=== PATIENT | female | born 1965 | race Caucasian/White ===

== ENCOUNTER 2020-11-05 12:18 | Emergency (ER) | payer BC, SELFPAY ==
[2020-11-05] VITALS (47 sets, daily range): BP systolic 85–124; BP diastolic 57–83; PULSE 60–81; RESP 9–30; TEMP 36.8; O2SAT 96–100
--- NOTE | ~2020-11-05 | XR_ITS ---
EXAMINATION: XR chest 1V portable 11/05/2020 13:33 INDICATION: Overdose. PROCEDURE: AP portable chest COMPARISON: No prior studies for comparison. FINDINGS: There is right basilar atelectasis. No focal pneumonia, edema, effusion or pneumothorax. Th e cardiomediastinal silhouette is within normal limits. There are no pleural effusions. There is no pneumothorax suspected. IMPRESSION: 1: Right basilar atelectasis. Reviewed, dictated and finalized at location A. SCHOOL VICE PRINCIPAL
--- NOTE | 2020-11-05 12:30 | PC.NURSE ---
patient is here after intentional overdose per her report and EMS report. will continue 1:1 monitoring with sitter at doorway. room has been made safe while patient being monitored due to overdose with ativan. patient on radiation monitor. has SL in right hand. sleepy but awakens easily to verbal stimuli. oriented x 4. aware of current treatment plan.
--- NOTE | 2020-11-05 12:43 | ECG_ITS ---
Measurements Intervals [place] Rate: 73 P: 70 FL: 150 QRS: 17 QRSD: 85 T: 71 QT: 379 QTc: 418 Interpretive Statements SINUS RHYTHM BASELINE ARTIFACT- V6 NORMAL ECG Electronically Signed On 11-05-2020 12:57:09 AVIATION MAINTENANCE TECHNICIAN by James Rich D.O.
[2020-11-05] MEDS: SODIUM CHLORIDE 0.9% IV 1,000 ML 999 ML IV CONT ×2 (12:50→13:45)
--- NOTE | 2020-11-05 12:52 | ED.OVERDOSE ---
HPI - Overdose General Chief Complaint: Overdose Stated Complaint: OD & SI Time Seen by Provider: 11/05/20 12:27 Source: patient Mode of arrival: EMS Limitations: no limitations History of Present Illness HPI Narrative: This patient is a 55 year old female with history of depression, fibromyalgia, and nonHodgkins' follicular lymphoma who presents for evaluation of depression and an overdose. She reports having a history of depression since her diagnosis of cancer 5 years ago. She states she has tried multiple antidepressants but will stop them because she does not think they are working. She reports suicidal ideations for a long time but she has never tried before today. Nursing reports patient admits to them taking multiple doses of ativan over an 8 hour period last night with the intention of not waking up . Nursing staff states patient made statements concerning to her PCP over the phone yesterday. They were unable to get in contact with patient today so they police were called to the house. She states she feels everything would be better if she were not alive. She reports she has felt isolated due to COVID. Her last chemo treatment was December 2019. She gets her care at [facility]. complaint: intentional overdose Related Data Allergies Allergy/AdvReac Type Severity Reaction Status Date / Time rituximab Allergy Intermediate ABDOMINAL Verified 11/05/20 12:58 PAIN Review of Systems Review of Systems: All systems reviewed & are unremarkable except as noted in HPI and below Constitutional: Constitutional: Denies chills and Denies fever(s) ENT: Denies nasal congestion Cardiovascular: Cardiovascular: Denies chest pain Respiratory: Respiratory: Denies cough and Denies dyspnea Gastrointestinal: Gastrointestinal: Denies abdominal pain, Denies nausea and Denies vomiting [facility] Past Medical History Medical History (Updated 11/07/20 @ 00:00 by Sara Wright) Depression Hyperlipemia Non-Hodgkin lymphoma Surgical History Surgical History (Updated 11/05/20 @ 12:59 by Shawna Ruiz MD) H/O: hysterectomy Social History Social History (Updated 11/05/20 @ 13:00 by Shawna Ruiz MD) Smoking status: Never smoker Alcohol intake: never Substance use type: marijuana Exam Const: General: no acute distress and alert Orientation/consciousness: patient oriented x3 HENMT: Head: normocephalic and atraumatic Face and sinus: face symmetric Mouth: Yes Normal oral and palatal mucosa present, Yes lip normal, Yes oropharynx normal and Yes moist mucous membranes Eyes: Pupils: Equal, round and reactive pupils present EOM: EOMs intact bilaterally Resp: Effort & Inspection: normal respiratory effort and no retractions Auscultation: clear to auscultation bilaterally Cardio: Rate: regular rate Rhythm: regular rhythm Heart sounds: no murmurs GI: GI Palp: Yes Soft to palpation, No Tenderness to palpation present (GI) and No Guarding due to palpation present (GI) Auscultation: normal bowel sounds Skin: General skin exam: normal color Rashes: no rashes Neuro: General: patient oriented x3, moves all extremities and CN's II-XI intact bilaterally Course Reevaluation(s) Reevaluation #1: BP 109/78 HR 67 Date: 11/05/20 Time: 14:40 Reevaluation #2: Patient has been stable. she has been ambulatory. She is medically cleared Date: 11/05/20 Time: 18:22 Reevaluation #3: Patient has been assessed by Crisis and she will be placed for inpatient psychiatric evaluation. Care to be turned over to DR. bran . Patient is awaiting covid Date: 11/05/20 Time: 21:09 Vital Signs Vital signs: Vital Signs Pulse Rate 81 11/05/20 12:26 Respiratory Rate 15 11/05/20 12:26 Temperature 98.3 F 11/05/20 12:28 Pulse Rate 83 11/06/20 00:39 Respiratory Rate 18 11/06/20 00:39 Blood Pressure 112/76 11/06/20 00:39 Pulse Oximetry 95 11/06/20 00:39 MDM - Overdose Lab Data At
--- NOTE | 2020-11-05 12:56 | PC.NURSE ---
patient here after taking 10 ativan 1mg tablets overnight. does verbalize she didn't want to wake up . in treatment for 5 years for non-hodgkin's lymphoma. family issues also. Dr. Ruiz in room now. sitter at bedside. precaustions in process. cafeteria supervisor aware. assessments documented. denies pain at this time. warm blankets given. on monitors now due to overdose. will contact Poison Control.
[2020-11-05 13:11] LABS: Basophils Percent Auto 0.5 % (0.2-1.2); Eosinophils Percent Auto 0.4 % (0-4.4); Hematocrit 37.2 % (37.0-47.0); Immature Granulocyte Absolute 0.01 K/mm3 (0.00-0.031); Immature Granulocyte Percent A 0.2 % (0-0.5); Lymphocytes Absolute Auto 1.02 K/mm3 (0.9-3.2); Lymphocytes Percent Auto 17.9 % (18.3-44.2); Mean Corpuscular HGB Conc 34.9 g/dl (32-36); Mean Corpuscular Hemoglobin 34.9 pg (26-34); Mean Platelet Volume 10.1 fl (7.4-10.4); Monocytes Absolute Auto 0.3 K/mm3 (0.1-0.6); Neutrophils Absolute Auto 4.3 K/mm3 (1.3-6.7); Platelet Count Result 203 k/mm3 (150-375); Red Blood Count 3.72 M/mm3 (4.2-5.4); Red Cell Distribution Width 11.9 % (11.5-14.5); White Blood Count 5.7 K/mm3 (4.5-10.0)
[2020-11-05 13:19] LABS: INR 0.9; Prothrombin Time 12.9 Seconds (11.1-14.7)
[2020-11-05 13:20] LABS: Partial Thromboplastin Time 24.3 SECONDS (22.3-36.8)
[2020-11-05 13:28] LABS: Alanine Aminotransferase 14 U/L (4-35); Albumin Level 4.1 g/dL (3.5-5.1); Alkaline Phosphatase 56 U/L (38-126); Anion Gap 6 mmol/L (8-16); Aspartate Amino Transferase 21 U/L (14-36); Bilirubin,Total 0.6 mg/dL (0.2-1.3); Blood Urea Nitrogen 20 mg/dL (7-17); Calcium 9.4 mg/dL (8.4-10.2); Carbon Dioxide 33 mmol/L (22-30); Chloride 98 mmol/L (98-107); Estimated CRCL calculation 59 ml/min; Estimated Glomerular Filt Rate > 60; Glucose 104 mg/dL (65-105); Potassium 4.4 mmol/L (3.4-5.0); Sodium 137 mmol/L (137-145)
--- NOTE | 2020-11-05 13:30 | PC.NURSE ---
continue 1:1 monitoring with sitter at doorway. room has been made safe while patient being monitored due to overdose with ativan. patient on cafeteria monitor. has SL in right hand. sleepy but awakens easily to verbal stimuli. oriented x 4. aware of current treatment plan.
--- NOTE | 2020-11-05 13:45 | PC.NURSE ---
patient's SL in right hand. advised to keep hand straight to help with IVF. IVF now on pump. sitter at doorway. patient on rn cardiac cath.
[2020-11-05 13:47] LABS: Lactic Acid Reflex 0.9 mmol/L (0.7-2.1)
--- NOTE | 2020-11-05 14:05 | PC.NURSE ---
patient's called ED. left message with unit secy that patient did contact him from this ED on her arrival to let him know she is here for treatment but that we did take her cell phone. wants to know why patient is here. patient does given this RN verbal consent to discuss her condition and care with her if he calls back.
[2020-11-05 14:09] LABS: Acetaminophen < 10 ug/mL (10-30); Ethanol < 10 mg/dL (<10); Salicylate < 1.0 mg/dL (2-20)
--- NOTE | 2020-11-05 14:30 | PC.NURSE ---
continue 1:1 monitoring with sitter at doorway. room has been made safe while patient being monitored due to overdose with ativan. 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 has SL in right hand. sleepy but awakens easily to verbal stimuli. oriented x 4. aware of current treatment plan.
--- NOTE | 2020-11-05 15:30 | PC.NURSE ---
continue 1:1 monitoring with sitter at doorway. room has been made safe while patient being monitored due to overdose with ativan. patient on cardiac rn. has SL in right hand. sleepy but awakens easily to verbal stimuli. oriented x 4. aware of current treatment plan.
--- NOTE | 2020-11-05 16:15 | PC.NURSE ---
per Dr. Ruiz, patient is medically cleared. ok to call Crisis. spoke with Anisa at [facility]. she will notify the mgmt consultant intake staff member to come see patient here in the ED.
[2020-11-05 16:16] LABS: Add Urine Microscopic? NO; Appearance Urine Clear (Clear); Bilirubin Urine Negative (Negative); Blood Urine Negative (Negative); Color Urine Yellow (Yellow); Glucose Urine UA Negative (Negative); Ketones Urine Negative (Negative); Leukocyte Esterase Ur Negative LEU/UL (Negative); Nitrate Urine Negative (Negative); Protein Urine Negative (Negative); Specific Grav Ur 1.018 (1.001-1.035); Urobilinogen Urine Negative mg/dL (<2.0)
[2020-11-05 16:27] LABS: Amphetamine Screen Urine Negative (Negative); Barbiturate Screen Urine Negative (Negative); Benzodiazepines Screen Urine Negative (Negative); Cannabinoid Screen Urine Positive (Negative); Cocaine Screen Urine Negative (Negative); Methadone Screen Urine Negative (Negative); Opiate Screen Urine Positive (Negative); Phencyclidine Screen Urine Negative (Negative)
--- NOTE | 2020-11-05 16:30 | PC.NURSE ---
continue 1:1 monitoring with sitter at doorway. room has been made safe while patient being monitored due to overdose with ativan. patient on wrong address clerk. has SL in right hand. sleepy but awakens easily to verbal stimuli. oriented x 4. aware of current treatment plan.
--- NOTE | 2020-11-05 17:30 | PC.NURSE ---
continue 1:1 monitoring with sitter at doorway. room has been made safe while patient being monitored due to overdose with ativan. patient on secured entrance monitor. has SL in right hand. sleepy but awakens easily to verbal stimuli. oriented x 4. aware of current treatment plan.
--- NOTE | 2020-11-05 18:00 | PC.NURSE ---
sleeps most of the time. sitter at doorway. awakens easily. waiting for crisis to come for evaluation. on line technician. orange juice given as requested. denies any other needs.
--- NOTE | 2020-11-05 18:27 | PC.NURSE ---
crisis in room now.
--- NOTE | 2020-11-05 18:30 | PC.NURSE ---
continue 1:1 monitoring with sitter at doorway. room has been made safe while patient being monitored due to overdose with ativan. patient on radiographer cardiac catheterization. has SL in right hand. sleepy but awakens easily to verbal stimuli. oriented x 4. aware of current treatment plan.
--- NOTE | 2020-11-05 18:50 | PC.NURSE ---
spoke with Cas at [facility]. no further treatment recommendations. call with any condition changes. they are signing off the case. case #[id number]. Covid swab done and pending.
--- NOTE | 2020-11-05 19:08 | PC.NURSE ---
spoke with patient's . helpful with some insight into patient's history and current condition. patient has had depression for many years. physician has been adjusting medications in an attempt in the past. states patient did have some success on lexapro. at some point was switched to Effexor but felt numb . then switched to Cymbalta which made her feel suicidal . patient has not been on any antidepressant since then. just left [place] Wednesday to go back to [place] for work. spoke with jian last night on video chat. advised her then to start back on Lexapro. saw her take the pill and advised her to reach out to her PCP.
--- NOTE | 2020-11-05 19:30 | PC.NURSE ---
continue 1:1 monitoring with sitter at doorway. room has been made safe while patient being monitored due to overdose with ativan. 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 has SL in right hand. sleepy but awakens easily to verbal stimuli. oriented x 4. aware of current treatment plan.
--- NOTE | 2020-11-05 19:58 | PC.NURSE ---
patient medically cleared by MD. monitors removed. patient ambulated to restroom. patient allowed to use cellphone now while monitored by [facility] to contact her .
--- NOTE | 2020-11-05 20:30 | PC.NURSE ---
continue 1:1 monitoring with sitter at doorway. room has been made safe while patient being monitored due to overdose with ativan. patient on color television console monitor. has SL in right hand. sleepy but awakens easily to verbal stimuli. oriented x 4. aware of current treatment plan.
--- NOTE | 2020-11-05 21:03 | PC.NURSE ---
SL discontinued. no longer needed. patient has been medically cleared. waiting for placement at inpatient psych facility. patient has been updated a few times. patient's has been updated by this RN and the patient. patient's cell phone back in her belongings bag. patient transferred to room 15 per protocol. sitter at bedside for 1:1 monitoring.
--- NOTE | 2020-11-05 22:23 | PC.NURSE ---
[facility] called and they do not have a room
[2020-11-06 00:39] VITALS: BP 112/76; PULSE 83; RESP 18; O2SAT 95
--- NOTE | 2020-11-06 02:13 | PC.NURSE ---
called [facility] to request transport. ETA [phone]
[2020-11-06 17:42] LABS: SARS-CoV-2 RNA PCR Negative
== END 2020-11-06 03:42 ==
PROVIDERS: Emergency Provider General Practice
DX: F32.9 Major depressive disorder, single episode, unspecified (principal); R45.851 Suicidal ideations; Z20.822 Contact with and (suspected) exposure to COVID-19; E78.5 Hyperlipidemia, unspecified; Z85.71 Personal history of Hodgkin lymphoma
CPT/HCPCS: 36415; 71045; 80053; 80307; 81003; 82948; 83605; 83735; 85025; 85610; 85730; 93005; 96360; 96361; 99285; C9803; J7030; U0003

== ENCOUNTER 2025-04-02 04:03 | Inpatient (IN) | payer MEDICARE, SELFPAY ==
[2025-04-02] VITALS (49 sets, daily range): BP systolic 81–199; BP diastolic 64–142; PULSE 83–140; RESP 14–34; TEMP 36.3–37.1; O2SAT 95–100; BMI 24.3
--- NOTE | ~2025-04-02 | XR_ITS ---
EXAMINATION: XR chest ET placement DATE: 04/02/2025 08:44 INDICATION: Assess endotracheal tube placement TECHNIQUE: frontal view of the chest was obtained. COMPARISON: Chest radiograph dated 04/02/2025 FINDINGS: Endotracheal tube tip is 3.4 cm above the ricky. Nasogastric tube extends below the left hemidiaphr agm with distal tip collimated off the study. Lungs are clear with no focal airspace opacities, pulmonary edema, pleural effusion or pneumothorax. The cardiomediastinal silhouette is normal. Bilateral breast implants. IMPRESSION: 1. Endotracheal tube tip 3.4 cm above the ricky. No acute cardiopulmonary disease. Reviewed, dictated and finalized at location B. IMPRESSION: 1. Endotracheal tube tip 3.4 cm above the ricky. No acute cardiopulmonary dise ase.
--- NOTE | ~2025-04-02 | US_ITS ---
US abdomen limited INDICATION: Elevated liver function test PROCEDURE: Realtime right upper abdominal ultrasound. COMPARISON: No prior studies for comparison. FINDINGS: The pancreas is normal without focal mass or pancreatic ductal dilation. Liver echotexture is normal without focal mass or intrahepatic biliary dilatation. There is normal directional flow i n the portal vein. Gallbladder is moderately distended. Common bile duct measures 3 mm. IMPRESSION: 1: Unremarkable limited abdominal ultrasound. Reviewed, dictated and finalized at location A.
--- NOTE | ~2025-04-02 | XR_ITS ---
EXAMINATION: XR chest 1V portable Exam Date/Time: 04/06/2025 17:27 CDT HISTORY: increased work of breathing Comparison: 04/06/2025. RESULT: Lines, tubes, and devices: Right IJ central line terminating at the cavoatrial junction. Interval ex tubation. Interval NG tube removal. Lungs and pleura: Clear. Cardiomediastinal silhouette: Stable. Other: No acute osseous or upper abdominal finding. IMPRESSION: No acute cardiopulmonary process. Reviewed, dictated and finalized at location K.
--- NOTE | ~2025-04-02 | CT_ITS ---
EXAMINATION: CTA neck DATE: 04/02/2025 09:05 INDICATION: Complaint of throat closing. Wheezing without stridor. TECHNIQUE: Computed tomographic angiography (CTA) of the neck was performed with 100 mL Omnipaque-350 intravenous contrast. Multiplanar reconstructions and maximum intensity projection 3D-reconstruction s were created by the technologist on a separate workstation. Automated exposure control and iterativ e reconstruction technique were employed. The dose-length product was 574.71 mGy-cm. COMPARISON: None. FINDINGS: Small amount of nonhemodynamically significant atherosclerotic plaque along the normal caliber aortic arch with no dissection. The great vessels arising from the arch are unremarkable. The bilateral ext racranial vertebral arteries are codominant with no hemodynamically significant stenosis. There is no evident atherosclerotic plaque with 0% stenosis of the right and left carotid bulbs relative to norm al distal artery lumen diameter (NASCET criteria). Endotracheal tube terminates in the thoracic trach ea at approximately level of the midpoint of the aortic arch. Nasogastric tube extends caudally along the esophagus and below the inferior margin of the [id number]-up-hypy. Visualized upper lungs are clear. There is some fluid/mucus layering posteriorly in the nasopharynx. Prevertebral/retropharyngeal soft tissues are unremarkable. Normal epiglottis. Heterogeneous appearance to the thyroid coarse calcifica tions within a couple left thyroid nodules the larger measuring 1.3 cm. Cervical soft tissues are oth erwise unremarkable with no evident abscess or pathologically enlarged lymphadenopathy. Orbits are no rmal. Mild mucosal thickening the ethmoid sinuses. Mastoid air cells and middle ear cavities are stacey r. Visualized portions of the cerebral arteries are unremarkable with no aneurysm, hematoma or shift stenosis or thrombosis. The bilateral A1 and P1 segments are patent. There are also patent bilateral posterior communicating arteries. IMPRESSION: 1. No evident atherosclerotic plaque with 0% stenosis of the right and left carotid bulbs relative to normal distal artery lumen diameter (NASCET criteria). 2. Multinodular goiter. Could consider thyroid ultrasound for risk stratification. Reviewed, dictated and finalized at location B. IMPRESSION: 1. No evident atherosclerotic plaque with 0% stenosis of the right and left car otid bulbs relative to normal distal artery lumen diameter (NASCET criteria). 2. Multinodular goiter. Could consider thyroid ultrasound for risk stratificati on.
--- NOTE | ~2025-04-02 | US_ITS ---
US thyroid INDICATION: Multinodular goiter TECHNIQUE: Real-time sonographic images of the thyroid gland were obtained. COMPARISON: No prior studies for comparison. FINDINGS: Study extremely limited due to patient condition and intubation. Thyroid gland is somewhat heterogeneous with multiple small subcentimeter masses. No dominant mass is identified which meets so nographic criteria for biopsy. Right thyroid lobe measures 4.1 x 2 x 1.9 cm. The left thyroid lobe m easures 5.3 x 1.8 x 2.2 cm. Normal vascular flow is present. IMPRESSION: 1. Limited study. Multinodular goiter. Recommend repeat thyroid ultrasound when the patient's condit ion permits. Reviewed, dictated and finalized at location A. IMPRESSION: 1. Limited study. Multinodular goiter. Recommend repeat thyroid ultrasound whe n the patient's condition permits.
--- NOTE | ~2025-04-02 | CT_ITS ---
Clinical Indication: Asthma exacerbation, transaminitis CT Scan of the Chest, Abdomen, and Pelvis with Contrast: Technique: Contiguous sections were acquired throughout the chest, abdomen, and pelvis after intraven ous administration of 100 cc of Omnipaque 350. Dose reduction technique was used on this scan by kathy herndon automated exposure control and iterative reconstruction technique. The dose-length product (DL P) was 1014.89 mGy-cm. Findings: There is no evidence of any significant mediastinal, hilar or axillary lymphadenopathy. The mediastin al soft tissues appear normal. No pulmonary embolus. No aortic aneurysm or dissection. There is no evidence of pleural or pericardial effusion. The lungs are clear. No pulmonary nodules or infiltrates are noted. The liver, spleen, pancreas, gallbladder, adrenals and kidneys are within normal limits. No evidence of aortic aneurysm. No lymphadenopathy. No bowel obstruction or bowel wall thickening. There is no evidence to suggest acute appendicitis. Urinary bladder is unremarkable. No pelvic mass seen. No ascites. Impression: No significant abnormalities seen. Reviewed, dictated and finalized at [facility]. Impression: No significant abnormalities seen.
--- NOTE | ~2025-04-02 | XR_ITS ---
EXAMINATION: XR chest 1V portable DATE: 04/07/2025 05:34 INDICATION: Asthma exacerbation TECHNIQUE: frontal view of the chest was obtained. COMPARISON: Chest radiograph dated 04/06/2025 FINDINGS: Right internal jugular central venous catheter with distal tip at the superior cavoatrial junction. N o focal airspace opacities, pulmonary edema, pleural effusion or pneumothorax. The cardiomediastinal silhouette is normal. Visualized bones and soft tissues are unremarkable. IMPRESSION: 1. No acute cardiopulmonary disease. Reviewed, dictated and finalized at location A.
--- NOTE | ~2025-04-02 | XR_ITS ---
Portable chest x-ray Comparison: 04/02/2025 Clinical History: Asthma Findings: Endotracheal tube, NG tube, and right IJ line are in place. Lungs are clear, without focal consolidation or pleural effusion. Cardiomediastinal silhouette is stable. Bones and soft tissues a re unremarkable. Impression: Clear lungs. Support tubes, as above. Reviewed, dictated and finalized at location . Impression: Clear lungs. Support tubes, as above.
--- NOTE | ~2025-04-02 | XR_ITS ---
Portable chest x-ray Comparison: 04/04/2025 Clinical History: Asthma exacerbation Findings: Endotracheal tube, NG tube, and right IJ line are in place. Lungs remain clear. Cardiomed iastinal silhouette is stable. Bones and soft tissues are unremarkable. Impression: Stable support tubes. Clear lungs. Reviewed, dictated and finalized at location . Impression: Stable support tubes. Clear lungs.
--- NOTE | ~2025-04-02 | XR_ITS ---
Portable chest x-ray Comparison: 11/05/2020 Clinical History: Shortness of breath Findings: Lungs are clear, without focal consolidation or pleural effusion. Cardiomediastinal silho uette is stable. Bones and soft tissues are unremarkable. Impression: Normal chest. Reviewed, dictated and finalized at location . Impression: Normal chest.
--- NOTE | ~2025-04-02 | XR_ITS ---
Portable chest x-ray Comparison: 04/03/2025 Clinical History: Asthma exacerbation Findings: Endotracheal tube, NG tube, and right IJ line are in place. Lungs remain clear. Cardiomed iastinal silhouette is stable. Bones and soft tissues are unremarkable. Impression: Stable support tubes. Clear lungs. Reviewed, dictated and finalized at location . Impression: Stable support tubes. Clear lungs.
--- NOTE | ~2025-04-02 | XR_ITS ---
XR chest port-a-cath/central 04/02/2025 12:44 Indication: Central line placement Procedure: AP portable chest Comparison: Comparison to multiple prior studies sequentially, with oldest reviewed study dated 03/2021. Findings: Endotracheal tube tip approximately 4.7 cm above the ricky. Heart size normal. Right IJ ce ntral line tip in the SVC. NG tube in the stomach. No pneumothorax. No focal airspace consolidation. Impression: 1: No acute cardiopulmonary disease. Reviewed, dictated and finalized at location A. Impression: 1: No acute cardiopulmonary disease.
--- NOTE | ~2025-04-02 | XR_ITS ---
Portable chest x-ray Comparison: 04/05/2025 Clinical History: Asthma exacerbation Findings: Endotracheal tube, NG tube, and right IJ line are unchanged. Lungs remain clear. Cardiome diastinal silhouette is stable. Bones and soft tissues are unremarkable. Impression: Stable support tubes. Clear lungs. Reviewed, dictated and finalized at location . Impression: Stable support tubes. Clear lungs.
--- NOTE | 2025-04-02 04:04 | PC.NURSE ---
Patient at edge of bed, and patient states I am peeing and patient urinated on stretcher and saturated her clothes. Patient was changed out of her clothes and linens changed.
--- NOTE | 2025-04-02 04:11 | ECG_ITS ---
Test Date: 2025-04-02 04:31:38 Measurements Intervals [place] Rate: 115 P: 78 VA: 175 QRS: -37 QRSD: 93 T: 86 QT: 304 QTc: 422 Interpretive Statements SINUS TACHYCARDIA LEFT AXIS DEVIATION POSSIBLE RIGHT ATRIAL ENLARGEMENT LEFT ATRIAL ENLARGEMENT CANNOT R/O SEPTAL INFARCT, AGE INDETERMINATE BASELINE ARTIFACT- I, II, III, , AVR, AVL, AVF, V1-V6 ABNORMAL ECG No previous ECG available for comparison Electronically Signed On 04-02-2025 06:14:48 CDT by James Rich D.O.
[2025-04-02] MEDS: LORazepam INJ (*CRX) 2 MG/ML VIAL 1 MG IV PUSH (04:15)
--- NOTE | 2025-04-02 04:21 | PC.NURSE ---
Patients duo katarina finished that EMS put patient on, patient placed on 15L via NRB for RA sat of 85%. ERP notified. Respiratory arrives to placed patient on bipap.
[2025-04-02 04:22] LABS: Base Excess ABG 1.9 mEq/l (+/-2.0); Fractional Inspired Oxygen 100 %; PO2 ABG 53.2 mmHg (80.0-100.0); PO2 FiO2 Ratio Arterial Blood 0.53 %
[2025-04-02 04:27] LABS: Basophils Percent Auto 0.1 % (0.2-1.2); Hematocrit 43.7 % (37.0-47.0); Hemoglobin 14.9 g/dL (12.0-15.0); Immature Granulocyte Absolute 0.09 K/mm3 (0.00-0.031); Immature Granulocyte Percent A 0.4 % (0-0.5); Lymphocytes Absolute Auto 4.37 K/mm3 (0.9-3.2); Lymphocytes Percent Auto 18.3 % (18.3-44.2); Mean Corpuscular HGB Conc 34.1 g/dl (32-36); Mean Corpuscular Hemoglobin 34.3 pg (26-34); Mean Corpuscular Volume 100.7 fl (80-100); Mean Platelet Volume 10.4 fl (7.4-10.4); Monocytes Absolute Auto 1.6 K/mm3 (0.1-0.6); Monocytes Percent Auto 6.7 % (2.6-8.5); Neutrophils Absolute Auto 17.8 K/mm3 (1.3-6.7); Neutrophils Percent Auto 74.5 % (45.5-73.1); Platelet Count Result 287 k/mm3 (150-375); Red Blood Count 4.34 M/mm3 (4.2-5.4); Red Cell Distribution Width 13.5 % (11.5-14.5); White Blood Count 23.9 K/mm3 (4.5-10.0)
--- NOTE | 2025-04-02 04:31 | PC.NURSE ---
Respiratory in room placing patient on bipap.
--- OUTSIDE RECORDS SUMMARY | 2025-04-02 04:31 | XMS_ITS | Clinical Summary ---
Author Organization [facility] Address [address] [place] [address] Care Team Providers Care Sizing Sprayer Name Role Phone Unavailable Primary Care Provider Unavailabl e Allergies No known active allergies Medications HYDROcodone-irma taminophen (NORCO) 5-325 mg tablet take 1 to 2 tablets by mouth every 6 hours if needed for pain 03/27/2021 Active Active Problems Problem Noted Date Diagnosed Date Fibromyalgia 08/03/2020 Overview (06/02/2021): Last Assessment & Plan: Poor response to Effexor, patient has been working to discontinue medications Will start duloxetine today Patient had discussed duloxetine with Rheumatology and is interested in trying for management chronic pain and depression Follicular non-Hodgkin's lymphoma 08/22/2015 Overview (06/02/2021): Last Assessment & Plan: Outpatient follow-up with Oncology. She states she has a CT scheduled for August 22. Social History Tobacco Use Types Packs/Day Years Used Date Smoking Tobacco: Never Assessed Comments Unknown Sex and Gender Information Value Date Recorded Sex Assigned at Not on file Legal Sex Female 1:25 AM PST Gender Identity Not on file Sexual Orientation Not on file Last Filed Vital Signs Vital Sign Reading Time Taken Comments Blood Pressure 114/68 06/02/2021 1:02 PM PDT Pulse 74 06/02/2021 1:02 PM PDT Temperature - - Respiratory Rate - - Oxygen Saturation - - Inhaled Oxygen Concentration - - Weight - - Height - - Body Mass Index - - Plan of Treatment Health Maintenance Due Date Last Done Comments Dental Oral Exam 06/17/2022 12/17/2021, 12/2020, 01/15/2020, Additional history exists Dental Prophylaxis 06/17/2022 12/17/2021, 0 06/02/2021, 07/11/2019, Additional history exists Dental X-Ray: Bitewings 06/17/2022 12/17/2021 Dental X-Ray: Full Mouth 06/15/2023 06/14/2020, 06/2019 Dental X-Ray: Panoramic 06/15/2023 06/14/2020, 01/06 Meningococcal B Vaccine Aged Out No l onger eligible based on patient's age to complete this topic Procedures Procedure Name Priority Date/Time Associated Diagnosis Comments PROPHYLAXIS - ADULT Routine 12/17/2021 1 :15 PM PST PERIODIC ORAL EVALUATION - ESTABLISHED PATIENT Routine 12/17/2021 1:00 PM PST PANORAMIC RADIOGRAPHIC IMAGE Routine 01/06/2019 12:00 AM PST INTRAORAL - COMPREHENSIVE SERIES OF RADIOGRAPHIC IMAGES Routine 01/06/2019 12:00 AM PST from Last 3 Months or Most Recently Relevant to Health Maintenance Insurance [employer] PPO [employer] P[employer]
--- OUTSIDE RECORDS SUMMARY | 2025-04-02 04:31 | XMS_ITS ---
Author Organization [facility] Address [address] [place] [address] Care Team Providers Care Can Repairer Name Role Phone Zakia Busch MD Unavailable [phone] Thomas Morrow MD Primary Care Provider [phone] Active Problems Problem Noted Date Diagnosed Date Lumbar radiculopathy 02/12/2025 Neck pain 12/08/2024 Low back pain, non-specific 12/08/2024 Cervical radiculopathy 12/08/2024 Assessment & Plan (01/30/2025 2:33 PM CDT): Will continue to follow with pain management and neurosurgery. Will await appointments in a few weeks for additional treatment. Thyroid nodule 11/09/2024 Assessment & Plan (11/09/2024 10:51 AM STAFF READINESS OFFICER): Due for FNA later this week and will follow response. NO new dysphagia. Reivweed TFTs. YVONNE (generalized anxiety disorder) 11/09/2024 Assessment & Plan (02/21/2025 9:36 AM CDT): See above Assessment & Plan (11/09/2024 10:52 AM STAFF READINESS OFFICER): INtroduced regiemen of busprione to wellbutrin and reivewed impact of this on depression and decreased anxiety impact. Left sided numbness 11/02/2024 Assessment & Plan (11/02/2024 10:07 PM STAFF READINESS OFFICER): Review of CT imaging and x-ray imaging available online, findings suggestive of nerve root impingement as possible cause of current presentation Supportive management Outpatient pain management referral versus orthopedic surgery spine referral TIA (transient ischemic attack) 11/02/2024 Assessment & Plan (11/09/2024 10:50 AM STAFF READINESS OFFICER): COntinues on regiemn. WIll folwo response. Reivwed hostpial course and imaing studies. Assessment & Plan (11/02/2024 10:07 PM STAFF READINESS OFFICER): CT head negative Telemetry Neurologic checks PTOT evaluate Swallow study evaluation --- during initial evaluation, patient witnessed drinking water without difficulty, pending official documentation Aspirin MR imaging per Neurology Sciatica of left side 11/02/2024 Assessment & Plan (11/02/2024 10:09 PM STAFF READINESS OFFICER): As referred by patient, present for many months to years Imaging study online shows possible nerve root impingement L3-L4 Supportive care PTOT evaluate Outpatient pain management versus orthopedic surgery spine referral Hospital discharge follow-up 10/24/2024 Assessment & Plan (10/24/2024 9:56 AM STAFF READINESS OFFICER): IMary NP have personally reviewed pertinent inpatient and/or ED records, including discharge medications and [employer] if applicable. This patient's discharge medication list has been reviewed and reconciled with her outpatient medication list and has also been reviewed with patient and/or caregiver. I have noted any changes. Abnormal imaging of thyroid 10/24/2024 Assessment & Plan (11/02/2024 10:11 PM STAFF READINESS OFFICER): As referred by patient during evaluation Patient is requesting further evaluation and possible intervention. At present time, patient has indicated that she is actively taking steroid treatments in addition to coordination with IVIG treatment is provided by oncologist at [facility]. As referred by patient, she has experienced episodes of swelling while receiving current management. No swelling of tongue or neck identified, patient is not identified with any difficulty breathing or swallowing ---patient had self-directed swallowing water while performing examination which she tolerated Patient is instructed she would need possible biopsy unfortunately would require coordination of this management with Interventional Radiology with both her oncologist and upcoming gallery assistant for procedure --- patient is instructed to follow-up with the specialist and coordinate this testing at tertiary facility Assessment & Plan (10/24/2024 9:57 AM STAFF READINESS OFFICER): TSH and thyroid ultrasound ordered. Will plan accordingly once results are received. Acute cough 10/22/2024 Combined variable immunodeficiency 10/17/2024 Assessment & Plan (10/17/2024 12:30 PM STAFF READINESS OFFICER): Continue management with oncology, will establish Allergy/immunology in the next few weeks. Chronic cough 10/17/2024 Assessment & Plan (10/17/2024 12:32 PM STAFF READINESS OFFICER): Afebrile in office today. No acute distress, speaking in full and complete sentences. Denies any changes to appetite. Reviewed inhaler use, Symbicort as maintenance therapy and albuterol p.r.n.. COVID, influenza and RSV testing negative in office today. [facility]. Will avoid additional ABX for now as patient recently completed course of amoxicillin for possible strep throat. Recommend follow-up with pulmonology as well. Reviewed signs and symptoms warranting immediate emergency evaluation. Dysphagia 09/07/2024 Assessment & Plan (10/30/2024 11:22 AM STAFF READINESS OFFICER): Take Pantoprazole 40 mg (Protonix), 30-60 minutes prior to any other medication, food or fluids other than water Continue Pepcid Start Medrol dose pack with a meal Laryngopharyngeal reflux (LPR) 09/07/2024 Assessment & Plan (01/01/2025 2:44 PM STAFF READINESS OFFICER): Take Pantoprazole 40 mg (Protonix), Omeprazole (Prilosec) 40 mg 30-60 minutes prior to any other medication, food or fluids other than water Increase Pepcid 40 to every day at bedtime Finish Augmentin twice daily with a meal Continue physical therapy Room temperature fluids Need for immunization against influenza 08/23/20 Assessment & Plan (08/23/2024 11:23 AM CDT): Flu vaccine given in office. Mixed hyperlipidemia 08/23/2024 Assessment & Plan (08/23/2024 11:24 AM CDT): POCT with elevated LDL discussed diet changes and need for lowering due to microvascular ischemic disease noted on MRI. Will continue to monitor LDL every 6 months. Chronic cerebral ischemia 08/23/2024 Assessment & Plan (08/23/2024 11:57 AM CDT): Will continue to monitor and discuss Statin initiation if chloesterol is still elevated. Discussed importance of blood pressure control. Non-seasonal allergic rhinitis 08/07/2024 Assessment & Plan (08/07/2024 9:58 AM CDT): Take Pantoprazole 40 mg (Protonix) 30-60 minutes prior to any other medication, food or fluids other than water Nasal saline spray (Simply saline, Little Remedies, [place], Frederic) 2 second sprays or 2 squeezes into each nostril while looking down over the sink, do not need to sniff in. Followed by Flonase 2 sprays into each nostril while looking down over the sink, do not sniff in or blow nose after use for at least 30 minutes daily Switch to Cetirizine 10 mg from Claritin Blood allergy testing Follow up in 2 months, consider adding Pepcid 40 mg back to medications as she reported not taking it currently Family history of colon cancer 07/17/2024 Encounter for screening colonoscopy 07/17/2024 Facet arthropathy, lumbosacral 07/13/2024 Assessment & Plan (07/13/2024 3:37 PM CDT): X-ray result reviewed with patient. Declined pain management and PT referral due to no benefit in the past. Encouraged to get adjunct trainer if patient thinks it will help with muscle building. Lipid screening 07/13/2024 Assessment & Plan (07/13/2024 3:37 PM CDT): Lipid panel in office ordered. Stable will recheck and monitor. Gastroesophageal reflux disease without esophagi tis 07/13/2024 Assessment & Plan (07/13/2024 3:38 PM CDT): Experiencing bloating will add Famotidine and GasX to regimen and continue Pantoprazole. Attention deficit hyperactiv ity disorder (ADHD), combined type 07/13/2024 Assessment & Plan (02/21/2025 9:36 AM CDT): Stable and well controlled. Will continue on Adderall. Will continue to monitor. Assessment & Plan (08/23/2024 11:01 AM CDT): Well controlled on current dose and will continue on Adderall. Assessment & Plan (07/13/2024 3:38 PM CDT): Adderall reordered will follow in 1 month to check response. Colon cancer screening 07/13/2024 Assessment & Plan (07/13/2024 3:38 PM CDT): GI referral placed for C-scope Chronic post-traumatic headache, not intractable 07/13/2024 Assessment & Plan (01/30/2025 2:33 PM CDT): Still having headaches and increasing in intensity. MRI was negative for concerning findings. With other spinal issues may be related to compression. Will consider abortive and preventative if no treatment by neurosurgery or pain. Assessment & Plan (07/13/2024 3:39 PM CDT): MRI with and without contrast of brain ordered if not approved or MRI shows abnormality will refer to Neuro for further evaluation. BMI 27.0-27.9,adult 07/13/2024 Assessment & Plan (02/21/2025 9:36 AM CDT): Weight appropriate for patient. Assessment & Plan (01/30/2025 2:14 PM CDT): Weight appropriate for patient. Assessment & Plan (08/23/2024 11:01 AM CDT): Continue heart healthy diet and lifestyle. Advised 150 min/week of aerobic exercise. Assessment & Plan (07/13/2024 3:40 PM CDT): Encouraged heart healthy lifestyle and diet. Advised 150 min/week of aerobic exercise. Chronic bronchitis, unspecified chronic bronchit is type 03/13/2024 Assessment & Plan (02/21/2025 9:36 AM CDT): Stable and controlled. No recent flare ups. Having some increased sputum production and SOB. Will increase Symbicort back to 160 instead of 80 like she was given at pharmacy. Will continue to monitor. Moderate persistent asthma without complication 08/23/2023 Assessment & Plan (02/21/2025 9:36 AM CDT): Having increased use of Symbicort due to getting a lower dose from the pharmacy at last refill. Will resent in Symbicort with correct dosage. Will continue with Albuterol inhaler PRN. Will continue to monitor. Orders: budesonide-formoteroL (SYMBICORT) 160-4.5 mcg/actuation inhaler; Inhale 2 puffs 2 (two) times a day Rinse mouth with water after use. Do not swallow. Assessment & Plan (10/24/2024 9:57 AM STAFF READINESS OFFICER): Improved. Continue with inhaler. Red flags reviewed. Assessment & Plan (10/17/2024 12:29 PM STAFF READINESS OFFICER): Reviewed maintenance versus rescue inhaler. Instructed to continue symbicort 2 puffs bid and use albuterol as needed. Continue Singulair as well as cetirizine. Assessment & Plan (11/04/2023 10:27 AM STAFF READINESS OFFICER): Chemo-associated Pred course x 3 days Zpak sent Start probiotic Montelukast start as well Labs as ordered PFT ordered as well ([facility]) Assessment & Plan (08/23/2023 2:01 PM CDT): Suspect this may be contributing to the ongoing cough. Using prn inhaler once daily, sees relief. Will trial daily inhaler, Advair. Education provided. CXR to rule out infectious process but low suspicion as not much relief or improvement with the Doxycycline. Acute appendicitis, unspecified acute appendicit is type 06/07/2023 Perimenopause 05/31/2023 Assessment & Plan (08/23/2023 1:58 PM CDT): Not seeing much improvement on the Estradiol. Will get updated labs. Assessment & Plan (05/31/2023 12:37 PM CDT): Patient reports she continues to have hot flashes; emotional changes in weight gain History of total hysterectomy Will start hormone replacement therapy, since patient is post hysterectomy, does not need progesterone Start estradiol 1 mg daily Neural foraminal stenosis of lumbar spine 2022 Assessment & Plan (08/23/2023 2:07 PM CDT): Patient previously was on Morphine, discussed that I cannot manage usp medications. Discussed pain management and she is agreeable. Referral placed. Assessment & Plan (05/31/2023 12:38 PM CDT): Uses ice and Advil for symptom relief; no relief with topical therapies Continue with conservative therapies, work on weight loss possible relief Assessment & Plan (02/02/2023 3:56 PM CDT): Continues to have low back pain; limited in activities; cannot ride bike No relief with PT or child care sitter Good relief with TENS encourage use of TENS; would like to wait on spinal surgery referral Encourage regular activity; continue with home exercises to relieve pain Hypogammaglobulinemia 09/17/2022 CVID (common variable immunodeficiency) 09/17/20 Assessment & Plan (11/09/2024 10:49 AM STAFF READINESS OFFICER): COntinue f/u. Rivwed labowkr with recent hospitalizations. Immunocompromised, acquired 07/16/2022 Hypertension, essential 05/11/2022 Assessment & Plan (05/31/2023 12:38 PM CDT): Blood pressure at target today; patient reports not taking any medications No chest pain or pressure Continue to monitor Assessment & Plan (02/02/2023 4:07 PM CDT): Stable, well controlled, bp at target Continue Propranolol 20 mg daily Assessment & Plan (07/21/2022 5:00 PM CDT): Blood pressure mildly elevated today; patient reports she is taking diuretic [id number] Patient checks at home, generally running normal levels at home Will continue to monitor, if persistently high especially high at home, would recommend starting antihypertensives Assessment & Plan (05/11/2022 4:55 PM CDT): Patient reports elevated blood pressures at home; today blood pressure was high normal Patient currently on bupropion 200 mg daily, which may cause elevated blood pressures Given patient also has elevated anxiety levels Will start propanolol 20 mg b.i.d. Drug-induced polyneuropathy 03/02/2022 Assessment & Plan (03/02/2022 4:02 PM CDT): Stable, improving; patient has been off chemotherapy since December 2021 Reports some numbness and tingling in bilateral feet, worsened left hand, also present in right hand; bilateral hand pain most consistent with carpal tunnel syndrome At this time patient would like to defer further testing; will continue to monitor symptoms improved, then will hold off nerve conduction studies Encouraged patient to use wrist braces as much as possible for relief Adjustment insomnia 11/13/2020 Assessment & Plan (11/13/2020 11:34 AM STAFF READINESS OFFICER): Poorly controlled, patient has been using benzodiazepines as a sleep aid, in the past straight Patient has racing thoughts at night, and has been away from with depression Will restart Lexapro evaluate response to therapy, as well as encouraged patient to work on sleep hygiene in order to help develop good sleep routines Vaginal atrophy 08/13/2020 Overview (08/13/2020): Secondary to menopause Assessment & Plan (08/13/2020 2:21 PM CDT): Patient reports pain with intercourse even with use of [id number] lubricants Patient has trial of vaginal estrogens, discussed with patient use of sacral estrogens to the symptoms of vaginal atrophy Will reassess at next appointment Chronic night sweats 08/13/2020 Overview (08/13/2020): Unclear if related to follicular lymphoma verses postmenopausal vasomotor syndrome Assessment & Plan (08/23/2023 1:59 PM CDT): Not seeing much improvement on the Estradiol. Will get updated labs. Possibly Wellbutrin contributing. Assessment & Plan (09/11/2020 9:31 AM STAFF READINESS OFFICER): Of Cymbalta started Assessment & Plan (08/13/2020 2:23 PM CDT): Patient reports nightly soaking night sweats, and sweating even during daytime naps No symptoms of hot flashes during the day Patient reports previous response with Effexor Will transition patient from Lexapro to Effexor in order to have improved control of vasomotor syndrome while while also managing symptoms of depression Patient given plan to taper Lexapro and start Effexor after cessation of Lexapro Will re-evaluate at next appointment in 4 weeks Cyclical vomiting 08/03/2020 Overview (08/13/2020): 2/2 marijuana use Assessment & Plan (08/13/2020 2:18 PM CDT): Reports improvement of abdominal pain, nausea vomiting since discontinuing marijuana Encouraged patient to continue hold marijuana and patient has been hearing doses of Reglan and ondansetron and Protonix Will continue to monitor for improvement and encourage cessation of marijuana use to reduce risk of recurrence cyclical vomiting Assessment & Plan (08/03/2020 3:13 AM CDT): Vomiting initially attributed to cyclic vomiting syndrome as patient uses marijuana daily. She last used 7 days ago. Currently vomiting has improved. Patient is also had some temps of 99 and chills since yesterday. Will screen for COVID -19 given her symptoms. Patient denies any shortness of breath or chest pain or URI symptoms. COVID -19 precautions. Currently vomiting has improved and she is tolerating clear liquids. Advance as tolerated. Fibromyalgia 08/03/2020 Assessment & Plan (02/21/2025 9:36 AM CDT): Having pain still. Advised to increase Wellbutrin to BID until gone then will send in 300 mg XL. Will continue to monitor. Assessment & Plan (11/09/2024 10:50 AM STAFF READINESS OFFICER): Reviweed aerobic exercise. Healthy food choices and target exercise. Assessment & Plan (07/21/2022 5:02 PM CDT): Stable, generally well controlled, patient has unclear triggers, [place] has occasional episodes of body aches and pains Few missed days of work Patient tries to eat 6 7000 steps per day, riding bike once per week Will continue monitor, work on patient to control fibromyalgia pain in order to allow patient to start working full-time Assessment & Plan (09/11/2020 9:29 AM STAFF READINESS OFFICER): Poor response to Effexor, patient has been working to discontinue medications Will start duloxetine today Patient had discussed duloxetine with Rheumatology and is interested in trying for management chronic pain and depression Assessment & Plan (08/13/2020 2:19 PM CDT): He not well controlled, worsening, patient reports pain in bilateral upper and lower extremities. Patient reports pain has worsened since discontinuation of marijuana Discussed with patient possible causes of fibromyalgia and will may worsen Patient would like to transition back to Effexor given it provided relief of her vasomotor symptoms previously Will monitor transition to Effexor and may consider addition of amitriptyline a TCA if needed Assessment & Plan (08/03/2020 3:01 AM CDT): Continue SSRI Hypokalemia 08/03/2020 Assessment & Plan (10/24/2024 9:58 AM STAFF READINESS OFFICER): Resolved. Will continue to monitor. Marijuana abuse 08/03/2020 Dyspepsia 07/13/2020 Assessment & Plan (08/03/2020 3:01 AM CDT): Continue PPI Assessment & Plan (07/16/2020 12:18 PM CDT): Will start pantoprazole today, continue with regelan for nausea and dicycolmine for abdominal pain and cramping Assessment & Plan (07/14/2020 11:36 AM CDT): Patient reports some acid reflux symptoms starting two days prior to admission, exacerbated by vomiting. - Ordered GI cocktail. - Started PPI. - Symptoms better today - Consider consult for EGD, given recurrent upper abdominal pain symptoms w/ associated acid reflux, and history of black stool prior to presentation. Depression with anxiety 07/12/2020 Assessment & Plan (02/21/2025 9:36 AM CDT): Stable will continue on Wellbutrin. Will continue to monitor. Assessment & Plan (05/31/2023 12:38 PM CDT): Generally well controlled, no current symptoms; continue bupropion 200 mg daily Assessment & Plan (07/21/2022 5:01 PM CDT): Stable, well controlled; patient reports no significant anxiety or depression Continue Wellbutrin 200 mg daily Assessment & Plan (05/11/2022 4:55 PM CDT): Stable, well controlled; continue bupropion 200 mg daily Assessment & Plan (03/02/2022 4:05 PM CDT): Stable, well controlled; continue bupropion 200 mg b.i.d. Assessment & Plan (11/13/2020 11:31 AM STAFF READINESS OFFICER): Not well controlled a, patient had overdose of Ativan, unclear if suicide attempt verses medication abuse Patient reports down in isolated as her is currently living in [place] while she is here and does have not have many friends are ability to go out Will restart Lexapro, as patient and reported she had improvement on that medication, and will continue to follow with treatment therapy Encouraged patient to travel to visit Assessment & Plan (09/11/2020 9:30 AM STAFF READINESS OFFICER): Stable, no severe symptoms Patient seems to be in generally good spirits as her abdominal pain is improved, however she still has stress related to diagnosis of start duloxetine today as patient did not tolerate Effexor Assessment & Plan (08/13/2020 2:19 PM CDT): Improving, well controlled patient reports mood is good with mild anxiety Assessment & Plan (07/16/2020 12:18 PM CDT): Not well controlled; mostly related to abdominal pain and recurrent bouts of acute pancreatitis -will taper ativan -increase lexapro to 20 mg daily Assessment & Plan (07/13/2020 3:09 PM CDT): Chronic, stable. - Continue home Lexapro. - Continue home ativan, dose reduced to 0.5 mg BID PRN. Elevated troponin 07/12/2020 Assessment & Plan (07/15/2020 9:03 AM CDT): High sensitivity troponin trending 164 > 142 > 60, no priors available for comparison. She presents with symptoms typical of her chronic pancreatitis, which could also represent atypical angina (though this seems less likely given her preserved exertional tolerance). EKG showing dynamic 1 mm STd V3-6 with new P- wave inversion, consistent with wandering atrial pacemaker. - Started aspirin 81 mg daily and atorvastatin 40 mg daily, pending further cardiac workup. - Ordered TTE to assess for myocardial injury - mild MR, no other abnormalities - Stress echo today Chronic pancreatitis 06/11/2020 Assessment & Plan (02/21/2025 9:36 AM CDT): Stable, well controlled; patient reports good response to Creon, but notes with the loose stools with greasy meals Assessment & Plan (03/02/2022 4:04 PM CDT): Stable, well controlled; patient reports good response to Creon, but notes with the loose stools with greasy meals Has constipation when uses Creon Patient using Creon p.r.n. for meals heavy in grease or oils Encouraged use of MiraLax p.r.n. for constipation Assessment & Plan (08/03/2020 3:01 AM CDT): With chronic abdominal pain. Continue Reglan and Bentyl that patient states her GI doctor started her on. Assessment & Plan (07/16/2020 12:19 PM CDT): Patient reports feeling better since discharge, continues to have abdominal pain, tolerating PO intake. Using dicyclomine for pain. -has FUP with GI today -may benefit from pancreolipase in future Assessment & Plan (07/13/2020 3:11 PM CDT): Patient presents with symptoms typical of an acute flare of her chronic pancreatitis. Lipase 116, consistent with chronic pancreatitis. Her abdominal exam is benign and reassuring. RUQ US (07/11) re-assurring against gallbladder pathology. MRCP (06/30/20) showed diffuse atrophy of the pancreatic head and body without pancreatic duct dilatation or focal mass. Patient was seen by GI (06/24/20), at which time she had normal fat soluble vitamin levels, triglyceride of 157, and low IgG4. At this time, the etiology of her chronic pancreatitis remains unclear. - Advance diet as tolerated. - Continue hydration with LR at 75 mL/hr. - Continue MSIR 15 mg Q4 PRN first line. - Continue dilaudid 0.2 mg Q3 PRN second line. - Tigan PRN for nausea (given slightly prolonged QTc 492) Follicular lymphoma, Gr 1-2 08/22/2015 Cancer Staging:Clinical: Unsigned Assessment & Plan (11/09/2024 10:49 AM STAFF READINESS OFFICER): Continue f/u with Dr. Busch. No fever/chills/nightseats. WIll continue to follow. Assessment & Plan (08/23/2023 2:00 PM CDT): In remission x 2 years. Assessment & Plan (07/21/2022 5:02 PM CDT): Stable, well controlled; appears to be in remission Will send for Evusheld to prevent recurrent COVID-19 infections Assessment & Plan (03/02/2022 4:03 PM CDT): Stable, in remission; most recently completed chemotherapy in December 2021 Likely need referral to Hematology-Oncology for further surveillance Assessment & Plan (08/03/2020 3:00 AM CDT): Outpatient follow-up with Oncology. She states she has a CT scheduled for August 22. Assessment & Plan (07/12/2020 6:49 PM CDT): History of follicular lymphoma s/p rituximab (2015) with recurrence in 2018, treated with CHOP (last dose in 11/2019). She has active disease though without an immediate indication for treatment, currently managed by Dr. Busch with Oncology (last seen 06/13/2020). - Per Dr. Busch's last note, this is unlikely to be causing abdominal pain. - Will need outpatient follow up. Current Treatment and Therapy Plans No current plan information found. Other Current Plans Immune Globulin (GAMMAGARD S-D) 5%* Plan Start Date:01/24/2025 Plan Provider:Zakia Busch MD Linked Problems Hypogammaglobulinemia Treatment Medications No medications scheduled. Past Treatment and Therapy Plans Specialty Infusion Treatment Plan Name Start Date Discontinue Date Treatment Medications Discontinue Reason Plan Provider Evusheld 300 mg/300 mg Standard Dose 07/27/2022 09/17/2022 No medications scheduled. Therapy Complete Clark Casillas MD Lifetime Dose Tracking * Chemical Lifetime Dose Automatic Entry Manual Entr y Fluoro Time 3.547 minutes 3.547 minutes 0 minutes Air kerma at the reference point (Ka,r) 18.02 mGy 1 8.02 mGy 0 mGy DLP 11,614.7 mGycm 11,614.7 mGycm 0 mGycm Resolved Problems Problem Noted Date Diagnosed Date Resolved Date Diffuse large B-cell lymphom a, unspecified body region 03/13/2024 04/22/2024 Uncomplicated opioid dependence ([facility]) 08/03/2020 03/02/2022 Assessment & Plan (08/03/2020 3:00 AM CDT): Patient was started on morphine when she was in [place] for her lymphoma. She states prior to moving here her palliative care and oncology doctors were going to wean her off her morphine and Ativan however she moved to [place]. Patient receptive to meeting with warm handoff. Discussed starting patient on Suboxone and patient is agreeable. Benzodiazepine dependence ([facility]) 08/03/2020 03/02/2022 Assessment & Plan (11/13/2020 11:32 AM STAFF READINESS OFFICER): History of dependence on benzodiazepines and recent abuse given overdose and hospitalization Will discontinue all benzodiazepine treatment Assessment & Plan (08/03/2020 3:00 AM CDT): Patient has been taking her Ativan 1 mg twice a day which we will decrease to 0.5 mg twice a day to eventually wean patient completely off the medication. She states she has been taking Ativan daily for the last year. Black stool 07/12/2020 07/16/2020 Assessment & Plan (07/14/2020 11:36 AM CDT): Patient reports one, black, liquid stool occurring the day prior to admission. She denies any melena prior to this or any bowel movement subsequently. She denies any hematemesis Hemoglobin was 15 on presentation and she is hemodynamically stable, all suggesting against a GI bleed. - Discussed with GI over the phone, who recommend FOBT if re-occurs. - Patient with 1x BM, soft and brown, non-bloody, not black - Hgb trending 15 > 13.4 > 12.5 > 12.5. - CTM Acute cystitis 07/12/2020 07/16/2020 Assessment & Plan (07/14/2020 11:35 AM CDT): UA w/ 2+ LE. Culture pending. - Continue ceftriaxone 1,000 mg daily. - Urine cx with clinically insignificant growth Opioid withdrawal ([facility]) 03/02/2022 Assessment & Plan (09/11/2020 9:31 AM STAFF READINESS OFFICER): Improved, patient reports decreased abdominal pain or other symptoms associated with, opioid use, benzodiazepine use, and heavy marijuana use Patient continues to remain off those substances Assessment & Plan (08/13/2020 2:20 PM CDT): Stable, well controlled, patient has not used morphine in several days and is now using only morphine only as needed, and eats with medication order is symptoms of nausea
--- OUTSIDE RECORDS SUMMARY | 2025-04-02 04:31 | XMS_ITS | Encounter Summary ---
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 Name Role Phone Unavailable Primary Care Provider Unavailabl e Prior Encounters Date Type Department Care Team Description 12/17/2021 1:15 PM PST Office Visit [facility] on [address] [phone] Demi Colmenares [facility] 12/17/2021 Travel 12/17/2021 1:00 PM PST Office Visit [facility] on [address] [phone] Prince Granda DDS 09/03/2021 Travel 09/03/2021 9:00 AM PDT Office Visit [facility] [address] [address] Prince Granda DDS 06/02/2021 Travel 06/02/2021 12:00 PM PDT Office Visit [facility] [address] [address] Grant Zavaleta DMD 11/20/2019 Converted CPS Chart Documents [facility] [address] [phone] <No scans attached> 11/20/2019 Converted 13x Documents [facility] [address] [phone] <No scans attached> Last Filed Vital Signs Vital Sign Reading Time Taken Comments Blood Pressure 114/68 06/02/2021 1:02 PM PDT Pulse 74 06/02/2021 1:02 PM PDT Temperature - - Respiratory Rate - - Oxygen Saturation - - Inhaled Oxygen Concentration - - Weight - - Height - - Body Mass Index - - Plan of Treatment Not on file Procedures Procedure Name Priority Date/Time Associated Diagnosis Comments TOPICAL APPLICATION OF FLUORIDE VARNISH Routine 12/17/2021 1:15 PM PST PROPHYLAXIS - ADULT Routine 12/17/2021 1 :15 PM PST INTRAORAL PHOTO Routine 12/17/2021 1:00 PM PST INTRAORAL PHOTO Routine 12/17/2021 1:00 PM PST INTRAORAL PHOTO Routine 12/17/2021 1:00 PM PST INTRAORAL PHOTO Routine 12/17/2021 1:00 PM PST BITEWINGS - FOUR RADIOGRAPHIC IMAGES Routine 12/17/2021 1:00 PM PST ADDITIONAL X-RAY Routine 12/17/2021 1:00 PM PST ADDITIONAL X-RAY Routine 12/17/2021 1:00 PM PST ADDITIONAL X-RAY Routine 12/17/2021 1:00 PM PST ADDITIONAL X-RAY Routine 12/17/2021 1:00 PM PST ADDITIONAL X-RAY Routine 12/17/2021 1:00 PM PST PERIODIC ORAL EVALUATION - ESTABLISHED PATIENT Routine 12/17/2021 1:00 PM PST SINGLE X-RAY Routine 12/17/2021 1:00 PM PST OFFICE VISIT FOR OBSERVATION (DURING REGULARLY SCHEDULED HOURS) - NO OTHER SERVICES PERFORMED Routine 09/03/2021 9:00 AM PDT NC X-RAY Routine 06/02/2021 12:00 PM PDT 2 SEAT ONLAY Routine 06/02/2021 12:00 PM PDT 2 MOL CEREC ONLAY 3 SURF Routine 2 021 12:00 PM PDT PROPHYLAXIS - ADULT Routine 06/02/2021 1 2:00 PM PDT INTRAORAL PHOTO Routine 06/02/2021 12:00 PM PDT INTRAORAL PHOTO Routine 06/02/2021 12:00 PM PDT INTRAORAL PHOTO Routine 06/02/2021 12:00 PM PDT INTRAORAL PHOTO Routine 06/02/2021 12:00 PM PDT BITEWINGS - FOUR RADIOGRAPHIC IMAGES Routine 06/02/2021 12:00 PM PDT ADDITIONAL X-RAY Routine 06/02/2021 12:0 0 PM PDT ADDITIONAL X-RAY Routine 06/02/2021 12:0 0 PM PDT ADDITIONAL X-RAY Routine 06/02/2021 12:0 0 PM PDT ADDITIONAL X-RAY Routine 06/02/2021 12:0 0 PM PDT ADDITIONAL X-RAY Routine 06/02/2021 12:0 0 PM PDT SINGLE X-RAY Routine 06/02/2021 12:00 PM PDT PERIODIC ORAL EVALUATION - ESTABLISHED PATIENT Routine 06/02/2021 12:00 PM PDT PERIODIC ORAL EVALUATION - ESTABLISHED PATIENT Routine 01/15/2020 12:00 AM PDT BITEWINGS - FOUR RADIOGRAPHIC IMAGES Routine 01/15/2020 12:00 AM PDT ADDITIONAL X-RAY Routine 01/15/2020 12:0 0 AM PDT ADDITIONAL X-RAY Routine 01/15/2020 12:0 0 AM PDT ADDITIONAL X-RAY Routine 01/15/2020 12:0 0 AM PDT ADDITIONAL X-RAY Routine 01/15/2020 12:0 0 AM PDT ADDITIONAL X-RAY Routine 01/15/2020 12:0 0 AM PDT SINGLE X-RAY Routine 01/15/2020 12:00 AM PDT PLAN VISIT FEE Routine 07/11/2019 12:00 AM PDT PERIODIC ORAL EVALUATION - ESTABLISHED PATIENT Routine 07/11/2019 12:00 AM PDT ORAL HYGIENE INSTRUCTIONS Routine 2018 12:00 AM PDT PROPHYLAXIS - ADULT Routine 07/11/2019 1 2:00 AM PDT 1 LIMITED ORAL EVALUATION - PROBLEM FOCUSED Routine 03/21/2019 12:00 AM PDT 30 CROWN - FULL CAST HIGH SIMON METAL Routine 01/06/2019 12:00 AM PST 31 O AMALGAM 1 SURFACE Routine 9 12:00 AM PST 13 O AMALGAM 1 SURFACE Routine 9 12:00 AM PST 2 O AMALGAM 1 SURFACE Routine 01/06/2019 12:00 AM PST 15 ENDODONTIC THERAPY, MOLAR TOOTH (EXCLUDING FINAL RELIGION) Routine 01/06/2019 12:00 AM PST 14 ENDODONTIC THERAPY, MOLAR TOOTH (EXCLUDING FINAL RELIGION) Routine 01/06/2019 12:00 AM PST 3 ENDODONTIC THERAPY, MOLAR TOOTH (EXCLUDING FINAL RELIGION) Routine 01/06/2019 12:00 AM PST 19 CROWN PFM POST Routine 01/06/2019 12: 00 AM PST 18 CROWN PFM POST Routine 01/06/2019 12: 00 AM PST 15 CROWN PFM POST Routine 01/06/2019 12: 00 AM PST 14 CROWN PFM POST Routine 01/06/2019 12: 00 AM PST 3 CROWN PFM POST Routine 01/06/2019 12:0 0 AM PST COMPREHENSIVE ORAL EVALUATION - NEW OR ESTABLISHED PATIENT Routine 01/06/2019 12:00 AM PST ORAL HYGIENE INSTRUCTIONS Routine 2018 12:00 AM PST PROPHYLAXIS - ADULT Routine 01/06/2019 1 2:00 AM PST PANORAMIC RADIOGRAPHIC IMAGE Routine 01/06/2019 12:00 AM PST INTRAORAL - COMPREHENSIVE SERIES OF RADIOGRAPHIC IMAGES Routine 01/06/2019 12:00 AM PST OFFICE VISIT FOR OBSERVATION (DURING REGULARLY SCHEDULED HOURS) - NO OTHER SERVICES PERFORMED Routine 01/06/2019 12:00 AM PST INTRAORAL PHOTO Routine 01/06/2019 12:00 AM PST INTRAORAL PHOTO Routine 01/06/2019 12:00 AM PST INTRAORAL PHOTO Routine 01/06/2019 12:00 AM PST INTRAORAL PHOTO Routine 01/06/2019 12:00 AM PST 1 LO COMPOSITE FILLING Routine 9 12:00 AM PST 20 O COMPOSITE FILLING Routine 9 12:00 AM PST 16 O COMPOSITE FILLING Routine 9 12:00 AM PST 2 O COMPOSITE FILLING Routine 01/06/2019 12:00 AM PST 1 LO COMPOSITE FILLING Routine 9 12:00 AM PST Visit Diagnoses Not on file Insurance [employer] [facility]
--- OUTSIDE RECORDS SUMMARY | 2025-04-02 04:31 | XMS_ITS | Clinical Summary ---
Author Organization [facility] Address [address] [place] [address] Care Team Providers Care Outreach Coordinator Name Role Phone Zakia Busch MD Unavailable [phone] Thomas Morrow MD Primary Care Provider [phone] Allergies Active Allergy Reactions Criticality Noted Date Comments Rituximab Other (See comments),Stomach upset High Reaction: GI UPSET Induced asthma Medications loratadine (CLARITIN) 10 mg tablet Take 1 tablet (10 mg total) by mouth daily 90 tablet 3 06/14/20 24 Active fluticasone propionate (FLONASE) 50 mcg/actuation nasal sprayIndication s:Non-seasonal allergic rhinitis, unspecified trigger Administer 2 sprays into each nostril daily 1 each 08/07/20 24 Active prochlorperazin e (COMPAZINE) 5 mg tabletIndicatio ns:Nausea and Vomiting Take 1 tablet (5 mg total) by mouth every 6 (six) hours as needed for nausea or vomiting 30 tablet 10/22/20 24 Active tiZANidine (ZANAFLEX) 4 mg tablet Take 1 tablet (4 mg total) by mouth every 8 (eight) hours as needed for muscle spasms 30 tablet 11/06/19 25 Active busPIRone (BUSPAR) 5 mg tabletIndicatio ns:Generalized Anxiety Disorder Take 1 tablet (5 mg total) by mouth 3 (three) times a day 90 tablet 11 11/08/19 25 026 Active famotidine (PEPCID) 40 mg tabletIndicatio ns:Laryngophary ngeal reflux (LPR) Take 1 tablet (40 mg total) by mouth nightly 90 tablet 3 01/02/20 25 026 Active aspirin 81 mg enteric coated tablet Take 1 tablet (81 mg total) by mouth daily 01/13/[address] (PROTONIX) 40 mg EC tablet Take 1 tablet (40 mg total) by mouth 2 (two) times a day for 10 days, THEN 1 tablet (40 mg total) daily. 60 tablet 3 02/13/20 25 Active buPROPion SR (WELLBUTRIN SR) 200 mg 12 hr tabletIndicatio ns:Anxiety and depression TAKE 1 TABLET BY MOUTH EVERY DAY 90 tablet 1 02/16/20 25 Active budesonide-form oteroL (SYMBICORT) 160-4.5 mcg/actuation inhalerIndicati ons:Maintenance Therapy for Asthma Inhale 2 puffs 2 (two) times a day Rinse mouth with water after use. Do not swallow. 10.2 g 3 02/22/20 25 026 Active dextroamphetami ne-amphetamine (ADDERALL) 10 mg tablet Take 2 tablets each morning a 1 tab each afternoon for ADD. 90 tablet 03/13/20 25 Active acetaminophen (TYLENOL) 500 mg tablet Take 1 tablet (500 mg total) by mouth every 6 (six) hours as needed for pain Take 1-2 tablets a day as needed for pain. Do NOT exceed 6 tablets a day. 90 tablet 3 03/06/20 25 Active benzonatate (TESSALON) 100 mg capsuleIndicati ons:Cough Take 1 capsule (100 mg total) by mouth 3 (three) times a day as needed for cough 42 capsule 03/20/20 25 Active ipratropium-alb uteroL (DUO-NEB) 0.5-2.5 mg/3 mL nebulizer solution Take 3 mL by nebulization every 6 (six) hours 180 mL 03/31/20 25 Active predniSONE (DELTASONE) 20 mg tablet Take 4 tablets (80 mg) by mouth daily 4 PO x QD x 3 days, Then 3 PO q 3 D, then 2 PO QD x 3 D, Then 1 PO QD x 3 D then 1/2 PO QD x 3 D then stop. 33 tablet 03/31/20 25 Active albuterol HFA (PROVENTIL HFA,VENTOLIN HFA,PROAIR HFA) 90 mcg/actuation inhaler Inhale 2 puffs every 4 (four) hours as needed for wheezing 18 g 03/31/20 25 026 Active albuterol 2.5 mg /3 mL (0.083 %) nebulizer solution Take 3 mL (2.5 mg total) by nebulization every 6 (six) hours as needed for wheezing 120 mL 3 09/21/20 23 025 Discontinu ed(Other) albuterol HFA (PROVENTIL HFA,VENTOLIN HFA,PROAIR HFA) 90 mcg/actuation inhaler Inhale 2 puffs every 6 (six) hours as needed for wheezing or shortness of breath 1 each 11 09/04/20 24 025 Discontinu ed(Other) acetaminophen (TYLENOL) 500 mg tablet Take 1 tablet (500 mg total) by mouth every 6 (six) hours as needed for pain Take 1-2 tablets a day as needed for pain. Do NOT exceed 6 tablets a day. 90 tablet 02/10/20 25 025 Discontinu ed(Reorder ) dextroamphetami ne-amphetamine (ADDERALL) 10 mg tablet Take 2 tablets each morning a 1 tab each afternoon for ADD. 90 tablet 02/13/20 25 025 Discontinu ed(Reorder ) methylPREDNISol one (MEDROL DOSEPACK) 4 mg Dosepack Take as directed on package. To be used after IVIG infusion 1 packet 2 03/07/20 25 025 Active Problems Problem Noted Date Diagnosed Date Lumbar radiculopathy 02/12/2025 Neck pain 12/08/2024 Low back pain, non-specific 12/08/2024 Cervical radiculopathy 12/08/2024 Assessment & Plan (01/30/2025 2:33 PM CDT): Will continue to follow with pain management and neurosurgery. Will await appointments in a few weeks for additional treatment. Thyroid nodule 11/09/2024 Assessment & Plan (11/09/2024 10:51 AM CORE DRILLER HELPER): Due for FNA later this week and will follow response. NO new dysphagia. Reivweed TFTs. YVONNE (generalized anxiety disorder) 11/09/2024 Assessment & Plan (02/21/2025 9:36 AM CDT): See above Assessment & Plan (11/09/2024 10:52 AM CORE DRILLER HELPER): INtroduced regiemen of busprione to wellbutrin and reivewed impact of this on depression and decreased anxiety impact. Left sided numbness 11/02/2024 Assessment & Plan (11/02/2024 10:07 PM CORE DRILLER HELPER): Review of CT imaging and x-ray imaging available online, findings suggestive of nerve root impingement as possible cause of current presentation Supportive management Outpatient pain management referral versus orthopedic surgery spine referral TIA (transient ischemic attack) 11/02/2024 Assessment & Plan (11/09/2024 10:50 AM CORE DRILLER HELPER): COntinues on regiemn. WIll folwo response. Reivwed hostpial course and imaing studies. Assessment & Plan (11/02/2024 10:07 PM CORE DRILLER HELPER): CT head negative Telemetry Neurologic checks PTOT evaluate Swallow study evaluation --- during initial evaluation, patient witnessed drinking water without difficulty, pending official documentation Aspirin MR imaging per Neurology Sciatica of left side 11/02/2024 Assessment & Plan (11/02/2024 10:09 PM CORE DRILLER HELPER): As referred by patient, present for many months to years Imaging study online shows possible nerve root impingement L3-L4 Supportive care PTOT evaluate Outpatient pain management versus orthopedic surgery spine referral Hospital discharge follow-up 10/24/2024 Assessment & Plan (10/24/2024 9:56 AM CORE DRILLER HELPER): Mary Walker NP have personally reviewed pertinent inpatient and/or ED records, including discharge medications and Clindesk if applicable. This patient's discharge medication list has been reviewed and reconciled with her outpatient medication list and has also been reviewed with patient and/or caregiver. I have noted any changes. Abnormal imaging of thyroid 10/24/2024 Assessment & Plan (11/02/2024 10:11 PM CORE DRILLER HELPER): As referred by patient during evaluation Patient is requesting further evaluation and possible intervention. At present time, patient has indicated that she is actively taking steroid treatments in addition to coordination with IVIG treatment is provided by oncologist at [facility]. As referred by patient, she has experienced [...] Radiology with both her oncologist and upcoming certified flex endoscope reprocessor for procedure --- patient is instructed to follow-up with the specialist and coordinate this testing at tertiary facility Assessment & Plan (10/24/2024 9:57 AM CORE DRILLER HELPER): TSH and thyroid ultrasound ordered. Will plan accordingly once results are received. Acute cough 10/22/2024 Combined variable immunodeficiency 10/17/2024 Assessment & Plan (10/17/2024 12:30 PM CORE DRILLER HELPER): Continue management with oncology, will establish Allergy/immunology in the next few weeks. Chronic cough 10/17/2024 Assessment & Plan (10/17/2024 12:32 PM CORE DRILLER HELPER): Afebrile in office today. No acute distress, speaking in full and complete sentences. Denies any changes to appetite. Reviewed inhaler use, Symbicort as maintenance therapy and albuterol p.r.n.. COVID, influenza and RSV testing negative in office today. Patient will go to [facility] for chest x-ray today. Will avoid additional ABX for now as patient recently completed course of amoxicillin for possible strep throat. Recommend follow-up with pulmonology as well. Reviewed signs and symptoms warranting immediate emergency evaluation. Dysphagia 09/07/2024 Assessment & Plan (10/30/2024 11:22 AM CORE DRILLER HELPER): Take Pantoprazole 40 mg (Protonix), 30-60 minutes prior to any other medication, food or fluids other than water Continue Pepcid Start Medrol dose pack with a meal Laryngopharyngeal reflux (LPR) 09/07/2024 Assessment & Plan (01/01/2025 2:44 PM CORE DRILLER HELPER): Take Pantoprazole 40 mg (Protonix), Omeprazole (Prilosec) [...] Nasal saline spray (Simply saline, [employer] Remedies, [place], [place]) 2 second sprays or 2 squeezes into [...] benefit in the past. Encouraged to get personal counselor if patient thinks it will help with [...] swallow. Assessment & Plan (10/24/2024 9:57 AM CORE DRILLER HELPER): Improved. Continue with inhaler. Red flags reviewed. Assessment & Plan (10/17/2024 12:29 PM CORE DRILLER HELPER): Reviewed maintenance versus rescue inhaler. Instructed to continue symbicort 2 puffs bid and use albuterol as needed. Continue Singulair as well as cetirizine. 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 Discussed pain management and she is agreeable. Referral placed. Assessment & Plan (05/31/2023 12:38 PM CDT): Uses ice and Advil for symptom relief; no relief with topical therapies Continue with conservative therapies, work on weight loss possible relief Assessment & Plan (02/02/2023 3:56 PM CDT): Continues to have low back pain; limited in activities; cannot ride bike No relief with PT or furnace caretaker Good relief with TENS encourage use of TENS; would like to wait on spinal surgery referral Encourage regular activity; continue with home exercises to relieve pain Hypogammaglobulinemia 09/17/2022 CVID (common variable immunodeficiency) 09/17/20 Assessment & Plan (11/09/2024 10:49 AM CORE DRILLER HELPER): COntinue f/u. Rivwed labowkr with recent hospitalizations. [...] today; patient reports she is taking diuretic [id number] Patient checks at home, generally running normal [...] 11/13/2020 Assessment & Plan (11/13/2020 11:34 AM CORE DRILLER HELPER): Poorly controlled, patient has been using benzodiazepines [...] pain with intercourse even with use of [id number] lubricants Patient has trial of vaginal estrogens, [...] contributing. Assessment & Plan (09/11/2020 9:31 AM CORE DRILLER HELPER): Of Cymbalta started Assessment & Plan (08/13/2020 [...] 4 weeks Cyclical vomiting 08/03/2020 Overview (08/13/2020): 2/ marijuana use Assessment & Plan (08/13/2020 2:18 [...] monitor. Assessment & Plan (11/09/2024 10:50 AM CORE DRILLER HELPER): Reviweed aerobic exercise. Healthy food choices and [...] full-time Assessment & Plan (09/11/2020 9:29 AM CORE DRILLER HELPER): Poor response to Effexor, patient has been [...] 08/03/2020 Assessment & Plan (10/24/2024 9:58 AM CORE DRILLER HELPER): Resolved. Will continue to monitor. Marijuana abuse [...] b.i.d. Assessment & Plan (11/13/2020 11:31 AM CORE DRILLER HELPER): Not well controlled a, patient had overdose of Ativan, unclear if suicide attempt verses medication abuse Patient reports down in isolated as her is currently living in [place] while she is here and does have not have many friends are ability to go out Will restart Lexapro, as patient and reported she had improvement on that medication, and will continue to follow with treatment therapy Encouraged patient to travel to visit Assessment & Plan (09/11/2020 9:30 AM CORE DRILLER HELPER): Stable, no severe symptoms Patient seems to [...] Unsigned Assessment & Plan (11/09/2024 10:49 AM CORE DRILLER HELPER): Continue f/u with Dr. Busch. No fever/chills/nightseats. [...] pain. - Will need outpatient follow up. Resolved Problems Problem Noted Date Diagnosed Date Resolved Date Diffuse large B-cell lymphom a, unspecified body region 03/13/2024 04/22/2024 Uncomplicated opioid dependence (CMS/HCC) 08/03/2020 03/02/2022 Assessment & Plan (08/03/2020 3:00 AM CDT): Patient was started on morphine when she was in [place] for her lymphoma. She states prior to moving here her palliative care and oncology doctors were going to wean her off her morphine and Ativan however she moved to [place]. Patient receptive to meeting with warm handoff. Discussed starting patient on Suboxone and patient is agreeable. Benzodiazepine dependence ([facility]) 08/03/2020 03/02/2022 Assessment & Plan (11/13/2020 11:32 AM CORE DRILLER HELPER): History of dependence on benzodiazepines and recent [...] cx with clinically insignificant growth Opioid withdrawal ([facility]) 03/02/2022 Assessment & Plan (09/11/2020 9:31 AM CORE DRILLER HELPER): Improved, patient reports decreased abdominal pain or other symptoms associated with, opioid use, benzodiazepine use, and heavy marijuana use Patient continues to remain off those substances Assessment & Plan (08/13/2020 2:20 PM CDT): Stable, well controlled, patient has not used morphine in several days and is now using only morphine only as needed, and eats with medication order is symptoms of nausea Encounters Date Type Department Care Team Description 03/31/2025 4:42 PM CDT - 03/31/2025 9:14 PM CDT Emergency [facility] Emergency Department [address] [place] [address] Bertha Voss MD Mild asthma with exacerbation, unspecified whether persistent (Primary Dx); Hypokalemia Discharge Disposition: Discharge to home or self care 03/31/2025 3:45 PM CDT Office Visit [facility] [address] [place] [address] Norma Irizarry NP Acute respiratory distress (Primary Dx) 03/28/2025 9:37 AM CDT - 03/28/2025 11:59 PM CDT Hospital Encounter [facility] at the [facility] [address] [place] [address] Advanced Medicine [address] [place] [address] Rafael Guo MD Cervical radiculopathy Discharge Disposition: Discharge to home or self care 03/23/2025 Telephone [facility] at the [facility] [address] [place] [address] Advanced Medicine [address] [place] [address] Rafael Guo MD PMC Preprocedure 03/16/2025 9:28 AM CDT - 03/16/2025 11:59 PM CDT Hospital Encounter [facility] at the [facility] [address] [place] [address] Advanced Medicine [address] [place] [address] Rafael Guo MD Cervical radiculopathy (Primary Dx) Discharge Disposition: Discharge to home or self care 03/16/2025 Telephone [facility] Radiology [address] [place] [address] Karime Singh, BRONSON 03/16/2025 Telephone [facility] Neuro Interventional Radiology [address] [place] [address] Reta Osman, BRONSON 03/16/2025 Orders Only [facility] Oncology [address] [facility] Floor 6 [place] [address] Zakia Busch MD Hypogammaglobulinemia (Primary Dx); Follicular lymphoma of intrapelvic lymph nodes, unspecified follicular lymphoma type (HCC) 03/14/2025 Telephone [facility] Radiology [address] [place] [address] Karime Singh RN 03/12/2025 Telephone [facility] [address] [phone] Thomas Morrow MD Medical Question/Miscellaneous 03/12/2025 Orders Only [facility] [address] [phone] Thomas Morrow MD 03/12/2025 Telephone [facility] [address] [phone] Thomas Morrow MD Medical Question/Miscellaneous 03/12/2025 Telephone [facility] Radiology [address] [place] [address] Karime Singh RN 03/06/2025 Telephone [facility] Cardiology [address] [address] Gage Navarro MD Cardiac Clearance 03/06/2025 Telephone [facility] Radiology 1 [place] [address] Karime Singh RN 03/06/2025 Telephone Radiology 1 [place] [address] Leigh Mott PA 03/01/2025 Telephone [facility] Radiology 1 [place] [address] Karime Singh, RN 03/01/2025 Telephone [facility] Radiology 1 [place] [address] Karime Singh, RN 02/28/2025 7:30 AM CDT Infusion [facility] - Infusion [address] [facility] Floor 6 [place] [address] Hypogammaglobulinemia (Primary Dx) 02/28/2025 Telephone [facility] Social Work 1 [place] [address] Parker Pena MSW 02/26/2025 11:15 AM CDT Lab [facility] 1 [facility] 1st [place] [address] Closed fracture of sacrum, unspecified portion of sacrum, initial encounter (HCC); Sacral insufficiency fracture, sequela; History of fragility fracture 02/26/2025 10:00 AM CDT Office Visit [facility] Radiology, Interventional Radiology [address] [facility] [address] [place] [id number] Leigh Mott PA Sacral insufficiency fracture, sequela (Primary Dx); Closed fracture of sacrum, unspecified portion of sacrum, initial encounter (HCC); History of fragility fracture; Follicular lymphoma of intrapelvic lymph nodes, unspecified follicular lymphoma type (HCC) 02/23/2025 12:16 PM CDT - 02/23/2025 11:59 PM CDT Hospital Encounter [facility] [address] [place] [address] Closed fracture of sacrum, unspecified portion of sacrum, initial encounter (HCC) Discharge Disposition: Discharge to home or self care 02/23/2025 12:16 PM CDT - 02/23/2025 11:59 PM CDT Hospital Encounter [facility] [address] [place] [address] Age-related osteoporosis without current pathological fracture Discharge Disposition: Discharge to home or self care 02/21/2025 9:00 AM CDT Office Visit [facility] [address] [phone] Riri Guzman NP Skin lesion of back (Primary Dx); Moderate persistent asthma with acute exacerbation; Fibromyalgia; Depression with anxiety; Attention deficit hyperactivity disorder (ADHD), combined type; Chronic bronchitis, unspecified chronic bronchitis type (HCC); Drug-induced chronic pancreatitis (HCC); YVONNE (generalized anxiety disorder); BMI 26.0-26.9,adult 02/12/2025 9:32 AM CDT - 02/12/2025 11:59 PM CDT Hospital Encounter [facility] at the [address] [place] [address] Rafael Guo MD Lumbar radiculopathy Discharge Disposition: Discharge to home or self care 02/12/2025 8:00 AM CDT Office Visit [facility] [address], [address] [place] [address] Trae Keating MD Age-related osteoporosis without current pathological fracture (Primary Dx) 02/12/2025 Telephone [facility] Radiology, Interventional Radiology [address] [facility] [address] [place] [phone] Mitzi Matute RN Appointment 02/12/2025 Orders Only [facility] Radiology 1 [place] [address] Karime Singh, RN Closed fracture of sacrum, unspecified portion of sacrum, initial encounter (HCC) (Primary Dx) 02/12/2025 Orders Only [facility] at the [address] [place] [address] Rafael Guo MD Closed fracture of sacrum, unspecified portion of sacrum, initial encounter (HCC) (Primary Dx) 02/09/2025 9:47 AM CDT - 02/09/2025 11:59 PM CDT Hospital Encounter [facility] [address] [facility] [address] [place] [address] Rafael Guo MD Lumbar radiculopathy (Primary Dx); Closed fracture of sacrum with routine healing, unspecified portion of sacrum, subsequent encounter Discharge Disposition: Discharge to home or self care 01/30/2025 2:00 PM CDT Office Visit [facility] [address] [phone] Riri Guzman NP Acute non-recurrent maxillary sinusitis (Primary Dx); Cervical radiculopathy; Chronic post-traumatic headache, not intractable; BMI 27.0-27.9,adult 01/30/2025 Telephone [facility] [address] [phone] Riri Guzman NP 01/30/2025 Telephone [facility] at the [facility] [address] [place] [address] Advanced [facility] [address] [place] [address] Rafael Guo MD spk w/nurse 01/30/2025 Nurse Triage [facility] [address] [phone] Thomas Morrow MD 01/26/2025 Telephone [facility] Oncology [address] [facility] Floor 6 [place] [address] Marcy Goff RN 01/24/2025 7:30 AM CDT Infusion [facility] - Infusion [address] [facility] Floor 5 [place] [address] Hypogammaglobulinemia (Primary Dx) 01/22/2025 6:49 PM CDT - 01/22/2025 11:59 PM CDT Hospital Encounter [facility] [address] [place] [address] Sacral insufficiency fracture, sequela Discharge Disposition: Discharge to home or self care 01/22/2025 Telephone [facility] Allergy and Immunology [address] [facility] [address] [place] [address] Brittany Malin MD 01/15/2025 Orders Only [facility] Oncology [address] [place] [address] Suzy Joaquin RN Hypogammaglobulinemia (Primary Dx) 01/12/2025 10:15 AM CDT Office Visit [facility] Cardiology [address] [facility] [address] [address] Gage Navarro MD PFO (patent foramen ovale) (Primary Dx); Dyslipidemia; Fibromyalgia 01/11/2025 Orders Only [facility] at the [facility] [address] [place] [address] [facility] [address] [place] [address] Rafael Guo MD Sacral insufficiency fracture, sequela (Primary Dx) 01/10/2025 Orders Only [facility] [address] [phone] Thomas Morrow MD 01/07/2025 11:23 AM CDT - 01/07/2025 11:59 PM CDT Hospital Encounter [facility] MRI [address] [place] [address] Lumbar radiculopathy Discharge Disposition: Discharge to home or self care 01/03/2025 10:15 AM CORE DRILLER HELPER Office Visit [facility] Oncology [address] [place] [address] 6 [place] [address] Zakia Busch MD Follicular lymphoma of intrapelvic lymph nodes, unspecified follicular lymphoma type (HCC) (Primary Dx); CVID (common variable immunodeficiency) (HCC) 01/03/2025 9:45 AM CORE DRILLER HELPER Lab [facility] - Lab Collection [facility] [address] [place] [address] Follicular lymphoma of intrapelvic lymph nodes, unspecified follicular lymphoma type (HCC); CVID (common variable immunodeficiency) (HCC); Diffuse large B-cell lymphoma, unspecified body region (HCC) 01/03/2025 9:15 AM CORE DRILLER HELPER Lab [facility] Oncology Lab [address] [place] [address] 6 [place] [address] Diffuse large B-cell lymphoma, unspecified body region (HCC) (Primary Dx); Follicular lymphoma of intrapelvic lymph nodes, unspecified follicular lymphoma type (HCC); CVID (common variable immunodeficiency) (HCC) 01/02/2025 Telephone [facility] Oncology [facility] 6 [place] [address] Linette Santizo RMA 01/01/2025 2:30 PM CORE DRILLER HELPER Office Visit [facility] - [address] [place] [address] Norma Vickers, Laryngopharyngeal reflux (LPR) (Primary Dx) from Last 3 Months Immunizations Immunization Administration Dates Next Due Influenza, Quadrivalent, Spl it, Preservative Free, Intramuscular 07/03/2020 Influenza, Trivalent, IM (MDV) 08/23/2024(Deferr ed: Patient Refused) Influenza, Trivalent, Preser vative Free, Intramuscular 08/23/2024 Influenza, Unspecified 07/13/2024(Deferr ed: Patient Refused),11/03/2023(Deferred: Patient Refused),08/01/2023(Deferred: Patient Refused),07/02/2023(Deferred: Patient Refused),07/02/2023(Deferred: Patient Refused),07/02/2023(Deferred: Patient Refused),01/29/2023(Deferred: Patient Refused),11/01/2022(Deferred: Patient Refused),11/01/2022(Deferred: Patient Refused),08/01/2022(Deferred: Patient Refused),07/13/2022(Deferred: Patient Refused),07/19/2021,06/24/2020, 020,11/01/2018 Moderna SARS-CoV-2 Monovalen t Vaccination (12+ YRS) 02/24/2021 Pneumococcal Conjugate Pcv20 05/31/2023 ZOSTER Recombinant 10/31/2020,09/16/2020 Surgical History Surgery Date Site/Laterality Comments SECTION Two midline laparotomy C-sections HYSTERECTOMY US GUIDED BIOPSY LYMPH NODE SUPERFICIAL LEFT 04/18/2021 N/A COSMETIC SURGERY 2000 HERNIA REPAIR 2004 ABDOMINAL SURGERY 2005 BREAST SURGERY 2007 APPENDECTOMY ESOPHAGOGASTRODUODENOSCOPY COLONOSCOPY 11/01/2017 - 10/31/2018 patient verbalized 5-6 years ago EPIDURAL BLOCK INJECTION 1992, 95 Medical History Medical History Date Comments Chronic pancreatitis (HCC) Anxiety and depression Follicular lymphoma (HCC) 2015 Asthma 2015 started after ch emotherapy Cyclical vomiting 2019 Migraine Benzodiazepine dependence (HCC) 08/03/2020 GERD (gastroesophageal reflux disease) 2000 Arthritis 2017 Osteoporosis 2016 Neuromuscular disorder (HCC) 2019 HTN (hypertension) Opioid abuse (HCC) Marijuana abuse HLD (hyperlipidemia) Adenomatous colon polyp Chronic bronchitis (HCC) 1998 Anemia 1990 Thyroid disease 2024 Peripheral neuropathy 2016 Lumbosacral disc disease 2015 Fibromyalgia, primary 2016 Low back pain 2000 Substance abuse (HCC) Joint pain 2019 Neck pain 2000 Family History Medical History Relation Name Comments Alcohol abuse Brother 1 Otis Alcohol abuse Brother 2 Otis Liver disease Cousin Beatrice Allergy (severe) Father Otis Hearing loss Father Otis Heart attack Father Otis Hypertension Father Otis Heart attack Maternal Grandfather Heart failure Maternal Grandfather Colon cancer Maternal Grandmother Sapna Kidney disease Maternal Grandmother Sapna Memory loss Mother Christianne Breast cancer Mother's Sister Degenerative Disk Disease Other Pancreatitis Neg Hx Relation Name Status Comments Brother 1 Otis Brother 2 Otis Alive Cousin Beatrice Father Otis Alive Maternal Grandfather (Age 90) Maternal Grandmother Sapna Mother Christianne Mother's Sister Other Social History Tobacco Use Types Packs/Day Years Used Date Smoking Tobacco: Former Cigarettes 0.1 10 0 01/23/1999 - 01/23/2009 Passive Smoke Exposure: Past Smokeless Tobacco: Never Tobacco Cessation:Counseling Given: Not Answered Comments:social only Alcohol Use Standard Drinks/Week Comments Not Currently 0 (1 standard drink = 0.6 oz pur e alcohol) [facility] Utilities Answer Date Recorded In the past 12 months has e [employer], gas, oil, or water [email or web address] threatened to shut off services in your home? No 11/08/2024 Humiliation, Afraid, Rape, and Kick questionnair e Answer Date Recorded Within the last year, have y ou been afraid of your partner or ex-partner? No 11/08/2024 Within the last year, have y ou been humiliated or emotionally abused in other ways by your partner or ex-partner? No Within the last year, have y ou been kicked, hit, slapped, or otherwise physically hurt by your partner or ex-partner? No 11/08/2024 Within the last year, have y ou been raped or forced to have any kind of sexual activity by your partner or ex-partner? No 11/08/2024 Social Connection and Isolat ion Panel [NHANES] Answer Date Recorded In a typical week, how many times do you talk on the phone with family, friends, or neighbors? More than three times a week 11/08/2024 How often do you get togethe r with friends or relatives? More than three times a week 11/08/2024 How often do you attend chur or spiritism services? More than 4 times per year 11/08/2024 Do you belong to any clubs o r organizations such as shinto groups, unions, fraternal or athletic groups, or school groups? No 11/08/2024 How often do you attend meet ings of the clubs or organizations you belong to? Never 11/08/2024 Are you , , di vorced, , never , or living with a partner? 11/08/2024 AUDIT-C Answer Date Recorded Q1: How often do you have a drink containing alc ohol? Monthly or less 03/28/2025 Q2: How many drinks containi ng alcohol do you have on a typical day when you are drinking? 3 or 4 03/28/2025 Q3: How often do you have si x or more drinks on one occasion? Never 03/28/2025 Overall Financial Resource Strain (CARDIA) Answe r Date Recorded How hard is it for you to pa y for the very basics like food, housing, medical care, and heating? Not hard at all 11/08/2024 PHQ-2 Answer Date Recorded PHQ-2 Total Score (If total score is 3 or more points, staff should administer the PHQ-9) 0 02/21/2025 [facility] - Occupational Stress Questionnaire Answer Date Recorded Do you feel stress - tense, restless, nervous, or anxious, or unable to sleep at night because your mind is troubled all the time - these days? To some extent 11/08/2024 Exercise Vital Sign Answer Date Recorde d On average, how many days pe r week do you engage in moderate to strenuous exercise (like a brisk walk)? 7 days 11/08/2024 On average, how many minutes do you engage in exercise at this level? 30 min 11/08/2024 Hunger Vital Sign Answer Date Recorded Within the past 12 months, y ou worried that your food would run out before you got the money to buy more. Never true 12/08/19 25 Within the past 12 months, t he food you bought just didn't last and you didn't have money to get more. Never true 12/08/2024 PRAPARE - Transportation Answer Date Re corded In the past 12 months, has l ack of transportation kept you from medical appointments or from getting medications? No 06/2025 In the past 12 months, has l ack of transportation kept you from meetings, work, or from getting things needed for daily living? No 11/08/2024 Housing Stability Vital Sign Answer Tyler e Recorded In the last 12 months, was t here a time when you were not able to pay the mortgage or rent on time? No 06/09/2023 In the last 12 months, how many places have you lived? 1 06/09/2023 In the last 12 months, was t here a time when you did not have a steady place to sleep or slept in a jail (including now)? No 06/09/2023 PHQ-9 Answer Date Recorded PHQ-9 Total Score 0 08/23/2024 Housing Stability Vital Sign Answer Tyler e Recorded In the last 12 months, was t here a time when you were not able to pay the mortgage or rent on time? No 11/08/2024 In the past 12 months, how m any times have you moved where you were living? 0 11/08/2024 At any time in the past 12 m [facility], were you homeless or living in a jail (including now)? No 11/08/2024 Personal Safety Answer Date Recorded Have you ever been in or are you currently in a harmful physical or emotional relationship or is someone making you feel afraid or unsafe? 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 Gender Identity Female 07/18/2020 6:40 AM CDT Sexual Orientation Straight 07/18/2020 6: 40 AM CDT Obstetrics History Para Term AB IAB SAB Ectopic Multiple Livin g Live Births 2 2 Date Outcome GA Total Labor Labor/2nd/3rd Weight Sex Type Anes PTL Ev A1 A5 Name Clin Para Para Last Filed Vital Signs Vital Sign Reading Time Taken Comments Blood Pressure 126/97 03/31/2025 9:00 PM CDT Pulse 98 03/31/2025 9:00 PM CDT Temperature 36.7 C (98 F) 03/31/2025 6:01 PM CDT Respiratory Rate 23 03/31/2025 9:00 PM CDT Oxygen Saturation 99% 03/31/2025 9:00 PM CDT Inhaled Oxygen Concentration - - Weight 72.6 kg (160 lb) 03/31/2025 6:03 PM CDT Height 167.6 cm (5' 6) 03/31/2025 6:03 PM CDT Body Mass Index 25.82 03/31/2025 6:03 PM CDT Plan of Treatment Health Maintenance Due Date Last Done Comments Hepatitis B Screening 1984 Regular Well Visit/Exam 18-64 1984 Covid-19 Vaccine (2 - Modern a risk series) 03/24/2021 02/24/2021 Breast Cancer Screening-Mammogram 12/18/2025 025, 12/30/2023 Depression Screening 02/21/2026 02/21/2025, 01/30/2025, 10/24/2024, Additional history exists Colon Cancer Screening-DNA Stool 09/06/2027 09/06/20 24, 06/11/2023 Hepatitis C Screening Completed 08/20/2020, 020 Zoster Vaccine Completed 10/31/2020, 09/16/2020 Pneumococcal vaccine <65 Completed 05/31/2023 Influenza Vaccine Completed 08/23/2024, , 07/03/2020, Additional history exists Colon Cancer Screening-CT Colonography Discontinued 09/06/2024 Colon Cancer Screening-Colonoscopy Discontinued 09/06/2024 Colon Cancer Screening-FIT Discontinued 09/06/2024, Colon Cancer Screening-Sigmoidoscopy Discontinued 09/06/2024 DTaP/Tdap/Td Vaccine Discontinued Goals Goal Patient Goal Type Associated Problems Recent Progress Patient-Stated? Author CCM Chronic Pain Care Plan Chronic Care Management No change(03/28 10:00 AM CDT) No Antionette Melvin, RN Note: Problem: Chronic Pain Goals: 1. Minimize further functional decline 2. Maximize quality of life 3. Control pain Strategies: - Activity/exercise program recommendation - Conservative stepwise pain medicine strategy with multi-disciplinary approach - Recommend healthy lifestyle strategies and compensatory methods as needed Medical Devices Implanted Type Area Junior Copywriter Device Identifier Shelf Expiration Date Model / Serial / Lot Breast Implant Bilateral: Breast Procedures Procedure Name Priority Date/Time Associated Diagnosis Comments [facility] ILL/INJURED PATIENT INIT 30-74 MIN Routine 03/31/2025 8:45 PM CDT URINALYSIS AND REFLEX TO MICROSCOPIC AND CULTURE STAT 03/31/2025 8:18 PM CDT INFLUENZA A/B, RSV, AND COVID-19 PCR STAT 03/31/2025 5:57 PM CDT EGFR STAT 03/31/2025 5:14 PM CDT DIFFERENTIAL AUTO STAT 03/31/2025 5:1 4 PM CDT BLOOD GAS, VENOUS STAT 03/31/2025 5:1 4 PM CDT D-DIMER, QUANTITATIVE STAT 03/31/2025 5:14 PM CDT PRO B-TYPE NATRIURETIC PEPTIDE STAT 03/31/2025 5:14 PM CDT TROPONIN T HIGH-SENSITIVITY SERIES (BASELINE, 2HR, 4HR, 6HR) STAT 03/31/2025 5:14 PM CDT CBC WITH AUTO DIFFERENTIAL STAT 03/31/2025 5:14 PM CDT COMPREHENSIVE METABOLIC PANEL STAT 03/31/2025 5:14 PM CDT XR CHEST 1 VIEW ED 03/31/2025 5:06 PM CDT PAIN MGMT IMAGING CERVICAL/THORACIC EPIDURAL STEROID INJ Schedule Routine, Read Routine (OP Routine) 03/28/2025 10:21 AM CDT Cervical radiculopathy EGFR Routine 02/26/2025 11:12 AM CDT Closed fracture of sacrum, unspecified portion of sacrum, initial encounter (HCC) Sacral insufficiency fracture, sequela History of fragility fracture DIFFERENTIAL AUTO Routine 02/26/2025 11:12 AM CDT Closed fracture of sacrum, unspecified portion of sacrum, initial encounter (HCC) Sacral insufficiency fracture, sequela History of fragility fracture CBC WITH AUTO DIFFERENTIAL Routine 02/26/2025 11:12 AM CDT Closed fracture of sacrum, unspecified portion of sacrum, initial encounter (HCC) Sacral insufficiency fracture, sequela History of fragility fracture COMPREHENSIVE METABOLIC PANEL Routine 02/26/2025 11:12 AM CDT Closed fracture of sacrum, unspecified portion of sacrum, initial encounter (HCC) Sacral insufficiency fracture, sequela History of fragility fracture CT PELVIS WO CONTRAST Schedule Routine, Read Routine (OP Routine) 02/23/2025 1:07 PM CDT Closed fracture of sacrum, unspecified portion of sacrum, initial encounter (HCC) DEXA AXIAL SKELETON BONE DENSITY 1 OR MORE SITES Schedule Routine, Read Routine (OP Routine) 02/23/2025 12:41 PM CDT Age-related osteoporosis without current pathological fracture PAIN MGMT IMAGING LUMBAR/CAUDAL EPIDURAL STEROID INJ Schedule Routine, Read Routine (OP Routine) 02/12/2025 10:17 AM CDT Lumbar radiculopathy MRI SACRUM COCCYX WO CONTRAST Schedule Routine, Read Routine (OP Routine) 01/22/2025 7:51 PM CDT Sacral insufficiency fracture, sequela MRI LUMBAR SPINE WO CONTRAST Schedule YAZAN, Read Routine (Patient lives out of area) 01/07/2025 12:05 PM CDT Lumbar radiculopathy EGFR Routine 01/03/2025 9:45 AM CORE DRILLER HELPER Follicular lymphoma of intrapelvic lymph nodes, unspecified follicular lymphoma type (HCC) CVID (common variable immunodeficiency) (HCC) DIFFERENTIAL AUTO Routine 01/03/2025 9:4 5 AM CORE DRILLER HELPER Follicular lymphoma of intrapelvic lymph nodes, unspecified follicular lymphoma type (HCC) CVID (common variable immunodeficiency) (HCC) IGM Routine 01/03/2025 9:45 AM CORE DRILLER HELPER Diffuse large B-cell lymphoma, unspecified body region (HCC) IGA Routine 01/03/2025 9:45 AM CORE DRILLER HELPER Diffuse large B-cell lymphoma, unspecified body region (HCC) PHOSPHORUS Routine 01/03/2025 9:45 AM CORE DRILLER HELPER Diffuse large B-cell lymphoma, unspecified body region (HCC) MAGNESIUM Routine 01/03/2025 9:45 AM CORE DRILLER HELPER Diffuse large B-cell lymphoma, unspecified body region (HCC) BILIRUBIN, DIRECT Routine 01/03/2025 9:4 5 AM CORE DRILLER HELPER Diffuse large B-cell lymphoma, unspecified body region (HCC) URIC ACID Routine 01/03/2025 9:45 AM CORE DRILLER HELPER Diffuse large B-cell lymphoma, unspecified body region (HCC) CBC WITH AUTO DIFFERENTIAL Routine 01/03/2025 9:45 AM CORE DRILLER HELPER Follicular lymphoma of intrapelvic lymph nodes, unspecified follicular lymphoma type (HCC) CVID (common variable immunodeficiency) (HCC) COMPREHENSIVE METABOLIC PANEL Routine 01/03/2025 9:45 AM CORE DRILLER HELPER Follicular lymphoma of intrapelvic lymph nodes, unspecified follicular lymphoma type (HCC) CVID (common variable immunodeficiency) (HCC) LACTATE DEHYDROGENASE Routine 01/03/2025 9:45 AM CORE DRILLER HELPER Follicular lymphoma of intrapelvic lymph nodes, unspecified follicular lymphoma type (HCC) CVID (common variable immunodeficiency) (HCC) IGG Routine 01/03/2025 9:45 AM CORE DRILLER HELPER Follicular lymphoma of intrapelvic lymph nodes, unspecified follicular lymphoma type (HCC) CVID (common variable immunodeficiency) (HCC) SCREENING MAMMOGRAM BILATERAL W RAMON W IMPLANTS Schedule Routine, Read Routine (OP Routine) 12/18/2024 7:38 AM CORE DRILLER HELPER Screening mammogram, encounter for COLONOSCOPY 09/06/2024 7:11 AM CORE DRILLER HELPER HEPATITIS PANEL, ACUTE Routine 08/20/2020 11:07 AM CDT Polyarthralgia from Last 3 Months or Most Recently Relevant to Health Maintenance Results * [facility] ILL/INJURED PATIENT INIT 30-74 MIN (03/31/2025 8:45 PM CDT) Narrative Bertha Voss MD - 03/31/2025 8:45 PM CDT Bertha Voss MD 03/31/2025 8:53 PM Critical Care Performed by: Bertha Voss MD Authorized by: Bertha Voss MD Critical care provider statement: As reflected in the history, physical exam, orders, notes, and/or MDM, I was personally present while the patient was critically ill and provided critical care services for 45 minutes, excluding time involved in separately billable procedures. Critical care was necessary to treat or prevent imminent or life-threatening deterioration of the following condition(s): severe respiratory condition Critical care was time spent by me providing the following: continuous telemetry, continuous pulse oximetry, resuscitation with fluids and serial bedside patient exams supplemental oxygen and frequent bronchodilator treatments I provided emergent necessary critical care medicine services to this patient. I ordered and reviewed test results and/or imaging studies. I spent time discussing the management of this critically ill patient with consultants and the medical staff. I spent time discussing the management and therapeutic options for this critically ill patient with the patient themselves or with the appropriate designated surrogate decision-maker. I spent time documenting in the medical record. Bertha Voss MD IN CLINIC/BEDSIDE O RDERABLES Final Result * (ABNORMAL) Urinalysis reflex to microscopic and culture Urine (03/31/2025 8:18 PM CDT) Color, ur Straw Yellow Clarity, ur Clear Clear [facility] ([place]) Specific gravity, ur 1.006 1.003 - 1.030 [facility] ([place]) pH, urine 5.0 [facility] ([place]) Comment: Interpretive Data U rine pH is affected by diet, medications, systemic acid-base disturbances, and renal tubular function. pH may affect urinary stone formation. For example, urine pH below 6.0 may help reduce the tendency for calcium phosphate stones and pH greater than 6.0 may reduce the tendency for uric acid stone formation. Source: [facility] [place] [employer] Current Interpretive Data was last revised on 2017 Protein, ur ql Negative Negative [facility] ([place]) Glucose, ur ql Trace(A) Negative [facility] ([place]) Ketones, ur 1+(A) Negative [facility] ([place]) Bilirubin, ur Negative Negative [facility] ([place]) Blood, ur Negative Negative [facility] ([place]) Urobilinogen, ur <2.0 <2.0 mg/dL [facility] ([place]) Nitrite, ur Negative Negative [facility] ([place]) Leukocyte esterase, ur Negative Negative [facility] ([place]) UA reflex comment Reflex conditions for microscopic UA and culture not met. [facility] ([place]) Urine 03/31/2025 8:18 PM CDT 03/31/2025 8:22 PM CDT Bertha Voss MD LAB MICROBIOLOGY - GENERAL ORDERABLES Final Result TANIYA RODRIGUEZ ([place]) 1 [facility] Department [place] [address] * Influenza A/B, RSV, and COVID-19 PCR Nasopharyngeal (03/31/2025 5:57 PM CDT) COVID-19 RNA Negative Negative Influenza A RNA Negative Negative [facility] ([place]) Influenza B RNA Negative Negative [facility] ([place]) RSV RNA Negative Negative [facility] ([place]) Comment: Interpretive data: Testing performed by [facility]. This test is performed using the [employer] Xpert Xpress CoV-2/Flu/RSV plus assay. This is a multiplex, real- time reverse transcriptase PCR assay intended for the qualitative detection of nucleic acid from SARS-CoV-2, influenza A, influenza B, and respiratory syncytial virus. This assay has been cleared by the [place] Food and Drug administration. The performance characteristics have been verified by the [facility]. Results must be considered in the clinical context, and a negative result does not rule out infection. Interpretive Data last revised 2023 Nasopharyngeal 03/31/2025 5: 57 PM CDT 03/31/2025 6:00 PM CDT Narrative [facility] ([place]) - 03/31/2025 6:40 PM CDT Is the Patient experiencing symptoms consistent with COVID?->Yes Bertha Voss MD LAB MICROBIOLOGY - GENERAL ORDERABLES Final Result T[facility]YA [facility] ([place]) 1 [facility] Department [place] [address] * Troponin T high-sensitivity series (baseline, 2hr, 4hr, 6hr) (03/31/2025 5:14 PM CDT) Trop T hs 9 <=14 ng/L Comment: Interpretive Data For further hscTnT resources including the diagnostic algorithm and an aid in interpretation, copy and paste this link: [email or web address].testcatalog.org/show/[email or web address] Current Interpretive Data last revised 2020. Blood 03/31/2025 5:14 PM CDT 03/31/2025 5:16 PM CDT Bertha Voss MD LAB BLOOD ORDERABLE S Final Result TANIYA RODRIGUEZ ([place]) 1 [facility] [place] [address] * eGFR (03/31/2025 5:14 PM CDT) eGFR 79 >=60 mL/min/1. 73 m2 Comment: Interpretive Data Reference Interval Normal >/= 90 mL/min/1.73m2 Mildly decreased* 60 - 89 mL/min/1.73m2 Mildly to moderately decreased 45 - 59 mL/min/1.73m2 Moderately to severely decreased 30 - 44 mL/min/1.73m2 Severely decreased 15 - 29 mL/min/1.73m2 Kidney Failure < 15 mL/min/1.73m2 *Relative to young adult level Estimated glomerular filtration rate is determined by the 2020 CKD-EPI equation recommended by the National Kidney Foundation (A Unifying Approach to GFR Estimation: Recommendations of the NKF-ASK Task Force on Reassessing the Inclusion of Race in Diagnosing Kidney Disease, JASN 2020). The CKD-EPI equation should not be used for patients with unstable renal function and has not been validated in children and those over 70. Current interpretive data was last reviewed 2021. Blood 03/31/2025 5:14 PM CDT 03/31/2025 5:16 PM CDT us Bertha Voss MD LAB BLOOD ORDERABLE S Final Result TANIYA RODRIGUEZ ([place]) 1 [facility] Department [place] [address] * (ABNORMAL) Differential, auto (03/31/2025 5:14 PM CDT) Neutrophil abs 7.89(H) 1.50 - 6.50 K/cumm Imm gran abs 0.04 0.00 - 0.10 K/cumm [facility] ([place]) Lymphocyte abs 2.92 0.80 - 3.30 K/cumm [facility] ([place]) Monocyte abs 0.63 0.20 - 0.80 K/cumm [facility] ([place]) Eosinophil abs 0.40 0.00 - 0.50 K/cumm [facility] ([place]) Basophil abs 0.04 0.00 - 0.10 K/cumm [facility] ([place]) Neutrophil pct 66.2 % [facility] ([place]) Comment: Interpretive Data Percent cell count reference ranges are not reported, since discordance with absolute values may lead to misinterpretation of CBC data. Current Interpretive Data was last revised on 2018. Imm gran pct 0.3 % [facility] ([place]) Comment: Interpretive Data Percent cell count reference ranges are not reported, since discordance with absolute values may lead to misinterpretation of CBC data. Current Interpretive Data was last revised on 2018. Lymphocyte pct 24.5 % [facility] ([place]) Comment: Interpretive Data Percent cell count reference ranges are not reported, since discordance with absolute values may lead to misinterpretation of CBC data. Current Interpretive Data was last revised on 2018. Monocyte pct 5.3 % [facility] ([place]) Comment: Interpretive Data Percent cell count reference ranges are not reported, since discordance with absolute values may lead to misinterpretation of CBC data. Current Interpretive Data was last revised on 2018. Eosinophil pct 3.4 % [facility] ([place]) Comment: Interpretive Data Percent cell count reference ranges are not reported, since discordance with absolute values may lead to misinterpretation of CBC data. Current Interpretive Data was last revised on 2018. Basophil pct 0.3 % [facility] ([place]) Comment: Interpretive Data Percent cell count reference ranges are not reported, since discordance with absolute values may lead to misinterpretation of CBC data. Current Interpretive Data was last revised on 2018. Blood 03/31/2025 5:14 PM CDT 03/31/2025 5:16 PM CDT us Bertha Voss MD LAB BLOOD ORDERABLE S Final Result TANIYA [facility] ([place]) 1 [facility] Department [place] [address] * Pro B-type natriuretic peptide (03/31/2025 5:14 PM CDT) NT-proBNP 101 <=300 pg/mL Comment: Interpretive Comments: A. Dyspnea in Acute Care Setting All Ages: < 300 pg/ml, acute heart failure unlikely. < 50 yrs: 300 - 450 pg/ml, further investigation warranted. > 450 pg/ml, acute heart failure likely. 50 - 74 yrs: 300 - 900 pg/ml, further investigation warranted. > 900 pg/ml, acute heart failure likely . > or = 75 yrs: 450 - 1800 pg/ml, further investigation warranted. > 1800 pg/ml, acute heart failure likely. B. Non-acute Setting < 75 yrs < 125 pg/ml, rules out heart failure. > or = 125 pg/ml, further investigation warranted. > or = 75 yrs < 450 pg/ml, rules out heart failure. > or = 450 pg/ml, further investigation warranted. - Knowledge of each individual patient's NT-proBNP range may be more useful than using similar cut-points for every patient. Please note that marked elevations in NT-proBNP levels may be observed in state other than Left Ventricular Congestive Failure, including: acute coronary syndromes, right heart strain/failure (including pulmonary embolism and cor pulmonale), critical illness, renal failure, as well as advanced age. - References: 1. Soy SANDRA et.al. Eur Heart J. 2006:27:330-337. 2. Adrianne RW, Warren AM. J. AM Leonides Cardiol: Cardiovasc Imag. 2009;2: 216- 225. Interpretive Data Last Revised Date: 2018. Blood 03/31/2025 5:14 PM CDT 03/31/2025 5:16 PM CDT us Bertha Voss MD LAB BLOOD ORDERABLE S Final Result [facility] ([place]) 1 [facility] Department [place] [address] * (ABNORMAL) CBC with auto differential (03/31/2025 5:14 PM CDT) WBC 11.92(H) 3.80 - 9.90 K/cumm Hgb 13.9 11.9 - 15.5 g/dL [facility] (JAME) Hct 39.2 35.6 - 45.5 % [facility] (JAME) Plt 234 150 - 400 K/cumm [facility] (JAME) MPV 10.2 9.1 - 12.3 fL [facility] (JAME) RBC 3.96 3.90 - 5.20 M/cumm [facility] (JAME) MCV 99.0(H) 81.3 - 96.4 fL [facility] (JAME) MCH 35.1(H) 27.1 - 33.3 pg [facility] (JAME) MCHC 35.5 32.3 - 35.7 g/dL [facility] (JAME) RDW CV 12.9 11.1 - 14.9 % [facility] (JAME) RDW SD 46.9 35.7 - 48.1 fL [facility] (JAME) NRBC abs 0.00 0.00 - 0.01 K/cumm [facility] ([facility] Blood 03/31/2025 5:14 PM CDT 03/31/2025 5:16 PM CDT us Bertha Voss MD LAB BLOOD ORDERABLE S Final Result [facility] ([facility]AME[facility] 1 [facility] Department [place] [address] * D-dimer, quantitative (03/31/2025 5:14 PM CDT) D-Dimer 285 <=499 ng/mL FEU [facility] (JAME) Comment: Interpretive data FDA approved the D-dimer, in conjunction with a low or moderate pretest probability score, to exclude venous thromboembolic events (VTE) (PE and DVT) in outpatients when the D-dimer result is < 500 ng/ml FEU. Evidence supports using an age-adjusted D-dimer cut-off for outpatients older than 50 (age x 10) to improve specificity without sacrificing sensitivity. Example: age 68, VTE cut-off 680 ng/ml FEU. References; Schouten HT et al. Brit Med J. 2013;346:f2492. Oralia et al. Annals Int Med. 2015;163:701-11. Current interpretive data was last revised on 2019. Blood 03/31/2025 5:14 PM CDT 03/31/2025 5:16 PM CDT Betrha Voss MD LAB BLOOD ORDERABLE S Final Result Performing Organization Address City/[facility] Co de Phone Number TANI[facility] RODRIGUEZ (JAME) 1 [facility] [employer] [place] [address] * (ABNORMAL) Blood gas, venous (03/31/2025 5:14 PM CDT) pH, Venous 7.37 7.32 - 7.43 PCO2, Venous 51(H) 40 - 50 mmHg [facility] (JAME) PO2, Venous 38 mmHg [facility] (LEBEAU) Comment: Interpretive Data No reference range established. Current interpretive data was last revised 2018. HCO3 Venous, Calculated 29 20 - 30 mmol/L [facility] (JAME) BE, venous 3 mmol/L [facility] (JAME) Comment: Interpretive Data No Reference Range Established Current Interpretive Data was last revised on 2018. Blood 03/31/2025 5:14 PM CDT 03/31/2025 5:16 PM CDT Bertha Voss MD LAB BLOOD ORDERABLE S Final Result Performing Organization Address City/[facility]/ZIP Co de Phone Number [facility] (JAME) 1 [facility] [place] [place] [address] * (ABNORMAL) Comprehensive metabolic panel (03/31/2025 5:14 PM CDT) Sodium 139 135 - 145 mmol/L Potassium, pl 2.9(C) 3.3 - 4.9 mmol/L [facility] (JAME) Comment:Critical Result call ed by [email or web address] at 2025-03-31 17:49:43. Result Read Back by Bridgette Tang [employer] Chloride 96(L) 97 - 110 mmol/L [facility] (JAME) CO2 26 22 - 32 mmol/L [facility] ([facility]AME) Anion gap 17(H) 2 - 15 mmol/L [facility] ([place]AME) BUN 12 6 - 25 mg/dL [facility] ([place]AME) Creatinine 0.85 0.60 - 1.10 mg/dL [facility] (JAME) Glucose 98 70 - 199 mg/dL [facility] (JAME) Comment: Interpretive Data Fasting glucose >/= 126 mg/dl is diagnostic for diabetes. Fasting is defined as no caloric intake for at least 8 hours. Fasting glucose between 100 mg/dl to 125 mg/dl is diagnostic of prediabetes. In a patient with classic symptoms of hyperglycemia or hyperglycemic crisis, a random glucose >/= 200 mg/dl is diagnostic for diabetes. In the absence of unequivocal hyperglycemia, results should be confirmed by repeat testing. The classification and Diagnosis of Diabetes Diabetes Care 2021; 46: S19-S40. Current interpretive data was last revised 2022. Calcium 9.9 8.5 - 10.3 mg/dL [facility] (JAME) Bilirubin, total 0.7 0.1 - 1.2 mg/dL [facility] (JAME) Protein, pl 7.3 6.5 - 8.5 g/dL [facility] (JAME) Albumin 4.7 3.5 - 5.0 g/dL [facility] ([facility]AME) Alk phos 68 40 - 130 Units/L [facility] (JAME) ALT 30 7 - 45 Units/L [facility] ([facility]AME) AST 35 10 - 45 Units/L [facility] (JAME) Comment:Slightly Hemolyzed S pecimen Blood 03/31/2025 5:14 PM CDT 03/31/2025 5:16 PM CDT us Bertha Voss MD LAB BLOOD ORDERABLE S Final Result [facility] (JAME) 1 [facility] Department [place] [address] * XR Chest 1 Vw Portable (if patient condition/safety warrant portable) (03/31/2025 5:06 PM CDT) Anatomical Region Laterality Modality Body, Chest N/A Computed Radiogr aphy 03/31/2025 5:09 PM CDT Narrative 03/31/2025 5:10 PM CDT EXAM DESCRIPTION: XR CHEST 1 VIEW REASON FOR STUDY: Shortness of breath Patient to ED via EMS from [facility] care [facility] with Complaints of SOB starting this morning, chronic pain in middle back (steroid epidural on Wednesday), perfuse sweating. Ex-Smoker Asthma GERD Hypertension TECHNIQUE: Single frontal radiographic view(s) of the chest. COMPARISON: 11/02/2024 FINDINGS: The heart, mediastinum, and pulmonary vasculature are grossly unremarkable. There is no definite evidence of a pneumothorax. There is no definite evidence of a focal consolidation or pleural effusion. The osseous structures are acutely grossly stable. IMPRESSION: No acute cardiopulmonary abnormality. THIS IS AN ELECTRONICALLY VERIFIED FINAL REPORT 03/31/2025 5:10 PM - Electronically signed by Mendel Cortes D.O. PS: PS Report ID: [id number] Reading Location: [place] [address] Procedure Note Mendel Cortes, DO - 03/31/2025 EXAM DESCRIPTION: XR CHEST 1 VIEW REASON FOR STUDY: Shortness of breath Patient to ED via EMS from [facility] care [facility] with Complaintsof SOB starting this morning, chronic pain in middle back (steroid epiduralon Wednesday), perfuse sweating. Ex-Smoker Asthma GERD Hypertension TECHNIQUE: Single frontal radiographic view(s) of the chest. COMPARISON: 11/02/2024 FINDINGS: The heart, mediastinum, and pulmonary vasculature are grosslyunremarkable. There is no definite evidence of a pneumothorax. There is no definite evidence of a focal consolidation or pleural effusion. The osseous structures are acutely grossly stable. IMPRESSION: No acute cardiopulmonary abnormality. THIS IS AN ELECTRONICALLY VERIFIED FINAL REPORT 03/31/2025 5:10 PM - Electronically signed by Mendel Cortes D.O. PS: ELIZABETH Report ID: [id number] Reading Location: [place] [address] Bertha Voss MD IMG XR PROCEDURES F inal Result * Imaging Cervical/Thoracic Epidural Steroid INJ ([id number]) (03/28/2025 10:21 AM CDT) Narrative [facility] - 03/28/2025 10:22 AM CDT The images from this study are not interpreted by Radiology. Please refer to the physician's procedure / OR operative note. us Rafael Gallego MD IMG PAIN MGMT PROCEDU RES Final Result [facility] * eGFR (02/26/2025 11:12 AM CDT) eGFR 62 >=60 mL/min/1. 73 m2 Comment: Interpretive Data Reference Interval Normal >/= 90 mL/min/1.73m2 Mildly decreased* 60 - 89 mL/min/1.73m2 Mildly to moderately decreased 45 - 59 mL/min/1.73m2 Moderately to severely decreased 30 - 44 mL/min/1.73m2 Severely decreased 15 - 29 mL/min/1.73m2 Kidney Failure < 15 mL/min/1.73m2 *Relative to young adult level Estimated glomerular filtration rate is determined by the 2020 CKD-EPI equation recommended by the National Kidney Foundation (A Unifying Approach to GFR Estimation: Recommendations of the NKF-ASK Task Force on Reassessing the Inclusion of Race in Diagnosing Kidney Disease, JASN 202). The CKD-EPI equation should not be used for patients with unstable renal function and has not been validated in children and those over 70. Current interpretive data was last reviewed 2021. Blood 02/26/2025 11:1 2 AM CDT 02/26/2025 11:43 AM CDT us Leigh FISH LAB BLOOD ORDERABLES Final Result [facility] One [facility] Department [place] [address] * (ABNORMAL) Differential, auto (02/26/2025 11:12 AM CDT) Neutrophil abs 6.69(H) 1.50 - 6.50 K/cumm Imm gran abs 0.03 0.00 - 0.10 K/cumm [facility] Lymphocyte abs 2.88 0.80 - 3.30 K/cumm [facility] Monocyte abs 0.63 0.20 - 0.80 K/cumm [facility] Eosinophil abs 0.40 0.00 - 0.50 K/cumm [facility] Basophil abs 0.02 0.00 - 0.10 K/cumm [facility] Neutrophil pct 62.8 % [facility] Comment: Interpretive Data Percent cell count reference ranges are not reported, since discordance with absolute values may lead to misinterpretation of CBC data. Current Interpretive Data was last revised on 2018. Imm gran pct 0.3 % [facility] Comment: Interpretive Data Percent cell count reference ranges are not reported, since discordance with absolute values may lead to misinterpretation of CBC data. Current Interpretive Data was last revised on 2018. Lymphocyte pct 27.0 % [facility] Comment: Interpretive Data Percent cell count reference ranges are not reported, since discordance with absolute values may lead to misinterpretation of CBC data. Current Interpretive Data was last revised on 2018. Monocyte pct 5.9 % [facility] Comment: Interpretive Data Percent cell count reference ranges are not reported, since discordance with absolute values may lead to misinterpretation of CBC data. Current Interpretive Data was last revised on 2018. Eosinophil pct 3.8 % [facility] Comment: Interpretive Data Percent cell count reference ranges are not reported, since discordance with absolute values may lead to misinterpretation of CBC data. Current Interpretive Data was last revised on 2018. Basophil pct 0.2 % [facility] Comment: Interpretive Data Percent cell count reference ranges are not reported, since discordance with absolute values may lead to misinterpretation of CBC data. Current Interpretive Data was last revised on 2018. Blood 02/26/2025 11:1 2 AM CDT 02/26/2025 11:35 AM CDT Leigh FISH LAB BLOOD ORDERABLES Final Result Performing Organization Address City/[facility] Co de Phone Number [facility] [place] [address] * (ABNORMAL) CBC with auto differential (02/26/2025 11:12 AM CDT) WBC 10.65(H) 3.80 - 9.90 K/cumm Hgb 15.3 11.9 - 15.5 g/dL [facility] Hct 43.3 35.6 - 45.5 % [facility] Plt 249 150 - 400 K/cumm [facility] MPV 9.8 9.1 - 12.3 fL [facility] RBC 4.52 3.90 - 5.20 M/cumm [facility] MCV 95.8 81.3 - 96.4 fL [facility] MCH 33.8(H) 27.1 - 33.3 pg [facility] MCHC 35.3 32.3 - 35.7 g/dL [facility] RDW CV 12.5 11.1 - 14.9 % [facility] RDW SD 44.0 35.7 - 48.1 fL [facility] NRBC abs 0.00 0.00 - 0.01 K/cumm [facility] Blood 02/26/2025 11:1 2 AM CDT 02/26/2025 11:35 AM CDT Leigh FISH LAB BLOOD ORDERABLES Final Result Performing Organization Address City/[facility]/ZIP Co de Phone Number [facility] Department [place] [address] * Comprehensive metabolic panel (02/26/2025 11:12 AM CDT) Sodium 141 135 - 145 mmol/L Potassium, pl 4.8 3.3 - 4.9 mmol/L [facility] Chloride 102 97 - 110 mmol/L [facility] CO2 30 22 - 32 mmol/L [facility] Anion gap 9 2 - 15 mmol/L [facility] BUN 11 6 - 25 mg/dL [facility] Creatinine 1.05 0.60 - 1.10 mg/dL [facility] Glucose 105 70 - 199 mg/dL [facility] Comment: Interpretive Data Fasting glucose >/= 126 mg/dl is diagnostic for diabetes. Fasting is defined as no caloric intake for at least 8 hours. Fasting glucose between 100 mg/dl to 125 mg/dl is diagnostic of prediabetes. In a patient with classic symptoms of hyperglycemia or hyperglycemic crisis, a random glucose >/= 200 mg/dl is diagnostic for diabetes. In the absence of unequivocal hyperglycemia, results should be confirmed by repeat testing. The classification and Diagnosis of Diabetes Diabetes Care 202; 46: S19-S40. Current interpretive data was last revised 2022. Calcium 10.0 8.5 - 10.3 mg/dL [facility] Bilirubin, total 0.5 0.1 - 1.2 mg/dL [facility] Protein, pl 7.4 6.5 - 8.5 g/dL [facility] Albumin 4.9 3.5 - 5.0 g/dL [facility] Alk phos 65 40 - 130 Units/L [facility] ALT 25 7 - 45 Units/L [facility] AST 30 10 - 45 Units/L [facility] Blood 02/26/2025 11:1 2 AM CDT 02/26/2025 11:35 AM CDT us Leigh FISH LAB BLOOD ORDERABLES Final Result [facility] Department [place] [address] * CT Pelvis WO Contrast (02/23/2025 1:07 PM CDT) Anatomical Region Laterality Modality Body N/A Computed Tomogra phy 02/23/2025 3:20 PM CDT Impressions 02/23/2025 3:59 PM CDT Healing, nondisplaced bilateral sacral ala insufficiency fractures. Dictated by: Jroge Escalante M.D. The radiology attending physician has personally reviewed this study, and had reviewed and/or edited this written report and agrees with it. Electronically signed by: Jan Ochoa M.D. Narrative 02/23/2025 3:59 PM CDT EXAMINATION: CT PELVIS WO CONTRAST HISTORY: History of lower back pain and recently noted bilateral sacral fractures TECHNIQUE: Transaxial computed tomographic images of the pelvis were obtained without intravenous contrast according to the standard protocol. COMPARISON: Pelvic MRI 01/22/2025, lumbar MRI 01/07/2025, CT 10/21/2024 FINDINGS: Endosteal calluses in the bilateral sacral ala are consistent with healing, nondisplaced bilateral sacral insufficiency fractures. No acute fracture or dislocation. 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 Mild lower lumbar facet osteoarthritis from L4 to S1. 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 Limited views of the pelvic viscera demonstrate postsurgical changes of appendectomy and diverticulosis without diverticulitis. No acute findings in the lower abdomen and pelvis. Procedure Note Jan Ochoa MD - 02/23/2025 EXAMINATION: CT PELVIS WO CONTRAST HISTORY: History of lower back pain and recently noted bilateral sacral fractures TECHNIQUE: Transaxial computed tomographic images of the pelvis were obtained without intravenous contrast according to the standard protocol. COMPARISON: Pelvic MRI 01/22/2025, lumbar MRI 01/07/2025, CT 10/21/2024 FINDINGS: Endosteal calluses in the bilateral sacral ala are consistent with healing, nondisplaced bilateral sacral insufficiency fractures. No acute fracture or dislocation. 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 Mild lower lumbar facet osteoarthritis from L4 to S1. 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 Limited views of the pelvic viscera demonstrate postsurgical changes of appendectomy and diverticulosis without diverticulitis. No acute findings in the lower abdomen and pelvis. IMPRESSION: Healing, nondisplaced bilateral sacral ala insufficiency fractures. Dictated by: Jorge Escalante M.D. The radiology attending physician has personally reviewed this study, and had reviewed and/or edited this written report and agrees with it. Electronically signed by: Jan Ochoa M.D. Rafael Gallego MD IMG CT PROCEDURES Fin al Result * DEXA Axial Skeleton Bone Density Multi Site (02/23/2025 12:41 PM CDT) Anatomical Region Laterality Modality Body N/A Digital Radiogra phy 02/23/2025 1:08 PM CDT Impressions 02/23/2025 2:52 PM CDT 1. The bone mineral density of the lumbar spine is normal. 2. The bone mineral density of the left femoral neck is mildly decreased. 3. The bone mineral density of the left total hip is normal. 4. Overall, the above findings are diagnostic of low bone mass (osteopenia) by WHO criteria. 5. Based on the FRAX fracture risk model, the 10-year probability for major osteoporotic fracture is 7.0% and that for hip fracture is 0.5%. This 10-year fracture risk estimate was calculated using the risk factors noted in the history above, along with the femoral neck bone density. FRAX is intended to help guide treatment decisions in men over age 50 and postmenopausal women with low bone mass (osteopenia). The National Osteoporosis Foundation (NOF) recommends that FDA-approved medical therapies be considered in postmenopausal women and men age 50 years and older with osteoporosis and those with low bone mass whose 10-year fracture probability by FRAX is >= 20% for major osteoporotic fracture or >= 3% for hip fracture. However, all treatment decisions require clinical judgment and consideration of individual patient factors, including patient preferences, comorbidities, previous drug use, risk factors not captured in the FRAX model (e.g., frailty, falls, vitamin D deficiency, increased bone turnover, interval significant decline in bone density) and possible under- or overestimation of fracture risk by FRAX. General comments regarding interpretation of bone density measurements: A) In children, premenopausal woman and males under age 50 not at increased risk for fractures only Z-scores, not T-scores are used to indicate risk. A Z-score above -2.0 is defined as within the expected range for age and Z-score at or less than -2.0 is below the expected range for age. A Z-score below the expected range for age in a patient with recent fractures and/or chronic corticosteroid treatment is consistent with a diagnosis of osteoporosis. B) In post menopausal women and males over 50, comparison of the measured bone mineral density with the average value in young normal subjects (the T-score) has been found to be useful in assessing fracture risk. Fracture risk approximately doubles for each 1.0 standard deviation (SD) in individual's hip or spine bone mineral density is below the average value of young normal subjects. The World Health Organization (WHO) has defined T-scores of -1.0 to -2.5 as diagnostic of low bone mass (OSTEOPENIA), and T-scores of -2.5 or lower to be diagnostic of OSTEOPOROSIS, based on the site of lowest bone density. Note that there will be a change in reporting format and reference databases as patients move from the younger population (group A) to the older population (group B) The National Osteoporosis Foundation (www.nof.org) recommends adequate intake of calcium and vitamin D and regular weight-bearing exercise in all patients. They recommend pharmacologic treatment in postmenopausal women and men age 50 and older presenting with any of the followin) Osteoporosis, after appropriate evaluation to exclude secondary causes. 2) A hip or vertebral (clinical or radiographic) fracture, regardless of the bone density. 3) Low bone mass (Osteopenia) and one or more of: other prior fractures, secondary causes associated with high risk of fracture (such as glucocorticoid use or total immobilization), or computed high risk of fracture (10-yr probability of hip fracture >= 3% or a 10-yr probability of any major osteoporosis-related fracture >= 20% based on the [place].-adapted WHO algorithm), available at http://www.shef.ac.uk/FRAX). Dictated by: Cori Kim M.D. The radiology attending physician has personally reviewed this study, and had reviewed and/or edited this written report and agrees with it. Electronically signed by: Douglas Serrano MD, Ph.D Narrative 02/23/2025 2:52 PM CDT BONE DENSITOMETRY OF THE SPINE AND HIP DATE OF STUDY: 02/23/2025 HISTORY: 59-year-old postmenopausal woman with subjective height loss and non-Hodgkin lymphoma. Currently, she is not taking any antiresorptive medications. Evaluate bone mineral density. Additional risk factors for fracture: increased risk of secondary osteoporosis. FINDINGS (SPINE): The bone mineral density of L1-L4 was assessed by dual-energy x-ray absorptiometry. The average bone mineral density within this region is 0.941 gm/sq-cm. This is 0.4 standard deviations above the mean of the average bone mineral density for age- and gender-matched subjects (the Z-score). It is 1.0 standard deviations below the mean peak bone mineral density in young adults (the T-score). FINDINGS (FEMORAL NECK): The bone mineral density of the left femoral neck was assessed by dual-energy x-ray absorptiometry. The average bone mineral density within the femoral neck region is 0.719 gm/sq-cm. This is 0.1 standard deviations above the mean of the average bone mineral density for age- and gender-matched subjects (the Z-score). It is 1.2 standard deviations below the mean peak bone mineral density in young adults (the T-score). FINDINGS (TOTAL HIP): The bone mineral density of the left hip was assessed by dual-energy x-ray absorptiometry. The average bone mineral density within the total hip region is 0.900 gm/sq-cm. This is 0.5 standard deviations above the mean of the average bone mineral density for age- and gender-matched subjects (the Z-score). It is 0.3 standard deviations below the mean peak bone mineral density in young adults (the T-score). SUMMARY OF CURRENT RESULTS: Region BMD T-score Z-score AP Spine (L1-L4) 0.941 -1.0 0.4 Femoral Neck (Left) 0.719 -1.2 0.1 Total Hip (Left) 0.900 -0.3 0.5 Procedure Note Douglas Park MD PhD - 02/23/2025 BONE DENSITOMETRY OF THE SPINE AND HIP DATE OF STUDY: 02/23/2025 HISTORY: 59-year-old postmenopausal woman with subjective height loss and non-Hodgkin lymphoma. Currently, she is not taking any antiresorptive medications. Evaluate bone mineral density. Additional risk factors for fracture: increased risk of secondary osteoporosis. FINDINGS (SPINE): The bone mineral density of L1-L4 was assessed by dual-energy x-ray absorptiometry. The average bone mineral density within this region is 0.941 gm/sq-cm. This is 0.4 standard deviations above the mean of the average bone mineral density for age- and gender-matched subjects (the Z-score). It is 1.0 standard deviations below the mean peak bone mineral density in young adults (the T-score). FINDINGS (FEMORAL NECK): The bone mineral density of the left femoral neck was assessed by dual-energy x-ray absorptiometry. The average bone mineral density within the femoral neck region is 0.719 gm/sq-cm. This is 0.1 standard deviations above the mean of the average bone mineral density for age- and gender-matched subjects (the Z-score). It is 1.2 standard deviations below the mean peak bone mineral density in young adults (the T-score). FINDINGS (TOTAL HIP): The bone mineral density of the left hip was assessed by dual-energy x-ray absorptiometry. The average bone mineral density within the total hip region is 0.900 gm/sq-cm. This is 0.5 standard deviations above the mean of the average bone mineral density for age- and gender-matched subjects (the Z-score). It is 0.3 standard deviations below the mean peak bone mineral density in young adults (the T-score). SUMMARY OF CURRENT RESULTS: Region BMD T-score Z-score AP Spine (L1-L4) 0.941 -1.0 0.4 Femoral Neck (Left) 0.719 -1.2 0.1 Total Hip (Left) 0.900 -0.3 0.5 IMPRESSION: 1. The bone mineral density of the lumbar spine is normal. 2. The bone mineral density of the left femoral neck is mildly decreased. 3. The bone mineral density of the left total hip is normal. 4. Overall, the above findings are diagnostic of low bone mass (osteopenia) by WHO criteria. 5. Based on the FRAX fracture risk model, the 10-year probability for major osteoporotic fracture is 7.0% and that for hip fracture is 0.5%. This 10-year fracture risk estimate was calculated using the risk factors noted in the history above, along with the femoral neck bone density. FRAX is intended to help guide treatment decisions in men over age 50 and postmenopausal women with low bone mass (osteopenia). The National Osteoporosis Foundation (NOF) recommends that FDA-approved medical therapies be considered in postmenopausal women and men age 50 years and older with osteoporosis and those with low bone mass whose 10-year fracture probability by FRAX is >= 20% for major osteoporotic fracture or >= 3% for hip fracture. However, all treatment decisions require clinical judgment and consideration of individual patient factors, including patient preferences, comorbidities, previous drug use, risk factors not captured in the FRAX model (e.g., frailty, falls, vitamin D deficiency, increased bone turnover, interval significant decline in bone density) and possible under- or overestimation of fracture risk by FRAX. General comments regarding interpretation of bone density measurements: A) In children, premenopausal woman and males under age 50 not at increased risk for fractures only Z-scores, not T-scores are used to indicate risk. A Z-score above -2.0 is defined as within the expected range for age and Z-score at or less than -2.0 is below the expected range for age. A Z-score below the expected range for age in a patient with recent fractures and/or chronic corticosteroid treatment is consistent with a diagnosis of osteoporosis. B) In post menopausal women and males over 50, comparison of the measured bone mineral density with the average value in young normal subjects (the T-score) has been found to be useful in assessing fracture risk. Fracture risk approximately doubles for each 1.0 standard deviation (SD) in individual's hip or spine bone mineral density is below the average value of young normal subjects. The World Health Organization (WHO) has defined T-scores of -1.0 to -2.5 as diagnostic of low bone mass (OSTEOPENIA), and T-scores of -2.5 or lower to be diagnostic of OSTEOPOROSIS, based on the site of lowest bone density. Note that there will be a change in reporting format and reference databases as patients move from the younger population (group A) to the older population (group B) The National Osteoporosis Foundation (www.nof.org) recommends adequate intake of calcium and vitamin D and regular weight-bearing exercise in all patients. They recommend pharmacologic treatment in postmenopausal women and men age 50 and older presenting with any of the followin) Osteoporosis, after appropriate evaluation to exclude secondary causes. 2) A hip or vertebral (clinical or radiographic) fracture, regardless of the bone density. 3) Low bone mass (Osteopenia) and one or more of: other prior fractures, secondary causes associated with high risk of fracture (such as glucocorticoid use or total immobilization), or computed high risk of fracture (10-yr probability of hip fracture >= 3% or a 10-yr probability of any major osteoporosis-related fracture >= 20% based on the [place].-adapted WHO algorithm), available at http://www.shef.ac.uk/FRAX). Dictated by: Cori Shadmani, M.D. The radiology attending physician has personally reviewed this study, and had reviewed and/or edited this written report and agrees with it. Electronically signed by: Douglas Serrano MD, Ph.D Trae Keating MD IMG DXA PROCEDURES Final Result * Imaging Lumbar/Caudal Epidural Steroid INJ ([id number]) (02/12/2025 10:17 AM CDT) Narrative [facility] - 02/12/2025 10:17 AM CDT The images from this study are not interpreted by Radiology. Please refer to the physician's procedure / OR operative note. Rafael Gallego MD IMG PAIN MGMT PROCEDU RES Final Result [facility] * MRI Sacrum Coccyx WO Contrast (01/22/2025 7:51 PM CDT) Anatomical Region Laterality Modality Pelvis N/A Magnetic Resonan ce 01/23/2025 6:50 AM CDT Impressions 01/23/2025 6:50 AM CDT 1. Minimally displaced fracture of the left sacral ala (likely subacute) that involves the left sacroiliac joint and left S1 sacral foramen. 2. Minimally displaced right sacral ala fracture (likely chronic). 3. Partial-thickness tears of the bilateral gluteus minimus tendons, superimposed on mild tendinopathy. 4. Mild to moderate bilateral anteroinferior sacroiliac osteoarthritis. Electronically signed by: Jaziel Canales MD Narrative 01/23/2025 6:50 AM CDT EXAMINATION: MRI SACRUM COCCYX WO CONTRAST HISTORY: Sacral fracture FINDINGS: Multiplanar multisequence MR examination of the pelvis, sacrum, and coccyx was obtained without intravenous contrast material. Comparison is made to examination dated 10/21/2024. There is an oblique, minimally displaced fracture involving the left sacral ala that extends into the superior portion of the left sacroiliac joint, as well as the left S1 sacral foramen. Associated marrow edema. The left S1 sacral foramen is patent, and the exiting nerve root demonstrates a normal appearance. There is a minimally displaced peripheral right sacral ala fracture that does not extend into the right sacroiliac joint. Minimal associated marrow edema. Moderate bilateral sacroiliac osteoarthritis, most prominent anteroinferiorly. The sacral central canal is patent. The sacral foramina are patent. The exiting nerve roots are normal. The piriformis muscles are normal and symmetric. Sciatic nerves are normal. No pelvic diastasis. No additional sites of fracture of side of the pelvis. No suspicious marrow replacing lesion. Mild left hip osteoarthritis. Small left hip joint effusion. Minimal right hip osteoarthritis. Mild degenerative changes of the symphysis pubis. At least mild lumbar dextrocurvature. Moderate degenerative disc disease at L3-L4. There is mild fatty infiltration of the bilateral gluteus medius minimus muscles. Gluteal musculature is otherwise normal. There are partial-thickness tears of the bilateral gluteus minimus tendons, superimposed on mild tendinopathy. The gluteus medius tendons are normal bilaterally. Mild bilateral greater trochanteric bursitis, left greater than right. The hamstring origins are intact, and there is mild bilateral proximal hamstring tendinopathy, left greater than right. The rectus femoris origins are normal. The iliopsoas tendons are normal. No bursitis. The adductor musculature is normal. Pelvic soft tissues are unremarkable. Procedure Note Jaziel Canales MD - 01/23/2025 EXAMINATION: MRI SACRUM COCCYX WO CONTRAST HISTORY: Sacral fracture FINDINGS: Multiplanar multisequence MR examination of the pelvis, sacrum, and coccyx was obtained without intravenous contrast material. Comparison is made to examination dated 10/21/2024. There is an oblique, minimally displaced fracture involving the left sacral ala that extends into the superior portion of the left sacroiliac joint, as well as the left S1 sacral foramen. Associated marrow edema. The left S1 sacral foramen is patent, and the exiting nerve root demonstrates a normal appearance. There is a minimally displaced peripheral right sacral ala fracture that does not extend into the right sacroiliac joint. Minimal associated marrow edema. Moderate bilateral sacroiliac osteoarthritis, most prominent anteroinferiorly. The sacral central canal is patent. The sacral foramina are patent. The exiting nerve roots are normal. The piriformis muscles are normal and symmetric. Sciatic nerves are normal. No pelvic diastasis. No additional sites of fracture of side of the pelvis. No suspicious marrow replacing lesion. Mild left hip osteoarthritis. Small left hip joint effusion. Minimal right hip osteoarthritis. Mild degenerative changes of the symphysis pubis. At least mild lumbar dextrocurvature. Moderate degenerative disc disease at L3-L4. There is mild fatty infiltration of the bilateral gluteus medius minimus muscles. Gluteal musculature is otherwise normal. There are partial-thickness tears of the bilateral gluteus minimus tendons, superimposed on mild tendinopathy. The gluteus medius tendons are normal bilaterally. Mild bilateral greater trochanteric bursitis, left greater than right. The hamstring origins are intact, and there is mild bilateral proximal hamstring tendinopathy, left greater than right. The rectus femoris origins are normal. The iliopsoas tendons are normal. No bursitis. The adductor musculature is normal. Pelvic soft tissues are unremarkable. IMPRESSION: 1. Minimally displaced fracture of the left sacral ala (likely subacute) that involves the left sacroiliac joint and left S1 sacral foramen. 2. Minimally displaced right sacral ala fracture (likely chronic). 3. Partial-thickness tears of the bilateral gluteus minimus tendons, superimposed on mild tendinopathy. 4. Mild to moderate bilateral anteroinferior sacroiliac osteoarthritis. Electronically signed by: Jaziel Canales MD Rafael Gallego MD IMG MRI PROCEDURES Fi nal Result * MRI Lumbar Spine WO Contrast (01/07/2025 12:05 PM CDT) Anatomical Region Laterality Modality Spine N/A Magnetic Resonan ce 01/07/2025 12:1 0 PM CDT Addenda Addendum by Piyush Duvall DO on 01/22/2025 5:50 AM CDT ADDENDUM: This addendum report supersedes the original report dated 01/07/2025. Images and report of a lumbar spine MRI from an outside institution dated 08/12/2022 are now made available. The inferior endplate of L3 Schmorl's node with edema is new when compared to the previous lumbar spine MRI dated 08/12/2022. Otherwise the lumbar degenerative changes are similar to slightly worsened in the interval. The partially imaged bilateral sacral STIR hyperintense signal is new in the interval. END OF ADDENDUM REPORT THIS IS AN ELECTRONICALLY VERIFIED FINAL REPORT 01/22/2025 5:50 AM Addendum Electronically signed by Piyush Duvall D.O. AP T: Report ID: [id number] Reading Location: [id number] [facility] 01/07/2025 12:18 PM CDT EXAM DESCRIPTION: MRI LUMBAR SPINE WO CONTRAST REASON FOR STUDY: Low back pain, symptoms persist with > 6 wks treatment Pt states herniated/bulging disc L4-5. Chronic back pain 10yrs, worsening in the last year and traveling down left leg. No surgery/injury TECHNIQUE: Sagittal and Axial imaging includes T1, T2, STIR sequences. COMPARISON: Lumbar spine CT dated 03/09/2024. CT abdomen and pelvis dated 10/21/2024. FINDINGS: SEGMENTATION: 5 lkf-ktu-sovmray lumbar type vertebral bodies. ALIGNMENT: Mild retrolisthesis of L2 on L3 through L4 on L5. VERTEBRAE: Inferior endplate of L3 focal T1 hypointense, stir hyperintense signal would be compatible with a Schmorl's node with edema or other degenerative change. There is no acute compression fracture in the lumbar spine. Multilevel endplate degenerative changes and marginal spur formation ranging up to moderate to severe. The L4-L5 facet joint STIR hyperintense signal can be seen with synovitis in the proper clinical scenario. Rounded T1 and T2 hyperintense foci including in the L1 and L2 vertebral bodies in keeping with intraosseous hemangiomas. DISC HEIGHT: Diffuse intervertebral disc height loss ranging up to moderate to severe. HARDWARE: None in the spine. CORD/CAUDA: Conus medullaris terminates at L1-L2. LOWER THORACIC: Incompletely imaged. Degenerative changes without high-grade spinal canal stenosis. INDIVIDUAL DISC LEVELS: L1-L2: Disc bulge eccentric to the right. Thickened ligamentum flavum and facet arthropathy. Trace facet joint effusion. Flattening of the right ventral thecal sac. No significant neural foraminal narrowing. L2-L3: Disc bulge with marginal spur formation. Superimposed small central disc protrusion with annular fissure. Thickened ligamentum flavum and facet arthropathy. Trace facet joint effusion. Mild spinal canal stenosis. Lateral recess effacement on both sides. Mild proximal neural foraminal narrowing. L3-L4: Disc bulge with marginal spur formation eccentric to the left neural foramen. Thickened ligamentum flavum and facet arthropathy. Flattening of the ventral thecal sac. Ggcp-zgaesrd-dyop-right lateral recess effacement. Moderate left and bxhx-gd-hgqsloto inferior right neural foraminal narrowing. Disc/marginal spur and facet arthropathy contacting the exiting L3 nerve roots, bnro-langbik-npfp-right. L4-L5: Disc bulge with marginal spur formation. Superimposed central/right subarticular disc protrusion with annular fissure. Thickened ligamentum flavum and facet arthropathy. Flattening of the ventral thecal sac. Right lateral recess effacement. Moderate to severe right and no significant left neural foraminal narrowing. Disc/marginal spur and facet arthropathy contacting the exiting right L4 nerve root L5-S1: Disc bulge with thickened ligamentum flavum and facet arthropathy. No significant spinal canal stenosis. Mild bilateral neural foraminal narrowing. SACRUM: Partially imaged sacral ala STIR hyperintense signal on both sides. IMPRESSION: 1. Lumbar disc degeneration ranging up to moderate to severe with thickened ligamentum flavum and facet arthropathy as described. The spinal canal stenosis is most noticeable at L2-L3. 2. Varying degrees of bilateral neural foraminal stenosis ranging up to moderate to severe on the left at L3-L4 and on the right at L4-L5. 3. Partially imaged bilateral sacral ala STIR hyperintense signal is suspicious for fractures with edema. Please correlate with point tenderness. This is a new finding for the patient then dedicated sacral MRI could be obtained. THIS IS AN ELECTRONICALLY VERIFIED FINAL REPORT 01/07/2025 12:18 PM - Electronically signed by Piyush BERNABE T: Report ID: [id number] Reading Location: [id number] Procedure Note Piyush Duvall, DO - 01/07/2025 EXAM DESCRIPTION: MRI LUMBAR SPINE WO CONTRAST REASON FOR STUDY: Low back pain, symptoms persist with > 6 wks treatment Pt states herniated/bulging disc L4-5. Chronic back pain 10yrs, worseningin the last year and traveling down left leg. No surgery/injury TECHNIQUE: Sagittal and Axial imaging includes T1, T2, STIR sequences. COMPARISON: Lumbar spine CT dated 03/09/2024. CT abdomen and pelvisdated 10/21/2024. FINDINGS: SEGMENTATION: 5 nbh-pwb-scnautc lumbar type vertebral bodies. ALIGNMENT: Mild retrolisthesis of L2 on L3 through L4 on L5. VERTEBRAE: Inferior endplate of L3 focal T1 hypointense, stirhyperintense signal would be compatible with a Schmorl's node with edema or other degenerative change. There is no acute compression fracture in the lumbar spine. Multilevel endplate degenerative changes and marginal spurformation ranging up to moderate to severe. The L4-L5 facet joint STIR hyperintense signal can be seen with synovitis in the proper clinical scenario.Rounded T1 and T2 hyperintense foci including in the L1 and L2 vertebral bodies in keeping with intraosseous hemangiomas. DISC HEIGHT: Diffuse intervertebral disc height loss ranging up tomoderate to severe. HARDWARE: None in the spine. CORD/CAUDA: Conus medullaris terminates at L1-L2. LOWER THORACIC: Incompletely imaged. Degenerative changes without high-grade spinal canal stenosis. INDIVIDUAL DISC LEVELS: L1-L2: Disc bulge eccentric to the right. Thickened ligamentum flavum and facet arthropathy. Trace facet joint effusion. Flattening of the right ventral thecal sac. No significant neural foraminal narrowing. L2-L3: Disc bulge with marginal spur formation. Superimposed smallcentral disc protrusion with annular fissure. Thickened ligamentum flavum andfacet arthropathy. Trace facet joint effusion. Mild spinal canal stenosis. Lateral recess effacement on both sides. Mild proximal neural foraminal narrowing. L3-L4: Disc bulge with marginal spur formation eccentric to the leftneural foramen. Thickened ligamentum flavum and facet arthropathy. Flatteningof the ventral thecal sac. Ovmx-qsrgwim-prrk-right lateral recesseffacement. Moderate left and kshr-ca-ummsuoei inferior right neural foraminalnarrowing. Disc/marginal spur and facet arthropathy contacting the exiting L3 nerve roots, feau-hxnexat-bfpr-right. L4-L5: Disc bulge with marginal spur formation. Superimposedcentral/right subarticular disc protrusion with annular fissure. Thickened ligamentum flavum and facet arthropathy. Flattening of the ventral thecal sac.Right lateral recess effacement. Moderate to severe right and no significantleft neural foraminal narrowing. Disc/marginal spur and facet arthropathy contacting the exiting right L4 nerve root L5-S1: Disc bulge with thickened ligamentum flavum and facet arthropathy.No significant spinal canal stenosis. Mild bilateral neural foraminalnarrowing. SACRUM: Partially imaged sacral ala STIR hyperintense signal on bothsides. IMPRESSION: 1. Lumbar disc degeneration ranging up to moderate to severe withthickened ligamentum flavum and facet arthropathy as described. The spinal canal stenosis is most noticeable at L2-L3. 2. Varying degrees of bilateral neural foraminal stenosis ranging up to moderate to severe on the left at L3-L4 and on the right at L4-L5. 3. Partially imaged bilateral sacral ala STIR hyperintense signal is suspicious for fractures with edema. Please correlate with pointtenderness. This is a new finding for the patient then dedicated sacral MRI could be obtained. THIS IS AN ELECTRONICALLY VERIFIED FINAL REPORT 01/07/2025 12:18 PM - Electronically signed by Piyush BERNABE T: Report ID: [id number] Reading Location: [place] [id number] Rafael Gallego MD IMG MRI PROCEDURES Ed ited Result - Final * eGFR (01/03/2025 9:45 AM CORE DRILLER HELPER) eGFR 69 >=60 mL/min/1. 73 m2 Comment: Interpretive Data Reference Interval Normal >/= 90 mL/min/1.73m2 Mildly decreased* 60 - 89 mL/min/1.73m2 Mildly to moderately decreased 45 - 59 mL/min/1.73m2 Moderately to severely decreased 30 - 44 mL/min/1.73m2 Severely decreased 15 - 29 mL/min/1.73m2 Kidney Failure < 15 mL/min/1.73m2 *Relative to young adult level Estimated glomerular filtration rate is determined by the 2020 CKD-EPI equation recommended by the National Kidney Foundation (A Unifying Approach to GFR Estimation: Recommendations of the NKF-ASK Task Force on Reassessing the Inclusion of Race in Diagnosing Kidney Disease, JASN 2020). The CKD-EPI equation should not be used for patients with unstable renal function and has not been validated in children and those over 70. Current interpretive data was last reviewed 2021. Blood 01/03/2025 9:45 AM CORE DRILLER HELPER 01/03/2025 9:57 AM CORE DRILLER HELPER us Zakia Busch MD LAB BLOOD ORDERABLES Final Result [facility] Department [place] [address] * Differential, auto (01/03/2025 9:45 AM CORE DRILLER HELPER) Neutrophil abs 2.9 1.5 - 6.5 K/cumm Comment:Testing performed by : [facility], [address] [place] [phone] Lymphocyte abs 2.9 0.8 - 3.3 K/cumm CERNER BJ Comment:Testing performed by : [facility], [address] [place] [phone] Monocyte abs 0.4 0.2 - 0.8 K/cumm CERNER BJ Comment:Testing performed by : [facility], [address] [place] [phone] Eosinophil abs 0.2 0.0 - 0.5 K/cumm CERNER BJ Comment:Testing performed by : [facility], [address] [place] [phone] Basophil abs 0.0 0.0 - 0.1 K/cumm CERNER BJ Comment:Testing performed by : [facility], [address] [place] [phone] Neutrophil pct 45.2 % CERNER BJ Comment: Interpretive Data Percent cell count reference ranges are not reported, since discordance with absolute values may lead to misinterpretation of CBC data. Current Interpretive Data was last revised on 2018. Testing performed by: [facility], [address] [place] [phone] Lymphocyte pct 44.8 % CERNER BJ Comment: Interpretive Data Percent cell count reference ranges are not reported, since discordance with absolute values may lead to misinterpretation of CBC data. Current Interpretive Data was last revised on 2018. Testing performed by: [facility], [address] [place] [phone] Monocyte pct 5.9 % TANIYA TIRADO Comment: Interpretive Data Percent cell count reference ranges are not reported, since discordance with absolute values may lead to misinterpretation of CBC data. Current Interpretive Data was last revised on 2018. Testing performed by: [facility], [address] [place] [phone] Eosinophil pct 3.4 % TANIYA TIRADO Comment: Interpretive Data Percent cell count reference ranges are not reported, since discordance with absolute values may lead to misinterpretation of CBC data. Current Interpretive Data was last revised on 2018. Testing performed by: [facility], [address] [place] [phone] Basophil pct 0.7 % TANIYA TIRADO Comment: Interpretive Data Percent cell count reference ranges are not reported, since discordance with absolute values may lead to misinterpretation of CBC data. Current Interpretive Data was last revised on 2018. Testing performed by: [facility], [address] [place] [phone] Blood 01/03/2025 9:45 AM CORE DRILLER HELPER 01/03/2025 9:57 AM CORE DRILLER HELPER us Zakia Busch MD LAB BLOOD ORDERABLES Final Result [facility] Department [place] [address] * (ABNORMAL) CBC with auto differential (01/03/2025 9:45 AM CORE DRILLER HELPER) WBC 6.4 3.8 - 9.9 K/cumm Comment:Testing performed by : [facility], [address] [place] [phone] Hgb 15.1 11.9 - 15.5 g/dL CERNER BJ Comment:Testing performed by : [facility], [address] [place], [place] [phone] Hct 44.2 35.6 - 45.5 % CERNER BJ Comment:Testing performed by : [facility], [address] [place], [place] [phone] Plt 231 150 - 400 K/cumm CERNER BJ Comment:Testing performed by : [facility], [address] [place], [place] [phone] MPV 8.2 6.8 - 10.4 fL CERNER BJ Comment:Testing performed by : [facility], [address] [place], [place] [phone] RBC 4.42 3.90 - 5.20 M/cumm CERNER BJ Comment:Testing performed by : [facility], [address] [place], [place] [phone] MCV 99.9(H) 81.3 - 96.4 fL CERNER BJ Comment:Testing performed by : [facility], [address] [place], [place] [phone] MCH 34.2(H) 27.1 - 33.3 pg CERNER BJ Comment:Testing performed by : [facility], [address] [place], [place] [phone] MCHC 34.3 32.3 - 35.7 g/dL CERNER BJ Comment:Testing performed by : [facility], [address] [place], [place] [phone] RDW CV 12.7 11.1 - 14.9 % CERNER BJ Comment:Testing performed by : [facility], [address] [place], [place] [phone] NRBC abs 0.00 0.00 - 0.01 K/cumm CERNER BJ Comment:Testing performed by : [facility], [address] [place], [place] [phone] Blood 01/03/2025 9:45 AM CORE DRILLER HELPER 01/03/2025 9:57 AM CORE DRILLER HELPER Zakia Busch MD LAB BLOOD ORDERABLES Final Result Performing Organization Address City/[facility]/[place] [address] * Uric acid (01/03/2025 9:45 AM CORE DRILLER HELPER) Uric acid 5.1 2.5 - 7.0 mg/dL Blood 01/03/2025 9:45 AM CORE DRILLER HELPER 01/03/2025 9:57 AM CORE DRILLER HELPER Zakia Busch MD LAB BLOOD ORDERABLES Final Result Performing Organization Address [facility] [place] [address] * Phosphorus (01/03/2025 9:45 AM CORE DRILLER HELPER) Phosphorus, pl 2.5 2.3 - 4.5 mg/dL Blood 01/03/2025 9:45 AM CORE DRILLER HELPER 01/03/2025 9:57 AM CORE DRILLER HELPER Zakia Busch MD LAB BLOOD ORDERABLES Final Result Performing Organization Address [facility] Co de Phone Number [facility] [place] [address] * Magnesium (01/03/2025 9:45 AM CORE DRILLER HELPER) Magnesium 2.4 1.4 - 2.5 mg/dL Blood 01/03/2025 9:45 AM CORE DRILLER HELPER 01/03/2025 9:57 AM CORE DRILLER HELPER Zakia Busch MD LAB BLOOD ORDERABLES Final Result Performing Organization Address City/[facility]/ZIP Co de Phone Number [facility] Department [place] [address] * Lactate dehydrogenase (LD) (01/03/2025 9:45 AM CORE DRILLER HELPER) Pathologist [facility] Lactate dehydrogenase (LDH) 219 100 - 250 Units/L Blood 01/03/2025 9:45 AM CORE DRILLER HELPER 01/03/2025 9:57 AM CORE DRILLER HELPER Zakia Busch MD LAB BLOOD ORDERABLES Final Result Performing Organization Address [facility] de Phone Number [facility] [place] [address] * (ABNORMAL) IgA (01/03/2025 9:45 AM CORE DRILLER HELPER) Pathologist [facility] Immunoglobulin A <50(L) 70 - 400 mg/dL Blood 01/03/2025 9:45 AM CORE DRILLER HELPER 01/03/2025 10:13 AM CORE DRILLER HELPER Zakia Busch MD LAB BLOOD ORDERABLES Final Result Performing Organization Address [facility] de Phone Number [facility] [place] [address] * IgM (01/03/2025 9:45 AM CORE DRILLER HELPER) [facility] Immunoglobulin M 44 40 - 230 mg/dL Blood 01/03/2025 9:45 AM CORE DRILLER HELPER 01/03/2025 10:13 AM CORE DRILLER HELPER Zakia Busch MD LAB BLOOD ORDERABLES Final Result Performing Organization Address [facility] de Phone Number [facility] [place] [address] * (ABNORMAL) IgG (01/03/2025 9:45 AM CORE DRILLER HELPER) Pathologist [facility] Immunoglobulin G 690(L) 700 - 1,600 mg/dL Blood 01/03/2025 9:45 AM CORE DRILLER HELPER 01/03/2025 10:13 AM CORE DRILLER HELPER Zakia Busch MD LAB BLOOD ORDERABLES Final Result [facility] Department [place] [address] * Bilirubin, direct (01/03/2025 9:45 AM CORE DRILLER HELPER) Pathologist [facility] Bilirubin, direct 0.2 0.1 - 0.3 mg/dL Blood 01/03/2025 9:45 AM CORE DRILLER HELPER 01/03/2025 9:57 AM CORE DRILLER HELPER Zakia Busch MD LAB BLOOD ORDERABLES Final Result Performing Organization Address [facility] Co de Phone Number [facility] [place] [address] * (ABNORMAL) Comprehensive metabolic panel (01/03/2025 9:45 AM CORE DRILLER HELPER) [facility] Sodium 142 135 - 145 mmol/L Potassium, pl 3.7 3.3 - 4.9 mmol/L [facility] Chloride 102 97 - 110 mmol/L [facility] CO2 33(H) 22 - 32 mmol/L [facility] Anion gap 7 2 - 15 mmol/L [facility] BUN 12 6 - 25 mg/dL [facility] Creatinine 0.96 0.60 - 1.10 mg/dL [facility] Glucose 95 70 - 199 mg/dL [facility] Comment: Interpretive Data Fasting glucose >/= 126 mg/dl is diagnostic for diabetes. Fasting is defined as no caloric intake for at least 8 hours. Fasting glucose between 100 mg/dl to 125 mg/dl is diagnostic of prediabetes. In a patient with classic symptoms of hyperglycemia or hyperglycemic crisis, a random glucose >/= 200 mg/dl is diagnostic for diabetes. In the absence of unequivocal hyperglycemia, results should be confirmed by repeat testing. The classification and Diagnosis of Diabetes Diabetes Care 202; 46: S19-S40. Current interpretive data was last revised 2022. Calcium 10.2 8.5 - 10.3 mg/dL [facility] Bilirubin, total 0.6 0.1 - 1.2 mg/dL [facility] Protein, pl 7.6 6.5 - 8.5 g/dL [facility] Albumin 5.0 3.5 - 5.0 g/dL [facility] Alk phos 87 40 - 130 Units/L [facility] ALT 23 7 - 45 Units/L [facility] AST 26 10 - 45 Units/L [facility] Blood 01/03/2025 9:45 AM CORE DRILLER HELPER 01/03/2025 9:57 AM CORE DRILLER HELPER us Zakia Busch MD LAB BLOOD ORDERABLES Final Result [facility] Department [place] [address] * Screening Mammogram Bilateral W [place] W Implants (12/18/2024 7:38 AM CORE DRILLER HELPER) Anatomical Region Laterality Modality Breast Bilateral Mammography Narrative 12/18/2024 4:30 PM CORE DRILLER HELPER Mammogram Technique: Bilateral Digital Breast Tomosynthesis, Bilateral C-view 2D Screening mammogram. Views obtained: bilateral craniocaudal; bilateral craniocaudal implant displaced; bilateral mediolateral oblique; and bilateral mediolateral oblique implant displaced. Computer Aided Detection was performed. Mammogram Findings: The present examination has been compared to prior imaging studies performed at [facility] on 12/30/2023, [facility] [place] [facility] and 03/11/2021. There are scattered areas of fibroglandular density. There are bilateral sub-glandular saline implants. There is no suspicious abnormality in either breast. Impression: There is no mammographic evidence of malignancy. Annual screening mammography is recommended. OVERALL FINAL ASSESSMENT: BI-RADS CATEGORY 1: Negative. Procedure Note Yanira Calvillo MD - 12/18/2024 Mammogram Technique: Bilateral Digital Breast Tomosynthesis, Bilateral C-view 2D Screening mammogram. Views obtained: bilateral craniocaudal; bilateralcraniocaudal implant displaced; bilateral mediolateral oblique; and bilateral mediolateral oblique implant displaced. Computer Aided Detection was performed. Mammogram Findings: The present examination has been compared to prior imaging studies performed at [facility] on 12/30/2023, and [facility] [place] [facility] and[facility]11/2021. There are scattered areas of fibroglandular density. There are bilateral sub-glandular saline implants. There is no suspicious abnormality in either breast. Impression: There is no mammographic evidence of malignancy. Annual screening mammography is recommended. OVERALL FINAL ASSESSMENT: BI-RADS CATEGORY 1: Negative. us Self Screening Mammogram IMG MAMMO PROCEDURES Fi nal Result * Colonoscopy (09/06/2024 7:11 AM CORE DRILLER HELPER) Anatomical Region Laterality Modality Other Narrative Procedure Note Jose Chávez, DO - 09/06/2024 7:11 AM CST [facility] Patient Name: Maggie Correa Procedure Date: 09/06/2024 7:11 AM Date of : 1965 Admit Type: Outpatient Age: 59 Gender: Female Attending MD: Jose Chávez D.O. Room: [facility] ENDOSCOPY ROOM 3 Note Status: Finalized Patient Profile: Refer to note in patient chart for documentation of history and physical. Procedure: Colonoscopy Indications: High risk colon cancer surveillance: Personalhistory of colonic polyps, Last colonoscopy: 2018 Referring MD: Thomas Morrow M.D. Providers: Jose Chávez D.O. Impression: - The entire examined colon is normal. Biopsied. - The examined portion of the ileum was normal. - Internal hemorrhoids. Recommendation: - Repeat colonoscopy in 5 years for surveillance. - Return to primary care physician PRN. Medicines: Monitored Anesthesia Care Complications: No immediate complications. Estimated Blood Loss: Estimated blood loss was minimal. Procedure: Pre-Anesthesia Assessment: - As per anesthesia. The benefits, risks and alternatives of theprocedure and sedation were discussed and informed consentwas obtained. All questions were answered. Please referto the signed informed consent document in the medical record. The bowel preparation used was Miralax via split dose instruction. The bowel preparation usedwas bisacodyl tablets via split dose instruction. The scope was passed under direct vision. The Pediatric Colonoscope PCF-H190L [id number] was introducedthrough the anus and advanced to the 5 cm into the ileum.The terminal ileum, ileocecal valve, appendicealorifice, and rectum were photographed. The colonoscopy was performed without difficulty. The patient tolerated the procedure well. The quality of the bowel preparation was good. Findings: The perianal and digital rectal examinations were normal. The colon (entire examined portion) appeared normal. This wasbiopsied with a cold forceps for histology. The terminal ileum appeared normal. No additional abnormalities were found on retroflexion. Internal hemorrhoids were found. Electronically signed by Jose Chávez M.D. Jose Chávez D.O. 09/06/2024 8:02:01 AM Number of Addenda: 0 Note Initiated On: 09/06/2024 7:11 AM Procedure Code(s): --- Professional --- 28263, Colonoscopy, flexible; with biopsy, single or multiple --- Technical --- 64622, Colonoscopy, flexible; with biopsy, single or multiple Diagnosis Code(s): --- Professional --- Z86.010, Personal history of colonic polyps K64.8, Other hemorrhoids --- Technical --- Z86.010, Personal history of colonic polyps K64.8, Other hemorrhoids CPT copyright 2020 [employer]. All rights reserved. The codes documented in this report are preliminary and upon decorator lighting fixtures reviewmay be revised to meet current compliance requirements. Recognized by the [employer] for promoting quality in endoscopy us Jose Chávez DO ENDOSCOPY PROCEDURES Final Res ult * Hepatitis panel, acute (08/20/2020 11:07 AM CDT) Hep A IgM Nonreactive Nonreactive [facility] Comment: Interpretive Data: If Hep A IgM Ab is reported as Equivocal, a new sample should be drawn in two weeks for testing. Current interpretive data was last revised on 20. Hep B core IgM Nonreactive Nonreactive [facility] Comment: Interpretive Data If HepB Core IgM Ab is reported as Equivocal, a new sample should be drawn in two weeks for testing. Current interpretive data was last revised on 20. Hep C Ab Nonreactive Nonreactive [facility] Comment:Antibodies to HCV no t detected. Does NOT exclude the possibility of recent exposure to HCV. HepBsAg Nonreactive Nonreactive [facility] Blood specimen (specimen) 08/20/2020 11:07 AM CDT 08/20/2020 11:46 AM CDT Sulma Mitchell MD LAB MICROBIOLOGY - GENERAL ORDER SHIRLENE Edited Result - Final [facility] Department [place] [address] from Last 3 Months or Most Recently Relevant to Health Maintenance Insurance [employer] MEDICARE [facility] MEDICARE [facility] Address: [address] [address] [place] [address] [employer] [facility] [employer] [facility] Advance Directives For more information, please contact: [phone] * Full Code (Latest Code Status on File) Date Activated Date Inactivated Comments 11/23/2024 7:23 AM 11/23/2024 12:53 PM * Full Code Date Activated Date Inactivated Comments 11/23/2024 7:23 AM 11/23/2024 7:23 AM * Full Code Date Activated Date Inactivated Comments 10/22/2024 6:52 AM 10/22/2024 3:16 PM * Full Code Date Activated Date Inactivated Comments 09/06/2024 7:05 AM 09/06/2024 12:36 PM * Full Code Date Activated Date Inactivated Comments 09/06/2024 7:05 AM 09/06/2024 7:05 AM Care Teams Outreach Coordinator Relationship Specialty Start Date End Date Thomas Morrow MD [address] [place] [address] PCP - General Family Medicine 03/06/24 Zakia Busch MD [address] [place] [address] Medical Oncologist/Neuro Intensivist Physician Medical Oncology 07/02/20
--- OUTSIDE RECORDS SUMMARY | 2025-04-02 04:31 | XMS_ITS | Referral Summary ---
Author Organization [facility] Address 1 [place] [address] Care Team Providers Care Spice Fumigator Name Role Phone Zakia Busch MD Unavailable [phone] Thomas Morrow MD Primary Care Provider [phone] Encounters Date Type Department Care Team Description 03/31/2025 4:42 PM CDT - 03/31/2025 9:14 PM CDT Emergency [facility] Emergency Department 1 [place] [address] Bertha Voss MD Mild asthma with exacerbation, unspecified whether persistent (Primary Dx); Hypokalemia Discharge Disposition: Discharge to home or self care 03/31/2025 3:45 PM CDT Office Visit [facility] [place] [address] [place] [address] Norma Irizarry NP Acute respiratory distress (Primary Dx) 03/28/2025 9:37 AM CDT - 03/28/2025 11:59 PM CDT Hospital Encounter [facility] [address] [place] [address] Advanced Medicine [address] [place] [address] Rafael Guo MD Cervical radiculopathy Discharge Disposition: Discharge to home or self care 03/23/2025 Telephone [facility] [address] [facility] Advanced Medicine [address] [place] [address] Guo MD [facility] Preprocedure 03/16/2025 Telephone [facility] Radiology 1 [place] [address] Karime Singh, BRONSON 03/16/2025 Telephone [facility] Neuro Interventional Radiology 1 [place] [address] Reta Osman, BRONSON 03/16/2025 Orders Only [facility] Oncology [address] [facility] Floor 6 [place] [phone] Zakia Busch MD Hypogammaglobulinemia (Primary Dx); Follicular lymphoma of intrapelvic lymph nodes, unspecified follicular lymphoma type (HCC) 03/16/2025 9:28 AM CDT - 03/16/2025 11:59 PM CDT Hospital Encounter [facility] [address] [facility] Advanced Medicine [address] [place] [address] Rafael Guo MD Cervical radiculopathy (Primary Dx) Discharge Disposition: Discharge to home or self care 03/14/2025 Telephone [facility] Radiology 1 [place] [address] Karime Singh, BRONSON 03/12/2025 Telephone [facility] [address] [phone] Thomas Morrow MD Medical Question/Miscellaneous 03/12/2025 Orders Only [facility] [address] [phone] Thomas Morrow MD 03/12/2025 Telephone [facility] [address] [phone] Thomas Morrow MD Medical Question/Miscellaneous 03/12/2025 Telephone [facility] Radiology 1 [place] [address] Karime Singh, RN 03/06/2025 Telephone [facility] Cardiology [address] [facility] [address] [address] Gage Navarro MD Cardiac Clearance 03/06/2025 Telephone [facility] Radiology [address] [place] [address] Karime Singh, RN 03/06/2025 Telephone Radiology [address] [place] [address] Leigh Mott PA 03/01/2025 Telephone [facility] Radiology [address] [place] [address] Karime Singh, RN 03/01/2025 Telephone [facility] Radiology [address] [place] [address] Karime Singh, RN 02/28/2025 Telephone [facility] Social Work [address] [place] [phone] Parker Pena MSW 02/28/2025 7:30 AM CDT Infusion [facility] - Infusion [address] [facility] Floor 6 [place] [address] Hypogammaglobulinemia (Primary Dx) 02/26/2025 11:15 AM CDT Lab [facility] 1 [facility] 1st [place] [address] Closed fracture of sacrum, unspecified portion of sacrum, initial encounter (HCC); Sacral insufficiency fracture, sequela; History of fragility fracture 02/26/2025 10:00 AM CDT Office Visit [facility] Radiology, Interventional Radiology [address] [facility] [address] [place] [address] Leigh Mott PA Sacral insufficiency fracture, sequela (Primary Dx); Closed fracture of sacrum, unspecified portion of sacrum, initial encounter (HCC); History of fragility fracture; Follicular lymphoma of intrapelvic lymph nodes, unspecified follicular lymphoma type (HCC) 02/23/2025 12:16 PM CDT - 02/23/2025 11:59 PM CDT Hospital Encounter [facility]) [address] [place] [address] Closed fracture of sacrum, unspecified portion of sacrum, initial encounter (HCC) Discharge Disposition: Discharge to home or self care 02/23/2025 12:16 PM CDT - 02/23/2025 11:59 PM CDT Hospital Encounter [facility]) [address] [place] [address] Age-related osteoporosis without current pathological fracture Discharge Disposition: Discharge to home or self care 02/21/2025 9:00 AM CDT Office Visit [facility] [address] [place] [address] Riri Guzman NP Skin lesion of back (Primary Dx); Moderate persistent asthma with acute exacerbation; Fibromyalgia; Depression with anxiety; Attention deficit hyperactivity disorder (ADHD), combined type; Chronic bronchitis, unspecified chronic bronchitis type (HCC); Drug-induced chronic pancreatitis (HCC); YVONNE (generalized anxiety disorder); BMI 26.0-26.9,adult 02/12/2025 Telephone [facility] Radiology, Interventional Radiology [address] [facility] [address] [place] [phone] Mitzi Matute, RN Appointment 02/12/2025 Orders Only [facility] Radiology 1 [place] [address] Karime Singh, BRONSON Closed fracture of sacrum, unspecified portion of sacrum, initial encounter (HCC) (Primary Dx) 02/12/2025 Orders Only [facility] [place] [place] [facility] Advanced Medicine [address] [place] [address] Rafael Guo MD Closed fracture of sacrum, unspecified portion of sacrum, initial encounter (HCC) (Primary Dx) 02/12/2025 9:32 AM CDT - 02/12/2025 11:59 PM CDT Hospital Encounter [facility] [address] [facility] Advanced Medicine [address] [place] [address] Rafael Guo MD Lumbar radiculopathy Discharge Disposition: Discharge to home or self care 02/12/2025 8:00 AM CDT Office Visit [facility] [address], [address] [place] [address] Trae Keating MD Age-related osteoporosis without current pathological fracture (Primary Dx) 02/09/2025 9:47 AM CDT - 02/09/2025 11:59 PM CDT Hospital Encounter [facility] [address] [facility] Advanced Medicine [address] [place] [address] Rafael Guo MD Lumbar radiculopathy (Primary Dx); Closed fracture of sacrum with routine healing, unspecified portion of sacrum, subsequent encounter Discharge Disposition: Discharge to home or self care 01/30/2025 Telephone [facility] [address] [phone] Riri Guzman NP 01/30/2025 Telephone [facility] [place] Advanced Medicine [address] [place] [address] Rafael Guo MD spk w/nurse 01/30/2025 2:00 PM CDT Office Visit [facility] [address] [phone] Riri Guzman NP Acute non-recurrent maxillary sinusitis (Primary Dx); Cervical radiculopathy; Chronic post-traumatic headache, not intractable; BMI 27.0-27.9,adult 01/30/2025 Nurse Triage [facility] [address] [phone] Thomas Morrow MD 01/26/2025 Telephone [facility] Oncology [facility] Floor 6 [place] [address] Marcy Goff RN 01/24/2025 7:30 AM CDT Infusion [facility] - Infusion [address] [facility] Floor 5 [place] [address] Hypogammaglobulinemia (Primary Dx) 01/22/2025 Telephone [facility] Allergy and Immunology [address] [facility] [address] [place] [address] Brittany Malin MD 01/22/2025 6:49 PM CDT - 01/22/2025 11:59 PM CDT Hospital Encounter [facility] [address] [place] [address] Sacral insufficiency fracture, sequela Discharge Disposition: Discharge to home or self care 01/15/2025 Orders Only [facility] Oncology [address] [facility] Floor 6 [place] [address] Suzy Joaquin RN Hypogammaglobulinemia (Primary Dx) 01/12/2025 10:15 AM CDT Office Visit [facility] Cardiology [address] [facility] [address] [address] Gage Navarro MD PFO (patent foramen ovale) (Primary Dx); Dyslipidemia; Fibromyalgia 01/11/2025 Orders Only [facility] [address] [facility] [address] [place] [address] Rafael Guo MD Sacral insufficiency fracture, sequela (Primary Dx) 01/10/2025 Orders Only [facility] [address] [phone] Thomas Morrow MD 01/07/2025 11:23 AM CDT - 01/07/2025 11:59 PM CDT Hospital Encounter [facility] MRI [address] [place] [address] Lumbar radiculopathy Discharge Disposition: Discharge to home or self care 01/03/2025 9:45 AM DIRECTOR TECHNICAL Lab [facility] - Lab Collection [address] [place] [address] Floor 6 [place] [address] Follicular lymphoma of intrapelvic lymph nodes, unspecified follicular lymphoma type (HCC); CVID (common variable immunodeficiency) (HCC); Diffuse large B-cell lymphoma, unspecified body region (HCC) 01/03/2025 10:15 AM DIRECTOR TECHNICAL Office Visit [facility] Oncology [address] [place] [phone] Zakia Busch MD Follicular lymphoma of intrapelvic lymph nodes, unspecified follicular lymphoma type (HCC) (Primary Dx); CVID (common variable immunodeficiency) (HCC) 01/03/2025 9:15 AM DIRECTOR TECHNICAL Lab [facility] Oncology Lab [address] [place] [phone] Diffuse large B-cell lymphoma, unspecified body region (HCC) (Primary Dx); Follicular lymphoma of intrapelvic lymph nodes, unspecified follicular lymphoma type (HCC); CVID (common variable immunodeficiency) (HCC) 01/02/2025 Telephone [facility] Oncology [address] [place] [phone] Linette Santizo RMA 01/01/2025 2:30 PM DIRECTOR TECHNICAL Office Visit [facility] [address] [phone] Norma Vickers DO Laryngopharyngeal reflux (LPR) (Primary Dx) from Last 3 Months Allergies Active Allergy Reactions Criticality Noted Date Comments Rituximab Other (See comments),Stomach upset High Reaction: GI UPSET Induced asthma Medications loratadine (CLARITIN) 10 mg tablet Take 1 tablet (10 mg total) by mouth daily 90 tablet 3 06/14/20 24 Active fluticasone propionate (FLONASE) 50 mcg/actuation nasal sprayIndication s:Non-seasonal allergic rhinitis, unspecified trigger Administer 2 sprays into each nostril daily 1 each 11 08/07/20 24 Active prochlorperazin e (COMPAZINE) 5 [...] wheezing or shortness of breath 1 each 09/04/20 24 025 Discontinu ed(Other) acetaminophen (TYLENOL) [...] 11/09/2024 Assessment & Plan (11/09/2024 10:51 AM DIRECTOR TECHNICAL): Due for FNA later this week and will follow response. NO new dysphagia. Reivweed TFTs. YVONNE (generalized anxiety disorder) 11/09/2024 Assessment & Plan (02/21/2025 9:36 AM CDT): See above Assessment & Plan (11/09/2024 10:52 AM DIRECTOR TECHNICAL): INtroduced regiemen of busprione to wellbutrin and reivewed impact of this on depression and decreased anxiety impact. Left sided numbness 11/02/2024 Assessment & Plan (11/02/2024 10:07 PM DIRECTOR TECHNICAL): Review of CT imaging and x-ray imaging available online, findings suggestive of nerve root impingement as possible cause of current presentation Supportive management Outpatient pain management referral versus orthopedic surgery spine referral TIA (transient ischemic attack) 11/02/2024 Assessment & Plan (11/09/2024 10:50 AM DIRECTOR TECHNICAL): COntinues on regiemn. WIll folwo response. Reivwed hostpial course and imaing studies. Assessment & Plan (11/02/2024 10:07 PM DIRECTOR TECHNICAL): CT head negative Telemetry Neurologic checks PTOT evaluate Swallow study evaluation --- during initial evaluation, patient witnessed drinking water without difficulty, pending official documentation Aspirin MR imaging per Neurology Sciatica of left side 11/02/2024 Assessment & Plan (11/02/2024 10:09 PM DIRECTOR TECHNICAL): As referred by patient, present for many months to years Imaging study online shows possible nerve root impingement L3-L4 Supportive care PTOT evaluate Outpatient pain management versus orthopedic surgery spine referral Hospital discharge follow-up 10/24/2024 Assessment & Plan (10/24/2024 9:56 AM DIRECTOR TECHNICAL): Mary Walker NP have personally reviewed pertinent inpatient and/or ED records, including discharge medications and Clindesk if applicable. This patient's discharge medication list has been reviewed and reconciled with her outpatient medication list and has also been reviewed with patient and/or caregiver. I have noted any changes. Abnormal imaging of thyroid 10/24/2024 Assessment & Plan (11/02/2024 10:11 PM DIRECTOR TECHNICAL): As referred by patient during evaluation Patient is requesting further evaluation and possible intervention. At present time, patient has indicated that she is actively taking steroid treatments in addition to coordination with IVIG treatment is provided by oncologist at [facility]. As referred by patient, she has [...] Radiology with both her oncologist and upcoming revenue inspector for procedure --- patient is instructed to follow-up with the specialist and coordinate this testing at tertiary facility Assessment & Plan (10/24/2024 9:57 AM DIRECTOR TECHNICAL): TSH and thyroid ultrasound ordered. Will plan accordingly once results are received. Acute cough 10/22/2024 Combined variable immunodeficiency 10/17/2024 Assessment & Plan (10/17/2024 12:30 PM DIRECTOR TECHNICAL): Continue management with oncology, will establish Allergy/immunology in the next few weeks. Chronic cough 10/17/2024 Assessment & Plan (10/17/2024 12:32 PM DIRECTOR TECHNICAL): Afebrile in office today. No acute distress, speaking in full and complete sentences. Denies any changes to appetite. Reviewed inhaler use, Symbicort as maintenance therapy and albuterol p.r.n.. COVID, influenza and RSV testing negative in office today. Patient will go to [facility] for chest x-ray today. Will avoid additional ABX for now as patient recently completed course of amoxicillin for possible strep throat. Recommend follow-up with pulmonology as well. Reviewed signs and symptoms warranting immediate emergency evaluation. Dysphagia 09/07/2024 Assessment & Plan (10/30/2024 11:22 AM DIRECTOR TECHNICAL): Take Pantoprazole 40 mg (Protonix), 30-60 minutes prior to any other medication, food or fluids other than water Continue Pepcid Start Medrol dose pack with a meal Laryngopharyngeal reflux (LPR) 09/07/2024 Assessment & Plan (01/01/2025 2:44 PM DIRECTOR TECHNICAL): Take Pantoprazole 40 mg (Protonix), Omeprazole (Prilosec) [...] Nasal saline spray (Simply saline, [employer] Remedies, [place], [place]) 2 second sprays or 2 squeezes into [...] in the past. Encouraged to get personal computer network analyst if patient thinks it will help with [...] swallow. Assessment & Plan (10/24/2024 9:57 AM DIRECTOR TECHNICAL): Improved. Continue with inhaler. Red flags reviewed. Assessment & Plan (10/17/2024 12:29 PM DIRECTOR TECHNICAL): Reviewed maintenance versus rescue inhaler. Instructed to continue symbicort 2 puffs bid and use albuterol as needed. Continue Singulair as well as cetirizine. Assessment & Plan (11/04/2023 10:27 AM DIRECTOR TECHNICAL): Chemo-associated Pred course x 3 days Zpak [...] on Morphine, discussed that I cannot manage ad terminal makeup operator medications. Discussed pain management and she is agreeable. Referral placed. Assessment & Plan (05/31/2023 12:38 PM CDT): Uses ice and Advil for symptom relief; no relief with topical therapies Continue with conservative therapies, work on weight loss possible relief Assessment & Plan (02/02/2023 3:56 PM CDT): Continues to have low back pain; limited in activities; cannot ride bike No relief with PT or childcare aide Good relief with TENS encourage use of TENS; would like to wait on spinal surgery referral Encourage regular activity; continue with home exercises to relieve pain Hypogammaglobulinemia 09/17/2022 CVID (common variable immunodeficiency) 09/17/20 Assessment & Plan (11/09/2024 10:49 AM DIRECTOR TECHNICAL): COntinue f/u. Rivwed labowkr with recent hospitalizations. [...] today; patient reports she is taking diuretic [id number] Patient checks at home, generally running normal [...] 11/13/2020 Assessment & Plan (11/13/2020 11:34 AM DIRECTOR TECHNICAL): Poorly controlled, patient has been using benzodiazepines [...] pain with intercourse even with use of [id number] lubricants Patient has trial of vaginal estrogens, [...] contributing. Assessment & Plan (09/11/2020 9:31 AM DIRECTOR TECHNICAL): Of Cymbalta started Assessment & Plan (08/13/2020 [...] monitor. Assessment & Plan (11/09/2024 10:50 AM DIRECTOR TECHNICAL): Reviweed aerobic exercise. Healthy food choices and [...] full-time Assessment & Plan (09/11/2020 9:29 AM DIRECTOR TECHNICAL): Poor response to Effexor, patient has been [...] 08/03/2020 Assessment & Plan (10/24/2024 9:58 AM DIRECTOR TECHNICAL): Resolved. Will continue to monitor. Marijuana abuse [...] b.i.d. Assessment & Plan (11/13/2020 11:31 AM DIRECTOR TECHNICAL): Not well controlled a, patient had overdose of Ativan, unclear if suicide attempt verses medication abuse Patient reports down in isolated as her is currently living in [place] while she is here and does have not have many friends are ability to go out Will restart Lexapro, as patient and reported she had improvement on that medication, and will continue to follow with treatment therapy Encouraged patient to travel to visit Assessment & Plan (09/11/2020 9:30 AM DIRECTOR TECHNICAL): Stable, no severe symptoms Patient seems to [...] With chronic abdominal pain. Continue Reglan and Landryyl that patient states her GI doctor started [...] Unsigned Assessment & Plan (11/09/2024 10:49 AM DIRECTOR TECHNICAL): Continue f/u with Dr. Busch. No fever/chills/nightseats. [...] body region 03/13/2024 04/22/2024 Uncomplicated opioid dependence ([facility]/HCC) 08/03/2020 03/02/2022 Assessment & Plan (08/03/2020 3:00 AM CDT): Patient was started on morphine when she was in [place] for her lymphoma. She states prior to moving here her palliative care and oncology doctors were going to wean her off her morphine and Ativan however she moved to [place]. Patient receptive to meeting with warm handoff. Discussed starting patient on Suboxone and patient is agreeable. Benzodiazepine dependence ([facility]/HCC) 08/03/2020 03/02/2022 Assessment & Plan (11/13/2020 11:32 AM DIRECTOR TECHNICAL): History of dependence on benzodiazepines and recent [...] cx with clinically insignificant growth Opioid withdrawal ([facility]) 03/02/2022 Assessment & Plan (09/11/2020 9:31 AM DIRECTOR TECHNICAL): Improved, patient reports decreased abdominal pain or other symptoms associated with, opioid use, benzodiazepine use, and heavy marijuana use Patient continues to remain off those substances Assessment & Plan (08/13/2020 2:20 PM CDT): Stable, well controlled, patient has not used morphine in several days and is now using only morphine only as needed, and eats with medication order is symptoms of nausea Immunizations Immunization Administration Dates Next Due Influenza, [...] Pneumococcal Conjugate Pcv20 05/31/2023 ZOSTER Recombinant 10/31/2020,09/16/2020 Social History Tobacco Use Types Packs/Day Years Used Date Smoking Tobacco: Former Cigarettes 0.1 10 0 01/23/1999 - 01/23/2009 Passive Smoke Exposure: Past Smokeless Tobacco: Never Tobacco Cessation:Counseling Given: Not Answered Comments:social only Alcohol Use Standard Drinks/Week Comments Not Currently 0 (1 standard drink = 0.6 oz pur e alcohol) [facility] Utilities Answer Date Recorded In the past 12 months has th e electric, gas, oil, or water company threatened to shut off services in your [...] How often do you attend chur or religion services? More than 4 times per year 11/08/2024 Do you belong to any clubs o r organizations such as scientologist groups, unions, fraternal or athletic groups, or [...] staff should administer the PHQ-9) 0 02/21/2025 [facility]ational Stress Questionnaire Answer Date Recorded [...] place to sleep or slept in a correction (including now)? No 06/09/2023 PHQ-9 Answer Date [...] any time in the past 12 m [facility], were you homeless or living in a correction (including now)? No 11/08/2024 Personal Safety Answer Date Recorded Have you ever been in or are you currently in a harmful physical or emotional relationship or is someone making you feel afraid or unsafe? Denies 03/31/2025 Comments No Sex and Gender Information Value Date Recorded Sex Assigned at Not on file Legal Sex Female 11:09 AM DIRECTOR TECHNICAL Gender Identity Female 07/18/2020 6:40 AM CDT Sexual Orientation Straight 07/18/2020 6: 40 AM CDT Last Filed Vital Signs Vital Sign Reading [...] 03/31/2025 6:03 PM CDT Plan of Treatment Not on file Goals Goal Patient Goal Type Associated Problems [...] as needed Medical Devices Implanted Type Area Gimp Buttonhole Machine Operator Device Identifier Shelf Expiration Date Model / Serial / Lot Breast Implant Bilateral: Breast Procedures Procedure Name Priority Date/Time Associated Diagnosis Comments TX CRITICAL CARE ILL/INJURED PATIENT INIT 30-74 MIN [...] Lumbar radiculopathy EGFR Routine 01/03/2025 9:45 AM DIRECTOR TECHNICAL Follicular lymphoma of intrapelvic lymph nodes, unspecified follicular lymphoma type (HCC) CVID (common variable immunodeficiency) (HCC) DIFFERENTIAL AUTO Routine 01/03/2025 9:4 5 AM DIRECTOR TECHNICAL Follicular lymphoma of intrapelvic lymph nodes, unspecified follicular lymphoma type (HCC) CVID (common variable immunodeficiency) (HCC) IGM Routine 01/03/2025 9:45 AM DIRECTOR TECHNICAL Diffuse large B-cell lymphoma, unspecified body region (HCC) IGA Routine 01/03/2025 9:45 AM DIRECTOR TECHNICAL Diffuse large B-cell lymphoma, unspecified body region (HCC) PHOSPHORUS Routine 01/03/2025 9:45 AM DIRECTOR TECHNICAL Diffuse large B-cell lymphoma, unspecified body region (HCC) MAGNESIUM Routine 01/03/2025 9:45 AM DIRECTOR TECHNICAL Diffuse large B-cell lymphoma, unspecified body region (HCC) BILIRUBIN, DIRECT Routine 01/03/2025 9:4 5 AM DIRECTOR TECHNICAL Diffuse large B-cell lymphoma, unspecified body region (HCC) URIC ACID Routine 01/03/2025 9:45 AM DIRECTOR TECHNICAL Diffuse large B-cell lymphoma, unspecified body region (HCC) CBC WITH AUTO DIFFERENTIAL Routine 01/03/2025 9:45 AM DIRECTOR TECHNICAL Follicular lymphoma of intrapelvic lymph nodes, unspecified follicular lymphoma type (HCC) CVID (common variable immunodeficiency) (HCC) COMPREHENSIVE METABOLIC PANEL Routine 01/03/2025 9:45 AM DIRECTOR TECHNICAL Follicular lymphoma of intrapelvic lymph nodes, unspecified follicular lymphoma type (HCC) CVID (common variable immunodeficiency) (HCC) LACTATE DEHYDROGENASE Routine 01/03/2025 9:45 AM DIRECTOR TECHNICAL Follicular lymphoma of intrapelvic lymph nodes, unspecified follicular lymphoma type (HCC) CVID (common variable immunodeficiency) (HCC) IGG Routine 01/03/2025 9:45 AM DIRECTOR TECHNICAL Follicular lymphoma of intrapelvic lymph nodes, unspecified follicular lymphoma type (HCC) CVID (common variable immunodeficiency) (HCC) SCREENING MAMMOGRAM BILATERAL W RAMON W IMPLANTS Schedule Routine, Read Routine (OP Routine) 12/18/2024 7:38 AM DIRECTOR TECHNICAL Screening mammogram, encounter for COLONOSCOPY 09/06/2024 7:11 AM DIRECTOR TECHNICAL HEPATITIS PANEL, ACUTE Routine 08/20/2020 11:07 AM CDT Polyarthralgia from Last 3 Months or Most Recently Relevant to Health Maintenance Results * TX CRITICAL CARE ILL/INJURED PATIENT INIT 30-74 MIN [...] spent time documenting in the medical record. us Bertha Voss MD IN CLINIC/BEDSIDE O RDERABLES Final Result * (ABNORMAL) Urinalysis reflex to microscopic and culture Urine (03/31/2025 8:18 PM CDT) Color, ur Straw Yellow Clarity, ur Clear Clear TANIYA DYSON (JAME) Specific gravity, ur 1.006 1.003 - 1.030 [facility] (JAME) pH, urine 5.0 TANIYA RODRIGUEZ (JAME) Comment: Interpretive Data U rine pH is affected by diet, medications, systemic acid-base disturbances, and renal tubular function. pH may affect urinary stone formation. For example, urine pH below 6.0 may help reduce the tendency for calcium phosphate stones and pH greater than 6.0 may reduce the tendency for uric acid stone formation. Source: [facility] Current Interpretive Data was last revised on [...] 8:18 PM CDT 03/31/2025 8:22 PM CDT us Bertha Voss MD LAB MICROBIOLOGY - GENERAL ORDERABLES Final Result [facility] ([place]) 1 [facility] Department [place] [address] * Influenza A/B, RSV, and COVID-19 PCR Nasopharyngeal (03/31/2025 5:57 PM CDT) COVID-19 RNA Negative Negative Influenza A RNA Negative Negative [facility] (JAME) Influenza B RNA Negative Negative [facility] ([place]) RSV RNA Negative Negative [facility] (JAME) Comment: Interpretive data: Testing performed by [facility]. This test is performed using the [employer] Xpert Xpress CoV-2/Flu/RSV plus assay. This is a multiplex, real- time reverse transcriptase PCR assay intended for the qualitative detection of nucleic acid from SARS-CoV-2, influenza A, influenza B, and respiratory syncytial virus. This assay has been cleared by the [place] Food and Drug administration. The performance characteristics have been verified by the [facility]. Results must be considered in the clinical context, and a negative result does not rule out infection. Interpretive Data last revised 2023 Nasopharyngeal 03/31/2025 5: 57 PM CDT 03/31/2025 6:00 PM CDT Narrative TANIYA MICHAEL ([place]) - 03/31/2025 6:40 PM CDT Is the Patient experiencing symptoms consistent with COVID?->Yes Bertha Voss MD LAB MICROBIOLOGY - GENERAL ORDERABLES Final Result Performing Organization Address [facility] de Phone Number TANIYA RODRIGUEZ ([place]) [address] [place] [phone] * Troponin T high-sensitivity series (baseline, 2hr, 4hr, 6hr) (03/31/2025 5:14 PM CDT) [facility] Trop T hs 9 <=14 ng/L Comment: Interpretive Data For further hscTnT resources including the diagnostic algorithm and an aid in interpretation, copy and paste this link: https://nrl.testcatalog.org/show/hsTrop Current Interpretive Data last revised 2020. Blood 03/31/2025 5:14 PM CDT 03/31/2025 5:16 PM CDT Bertha Voss MD LAB BLOOD ORDERABLE S Final Result Performing Organization Address [facility] Co de Phone Number TANIYA RODRIGUEZ ([place]) 1 [facility] [place] [address] * eGFR (03/31/2025 5:14 PM CDT) [facility] eGFR 79 >=60 mL/min/1. 73 m2 Comment: [...] LAB BLOOD ORDERABLE S Final Result TANIYA [facility] ([place]) 1 [facility] Department [place] [address] * (ABNORMAL) Differential, auto (03/31/2025 5:14 PM CDT) Neutrophil abs 7.89(H) 1.50 - 6.50 K/cumm Imm gran abs 0.04 0.00 - 0.10 K/cumm [facility] ([place]) Lymphocyte abs 2.92 0.80 - 3.30 K/cumm [facility] ([place]) Monocyte abs 0.63 0.20 - 0.80 K/cumm [...] Lymphocyte pct 24.5 % [facility] (JAME) Comment: Interpretive [...] revised on 2018. Basophil pct 0.3 % [facility] ([place]) Comment: Interpretive Data Percent cell count reference ranges are not reported, since discordance with absolute values may lead to misinterpretation of CBC data. Current Interpretive Data was last revised on 2018. Blood 03/31/2025 5:14 PM CDT 03/31/2025 5:16 PM CDT us Bertha Voss MD LAB BLOOD ORDERABLE S Final Result AYANDEYVI RODRIGUEZ ([place]) 1 [facility] Department [place] [address] * Pro B-type natriuretic peptide (03/31/2025 5:14 [...] well as advanced age. - References: 1. Syo SANDRA et.al. Eur Heart J. 2006:27:330-337. 2. Adrianne DEVI, Warren GALDAMEZ. J. AM Leonides Cardiol: Cardiovasc Imag. 2009;2: 216- 225. Interpretive Data Last Revised Date: 2018. Blood 03/31/2025 5:14 PM CDT 03/31/2025 5:16 PM CDT us Bertha Voss MD LAB BLOOD ORDERABLE S Final Result [facility] ([place]) 1 [facility] Department [place] [address] * (ABNORMAL) CBC with auto differential (03/31/2025 [...] (JAME) MCH 35.1(H) 27.1 - 33.3 pg TANIYA RODRIGUEZ (JMAE) MCHC 35.5 32.3 - 35.7 g/dL TANIYA RODRIGUEZ ([place]) RDW CV 12.9 11.1 - 14.9 % TANIYA RODRIGUEZ ([place]) RDW SD 46.9 35.7 - 48.1 fL TANIYA RODRIGUEZ ([place]) NRBC abs 0.00 0.00 - 0.01 K/cumm TANIYA RODRIGUEZ (JAME) Blood 03/31/2025 5:14 PM CDT 03/31/2025 5:16 PM CDT Bertha Voss MD LAB BLOOD ORDERABLE S Final Result Performing Organization Address City/[facility] Co de Phone Number TANIYA RODRIGUEZ ([place]AME) 1 [facility] Department [place] [address] * D-dimer, quantitative (03/31/2025 5:14 PM CDT) D-Dimer 285 <=499 ng/mL FEU TANIYA RODRIGUEZ ([place]AME) Comment: Interpretive data FDA approved the [...] S Final Result TANIYA RODRIGUEZ ([place]) 1 [facility] Department [place] [address] * (ABNORMAL) Blood gas, venous (03/31/2025 5:14 PM CDT) pH, Venous 7.37 7.32 - 7.43 PCO2, Venous 51(H) 40 - 50 mmHg [facility] ([place]AME) PO2, Venous 38 mmHg [facility] (JAME) Comment: Interpretive Data No reference range established. Current interpretive data was last revised 2018. HCO3 Venous, Calculated 29 20 - 30 mmol/L [facility] ([place]) BE, venous 3 mmol/L [facility] ([place]AME) Comment: Interpretive Data No Reference Range Established Current Interpretive Data was last revised on 2018. Blood 03/31/2025 5:14 PM CDT 03/31/2025 5:16 PM CDT Bertha Voss MD LAB BLOOD ORDERABLE S Final Result Performing Organization Address [facility] de Phone Number TANIYA RODRIGUEZ ([place]) 1 [facility] Department [place] [address] * (ABNORMAL) Comprehensive metabolic panel (03/31/2025 5:14 PM CDT) Pathologist [facility] Sodium 139 135 - 145 mmol/L Potassium, pl 2.9(C) 3.3 - 4.9 mmol/L [facility] (JAME) Comment:Critical Result call ed by [email or web address] at 2025-03-31 17:49:43. Result Read Back by Bridgette Tang SAL[employer] TEAM RECRUITER Chloride 96(L) 97 - 110 mmol/L CERNER [...] LAB BLOOD ORDERABLE S Final Result TANIYA [facility] ([place]) 1 [facility] Department [place] [address] * XR Chest 1 Vw Portable (if patient condition/safety warrant portable) (03/31/2025 5:06 PM CDT) Anatomical Region Laterality Modality Body, Chest N/A Computed Radiogr aphy 03/31/2025 5:09 PM CDT Narrative 03/31/2025 5:10 PM CDT EXAM DESCRIPTION: XR CHEST 1 VIEW REASON FOR STUDY: Shortness of breath Patient to ED via EMS from [facility] with Complaints of SOB starting this morning, [...] Mendel Cortes D.O. PS: PS Report ID: [id number] Reading Location: [id number] Procedure Note Mendel Cortes, DO - 03/31/2025 EXAM DESCRIPTION: XR CHEST 1 VIEW REASON FOR STUDY: Shortness of breath Patient to ED via EMS from [facility] with Complaintsof SOB starting this morning, chronic [...] Mendel Cortes D.O. PS: PS Report ID: [id number] Reading Location: [id number] us Bertha Voss MD IMG XR PROCEDURES F inal Result * Imaging Cervical/Thoracic Epidural Steroid INJ ([id number]) (03/28/2025 10:21 AM CDT) Narrative [facility] - 03/28/2025 10:22 AM CDT The images from this study are not interpreted by Radiology. Please refer to the physician's procedure / OR operative note. us Rafael Gallego MD IMG PAIN MGMT PROCEDU RES Final Result Performing Organization Address City/[facility]/ZIP Co de Phone Number [email or web address] * eGFR (02/26/2025 11:12 AM CDT) [...] Leigh FISH LAB BLOOD ORDERABLES Final Result TANIYA TIRADO [facility] [place] [address] * (ABNORMAL) Differential, auto (02/26/2025 11:12 AM CDT) Neutrophil abs 6.69(H) 1.50 - 6.50 K/cumm Imm gran abs 0.03 0.00 - 0.10 K/cumm [facility] Lymphocyte abs 2.88 0.80 - 3.30 K/cumm [facility] Monocyte abs 0.63 0.20 - 0.80 K/cumm [facility] Eosinophil abs 0.40 0.00 - 0.50 K/cumm [facility] Basophil abs 0.02 0.00 - 0.10 K/cumm [facility] Neutrophil pct 62.8 % [facility] Comment: Interpretive Data Percent cell count reference ranges are not reported, since discordance with absolute values may lead to misinterpretation of CBC data. Current Interpretive Data was last revised on 2018. Imm gran pct 0.3 % [facility] Comment: Interpretive Data Percent cell count reference ranges are not reported, since discordance with absolute values may lead to misinterpretation of CBC data. Current Interpretive Data was last revised on 2018. Lymphocyte pct 27.0 % [facility] Comment: Interpretive Data Percent cell count reference ranges are not reported, since discordance with absolute values may lead to misinterpretation of CBC data. Current Interpretive Data was last revised on 2018. Monocyte pct 5.9 % [facility] Comment: Interpretive Data Percent cell count reference ranges are not reported, since discordance with absolute values may lead to misinterpretation of CBC data. Current Interpretive Data was last revised on 2018. Eosinophil pct 3.8 % [facility] Comment: Interpretive Data Percent cell count reference ranges are not reported, since discordance with absolute values may lead to misinterpretation of CBC data. Current Interpretive Data was last revised on 2018. Basophil pct 0.2 % [facility] Comment: Interpretive Data Percent cell count reference ranges are not reported, since discordance with absolute values may lead to misinterpretation of CBC data. Current Interpretive Data was last revised on 2018. Blood 02/26/2025 11:1 2 AM CDT 02/26/2025 11:35 AM CDT us Leigh FISH LAB BLOOD ORDERABLES Final Result [facility] Department [place] [address] * (ABNORMAL) CBC with auto differential (02/26/2025 11:12 AM CDT) [facility] WBC 10.65(H) 3.80 - 9.90 K/cumm Hgb 15.3 11.9 - 15.5 g/dL [facility] Hct 43.3 35.6 - 45.5 % [facility] Plt 249 150 - 400 K/cumm [facility] MPV 9.8 9.1 - 12.3 fL [facility] RBC 4.52 3.90 - 5.20 M/cumm [facility] MCV 95.8 81.3 - 96.4 fL [facility] MCH 33.8(H) 27.1 - 33.3 pg [facility] MCHC 35.3 32.3 - 35.7 g/dL [facility] RDW CV 12.5 11.1 - 14.9 % [facility] RDW SD 44.0 35.7 - 48.1 fL [facility] NRBC abs 0.00 0.00 - 0.01 K/cumm [facility] Blood 02/26/2025 11:1 2 AM CDT 02/26/2025 11:35 AM CDT us Leigh FISH LAB BLOOD ORDERABLES Final Result [facility] [place] [address] * Comprehensive metabolic panel (02/26/2025 11:12 AM CDT) [facility] Sodium 141 135 - 145 mmol/L Potassium, pl 4.8 3.3 - 4.9 mmol/L [facility] Chloride 102 97 - 110 mmol/L [facility] CO2 30 22 - 32 mmol/L [facility] Anion gap 9 2 - 15 mmol/L [facility] BUN 11 6 - 25 mg/dL [facility] Creatinine 1.05 0.60 - 1.10 mg/dL [facility] Glucose 105 70 - 199 mg/dL [facility] Comment: Interpretive Data Fasting glucose >/= 126 [...] 2022. Calcium 10.0 8.5 - 10.3 mg/dL [facility] Bilirubin, total 0.5 0.1 - 1.2 mg/dL [facility] Protein, pl 7.4 6.5 - 8.5 g/dL [facility] Albumin 4.9 3.5 - 5.0 g/dL [facility] Alk phos 65 40 - 130 Units/L [facility] ALT 25 7 - 45 Units/L [facility] AST 30 10 - 45 Units/L [facility] Blood 02/26/2025 11:1 2 AM CDT 02/26/2025 11:35 AM CDT Leigh FISH LAB BLOOD ORDERABLES Final Result [facility] [place] [address] * CT Pelvis WO Contrast (02/23/2025 1:07 [...] it. Electronically signed by: Jan Ochoa M.D. us Rafael Gallego MD IMG CT PROCEDURES Fin [...] Douglas Serrano MD, Ph.D Trae Keating MD [facility] DXA PROCEDURES Final Result * Imaging Lumbar/Caudal Epidural Steroid INJ ([id number]) (02/12/2025 10:17 AM CDT) Narrative [facility] - 02/12/2025 10:17 AM CDT The images [...] bilateral anteroinferior sacroiliac osteoarthritis. Electronically signed by: MD Gerard Giraldo 01/23/2025 6:50 AM CDT EXAMINATION: MRI SACRUM [...] 5:50 AM Addendum Electronically signed by Piyush BERNABE T: Report ID: [id number] Reading Location: [id number] Narrative 01/07/2025 12:18 PM CDT EXAM DESCRIPTION: MRI [...] and pelvis dated 10/21/2024. FINDINGS: SEGMENTATION: 5 zos-mnl-oyaxehr lumbar type vertebral bodies. ALIGNMENT: Mild retrolisthesis [...] arthropathy. Flattening of the ventral thecal sac. Zzkk-hqjqxbv-cnre-right lateral recess effacement. Moderate left and lkyz-sv-iiekqmbf inferior right neural foraminal narrowing. Disc/marginal spur and facet arthropathy contacting the exiting L3 nerve roots, iigo-lykhrum-czgq-right. L4-L5: Disc bulge with marginal spur formation. [...] signed by Piyush BERNABE T: Report ID: [id number] Reading Location: [place] [id number] Procedure Note Piyush Duvall, DO - 01/07/2025 [...] abdomen and pelvisdated 10/21/2024. FINDINGS: SEGMENTATION: 5 fjz-owo-ommlyhy lumbar type vertebral bodies. ALIGNMENT: Mild retrolisthesis [...] facet arthropathy. Flatteningof the ventral thecal sac. Jvnb-hmhmhbv-mshk-right lateral recesseffacement. Moderate left and udrg-zq-tmjxwjbw inferior right neural foraminalnarrowing. Disc/marginal spur and facet arthropathy contacting the exiting L3 nerve roots, bvzh-spnxcoy-exqv-right. L4-L5: Disc bulge with marginal spur formation. [...] signed by Piyush BERNABE T: Report ID: [id number] Reading Location: [place] [address] us Rafael Gallego MD IMG MRI PROCEDURES Ed ited Result - Final * eGFR (01/03/2025 9:45 AM DIRECTOR TECHNICAL) eGFR 69 >=60 mL/min/1. 73 m2 Comment: [...] last reviewed 2021. Blood 01/03/2025 9:45 AM DIRECTOR TECHNICAL 01/03/2025 9:57 AM DIRECTOR TECHNICAL us Zakia uBsch MD LAB BLOOD ORDERABLES Final Result TANIYA [facility] Department [place] [address] * Differential, auto (01/03/2025 9:45 AM DIRECTOR TECHNICAL) Neutrophil abs 2.9 1.5 - 6.5 K/cumm Comment:Testing performed by : [facility], [address] [place] [phone] Lymphocyte abs 2.9 0.8 - 3.3 K/cumm [facility] Comment:Testing performed by : [facility], [address] [place] [phone] Monocyte abs 0.4 0.2 - 0.8 K/cumm [facility] Comment:Testing performed by : [facility], [address] [place] [phone] Eosinophil abs 0.2 0.0 - 0.5 K/cumm [facility] Comment:Testing performed by : [facility], [address] [place] [phone] Basophil abs 0.0 0.0 - 0.1 K/cumm [facility] Comment:Testing performed by : [facility], [address] [place] [phone] Neutrophil pct 45.2 % [facility] Comment: Interpretive Data Percent cell count reference ranges are not reported, since discordance with absolute values may lead to misinterpretation of CBC data. Current Interpretive Data was last revised on 2018. Testing performed by: [facility], [address] [place] [phone] Lymphocyte pct 44.8 % [facility] Comment: Interpretive Data Percent cell count reference ranges are not reported, since discordance with absolute values may lead to misinterpretation of CBC data. Current Interpretive Data was last revised on 2018. Testing performed by: [facility], [address] [place] [phone] Monocyte pct 5.9 % [facility] Comment: Interpretive Data Percent cell count reference ranges are not reported, since discordance with absolute values may lead to misinterpretation of CBC data. Current Interpretive Data was last revised on 2018. Testing performed by: [facility], [address] [place] [phone] Eosinophil pct 3.4 % TANIYA TIRADO Comment: Interpretive Data Percent cell count reference ranges are not reported, since discordance with absolute values may lead to misinterpretation of CBC data. Current Interpretive Data was last revised on 2018. Testing performed by: [facility], [address] [place] [phone] Basophil pct 0.7 % TANIYA TIRADO Comment: Interpretive Data Percent cell count reference ranges are not reported, since discordance with absolute values may lead to misinterpretation of CBC data. Current Interpretive Data was last revised on 2018. Testing performed by: [facility], [address] [place] [phone] Blood 01/03/2025 9:45 AM DIRECTOR TECHNICAL 01/03/2025 9:57 AM DIRECTOR TECHNICAL Zakia Busch MD LAB BLOOD ORDERABLES Final Result TANIYA [facility] [place] [address] * (ABNORMAL) CBC with auto differential (01/03/2025 9:45 AM DIRECTOR TECHNICAL) WBC 6.4 3.8 - 9.9 K/cumm Comment:Testing performed by : [facility], [address] [place] [address] Hgb 15.1 11.9 - 15.5 g/dL TANIYA TIRADO Comment:Testing performed by : [facility], [address] [place] [address] Hct 44.2 35.6 - 45.5 % TANIYA TIRADO Comment:Testing performed by : [facility], [address] [place] [address] Plt 231 150 - 400 K/cumm TANIYA TIRADO Comment:Testing performed by : [facility], [address] [place] [address] MPV 8.2 6.8 - 10.4 fL TANIYA TIRADO Comment:Testing performed by : [facility], [address] [place], [place] [phone] RBC 4.42 3.90 - 5.20 M/cumm TANIYA TIRADO Comment:Testing performed by : [facility], [address] [place], [place] [phone] MCV 99.9(H) 81.3 - 96.4 fL TANIYA TIRADO Comment:Testing performed by : [facility], [address] [place], [place] [phone] MCH 34.2(H) 27.1 - 33.3 pg TANIYA TIRADO Comment:Testing performed by : [facility], [address] [place], [place] [phone] MCHC 34.3 32.3 - 35.7 g/dL TANIYA TIRADO Comment:Testing performed by : [facility], [address] [place], [place] [phone] RDW CV 12.7 11.1 - 14.9 % TANIYA [facility] Comment:Testing performed by : [facility], [address] [place], [place] [phone] NRBC abs 0.00 0.00 - 0.01 K/cumm TANIYA [facility] Comment:Testing performed by : [facility], [address] [place], [place] [phone] Blood 01/03/2025 9:45 AM DIRECTOR TECHNICAL 01/03/2025 9:57 AM DIRECTOR TECHNICAL us Zakia Busch MD LAB BLOOD ORDERABLES Final Result [facility] [place] [address] * Uric acid (01/03/2025 9:45 AM DIRECTOR TECHNICAL) Uric acid 5.1 2.5 - 7.0 mg/dL Blood 01/03/2025 9:45 AM DIRECTOR TECHNICAL 01/03/2025 9:57 AM DIRECTOR TECHNICAL Zakia Bsuch MD LAB BLOOD ORDERABLES Final Result Performing Organization Address City/[facility] [place] [address] * Phosphorus (01/03/2025 9:45 AM DIRECTOR TECHNICAL) Phosphorus, pl 2.5 2.3 - 4.5 mg/dL Blood 01/03/2025 9:45 AM DIRECTOR TECHNICAL 01/03/2025 9:57 AM DIRECTOR TECHNICAL Zakia Busch MD LAB BLOOD ORDERABLES Final Result Performing Organization Address [facility] [place] [address] * Magnesium (01/03/2025 9:45 AM DIRECTOR TECHNICAL) Magnesium 2.4 1.4 - 2.5 mg/dL Blood 01/03/2025 9:45 AM DIRECTOR TECHNICAL 01/03/2025 9:57 AM DIRECTOR TECHNICAL Zakia Busch MD LAB BLOOD ORDERABLES Final Result Performing Organization Address [facility] Co de Phone Number [facility] [place] [address] * Lactate dehydrogenase (LD) (01/03/2025 9:45 AM DIRECTOR TECHNICAL) Lactate dehydrogenase (LDH) 219 100 - 250 Units/L Blood 01/03/2025 9:45 AM DIRECTOR TECHNICAL 01/03/2025 9:57 AM DIRECTOR TECHNICAL Zakia Busch MD LAB BLOOD ORDERABLES Final Result Performing Organization Address City/[facility] Co de Phone Number [facility] [place] [address] * (ABNORMAL) IgA (01/03/2025 9:45 AM DIRECTOR TECHNICAL) Immunoglobulin A <50(L) 70 - 400 mg/dL Blood 01/03/2025 9:45 AM DIRECTOR TECHNICAL 01/03/2025 10:13 AM DIRECTOR TECHNICAL Zakia Busch MD LAB BLOOD ORDERABLES Final Result Performing Organization Address [facility] de Phone Number [facility] [place] [address] * IgM (01/03/2025 9:45 AM DIRECTOR TECHNICAL) Pathologist [facility] Immunoglobulin M 44 40 - 230 mg/dL Blood 01/03/2025 9:45 AM DIRECTOR TECHNICAL 01/03/2025 10:13 AM DIRECTOR TECHNICAL Zakia Busch MD LAB BLOOD ORDERABLES Final Result Performing Organization Address [facility] de Phone Number [facility] [place] [address] * (ABNORMAL) IgG (01/03/2025 9:45 AM DIRECTOR TECHNICAL) Pathologist [facility] Immunoglobulin G 690(L) 700 - 1,600 mg/dL Blood 01/03/2025 9:45 AM DIRECTOR TECHNICAL 01/03/2025 10:13 AM DIRECTOR TECHNICAL Zakia Busch MD LAB BLOOD ORDERABLES Final Result Performing Organization Address [facility] de Phone Number [facility] [place] [address] * Bilirubin, direct (01/03/2025 9:45 AM DIRECTOR TECHNICAL) Pathologist [facility] Bilirubin, direct 0.2 0.1 - 0.3 mg/dL Blood 01/03/2025 9:45 AM DIRECTOR TECHNICAL 01/03/2025 9:57 AM DIRECTOR TECHNICAL us Zakia Busch MD LAB BLOOD ORDERABLES Final Result [facility] [place] [address] * (ABNORMAL) Comprehensive metabolic panel (01/03/2025 9:45 AM DIRECTOR TECHNICAL) Sodium 142 135 - 145 mmol/L Potassium, pl 3.7 3.3 - 4.9 mmol/L [facility] Chloride 102 97 - 110 mmol/L [facility] CO2 33(H) 22 - 32 mmol/L [facility] Anion gap 7 2 - 15 mmol/L [facility] BUN 12 6 - 25 mg/dL [facility] Creatinine 0.96 0.60 - 1.10 mg/dL [facility] Glucose 95 70 - 199 mg/dL [facility] Comment: Interpretive Data Fasting glucose >/= 126 [...] 2022. Calcium 10.2 8.5 - 10.3 mg/dL [facility] Bilirubin, total 0.6 0.1 - 1.2 mg/dL [facility] Protein, pl 7.6 6.5 - 8.5 g/dL [facility] Albumin 5.0 3.5 - 5.0 g/dL [facility] Alk phos 87 40 - 130 Units/L [facility] ALT 23 7 - 45 Units/L [facility] AST 26 10 - 45 Units/L [facility] Blood 01/03/2025 9:45 AM DIRECTOR TECHNICAL 01/03/2025 9:57 AM DIRECTOR TECHNICAL us Zakia Busch MD LAB BLOOD ORDERABLES Final Result [facility] Department [place] [address] * Screening Mammogram Bilateral W Ramon W Implants (12/18/2024 7:38 AM DIRECTOR TECHNICAL) Anatomical Region Laterality Modality Breast Bilateral Mammography Narrative 12/18/2024 4:30 PM DIRECTOR TECHNICAL Mammogram Technique: Bilateral Digital Breast Tomosynthesis, Bilateral C-view 2D Screening mammogram. Views obtained: bilateral craniocaudal; bilateral craniocaudal implant displaced; bilateral mediolateral oblique; and bilateral mediolateral oblique implant displaced. Computer Aided Detection was performed. Mammogram Findings: The present examination has been compared to prior imaging studies performed at [facility] on 12/30/2023, and at [facility] on 09/30/2016 and 03/11/2021. There are [...] compared to prior imaging studies performed at [facility] on 12/30/2023, and at [facility] on 09/30/2016 and03/11/2021. There are scattered areas of fibroglandular density. There are bilateral sub-glandular saline implants. There is no suspicious abnormality in either breast. Impression: There is no mammographic evidence of malignancy. Annual screening mammography is recommended. OVERALL FINAL ASSESSMENT: BI-RADS CATEGORY 1: Negative. us Self Screening Mammogram IMG MAMMO PROCEDURES Fi nal Result * Colonoscopy (09/06/2024 7:11 AM DIRECTOR TECHNICAL) Anatomical Region Laterality Modality Other Narrative Procedure Note Jose Chávez DO - 09/06/2024 7:11 AM CST [facility] Patient Name: Maggie Correa Procedure Date: 09/06/2024 7:11 AM Date of : 1965 Admit Type: Outpatient Age: 59 Gender: Female Attending MD: Jose Chávez D.O. Room: [facility] ENDOSCOPY ROOM 3 Note Status: Finalized Patient [...] under direct vision. The Pediatric Colonoscope [id number]-H190L [id number] was introducedthrough the anus and advanced to [...] 7:11 AM Procedure Code(s): --- Professional --- 99859, Colonoscopy, flexible; with biopsy, single or multiple --- Technical --- 09290, Colonoscopy, flexible; with biopsy, single or multiple Diagnosis Code(s): --- Professional --- Z86.010, Personal history of colonic polyps K64.8, Other hemorrhoids --- Technical --- Z86.010, Personal history of colonic polyps K64.8, Other hemorrhoids CPT copyright 2020 [employer]. All rights reserved. The codes documented in this report are preliminary and upon client services coordinator reviewmay be revised to meet current compliance requirements. Recognized by the [employer] for promoting quality in endoscopy Jose Chávez DO ENDOSCOPY PROCEDURES Final Res ult * Hepatitis panel, acute (08/20/2020 11:07 AM CDT) Hep A IgM Nonreactive Nonreactive [facility] Comment: Interpretive Data: If Hep A IgM Ab is reported as Equivocal, a new sample should be drawn in two weeks for testing. Current interpretive data was last revised on 20. Hep B core IgM Nonreactive Nonreactive [facility] Comment: Interpretive Data If HepB Core IgM Ab is reported as Equivocal, a new sample should be drawn in two weeks for testing. Current interpretive data was last revised on 20. Hep C Ab Nonreactive Nonreactive [facility] Comment:Antibodies to HCV no t detected. Does NOT exclude the possibility of recent exposure to HCV. HepBsAg Nonreactive Nonreactive [facility] Blood specimen (specimen) 08/20/2020 11:07 AM CDT 08/20/2020 11:46 AM CDT Sulma Mitchell MD LAB MICROBIOLOGY - GENERAL ORDER SHIRLENE Edited Result - Final [facility] [place] [address] from Last 3 Months or Most Recently Relevant to Health Maintenance Insurance [employer] MEDICARE GOLD MEDICARE RESEARCH AETNA MEDICARE GOLD AETNA MEDICARE GOLD Advance Directives For more information, please contact: [phone] * Full Code (Latest Code Status on [...] 7:05 AM 09/06/2024 7:05 AM Care Teams Spice Fumigator Relationship Specialty Start Date End Date Thomas Morrow MD [address] [place] [address] PCP - General Family Medicine 03/06/24 Zakia Busch MD [address] [place] [address] Medical Oncologist/Kraft Digester Operator Medical Oncology 07/02/20
--- OUTSIDE RECORDS SUMMARY | 2025-04-02 04:32 | XMS_ITS | Encounter Summary ---
Author Organization [facility] Healthcare Address [address] [place] [address] Care Team Providers Care Technology Teacher Name Role Phone Zakia Busch MD Unavailable Clark Casillas MD Primary Care Provider [phone] Jenny Olvera MD Unavailable [phone] Estrellita Stroud NP Primary Care Provider [phone] Estrellita Stroud NP Primary Care Provider [phone] Thomas Morrow MD Primary Care Provider [phone] Serena Toledo MA Unavailable [phone] Melinda Balnkenship RN Unavailable [phone] Encounter Details Date Type Department Care Team (Late st Contact Info) Description 04/16/2021 Telephone [facility] Radiology [address] [place] [address] Juanita Mckeon, RT Social History Tobacco Use Types Packs/Day Years Used Date Smoking Tobacco: Former Cigarettes 0.1 10 0 01/23/1999 - 01/23/2009 Smokeless Tobacco: Never Comments:social only Alcohol Use Standard Drinks/Week Comments Not Currently 0 (1 standard drink = 0.6 oz pur e alcohol) PHQ-2 Answer Date Recorded PHQ-2 Total Score (If total score is 3 or more points, staff should administer the PHQ-9) 3 11/11/2020 Comments No Sex and Gender Information Value Date Recorded Sex Assigned at Not on file Legal Sex Female 11: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 Gender Identity Female 07/18/2020 6:40 AM CDT Sexual Orientation Straight 07/18/2020 6: 40 AM CDT documented as of this encounter Plan of Treatment Not on file documented as of this encounter Visit Diagnoses Not on filedocumented in this encounter Additional Health Concerns Infection Onset Date Last Indicated Resolved Time COVID: Suspected 10/17/2024 10/17/2024 10/17/2024 11:42 AM METAL ENGINEERING PROCESS WORKER COVID: Suspected 10/19/2024 10/19/2024 10/19/2024 11: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 COVID: Suspected 10/22/2024 10/22/2024 10/22/2024 6:53 AM METAL ENGINEERING PROCESS WORKER COVID: Suspected 12/22/2024 12/22/2024 12/22/2024 4:22 PM METAL ENGINEERING PROCESS WORKER COVID: Suspected 03/31/2025 03/31/2025 03/31/2025 6:42 PM CDT documented as of this encounter Care Teams Technology Teacher Relationship Specialty Start Date End Date Clark Casillas MD [address] [place] [address] PCP - General 07/12/20 08/22/23 Estrellita Stroud NP [address] [facility] [address] [address] PCP - General Nurse Practitioner 08/23/23 11/23/23 Estrellita Stroud NP [address] [facility] [address] [place] [address] PCP - General Family Medicine 11/24/23 03/05/24 Thomas Morrow MD [address] [place] [address] PCP - General Family Medicine 03/06/24 Zakia Busch MD [address] [place] [address] Medical Oncologist/Bill Board Poster Medical Oncology 07/02/20 Jenny Olvera MD [address] [place] [address] Referring Physician Gastroenterology 07/25/20 04/30/22 Serena Toledo MA [address] [place] [address] [address] [place] [address] ACO Care Silver Buffer 10/20/24 10/20/24 Melinda Blankenship RN [address] [place] [address] [address] [place] [address] Sealer Aircraft 11/07/24 12/05/24 documented as of this encounter
--- OUTSIDE RECORDS SUMMARY | 2025-04-02 04:32 | XMS_ITS ---
Author Name Interface, A0[place] [address] Organization [facility] [place] [address] Care Team Providers Care Head Start Coordinator Name Role Phone Ceasar Eduardo Unavailable Unavailable Allergies and Adverse Reactions Medication/Group Name Reaction Severity Date No known allergies Plan Date Type Value 04/06/2017 APPOINTMENT TREATMENT 4HRS 04/05/2017 APPOINTMENT Chemo C4D1 Ritux imab(375)D1 (Maintenance) Q56D 03/18/2017 APPOINTMENT FOLLOW UP 01/05/2017 APPOINTMENT Chemo C3D1 Ritux imab(375)D1 (Maintenance) Q56D 01/05/2017 APPOINTMENT TREATMENT 4HRS 12/17/2016 APPOINTMENT FOLLOW UP 12/17/2016 LABORDER PET/CT scan, sku ll base/mid thigh 12/17/2016 LABORDER CBC With Diff an d Plt 12/17/2016 LABORDER CMP Reason for Visit TREATMENT 4HRS Encounters Date Name 12/17/2016 Follicular lymphoma Medications Date Name Route Dose Frequency Instructions Start Date End Date Status 04/05 Aceta orally 2.0 tablet once 04/05 on hold 04/05 Rituximab IV intravenously 700.0 mg once Mix in NS to a final concentration of 1-4 mg/ml. First infusion: administer IVPB at an initial rate of 50 mg/hr. If no infusion related events occur, increase infusion rate in 50 mg/hr increments every 30 minutes to a maximum of 400 mg/hr. Subsequent infusions: administer IVPB at an initial rate of 100 mg/hr. Increase by 100 mg/hr at 30 minute intervals to a maximum of 400 mg/hr. If patient tolerates Cycle 1 and meets criteria, rituximab may given as a rapid infusion over 90 minutes per protocol. 04/05 on hold 04/05 dexamethasone sodium phosphate intravenously 20.0 mg once 04/05 on hold 04/05 diphenhydramine hydrochloride 0.5 MG/ML Injectable Solution intravenously 50.0 mg once 04/05 on hold 01/06 methylprednisol one 4 MG Oral Tablet [Medrol] orally 1.0 package Per package directions 2016 active 01/06 diphenhydramine hydrochloride 25 MG Oral Capsule [Benadryl] orally 1.0 capsule 2 times per day 2016 active 12/17 dexamethasone 4 MG Oral Tablet orally 1.0 tablet every 12 hours 2016 active 10/06 Aceta orally 2.0 tablet once 10/06 on hold 09/17 dexamethasone 4 MG Oral Tablet orally 1.0 tablet every 12 hours 2015 active 07/10 dexamethasone 4 MG Oral Tablet orally 1.0 tablet every 12 hours 2015 active Problems Diagnosis Status Date of Diagnosi s Follicular lymphoma Active Vital Signs Date Type Value 12/17/2016 Body Temperature 97.80 12/17/2016 Heart Beat 73.00 12/17/2016 Intravascular Systolic 122 12/17/2016 Intravascular Diastolic 84 12/17/2016 Respiratory Rate 18.00 12/17/2016 Pain Scale 4.00 12/17/2016 Weight 172.20 12/17/2016 Height 66.00 12/17/2016 BSA 1.88 12/17/2016 BMI 27.79 01/05/2017 Body Temperature 99.10 01/05/2017 Respiratory Rate 18.00 01/05/2017 Heart Beat 69.00 01/05/2017 Intravascular Systolic 151 01/05/2017 Intravascular Diastolic 89 Notes Section * Nurse Note for: 05-APR-17 [facility] Nurse Note Print Location: Unknown Date/Time Printed: 04/02/2025 02:32 AM ([facility]) Patient: KRISTY IQBAL Sex: Female : 1965 Date of Service: 04/05/2017 Allergies : No Known Allergies Patient Assessment : Medication Administration : ADDISON- Rituxan Maintenance Immunotherapy Rituximab IV, 700 mg intravenously Piggyback once, Instructions: Mix in NS to a final concentrationof 1-4 mg/ml. First infusion: administer IVPB at an initial rate of 50 mg/hr. If no infusion related events occur, increase infusion rate in 50 mg/hr increments every 30 minutes to a maximum of 400 mg/hr. Subsequent infusions: administer IVPB at an initial rate of 100 mg/hr. Increase by 100 mg/hr at 30 minute intervals to a maximum of 400 mg/hr. If patient tolerates Cycle 1 and meets criteria, rituximab may given as a rapid infusion over 90 minutes per protocol., Allow Substitution HELD (Reason: Not given - other reason) Entered By: Viviane Berumen RN ADDISON- Rituxan Maintenance Premedications Dexamethasone IV, 20 mg intravenously Piggyback once, Admin over: 20 minutes to 20 minutes, Allow Substitution HELD (Reason: Not given - other reason) Entered By: Viviane PERRYI- Rituxan Maintenance Premedications Acetaminophen Oral, 325 mg tablet, 2 tablet orally once, Allow Substitution HELD (Reason: Not given - other reason) Entered By: Viviane Berumen RN ADDISON- Rituxan Maintenance Premedications Diphenhydramine IV, 50 mg intravenously once, Allow Substitution HELD (Reason: Not given - other reason) Entered By: Viviane Berumen RN * Nurse Note for: 05-JAN-17 [facility] Nurse Note Print Location: Unknown Date/Time Printed: 04/02/2025 02:32 AM ([facility]) Patient: KRISTY IQBAL Sex: Female : 1965 Date of Service: 01/05/2017 Allergies : No Known Allergies Vital Signs : Time: 08:35 AM. Temperature: 99.1 F (37.28 C). Pulse: 69 (/min) . Respirations: 18 (/min) . Blood pressure: 151/89 (mm Hg). Entered by Viviane Berumen RN 01/05/2017 09:11 AM Patient Assessment : IV Access/Lab Draw : IV Access-Peripheral - New Start, Needle Type-Butterfly, Needle Size-24 Gauge, Needle Length-3/4 inch, Access Site-Left Arm, Site Assess List-Blood Return,No Redness,No Swelling,No Tenderness,No Bruising, Site Care Checklist-Aseptic Technique, Lab Drawn-No, Entered By Viviane Berumen RN on 09:11 AM IV De-Access : IV Access Method-Peripheral - New Start, IV Access Type-Butterfly, Line Flushed- 10ml NS, Catheter-Dc'd, Site Care-Site Dressing Applied,IV Infusion Completed,Blood Return Noted During Administration,Therapy Completed Without Adverse Event, Site Assess-Line Intact,No Redness,No Swelling,No Tenderness,No Bruising, Entered By Viviane Berumen RN on 09:11 AM Medication Administration : Incident to: Ceasar Eduardo MD TOI- Ritubeau Maintenance Immunotherapy Rituximab IV, 700 mg intravenously Piggyback once, Instructions: Mix in NS to a final concentrationof 1-4 mg/ml. First infusion: administer IVPB at an initial rate of 50 mg/hr. If no infusion related events occur, increase infusion rate in 50 mg/hr increments every 30 minutes to a maximum of 400 mg/hr. Subsequent infusions: administer IVPB at an initial rate of 100 mg/hr. Increase by 100 mg/hr at 30 minute intervals to a maximum of 400 mg/hr. If patient tolerates Cycle 1 and meets criteria, rituximab may given as a rapid infusion over 90 minutes per protocol., Allow Substitution GIVEN: 700 mg Pharmacy plan: Dispense/Waste: 700/0 mg Pharmacy dispense: NDC: [id number] Dispense/Waste: 200/0 mg Pharmacy dispense: NDC: [id number] Dispense/Waste: 500/0 mg Given Dose/Discard: 700/0 mg Start Time: 09:16 AM, Entered By: Viviane Berumen RN, Stop Time: 12:00 PM, Entered By: Viviane Berumen RN Admix Fluid: 0.9 % sodium chloride, Admix Fluid Volume: 500mL Incident to: Ceasar Eduardo MD TOI- Rituxageoffrey Maintenance Premedications Acetaminophen Oral, 325 mg tablet, 2 tablet orally once, Allow Substitution GIVEN: 325 mg 2 tablet Pharmacy plan: Dose Form Description: 325 mg tablet Dispense/Waste: 2/0 tablet Given Dose/Discard: 2/0 tablet Time: 08:54 AM, Entered By: Viviane Berumen RN Incident to: Ceasar Eduardo MD TOI- Ritubeau Maintenance Premedications Dexamethasone IV, 20 mg intravenously Piggyback once, Admin over: 20 minutes to 20 minutes, Allow Substitution GIVEN: 20 mg Pharmacy plan: Dispense/Waste: 20/0 mg Pharmacy dispense: NDC: [id number] Dispense/Waste: 20/0 mg Given Dose/Discard: 20/0 mg Start Time: 08:54 AM, Entered By: Viviane Berumen RN, Stop Time: 09:16 AM, Entered By: Viviane Berumen RN Admix Fluid: 0.9 % sodium chloride, Admix Fluid Volume: 50mL Diphenhydramine IV, 50 mg intravenously once, Allow Substitution GIVEN: 50 mg Pharmacy plan: Dispense/Waste: 50/0 mg Pharmacy dispense: [facility]: [id number] Dispense/Waste: 50/0 mg Given Dose/Discard: 50/0 mg Start Time: 08:54 AM, Entered By: Viviane Berumen RN, Stop Time: 09:16 AM, Entered By: Viviane Berumen RN Admix Fluid: 0.9 % sodium chloride, Admix Fluid Volume: 50mL Free Text Note : @0916---Rituxan started @80ml/hr. @0945---BP(149/95), P(67). No signs/symptoms of adverse reactions. Rituxan increased to 120ml/hr.@1000---BP(139/93), P(67). No signs/symptoms of adverse reactions. Rituxan increased to 160ml/hr.@1020---BP(155/97), P(63). No signs/symptoms of adverse reactions. Rituxan increased to 200ml/hr.@1040---BP(148/97), P(71). No signs/symptoms of adverse reactions. Rituxanincreased to 240ml/hr.@1120---BP(140/89), P(73). No signs/symptoms of adverse reactions. Rituxan increased to 280ml/hr.@1140---BP(154/94), P(84). No signs/symptoms of adverse reactions. Rituxan increased to 320ml/hr.@1200---BP(138/92), P(78). No signs/symptoms of adverse reactions. Rituxan completed. Entered By Viviane Berumen RN on 02:27 PM
--- OUTSIDE RECORDS SUMMARY | 2025-04-02 04:32 | XMS_ITS | Encounter Summary ---
Author Organization [facility] Address [address] [place] [address] Phone Care Team Providers Care Auto Motor Mechanic Name Role Phone Miscellaneous, Not In File Primary Care Provider Unavailable No, Physician Primary Care Provider [phone] Zakia Busch MD Unavailable [phone] Clark Casillas MD Primary Care Provider [phone] Jenny Olvera MD Unavailable [phone] Estrellita Stroud NP Primary Care Provider Estrellita Stroud CLINICAL DERMATOLOGIST Primary Care Provider [phone] Thomas Morrow MD Primary Care Provider [phone] Serena Toledo MA Unavailable [phone] Melinda Sinclair RN Unavailable [phone] Encounter Details Date Type Department Care Team (Latest Contact Info) Description 02/16/2020 Orders Only [facility] Scanning, Provider Social History Tobacco Use Types Packs/Day Years Used Date Smoking Tobacco: Never Assessed Comments Unknown Sex and Gender Information Value Date Recorded Sex Assigned at Not on file Legal Sex Female 11:09 AM 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 Gender Identity Female 07/18/2020 6:40 AM CDT Sexual Orientation Straight 07/18/2020 6: 40 AM CDT documented as of this encounter Plan of Treatment Not on file documented as of this encounter Procedures Procedure Name Priority Date/Time Associated Diagnosis Comments SCAN - LABS 02/16/2020 CARDIOLOGY DOCUMENT SCAN 02/16/2020 documented in this encounter Results * SCAN - LABS (02/16/2020) us Provider Scanning Final Result * SCAN - CARDIOLOGY (02/16/2020) Anatomical Region Laterality Modality Other us Provider Scanning CV CARDIAC SERVICES PROCEDURES Final Result documented in this encounter Visit Diagnoses Not on filedocumented in this encounter Additional Health Concerns Infection Onset Date Last Indicated Resolved Time COVID: Suspected 08/03/2020 08/03/2020 08/03/2020 8:52 PM CDT Respiratory Infection (DB), contact + droplet Comment:Automatically added due to negative COVID-19 result. 08/03/2020 08/03/2020 08/17/2020 3:0 6 AM CDT COVID: Suspected 10/17/2024 10/17/2024 10/17/2024 11:42 AM 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 COVID: Suspected 10/19/2024 10/19/2024 10/19/2024 11:09 AM 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 COVID: Suspected 10/22/2024 10/22/2024 10/22/2024 6:53 AM 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 COVID: Suspected 12/22/2024 12/22/2024 12/22/2024 4:22 PM 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 COVID: Suspected 03/31/2025 03/31/2025 03/31/2025 6:42 PM CDT documented as of this encounter Care Teams Auto Motor Mechanic Relationship Specialty Start Date End Date Miscellaneous, Not In File PCP - General 03/06/17 05/29/20 No, Physician PCP - General 05/30/20 07/11/20 Clark Casillas MD [address] [place] [address] PCP - General 07/12/20 08/22/23 Estrellita Stroud NP [address] [facility] [address] [address] PCP - General Nurse Practitioner 08/23/23 11/23/23 Estrellita Stroud, MATEUSZ [address] [facility] [address] [place] [address] PCP - General Family Medicine 11/24/23 03/05/24 Thomas Morrow MD [address] [place] [address] PCP - General Family Medicine 03/06/24 Zakia Busch MD [address] [place] [address] Medical Oncologist/Follow Up Manager Medical Oncology 07/02/20 Jenny Olvera MD [address] [place] [address] Referring Physician Gastroenterology 07/25/20 04/30/22 Serena Toledo MA [address] [place] [address] [address] [place] [address] ACO Care Analytical Lead 10/20/24 10/20/24 Melinda Blankenship, BRONSON [address] [facility] [address] [place] [address] Professor Of Chemical Engineering 11/07/24 12/05/24 documented as of this encounter
--- OUTSIDE RECORDS SUMMARY | 2025-04-02 04:32 | XMS_ITS | Encounter Summary ---
Author Organization [facility] Healthcare Address [address] [place] [address] Care Team Providers Care Strategy Associate Name Role Phone Zakia Busch MD Unavailable [phone] Thomas Morrow MD Primary Care Provider [phone] Reason for Visit * Reason Onset Date Comments Medical Question/Miscellaneous 03/12/2025 Encounter Details Date Type Department Care Team (Late st Contact Info) Description 03/12/2025 Telephone Family Physicians [facility] [address] [place] [address] Thomas Morrow MD [address] [place] [address] Medical Question/Miscellaneous Social History Tobacco Use Types Packs/Day Years Used Date Smoking Tobacco: Former Cigarettes 0.1 10 0 01/23/1999 - 01/23/2009 Passive Smoke Exposure: Past Smokeless Tobacco: Never Comments:social only Alcohol Use Standard Drinks/Week Comments Not Currently 0 (1 standard drink = 0.6 oz pur e alcohol) [facility] Utilities Answer Date Recorded In the past 12 months has e electric, gas, oil, or water company [...] week 11/08/2024 How often do you attend [facility] or baptism services? More than 4 times per year 11/08/2024 Do you belong to any clubs o r organizations such as jew groups, unions, fraternal or athletic groups, or school groups? No 11/08/2024 How often do you attend meet ings of the clubs or organizations you belong to? Never 11/08/2024 Are you , , di vorced, , never , or living with a partner? 11/08/2024 AUDIT-C Answer Date Recorded Q1: How often do you have a drink containing alc ohol? Monthly or less 02/09/2025 Q2: How many drinks containi ng alcohol do you have on a typical day when you are drinking? 3 or 4 02/09/2025 Q3: How often do you have si x or more drinks on one occasion? Never 02/09/2025 Overall Financial Resource Strain (CARDIA) Answe r Date Recorded How hard is it for you to pa y for the very basics like food, housing, medical care, and heating? Not hard at all 11/08/2024 PHQ-2 Answer Date Recorded PHQ-2 Total Score (If total score is 3 or more points, staff should administer the PHQ-9) 0 02/21/2025 [facility] - Occupational Stress [...] place to sleep or slept in a mcc (including now)? No 06/09/2023 PHQ-9 Answer Date [...] any time in the past 12 m [facility], were you homeless or living in a mcc (including now)? No 11/08/2024 Personal Safety Answer Date Recorded Have you ever been in or are you currently in a harmful physical or emotional relationship or is someone making you feel afraid or unsafe? 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 * Telephone Encounter - Alka Mcgregor - 03/12/2025 11:[address] Morrow, Please see note below... ok to hold aspirin? How many days prior? Ok to write letter? * Telephone Encounter - Amy Pacheco - 03/12/2025 10:58 AM CDT Medical Question/Miscellaneous Caller???s Concern: Tu with [facility] Dr Delon Car is calling to ask for a medication hold letter from Dr Morrow approving to hold patients Asperin 81 mg 5 days prior to her procedure scheduledfor 03/21/25. Please fax the medication hold letter to [phone]. Does message need to be routed? Yes-Action Needed documented in this encounter Plan of Treatment Not on file documented as of this encounter Goals Goal Patient Goal Type Associated Problems [...] lifestyle strategies and compensatory methods as needed documented as of this encounter Visit Diagnoses Not on filedocumented in this encounter Additional Health Concerns Infection Onset Date Last Indicated Resolved Time COVID: Suspected 03/31/2025 03/31/2025 03/31/2025 6:42 PM CDT documented as of this encounter Care Teams Strategy Associate Relationship Specialty Start Date End Date Thomas Morrow MD [address] [place] [address] PCP - General Family Medicine 03/06/24 Zakia Busch MD [address] [place] [address] Medical Oncologist/Spool Cleaner Medical Oncology 07/02/20 documented as of this encounter
--- OUTSIDE RECORDS SUMMARY | 2025-04-02 04:32 | XMS_ITS | Encounter Summary ---
Author Organization [facility] Healthcare Address [address] [place] [address] Care Team Providers Care Wood Molder Name Role Phone Unavailable Primary Care Provider Unavailabl e Reason for Visit * Diagnostic Imaging (Routine) - Closed Specialty Diagnoses / Procedures Referred By Maverick samuels Referred To Contact Procedures Breast Imaging Screening Outside Reference Transcribed Order, Provider Referral ID Status Reason Start Date Expiration Date Visits Re quested Visits Authorized [id number] Closed 01/14/2024 02/12/2025 1 1 Encounter Details Date Type Department Care Team (Late st Contact Info) Description 09/30/2016 Hospital Encounter [facility] [address] [place] [address] Social History Tobacco Use Types Packs/Day Years Used Date Smoking Tobacco: Former Cigarettes 0.1 10 0 01/23/1999 - 01/23/2009 Passive Smoke Exposure: Past Smokeless Tobacco: Never Comments:social only Alcohol Use Standard Drinks/Week Comments Not Currently 0 (1 standard drink = 0.6 oz pur e alcohol) [facility] Utilities Answer Date Recorded In the [...] How often do you attend chur or baptism services? More than 4 times per year 11/08/2024 Do you belong to any clubs o r organizations such as anabaptist groups, unions, fraternal or athletic groups, or [...] staff should administer the PHQ-9) 0 02/21/2025 [facility] - Occupational [...] place to sleep or slept in a chcf (including now)? No 06/09/2023 PHQ-9 Answer Date [...] any time in the past 12 m [facility], were you homeless or living in a chcf (including now)? No 11/08/2024 Personal Safety Answer Date Recorded Have you ever been in or are you currently in a harmful physical or emotional relationship or is someone making you feel afraid or unsafe? Denies 03/31/2025 Comments No Sex and Gender Information Value Date Recorded Sex Assigned at Not on file Legal Sex Female 11:09 AM GM MOBILE Gender Identity Female 07/18/2020 6:40 AM CDT Sexual Orientation Straight 07/18/2020 6: 40 AM CDT documented as of this encounter Functional Status * Audit-C Score Answer Date of Assessment Author 2 03/28/2025 10:01 AM CDT Riri Montgomery RN * Question Answer Date of Assessment Author Q1: How often do you have a drink containing alcohol? Monthly or less 03/28/2025 10:01 AM ROGERT Riri Montgomery, [place] Q2: How many drinks containing alcohol do you have on a typical day when you are drinking? 3 or 4 03/28/2025 10:01 AM CDT Riri Montgomery RN Q3: How often do you have six or more drinks on one occasion? Never 03/28/2025 10:01 AM ROGERT Riri Montgomery RN documented as of this encounter Plan of Treatment Not on file documented as of this encounter Goals Goal Patient Goal Type Associated Problems Recent Progress Patient-Stated? Author CCM Chronic Pain Care Plan Chronic Care Management No change(03/28 10:00 AM CDT) No Antionette Melvin RN Note: Problem: Chronic Pain Goals: 1. Minimize further functional decline 2. Maximize quality of life 3. Control pain Strategies: - Activity/exercise program recommendation - Conservative stepwise pain medicine strategy with multi-disciplinary approach - Recommend healthy lifestyle strategies and compensatory methods as needed documented as of this encounter Procedures Procedure Name Priority Date/Time Associated Diagnosis Comments BREAST IMAGING MG SCREENING OUTSIDE REFERENCE Routine 09/30/2016 12:00 AM GM MOBILE documented in this encounter Results * Breast Imaging Screening Outside Reference (09/30/2016 12:00 AM GM MOBILE) Impressions [facility] - 01/14/2024 10:57 AM CDT These images are for Reference purposes only and have not been reviewed by [facility] Radiology. There will be no report generated by a [facility] Radiologist. Narrative [facility] - 01/14/2024 10:57 AM CDT EXAMINATION: Images For Reference Purposes Only us Provider Transcribed Order IMG MAMMO PROCEDURES Final Result [facility] documented in this encounter Visit Diagnoses Not on filedocumented in this encounter Additional Health Concerns Infection Onset Date Last Indicated Resolved Time COVID: Suspected 08/03/2020 08/03/2020 08/03/2020 8:52 PM CDT Respiratory Infection (DB), contact + droplet Comment:Automatically added due to negative COVID-19 result. 08/03/2020 08/03/2020 08/17/2020 3:0 6 AM CDT COVID: Suspected 10/17/2024 10/17/2024 10/17/2024 11:42 AM GM MOBILE COVID: Suspected 10/19/2024 10/19/2024 10/19/2024 11:09 AM GM MOBILE COVID: Suspected 10/22/2024 10/22/2024 10/22/2024 6:53 AM GM MOBILE COVID: Suspected 12/22/2024 12/22/2024 12/22/2024 4:22 PM GM MOBILE COVID: Suspected 03/31/2025 03/31/2025 03/31/2025 6:42 PM CDT documented as of this encounter
--- OUTSIDE RECORDS SUMMARY | 2025-04-02 04:32 | XMS_ITS | Encounter Summary ---
Author Organization [facility] Healthcare Address [address] [place] [address] Care Team Providers Care Machinist Automotive Name Role Phone No, Physician Primary Care Provider [phone] Zakia Busch MD Unavailable [phone] Clark Casillas MD Primary Care Provider [phone] Jenny Olvera MD Unavailable [phone] Estrellita Stroud NP Primary Care Provider [phone] Estrellita Stroud NP Primary Care Provider [phone] Thomas Morrow MD Primary Care Provider [phone] Serena Toledo MA Unavailable [phone] Melinda Blankenship RN Unavailable Encounter Details Date Type Department Care Team (Late st Contact Info) Description 06/18/2020 Telephone [facility] [address] [place] [address] [address], [place] Social History Tobacco Use Types Packs/Day Years Used Date Smoking Tobacco: Former Comments Unknown Sex and Gender Information Value Date Recorded Sex Assigned at Not on file Legal Sex Female 11:09 AM PROCESS EQUIPMENT OPERATOR Gender Identity Female 07/18/2020 6:40 AM CDT [...] COVID: Suspected 10/17/2024 10/17/2024 10/17/2024 11:42 AM PROCESS EQUIPMENT OPERATOR COVID: Suspected 10/19/2024 10/19/2024 10/19/2024 11:09 AM PROCESS EQUIPMENT OPERATOR COVID: Suspected 10/22/2024 10/22/2024 10/22/2024 6:53 AM PROCESS EQUIPMENT OPERATOR COVID: Suspected 12/22/2024 12/22/2024 12/22/2024 4:22 PM PROCESS EQUIPMENT OPERATOR COVID: Suspected 03/31/2025 03/31/2025 03/31/2025 6:42 PM CDT documented as of this encounter Care Teams Machinist Automotive Relationship Specialty Start Date End Date No, Physician PCP - General 05/30/20 07/11/20 Clark Casillas MD [address] [place] [address] PCP - General 07/12/20 08/22/23 Estrellita Stroud NP [address] [facility] [address] [address] PCP - General Nurse Practitioner 08/23/23 11/23/23 Estrellita Stroud NP [address] [facility] [address] [place] [address] PCP - General Family Medicine 11/24/23 03/05/24 [place] [address] [address] PCP - General Family Medicine 03/06/24 Zakia Busch MD [address] [place] [address] Medical Oncologist/Sr Community Manager Medical Oncology 07/02/20 Jenny Olvera MD [address] [place] [address] Referring Physician Gastroenterology 07/25/20 04/30/22 Serena Toledo MA [address] [place] [address] [address] [place] [address] ACO Care Capsule Filling Machine Operator 10/20/24 10/20/24 Melinda Blankenship RN [address] [place] [address] [address] [place] [address] Furniture Detailer 11/07/24 12/05/24 documented as of this encounter
--- OUTSIDE RECORDS SUMMARY | 2025-04-02 04:32 | XMS_ITS | Encounter Summary ---
Author Organization [facility] Healthcare Address [address] [place] [address] Care Team Providers Care Escapement Matcher Name Role Phone Zakia Busch MD Unavailable [phone] Thomas Morrow MD Primary Care Provider [phone] Serena Toledo MA Unavailable [phone] Melinda Blankenship RN Unavailable [phone] Reason for Visit * Auth/Cert (Routine) Specialty Diagnoses / Procedures Referred By Maverick t Referred To Contact Diagnoses Dysphagia, unspecified type Gastroesophageal reflux disease, unspecified whether esophagitis present Dysphagia, unspecified type [R13.10] Gastroesophageal reflux disease, unspecified whether esophagitis present [K21.9] Procedures MT ESOPHAGOGASTRODUODENOSCOPY TRANSORAL DIAGNOSTIC ESOPHAGOGASTRODUODENOSCOPY Referral ID Status Reason Start Date Expiration Date Visits Re quested Visits Authorized [id number] 1 1 Encounter Details Date Type Department Care Team (Late st Contact Info) Description 10/16/2024 Hospital Encounter [facility] [address] [place] [address] Jose Chávez, DO [address] [place] [address] [facility] [place] [address] Social History Tobacco Use Types Packs/Day Years Used Date Smoking Tobacco: Former Cigarettes 0.1 10 0 01/23/1999 - 01/23/2009 Passive Smoke Exposure: Past Smokeless Tobacco: Never Comments:social only Alcohol Use Standard Drinks/Week Comments Not Currently 0 (1 standard drink = 0.6 oz pur e alcohol) [facility] Utilities Answer Date Recorded In the past [...] How often do you attend chur or episcopal services? More than 4 times per year 11/08/2024 Do you belong to any clubs o r organizations such as adventist groups, unions, fraternal or athletic groups, or [...] staff should administer the PHQ-9) 0 02/21/2025 [facility] - Occupational Stress Questionnaire Answer [...] place to sleep or slept in a fdc (including now)? No 06/09/2023 PHQ-9 Answer Date Recorded PHQ-9 Total Score 0 08/23/2024 Housing Stability Vital Sign Answer Tyelr e Recorded In the last 12 months, was t here a time when you were not able to pay the mortgage or rent on time? No 11/08/2024 In the past 12 months, how m any times have you moved where you were living? 0 11/08/2024 At any time in the past 12 m [facility], were you homeless or living in a fdc (including now)? No 11/08/2024 Personal Safety Answer Date Recorded Have you ever been in or are you currently in a harmful physical or emotional relationship or is someone making you feel afraid or unsafe? Denies 03/31/2025 Comments No Sex and Gender Information Value Date Recorded Sex Assigned at Not on file Legal Sex Female 11:09 AM NETWORK OPERATIONS SPECIALIST Gender Identity Female 07/18/2020 6:40 AM CDT Sexual Orientation Straight 07/18/2020 6: 40 AM CDT documented as of this encounter Functional Status * Audit-C Score Answer Date of Assessment Author 2 03/28/2025 10:01 AM Riri Salinas RN * Question Answer Date of Assessment Author Q1: How often do you have a drink containing alcohol? Monthly or less 03/28/2025 10:01 AM Riri Salinas RN Q2: How many drinks containing alcohol do you have on a typical day when you are drinking? 3 or 4 03/28/2025 10:01 AM Riri Salinas RN Q3: How often do you have six or more drinks on one occasion? Never 03/28/2025 10:01 AM Riri Salinas RN documented as of this encounter Plan [...] Diagnoses Not on filedocumented in this encounter Admitting Diagnoses Diagnosis Dysphagia Gastroesophageal reflux disease Esophageal reflux documented in this encounter Additional Health Concerns Infection Onset Date Last Indicated Resolved Time COVID: Suspected 10/17/2024 10/17/2024 10/17/2024 11:42 AM NETWORK OPERATIONS SPECIALIST COVID: Suspected 10/19/2024 10/19/2024 10/19/2024 11:09 AM NETWORK OPERATIONS SPECIALIST COVID: Suspected 10/22/2024 10/22/2024 10/22/2024 6:53 AM NETWORK OPERATIONS SPECIALIST COVID: Suspected 12/22/2024 12/22/2024 12/22/2024 4:22 PM NETWORK OPERATIONS SPECIALIST COVID: Suspected 03/31/2025 03/31/2025 03/31/2025 6:42 PM CDT documented as of this encounter Care Teams Escapement Matcher Relationship Specialty Start Date End Date Thomas Morrow MD [address] [place] [address] PCP - General Family Medicine 03/06/24 Zakia Bsuch MD [address] [place] [address] Medical Oncologist/Vegetable Sorter Medical Oncology 07/02/20 Serena Toledo MA [address] [place] [address] [address] [place] [address] ACO Care Flower Picker 10/20/24 10/20/24 Melinda Blankenship RN [address] [place] [address] [address] [place] [address] Top Icer 11/07/24 12/05/24 documented as of this encounter
--- OUTSIDE RECORDS SUMMARY | 2025-04-02 04:32 | XMS_ITS ---
Author Name Interface, [id number] [address] Organization [facility] [place] [address] Care Team Providers Care Portfolio Consultant Name Role Phone Basim Nesbitt Unavailable Unavailable Allergies and Adverse Reactions Medication/Group Name Reaction Severity Date No known allergies Plan Date Type Value 04/06/2017 APPOINTMENT TREATMENT 4HRS 04/05/2017 APPOINTMENT Chemo C4D1 Ritux imab(375)D1 (Maintenance) Q56D 03/18/2017 APPOINTMENT FOLLOW UP 01/05/2017 APPOINTMENT Chemo C3D1 Ritux imab(375)D1 (Maintenance) Q56D 01/05/2017 APPOINTMENT TREATMENT 4HRS 12/17/2016 APPOINTMENT FOLLOW UP 10/09/2016 APPOINTMENT FOLLOW UP 10/06/2016 APPOINTMENT Chemo C2D1 Ritux imab(375)D1 (Maintenance) Q56D 10/06/2016 APPOINTMENT TREATMENT 4HRS 09/17/2016 APPOINTMENT Dexamethasone Or al 09/17/2016 APPOINTMENT EXTENDED FOLLOW UP 07/14/2016 APPOINTMENT Chemo 07/14/2016 APPOINTMENT TREATMENT 4HRS 07/10/2016 APPOINTMENT Letter for danisha nt 07/10/2016 APPOINTMENT Dexamethasone Or al 07/10/2016 APPOINTMENT FOLLOW UP 07/10/2016 LABORDER CBC With Diff an d Plt 07/10/2016 LABORDER LDH 07/10/2016 LABORDER CMP 09/17/2016 LABORDER CMP 09/17/2016 LABORDER CBC With Diff an d Plt 09/17/2016 LABORDER Vitamin B12 12/17/2016 LABORDER PET/CT scan, sku ll base/mid thigh 12/17/2016 LABORDER CBC With Diff an d Plt 12/17/2016 LABORDER CMP Reason for Visit TREATMENT 4HRS Encounters Date Name 07/10/2016 Follicular lymphoma Diagnostic Results Date Type Test Units Lower Limit Upper Limit Result Flag Comments Status Ordered By Specimen Source Lab Address 09/15 Gluco se mg/dL 65.0 99.0 80 FINAL [facility], [address] [place] [id number] [phone] Bharti Nicholson MD 09/15 BUN mg/dL 6.0 24.0 19 FINAL [facility], [address] [place] [id number] 8 Bharti Nicholson MD 09/15 Creat inine mg/dL 0.57 1.0 0.88 FINAL [facility], [address] [place] [phone] 8 Bharti Nicholson MD 09/15 GFR non-A frica n Ameri can, estim ated mL/min /1.73 77 FINAL [facility], [address] [place] [id number] 8 Bharti Nicholson MD 09/15 GFR Afric an Ameri can, estim ated mL/min /1.73 89 FINAL [facility], [address] [place] [id number] Bharti Nicholson MD 09/15 BUN/C reati nine ratio 9.0 23.0 22 FINAL [facility], [address] [place] [id number] 8 Bharti Nicholson MD 09/15 Sodiu m mmol/L 136.0 144.0 140 FINAL [facility], [address] [place] [id number] 8 Bharti Nicholson MD 09/15 Potas sium mmol/L 3.5 5.2 4.2 FINAL [facility], [address] [place] [id number] 8 Bharti Nicholson MD 09/15 Chlor stephanie mmol/L 97.0 106.0 104 FINAL [facility], [address] [place] [id number] 8 Bharti Nicholson MD 09/15 CO2 mmol/L 18.0 29.0 23 FINAL [facility], [address] [place] [id number] 8 Bharti Nicholson MD 09/15 Calci um mg/dL 8.7 10.2 9.8 FINAL [facility], [address] [facility] [id number] Bharti Nicholson MD 09/15 Total prote in g/dL 6.0 8.5 6.4 FINAL [facility], [address] [facility] [id number] Bharti Nicholson MD 09/15 Album in g/dL 3.5 5.5 4.4 FINAL [facility], [address] [facility] [id number] 8 Bharti Nicholson MD 09/15 Globu last g/dL 1.5 4.5 2.0 FINAL [facility], [address] [facility] [id number] Bharti Nicholson MD 09/15 A/G ratio 1.1 2.5 2.2 FINAL [facility], [address] [facility] [id number] 8 Bharti Nicholson MD 09/15 Bilir ubin, total mg/dL 0.0 1.2 0.4 FINAL [facility], [address] [place] [id number] 8 Bharti Nicholson MD 09/15 Alkal ine phosp hatas e IU/L 39.0 117.0 49 FINAL [facility], [address] Ijmy [address] [place] [id number] 8 Bharti Nicholson MD 09/15 AST/S GOT, IU/L IU/L 0.0 40.0 19 FINAL [facility], [address] [facility] [id number] Bharti Nicholson MD 09/15 ALT/S GPT, IU/L IU/L 0.0 32.0 18 FINAL Basim Delicia [facility] [place], [address] [facility] [id number] Bharti Nicholson MD 09/15 WBC x10E3/ uL 3.4 10.8 3.0 Low FINAL Basim Delicia [facility] [place], [address] [facility] [id number] Bharti Nicholson MD 09/15 RBC x10E6/ uL 3.77 5.28 3.57 Low FINAL Basim Delicia [facility] [place], [address] [facility] [id number] Bharti Nicholson MD 09/15 HGB g/dL 11.1 15.9 12.4 FINAL Basim Delicia [facility] [place], [address] [facility] [id number] Bharti Nicholson MD 09/15 HCT % 34.0 46.6 36.0 FINAL Basim Delicia [facility] [place], [address] [facility] [id number] Bharti Nicholson MD 09/15 MCV fL 79.0 97.0 101 High FINAL Basim Delicia [facility] [place], [address] [facility] [id number] Bharti Nicholson MD 09/15 MCH pg 26.6 33.0 34.7 High FINAL Basim Delicia [facility] [place], [address] [place] [id number] 8 Bharti Nicholson MD 09/15 MCHC g/dL 31.5 35.7 34.4 FINAL Basim Delicia [facility] [place], [address] [facility] [id number] Bharti Nicholson MD 09/15 RDW % 12.3 15.4 13.2 FINAL Basim Delicia [facility] [place], [address] [facility] [id number] Bharti Nicholson MD 09/15 PLT x10E3/ uL 150.0 379.0 221 FINAL Basim Delicia [facility] [place], [address] [address] [place] [id number] 8 Bharti Nicholson MD 09/15 Bentley % % 59 FINAL Basim Delicia [facility] [place], [address] [address] [place] [id number] 8 Bharti Nicholson MD 09/15 LY % % 23 FINAL Basim Delicia [facility] [place], [address] [address] [place] [id number] 8 Bharti Nicholson MD 09/15 MO % % 9 FINAL Basim Delicia [facility] [place], [address] [address] [place] [id number] 8 Bharti Nicholson MD 09/15 EO % % 9 FINAL Basim Delicia [facility] [place], [address] [address] [place] [id number] 8 Bharti Nicholson MD 09/15 BA % % 0 FINAL Basim Delicia [facility] [place], [address] [address] [place] [id number] 8 Bharti Nicholson MD 09/15 Immat ure Cells N FINAL Basim Delicia [facility] [place], [address] [address] [place] [id number] 8 Bharti Nicholson MD 09/15 Bentley # (ANC) x10E3/ uL 1.4 7.0 1.8 FINAL Basim Delicia [facility] [place], [address] [address] [place] [id number] 8 Bharti Nicholson MD 09/15 LY # x10E3/ uL 0.7 3.1 0.7 FINAL Basim Delicia [facility] [place], [address] [address] [place] [id number] 8 Bharti Nicholson MD 09/15 MO # x10E3/ uL 0.1 0.9 0.3 FINAL Basim Delicia [facility] [place], [address] [address] [place] [id number] Bharti Nicholson MD 09/15 EO # x10E3/ uL 0.0 0.4 0.3 FINAL [facility], [address] [place] [id number] 8 Bharti Nicholson MD 09/15 BA # x10E3/ uL 0.0 0.2 0.0 FINAL [facility], [address] [place] [id number] 8 Bharti Nicholson MD 09/15 IG % N FINAL [facility]im [facility], [address] [place] [id number] 8 Bharti Nicholson MD 09/15 IG # N FINAL [facility], [address] [place] [id number] 8 Bharti Nicholson MD 09/15 NRBC % N FINAL [facility], [address] [place] [id number] 8 Bharti Nicholson MD 09/15 CBC Comme nts Note: Manual different ial was performed . FINAL [facility], [address] [place] [id number] 8 Bharti Nicholson MD 12/08 Vitam in B12 pg/mL 211.0 946.0 431 FINAL [facility], [address] [place] [id number] 8 Bharti Nicholson MD 12/08 WBC x10E3/ uL 3.4 10.8 5.5 FINAL [facility], [address] [place] [id number] 8 Bharti Nicholson MD 12/08 RBC x10E6/ uL 3.77 5.28 4.05 FINAL [facility], [address] [place] [id number] 8 Bharti Nicholson MD 12/08 HGB g/dL 11.1 15.9 13.6 FINAL Ceasarlily Eduardo [facility], [address] [address] [place] [id number] Bharti Nicholson MD 12/08 HCT % 34.0 46.6 41.1 FINAL [facility], [address] [place] [id number] 8 Bharti Nicholson MD 12/08 MCV fL 79.0 97.0 102 High FINAL [facility], [address] [facility] [id number] Bharti Nicholson MD 12/08 MCH pg 26.6 33.0 33.6 High FINAL [facility], [address] [address] [place] [id number] 8 Bharti Nicholson MD 12/08 MCHC g/dL 31.5 35.7 33.1 FINAL [facility], [address] [address] [facility] [id number] 8 Bharti Nicholson MD 12/08 RDW % 12.3 15.4 13.7 FINAL [facility], [address] [address] [place] [id number] 8 Bharti Nicholson MD 12/08 PLT x10E3/ uL 150.0 379.0 266 FINAL [facility], [address] [place] [id number] 8 Bharti Nicholson MD 12/08 Bentley % % 73 FINAL [facility], [address] [address] [place] [id number] 8 Bharti Nicholson MD 12/08 LY % % 17 FINAL [facility], [address] [address] [place] [id number] 8 Bharti Nicholson MD 12/08 MO % % 4 FINAL [facility], [address] [address] [place] [id number] 8 Bharti Nicholson MD 12/08 EO % % 5 FINAL [facility], [address] [address] [place] [address] [facility] [id number] 8 Bharti Nicholson MD 12/08 BA % % 1 FINAL [facility], [address] [address] [place] [id number] 8 Bharti Nicholson MD 12/08 Immat ure Cells N FINAL [facility], [address] [address] [place] [id number] 8 Bharti Nicholson MD 12/08 Bentley # (ANC) x10E3/ uL 1.4 7.0 4.0 FINAL [facility], [address] [address] [place] [id number] 8 Bharti Nicholson MD 12/08 LY # x10E3/ uL 0.7 3.1 0.9 FINAL [facility], [address] [address] [place] [id number] 8 Bharti Nicholson MD 12/08 MO # x10E3/ uL 0.1 0.9 0.2 FINAL [facility], [address] [address] [place] [id number] 8 Bharti Nicholson MD 12/08 EO # x10E3/ uL 0.0 0.4 0.3 FINAL [facility], [address] [address] [place] [id number] 8 Bharti Nicholson MD 12/08 BA # x10E3/ uL 0.0 0.2 0.0 FINAL [facility], [address] [address] [place] [id number] 8 Bharti Nicholson MD 12/08 IG % % 0 FINAL [facility], [address] [address] [place] [id number] 8 Bharti Nicholson MD 12/08 IG # x10E3/ uL 0.0 0.1 0.0 FINAL [facility], [address] [address] [place] [id number] 8 Bharti Nicholson MD 12/08 NRBC % N FINAL [facility], [address] [address] [place] [id number] 8 Bharti Nicholson MD 12/08 CBC Comme nts N FINAL [facility], [address] [facility] [id number] 8 Bharti Nicholson MD 12/08 Gluco se mg/dL 65.0 99.0 84 FINAL [facility], [address] [facility] [id number] 8 Bharti Nicholson MD 12/08 BUN mg/dL 6.0 24.0 8 FINAL [facility], [address] [facility] [id number] Bharti Nicholson MD 12/08 Creat inine mg/dL 0.57 1.0 0.75 FINAL [facility], [address] [facility] [id number] 8 Bharti Nicholson MD 12/08 GFR non-A frica n Ameri can, estim ated mL/min /1.73 93 FINAL [facility], [address] [facility] [id number] 8 hBarti Nicholson MD 12/08 GFR Afric an Ameri can, estim ated mL/min /1.73 107 FINAL [facility], [address] [facility] [id number] 8 Bharti Nicholson MD 12/08 BUN/C reati nine ratio 9.0 23.0 11 FINAL [facility], [address] [facility] [id number] 8 Bharti Nicholson MD 12/08 Sodiu m mmol/L 134.0 144.0 142 FINAL [facility], [address] [facility] [id number] 8 Bharti Nicholson MD 12/08 Potas sium mmol/L 3.5 5.2 4.2 FINAL [facility], [address] [facility] [id number] 8 Bharti Nicholson MD 12/08 Chlor stephanie mmol/L 96.0 106.0 98 FINAL [facility], [address] [facility] [id number] 8 Bharti Nicholson MD 12/08 CO2 mmol/L 18.0 29.0 27 FINAL [facility], [address] [facility] [id number] 8 Bharti Nicholson MD 12/08 Calci um mg/dL 8.7 10.2 9.5 FINAL [facility], [address] [facility] [id number] 8 Bharti Nicholson MD 12/08 Total prote in g/dL 6.0 8.5 6.9 FINAL [facility], [address] [facility] [id number] 8 Bharti Nicholson MD 12/08 Album in g/dL 3.5 5.5 4.5 FINAL [facility], [address] [facility] [id number] 8 Bharti Nicholson MD 12/08 Globu last g/dL 1.5 4.5 2.4 FINAL [facility], [address] [facility] [id number] 8 Bharti Nicholson MD 12/08 A/G ratio 1.1 2.5 1.9 [facility], [address] [facility] [id number] 8 Bharti Nicholson MD 12/08 Bilir ubin, total mg/dL 0.0 1.2 0.3 FINAL [facility], [address] [facility] [id number] 8 Bharti Nicholson MD 12/08 Alkal ine phosp hatas e IU/L 39.0 117.0 59 FINAL [facility], [address] [facility] [id number] Bharti Nicholson MD 12/08 AST/S GOT, IU/L IU/L 0.0 40.0 19 FINAL [facility], [address] [facility] [id number] 8 Bharti Nicholson MD 12/08 ALT/S GPT, IU/L IU/L 0.0 32.0 17 FINAL Ceasar Eduardo [facility], [address] [facility] [id number] 8 Bharti Nicholson MD Medications Date Name Route Dose Frequency Instructions [...] lymphoma Active Vital Signs Date Type Value 07/10/2016 Body Temperature 99.10 07/10/2016 Heart Beat 76.00 07/10/2016 Respiratory Rate 18.00 07/10/2016 BSA 1.88 07/10/2016 Intravascular Systolic 116 07/10/2016 Intravascular Diastolic 73 07/10/2016 Height 66.00 07/10/2016 Weight 173.00 07/10/2016 Pain Scale 10.00 07/10/2016 BMI 27.92 07/14/2016 Intravascular Systolic 135 07/14/2016 Intravascular Diastolic 77 07/14/2016 Body Temperature 98.00 07/14/2016 Respiratory Rate 18.00 07/14/2016 Heart Beat 85.00 09/17/2016 BMI 27.60 09/17/2016 Height 66.00 09/17/2016 Weight 171.00 09/17/2016 Pain Scale 0.00 09/17/2016 BSA 1.87 09/17/2016 Respiratory Rate 18.00 09/17/2016 Heart Beat 76.00 09/17/2016 Body Temperature 99.00 09/17/2016 Intravascular Systolic 116 09/17/2016 Intravascular Diastolic 72 10/06/2016 Intravascular Systolic 131 10/06/2016 Intravascular Diastolic 70 10/06/2016 Respiratory Rate 18.00 10/06/2016 Body Temperature 98.40 10/06/2016 Heart Beat 67.00 12/17/2016 Body Temperature 97.80 12/17/2016 Heart Beat [...] * Nurse Note for: 05-APR-17 [facility] [place] Nurse Note Print Location: Unknown Date/Time Printed: 04/02/2025 02:31 AM ([facility]) Patient: KRISTY IQBAL Sex: Female : 1965 [...] Viviane Berumen RN ADDISON- Rituxan Maintenance Premedications Acetaminophen Oral, 325 mg tablet, 2 tablet orally once, Allow Substitution HELD (Reason: Not given - other reason) Entered By: Viviane Berumen RN ADDISON- Rituxan Maintenance Premedications Diphenhydramine IV, 50 mg intravenously once, Allow Substitution HELD (Reason: Not given - other reason) Entered By: Viviane Berumen RN * Nurse Note for: 05-JAN-17 [facility] and [place] Nurse Note Print Location: Unknown Date/Time Printed: 04/02/2025 02:31 AM ([facility]) Patient: KRISTY IQBAL Sex: Female : 1965 [...] : Incident to: Ceasar Eduardo MD TOI- Rituxageoffrey Maintenance Immunotherapy Rituximab IV, 700 mg intravenously [...] Pharmacy plan: Dispense/Waste: 700/0 mg Pharmacy dispense: ND: [id number] Dispense/Waste: 200/0 mg Pharmacy dispense: NDC: [id number] Dispense/Waste: 500/0 mg Given Dose/Discard: 700/0 mg [...] RN Incident to: Ceasar Eduardo MD TOI- Rituxageoffrey Maintenance Premedications Dexamethasone IV, 20 mg intravenously Piggyback once, Admin over: 20 minutes to 20 minutes, Allow Substitution GIVEN: 20 mg Pharmacy plan: Dispense/Waste: 20/0 mg Pharmacy dispense: [facility]: [id number] Dispense/Waste: 20/0 mg Given Dose/Discard: 20/0 mg Start Time: 08:54 AM, Entered By: Viviane Berumen RN, Stop Time: 09:16 AM, Entered By: Viviane Berumen RN Admix Fluid: 0.9 % sodium chloride, Admix Fluid Volume: 50mL Diphenhydramine IV, 50 mg intravenously once, Allow Substitution GIVEN: 50 mg Pharmacy plan: Dispense/Waste: 50/0 mg Pharmacy dispense: [facility]: [id number] Dispense/Waste: 50/0 mg Given Dose/Discard: 50/0 mg [...] By Viviane Berumen RN on 02:27 PM * Nurse Note for: 06-OCT-16 [facility] [place] Nurse Note Print Location: Unknown Date/Time Printed: 04/02/2025 02:31 AM ([facility]) Patient: KRISTY IQBAL Sex: Female : 1965 Date of Service: 10/06/2016 Allergies : No Known Allergies Vital Signs : Time: 09:09 AM. Temperature: 98.4 F (36.89 C). Pulse: 67 (/min) . Respirations: 18 (/min) . Blood pressure: 131/70 (mm Hg). Entered by Viviane Berumen RN 10/06/2016 10:21 AM Patient Assessment : IV Access/Lab Draw : IV Access-Peripheral - New Start, Needle Type-Butterfly, Needle Size-24 Gauge, Needle Length-3/4 inch, Access Site-Left Arm, Site Assess List-Blood Return,No Redness,No Swelling,No Tenderness,No Bruising, Site Care Checklist-Aseptic Technique, Lab Drawn-No, Entered By Viviane Berumen RN on 10:21 AM IV De-Access : IV Access Method-Peripheral - New Start, IV Access Type-Butterfly, Line Flushed- 10ml NS,500u Heparin, Catheter-Left In, Site Care-Site Dressing Applied,Cap Changed,IV Infusion Completed,Blood Return Noted During Administration, Site Assess-Line Intact,No Redness,No Swelling,No Tenderness,No Bruising, Entered By Viviane Berumen RN on 10:21 AM Medication Administration : Incident to: Ceasar Eduardo MD ADDISON- Rituxan Maintenance Immunotherapy Rituximab IV, 700 [...] Pharmacy plan: Dispense/Waste: 700/0 mg Pharmacy dispense: [facility]: [id number] Dispense/Waste: 200/0 mg Pharmacy dispense: [facility]: [id number] Dispense/Waste: 500/0 mg Given Dose/Discard: 700/0 mg Start Time: 09:42 AM, Entered By: Viviane Berumen RN, Stop Time: 12:49 PM, Entered By: Viviane Berumen RN Admix Fluid: 0.9 % sodium chloride, Admix Fluid Volume: 500mL Incident to: Ceasar Eduardo MD ADDISON- Rituxan Maintenance Premedications Acetaminophen Oral, 325 mg tablet, 2 tablet orally once, Allow Substitution HELD (Reason: Not given - other reason - patient took hydrocodone) Entered By: Viviane Berumen RN Incident to: Ceasar Eduardo MD TOI- Rituxan Maintenance Premedications Diphenhydramine IV, 50 mg intravenously once, Allow Substitution GIVEN: 50 mg Pharmacy plan: Dispense/Waste: 50/0 mg Pharmacy dispense: [facility]: [id number] Dispense/Waste: 50/0 mg Given Dose/Discard: 50/0 mg Start Time: 09:20 AM, Entered By: Viviane Berumen RN, Stop Time: 09:42 AM, Entered By: Viviane Berumen RN Admix Fluid: 0.9 % sodium chloride, Admix Fluid Volume: 50mL Dexamethasone IV, 20 mg intravenously Piggyback once, Admin over: 20 minutes to 20 minutes, Allow Substitution GIVEN: 20 mg Pharmacy plan: Dispense/Waste: 20/0 mg Pharmacy dispense: [facility]: [id number] Dispense/Waste: 20/0 mg Given Dose/Discard: 20/0 mg Start Time: 09:20 AM, Entered By: Viviane Berumen RN, Stop Time: 09:42 AM, Entered By: Viviane Berumen RN Admix Fluid: 0.9 % sodium chloride, Admix Fluid Volume: 50mL Free Text Note : @0942---Rituxan started @80ml/hr. @1015---BP(132/80), P(78). No signs/symptoms of adverse reactions. Rituxan increased to 120ml/hr.@1045---BP(117/74), P(75). No signs/symptoms of adverse reactions. Rituxan increased to 160ml/hr.@1100---BP(130/85), P(56). No signs/symptoms of adverse reactions. Rituxan increased to 200ml/hr.@1130---BP(134/86), P(54). No signs/symptoms of adverse reactions. Rituxanincreased to 240ml/hr.@1200---BP(133/85), P(58). No signs/symptoms of adverse reactions. Rituxan increased to 280ml/hr.@1230---BP(127/82), P(87). No signs/symptoms of adverse reactions. Rituxan increased to 320ml/hr.@1249---BP(136/81), P(55). No signs/symptoms of adverse reactions. Rituxan completed. Entered By Viviane Berumen RN on 03:30 PM * Nurse Note for: 14-JUL-16 [facility] [place] Nurse Note Print Location: Unknown Date/Time Printed: 04/02/2025 02:31 AM ([facility]) Patient: KRISTY IQBAL Sex: Female : 1965 Date of Service: 07/14/2016 Allergies : No Known Allergies Vital Signs : Time: 08:56 AM. Temperature: 98 F (36.67 C). Pulse: 85 (/min) . Respirations: 18 (/min) . Blood pressure: 135/77 (mm Hg). Entered by Viviane Berumen RN 07/14/2016 10:48 AM Serial Vital Signs : Vitals Time: 01:00 PM, B/P: 123/72 (mm Hg), Pulse: 83 (/min) , rituxan completed by Viviane Berumen RN 07/14/2016 03:21 PM Vitals Time: 12:30 PM, B/P: 125/77 (mm Hg), Pulse: 77 (/min) , rituxan @280 ml/hr. by Viviane Berumen RN 07/14/2016 03:21 PM Vitals Time: 12:00 PM, B/P: 120/77 (mm Hg), Pulse: 58 (/min) , rituxan @240 ml/hr. by Viviane Berumen RN 07/14/2016 03:21 PM Vitals Time: 11:30 AM, B/P: 128/76 (mm Hg), Pulse: 76 (/min) , rituxan kept @240 ml/hr. by Viviane Berumen RN 07/14/2016 03:21 PM Vitals Time: 11:00 AM, B/P: 122/76 (mm Hg), Pulse: 79 (/min) , rituxan @ 240ml/hr. by Viviane Berumen RN 07/14/2016 03:21 PM Vitals Time: 10:30 AM, B/P: 117/71 (mm Hg), Pulse: 78 (/min) , rituxan @200 ml/hr. by Viviane Berumen RN 07/14/2016 03:21 PM Vitals Time: 10:00 AM, B/P: 119/76 (mm Hg), Pulse: 70 (/min) , rituxan @160 ml/hr. by Viviane Berumen RN 07/14/2016 03:21 PM Vitals Time: 09:30 AM, B/P: 132/80 (mm Hg), Pulse: 67 (/min) , rituxan @ 120ml/hr. by Viviane Berumen RN 07/14/2016 03:21 PM Vitals Time: 09:12 AM, B/P: 135/77 (mm Hg), Pulse: 85 (/min) , rituxan started @80ml/hr by Viviane Berumen RN 07/14/2016 03:21 PM Patient Assessment : IV Access/Lab Draw : IV Access-Peripheral - New Start, Needle Type-Butterfly, Needle Size-24 Gauge, Needle Length-3/4 inch, Access Site-Right Arm, Site Assess List-Blood Return,No Redness,No Swelling,No Tenderness,No Bruising, Lab Drawn-No, Entered By Viviane Berumen RN on 10:48 AM Medication Administration : Incident to: Ceasar Eduardo MD [facility]- Rituxan Maintenance Immunotherapy Rituximab IV, 700 [...] Pharmacy plan: Dispense/Waste: 700/0 mg Pharmacy dispense: ND: [id number] Dispense/Waste: 200/0 mg Pharmacy dispense: DEC: [id number] Dispense/Waste: 500/0 mg Given Dose/Discard: 700/0 mg Start Time: 09:12 AM, Entered By: Viviane Berumen RN, Stop Time: 01:00 PM, Entered By: Viviane Berumen RN Admix Fluid: 0.9 % sodium chloride, Admix Fluid Volume: 500mL Incident to: Ceasar Eduardo MD [facility]- Rituxan Maintenance Premedications Acetaminophen Oral, 325 mg tablet, 2 tablet orally once, Allow Substitution GIVEN: 325 mg 2 tablet Pharmacy plan: Dose Form Description: 325 mg tablet Dispense/Waste: 2/0 tablet Given Dose/Discard: 2/0 tablet Time: 08:55 AM, Entered By: Viviane Berumen RN Incident to: Ceasar Eduardo MD [facility]- Rituxan Maintenance Premedications Diphenhydramine IV, 50 mg intravenously once, Allow Substitution GIVEN: 50 mg Pharmacy plan: Dispense/Waste: 50/0 mg Pharmacy dispense: [facility]: [id number] Dispense/Waste: 50/0 mg Given Dose/Discard: 50/0 mg Start Time: 08:55 AM, Entered By: Viviane Berumen RN, Stop Time: 09:12 AM, Entered By: Viviane Berumen RN Admix Fluid: 0.9 % sodium chloride, Admix Fluid Volume: 50mL Dexamethasone IV, 20 mg intravenously Piggyback once, Admin over: 20 minutes to 20 minutes, Allow Substitution GIVEN: 20 mg Pharmacy plan: Dispense/Waste: 20/0 mg Pharmacy dispense: [facility]: [id number] Dispense/Waste: 20/0 mg Given Dose/Discard: 20/0 mg Start Time: 08:55 AM, Entered By: Viviane Berumen RN, Stop Time: 09:12 AM, Entered By: Viviane Berumen RN Admix Fluid: 0.9 % sodium chloride, Admix Fluid Volume: 50mL Free Text Note : patient had rituxan and declined chemo teaching. @1130---patient developed mild redness on upper forehead and nose, and mid redness and some rashes on upper chest area. No distress. patient same reactions in past treatment. patient is taking dexamethasome 4mg on day -1, D1 and D2. vitals: 128/76(76), RR=18, no distress or other problems noted. kept rituxan at 240ml/hr. triaged Cain CHILD. @1200---condition unchanged. patient denied any other problems. vitals stable. @1230---no problems noted. vitals stable. @1300---rituxan completed. vitals stable, skin condition with no new changes. Instructed pt to take benadryl 25mg po prn for any worsening problem or to call office. patient voiced donaldo montilla. Entered By Viviane Berumen RN on 03:32 PM
--- OUTSIDE RECORDS SUMMARY | 2025-04-02 04:32 | XMS_ITS | Encounter Summary ---
Author Organization [facility] Healthcare Address [address] [place] [address] Care Team Providers Care Braided Rug Maker Name Role Phone Zakia Busch MD Unavailable [phone] Thomas Morrow MD Primary Care Provider [phone] Encounter Details Date Type Department Care Team (Late st Contact Info) Description 12/22/2024 Telephone [facility] [place] [facility] [address] [facility] [address] [place], [place] [id number] Rafael Guo MD [address] [place] [address] Social History Tobacco Use Types Packs/Day Years Used Date Smoking Tobacco: Former Cigarettes 0.1 10 0 01/23/1999 - 01/23/2009 Passive Smoke Exposure: Past Smokeless Tobacco: Never Comments:social only Alcohol Use Standard Drinks/Week Comments Not Currently 0 (1 standard drink = 0.6 oz pur e alcohol) [facility] Utilities Answer Date Recorded In the [...] How often do you attend chur or cheondoism services? More than 4 times per year 11/08/2024 Do you belong to any clubs o r organizations such as taoism groups, unions, fraternal or athletic groups, or school groups? No 11/08/2024 How often do you attend meet ings of the clubs or organizations you belong to? Never 11/08/2024 Are you , , di vorced, , never , or living with a partner? 11/08/2024 AUDIT-C Answer Date Recorded Q1: How often do you have a drink containing alc ohol? Monthly or less 12/08/2024 Q2: How many drinks containi ng alcohol do you have on a typical day when you are drinking? 3 or 4 12/08/2024 Q3: How often do you have si x or more drinks on one occasion? Never 12/08/2024 Overall Financial Resource Strain (CARDIA) Answe r Date Recorded How hard is it for you to pa y for the very basics like food, housing, medical care, and heating? Not hard at all 11/08/2024 PHQ-2 Answer Date Recorded PHQ-2 Total Score (If total score is 3 or more points, staff should administer the PHQ-9) 0 10/24/2024 [facility] Occupational Stress Questionnaire Answer Date [...] place to sleep or slept in a intermediate (including now)? No 06/09/2023 PHQ-9 Answer Date [...] any time in the past 12 m [facility], were you homeless or living in a intermediate (including now)? No 11/08/2024 Personal Safety Answer Date Recorded Have you ever been in or are you currently in a harmful physical or emotional relationship or is someone making you feel afraid or unsafe? 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
--- OUTSIDE RECORDS SUMMARY | 2025-04-02 04:32 | XMS_ITS | Encounter Summary ---
Author Organization [facility] Address [address] [place] [address] Phone Care Team Providers Care Low Altitude Air Defense Gunner Name Role Phone Miscellaneous, Not In File Primary Care Provider Unavailable No, Physician Primary Care Provider [phone] Zakia Busch MD Unavailable Clark Casillas MD Primary Care Provider [phone] Jenny Olvera MD Unavailable [phone] Estrellita Stroud NP Primary Care Provider Estrellita Stroud DEPARTMENT SPECIALIST Primary Care Provider [phone] Thomas Morrow MD Primary Care Provider [phone] Serena Toledo MA Unavailable [phone] Melinda Sinclair RN Unavailable [phone] Encounter Details Date Type Department Care Team (Latest Contact Info) Description 02/18/2020 Orders Only [facility] Scanning, Provider Social History Tobacco Use Types Packs/Day Years Used Date Smoking Tobacco: Never Assessed Comments Unknown Sex and Gender Information Value Date Recorded Sex Assigned at Not on file Legal Sex Female 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 Gender Identity Female 07/18/2020 6:40 AM CDT Sexual Orientation Straight 07/18/2020 6: 40 AM CDT documented as of this encounter Plan of Treatment Not on file documented as of this encounter Procedures Procedure Name Priority Date/Time Associated Diagnosis Comments SCAN - RADIOLOGY/IMAGING 02/18/2020 CARDIOLOGY DOCUMENT SCAN 02/18/2020 documented in this encounter Results * SCAN - RADIOLOGY/IMAGING (02/18/2020) Anatomical Region Laterality Modality Other us Provider Scanning Edited Result - Final * SCAN - CARDIOLOGY (02/18/2020) Anatomical Region Laterality Modality Other us Provider [...] COVID: Suspected 10/17/2024 10/17/2024 10/17/2024 11:42 AM MANPOWER DEVELOPMENT MANAGER COVID: Suspected 10/19/2024 10/19/2024 10/19/2024 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 COVID: Suspected 10/22/2024 10/22/2024 10/22/2024 6:53 AM MANPOWER DEVELOPMENT MANAGER COVID: Suspected 12/22/2024 12/22/2024 12/22/2024 4:22 PM MANPOWER DEVELOPMENT MANAGER COVID: Suspected 03/31/2025 03/31/2025 03/31/2025 6:42 PM CDT documented as of this encounter Care Teams Low Altitude Air Defense Gunner Relationship Specialty Start Date End Date Miscellaneous, Not In File PCP - General 03/06/17 05/29/20 No, Physician PCP - General 05/30/20 07/11/20 Clark [place] [address] [place] [address] PCP - General 07/12/20 08/22/23 Estrellita Stroud, DEPARTMENT SPECIALIST [address] [facility] [[email or web address] [address] [id number] PCP - General Nurse Practitioner 08/23/23 11/23/23 Estrellita Stroud, MATEUSZ [address] [facility] [[email or web address] [address] [place] [address] PCP - General Family Medicine 11/24/23 03/05/24 Thomas Morrow MD [address] [place] [address] PCP - General Family Medicine 03/06/24 Zakia Busch MD [phone] [id number] Medical Oncologist/Support Analyst Medical Oncology 07/02/20 Jenny Olvera MD [address] [place] [address] Referring Physician Gastroenterology 07/25/20 04/30/22 Serena Toledo MA [address] [place] [address] [address] [id number] [employer] Care Cleaner [employer] 10/20/24 10/20/24 Melinda Blankenship, BRONSON [address] [place] [address] [address] [id number] Softwood Faller 11/07/24 12/05/24 documented as of this encounter
--- OUTSIDE RECORDS SUMMARY | 2025-04-02 04:32 | XMS_ITS | Encounter Summary ---
Author Organization [facility] Healthcare Address [address] [place] [address] Care Team Providers Care School Bus Operator Name Role Phone Zakia Busch MD Unavailable [phone] Thomas Morrow MD Primary Care Provider [phone] Reason for Visit * Reason Comments Shortness of Breath Encounter Details Date Type Department Care Team (Late st Contact Info) Description 03/31/2025 4:42 PM CDT - 03/31/2025 9:14 PM CDT Emergency [facility] Emergency Department [address] [place] [address] Bertha Voss MD [address] [place] [id number] Mild asthma with exacerbation, unspecified whether persistent (Primary Dx); Hypokalemia Discharge Disposition: Discharge to home or self care Social History Tobacco Use Types Packs/Day Years Used Date Smoking Tobacco: Former Cigarettes 0.1 10 0 01/23/1999 - 01/23/2009 Passive Smoke Exposure: Past Smokeless Tobacco: Never Comments:social only Alcohol Use Standard Drinks/Week Comments Not Currently 0 (1 standard drink = 0.6 oz pur e alcohol) [facility] Utilities Answer Date Recorded In the past 12 months has e[employer] electric, gas, oil, or water company threatened [...] week 11/08/2024 How often do you attend [facility] or gnosticism services? More than 4 times per year 11/08/2024 Do you belong to any clubs o r organizations such as zoroastrianism groups, unions, fraternal or athletic groups, or [...] staff should administer the PHQ-9) 0 02/21/2025 [facility] - Occupational Stress Questionnaire Answer Date Recorded [...] any time in the past 12 m [facility], were you homeless or living in a [...] on file Legal Sex Female 11:09 AM RE ETCHER Gender Identity Female 07/18/2020 6:40 AM CDT Sexual Orientation Straight 07/18/2020 6: 40 AM CDT documented as of this encounter Last Filed Vital Signs Vital Sign Reading [...] Mass Index 25.82 03/31/2025 6:03 PM CDT documented in this encounter Discharge Instructions * Discharge Instructions* Bertha Voss MD - 03/31/2025 7:48 PM CDT Take medication as prescribed, start prednisone tomorrow morning. Start nebulizer treatments as soon as needed every 4 hours for cough or shortness of breath. Follow up with your cable television installer and primary care doctor care doctor in 2-3 days to get your potassium rechecked, return to the emergency department for worsening symptoms * Attachments The following attachments cannot be sent through Care Everywhere. * Hypokalemia (Uzbek) * Asthma, Acute (Adult) (Uzbek) * How to Use a Nebulizer (AfterCare(R) Instructions(ER/ED)) (Uzbek) documented in this encounter Medications at Time of Discharge acetaminophen (TYLENOL) 500 mg tablet Take 1 tablet (500 mg total) by mouth every 6 (six) hours as needed for pain Take 1-2 tablets a day as needed for pain. Do NOT exceed 6 tablets a day. 90 tablet 3 03/06/2025 albuterol HFA (PROVENTIL HFA,VENTOLIN HFA,PROAIR HFA) 90 mcg/actuation inhaler Inhale 2 puffs every 4 (four) hours as needed for wheezing 18 g 03/31/2025 6 aspirin 81 mg enteric coated tablet Take 1 tablet (81 mg total) by mouth daily 01/12/2025 benzonatate (TESSALON) 100 mg capsuleIndicatio ns:Cough Take 1 capsule (100 mg total) by mouth 3 (three) times a day as needed for cough 42 capsule 03/20/2025 budesonide-formo teroL (SYMBICORT) 160-4.5 mcg/actuation inhalerIndicatio ns:Maintenance Therapy for Asthma Inhale 2 puffs 2 (two) times a day Rinse mouth with water after use. Do not swallow. 10.2 g 3 02/21/2025 6 buPROPion SR (WELLBUTRIN SR) 200 mg 12 hr tabletIndication s:Anxiety and depression TAKE 1 TABLET BY MOUTH EVERY DAY 90 tablet 1 02/15/2025 busPIRone (BUSPAR) 5 mg tabletIndication s:Generalized Anxiety Disorder Take 1 tablet (5 mg total) by mouth 3 (three) times a day 90 tablet 11 11/08/2024 6 dextroamphetamin e-amphetamine (ADDERALL) 10 mg tablet Take 2 tablets each morning a 1 tab each afternoon for ADD. 90 tablet 03/13/2025 famotidine (PEPCID) 40 mg tabletIndication s:Laryngopharyng eal reflux (LPR) Take 1 tablet (40 mg total) by mouth nightly 90 tablet 3 01/01/2025 6 ipratropium-albu teroL (DUO-NEB) 0.5-2.5 mg/3 mL nebulizer solution Take 3 mL by nebulization every 6 (six) hours 180 mL 03/31/2025 loratadine (CLARITIN) 10 mg tablet Take 1 tablet (10 mg total) by mouth daily 90 tablet 3 06/14/2024 predniSONE (DELTASONE) 20 mg tablet Take 4 tablets (80 mg) by mouth daily 4 PO x QD x 3 days, Then 3 PO q 3 D, then 2 PO QD x 3 D, Then 1 PO QD x 3 D then 1/2 PO QD x 3 D then stop. 33 tablet 03/31/2025 prochlorperazine (COMPAZINE) 5 mg tabletIndication s:Nausea and Vomiting Take 1 tablet (5 mg total) by mouth every 6 (six) hours as needed for nausea or vomiting 30 tablet 10/22/2024 tiZANidine (ZANAFLEX) 4 mg tablet Take 1 tablet (4 mg total) by mouth every 8 (eight) hours as needed for muscle spasms 30 tablet 11/06/2024 documented as of this encounter Ordered Prescriptions Prescription Sig Dispense Quantity Refills Last Filled Start Date End Date albuterol HFA (PROVENTIL HFA,VENTOLIN HFA,PROAIR HFA) 90 mcg/actuation inhaler Inhale 2 puffs every 4 (four) hours as needed for wheezing 18 g 03/31/2025 predniSONE (DELTASONE) 20 mg tablet Take 4 tablets (80 mg) by mouth daily 4 PO x QD x 3 days, Then 3 PO q 3 D, then 2 PO QD x 3 D, Then 1 PO QD x 3 D then 1/2 PO QD x 3 D then stop. 33 tablet 03/31/2025 ipratropium-albut Tee (DUO-NEB) 0.5-2.5 mg/3 mL nebulizer solution Take 3 mL by nebulization every 6 (six) hours 180 mL 03/31/2025 documented in this encounter Discharge Disposition Disposition Code Departure Means Destination Comment s Discharge to home or self care documented in this encounter ED Notes * Bertha Voss MD - 03/31/2025 8:45 PM CDTAssociated Order(s): Critical Care HPI Chief Complaint Patient presents with Shortness of Breath Patient is a 59-year-old female who comes to emergency department today for shortness of breath. Patient states she went to urgent care for shortness of breath that worsened throughout the day they called EMS. Patient has a history of asthma she states he asthma was chemotherapy induced and now is allergy induced. She is on nebulizer treatments has a rescue inhaler and is on Symbicort twice a dayshe also takes Claritin. She denies any fevers or chills. She is complaining of back pain but she has chronic back pain and had a recent epidural injection via pain management. She denies any productive cough nausea vomiting diarrhea. Patient does take medication for anxiety as well. Patient History: Past Medical History: Diagnosis Date Adenomatous colon polyp Anemia 1989 Anxiety and depression Arthritis 2017 Asthma 2015 started after chemotherapy Benzodiazepine dependence ([facility]) 08/03/2020 Chronic bronchitis ([facility]) 1997 Chronic pancreatitis ([facility]) Cyclical vomiting 2019 Fibromyalgia, primary 2016 Follicular lymphoma ([facility]) 2014 GERD (gastroesophageal reflux disease) 1999 HLD (hyperlipidemia) HTN (hypertension) Joint pain 2018 Low back pain 1999 Lumbosacral disc disease 2014 Marijuana abuse Migraine Neck pain 1999 Neuromuscular disorder ([facility]) 2018 Opioid abuse ([facility]) Osteoporosis 2015 Peripheral neuropathy 2015 Substance abuse ([facility]) Thyroid disease 2024 Review of Systems Review of Systems Constitutional: Negative. Negative for activity change, appetite change, chills, diaphoresis, fatigue and fever. HENT: Negative. Negative for congestion, drooling, rhinorrhea and sore throat. Eyes: Negative. Negative for photophobia, redness and visual disturbance. Respiratory: Positive for cough and shortness of breath. Negative for chest tightness. Cardiovascular: Negative. Negative for chest pain, palpitations and leg swelling. Gastrointestinal: Negative. Negative for abdominal pain, anal bleeding, blood in stool, constipation, diarrhea, nausea and vomiting. Endocrine: Negative. Genitourinary: Negative. Negative for decreased urine volume, difficulty urinating, dysuria, frequency, hematuria and urgency. Musculoskeletal: Negative. Negative for arthralgias and myalgias. Skin: Negative. Negative for rash and wound. Allergic/Immunologic: Negative for immunocompromised state. Neurological: Negative. Negative for dizziness, weakness and headaches. Hematological: Negative. Does not bruise/bleed easily. Psychiatric/Behavioral: Negative. Negative for confusion. All other systems reviewed and are negative. Physical Exam ED Triage Vitals Temp Pulse Resp BP SpO2 03/31/25 1801 03/31/25 1750 03/31/25 1707 03/31/25 1748 03/31/25 1650 36.7 ??C (98 ??F) 108 17 (!) 168/103 97 % Temp src Heart Rate Source Patient Position BP Location FiO2 (%) 03/31/25 1647 03/31/25 1707 -- -- -- Temporal Monitor Height Height Method Weight Weight Method 03/31/25 1803 03/31/25 1647 03/31/25 1803 03/31/25 164 1.676 m (5' 6) Stated 72.6 kg (160 lb) Stated Physical Exam Vitals and nursing note reviewed. Constitutional: General: She is not in acute distress. Appearance: She is well-developed. She is not ill-appearing, toxic-appearing or diaphoretic. HENT: Head: Normocephalic and atraumatic. Eyes: General: No scleral icterus. Extraocular Movements: Extraocular movements intact. Conjunctiva/sclera: Conjunctivae normal. Pupils: Pupils are equal, round, and reactive to light. Neck: Thyroid: No thyromegaly. Vascular: No JVD. Trachea: No tracheal deviation. Cardiovascular: Rate and Rhythm: Normal rate. Pulmonary: Effort: Respiratory distress (mild respiratory) present. Breath sounds: No stridor. Wheezing (late expiratory wheezing) present. No rhonchi or rales. Comments: Diminished breath sounds throughout Chest: Chest wall: No tenderness. Abdominal: General: Abdomen is flat. There is no distension. Palpations: Abdomen is soft. There is no mass. Tenderness: There is no abdominal tenderness. There is no guarding or rebound. Hernia: No hernia is present. Musculoskeletal: General: Normal range of motion. Cervical back: Normal range of motion and neck supple. Right lower leg: No edema. Left lower leg: No edema. Skin: General: Skin is warm and dry. Neurological: General: No focal deficit present. Mental Status: She is alert and oriented to person, place, and time. Mental status is at baseline. Motor: No abnormal muscle tone. Psychiatric: Mood and Affect: Mood normal. Behavior: Behavior normal. Thought Content: Thought content normal. Judgment: Judgment normal. Critical Care Performed by: Bertha Voss MD Authorized by: Bertha Voss MD Critical care provider statement: As reflected in the history, physical exam, orders, notes, and/or MDM, I was personally present while the patient was critically ill and provided critical care services for 45 minutes, excluding timeinvolved in separately billable procedures. Critical care was necessary to treat or prevent imminent or life- threatening deterioration of the following condition(s): severe respiratory [...] spent time documenting in the medical record. [facility] NIH Score Medical Decision Making Amount and/or Complexity of Data Reviewed Labs: ordered. Radiology: ordered. ECG/medicine tests: ordered. Risk Prescription drug management. ED Course as of 03/31/252052 Time: 03/31 1900 Comment: Pt. complaining of anxiety she takes BuSpar at home, Valium order, By: Bertha Voss MD Time: 03/31 2043 Comment: Ambulatory pulse ox 97% on room air. Discussed outpatient treatment plan as well as followup with pulmonology patient agreeable. All questions answered. By: Bertha Voss MD Final diagnoses: Mild asthma with exacerbation, unspecified whether persistent Hypokalemia There may be grammatical errors in this note due to use of voice recognition software. DISPOSITION:DISCHARGED Bertha Voss MD 03/31/252052 Bertha Voss MD 03/31/252052 * Susan Lai RN - 03/31/2025 4:47 PM CDT Patient to ED via EMS from [facility] convenient care of [place] with complaints of SOB starting this morning, chronic pain in middle back (steroid epidural on Wednesday), perfuse sweating. Convenient caregave albuterol, EMS admin 324 mg aspirin, solumedrol, 2 duo nebs. * Sade Tang RN - 03/31/2025 4:42 PM CDT Bed: [id number] Expected date: Expected time: Means of arrival: Comments: 22 Sade Tang RN 03/31/25 164 documented in this encounter Plan of Treatment [...] Procedure Name Priority Date/Time Associated Diagnosis Comments GA CRITICAL CARE ILL/INJURED PATIENT INIT 30-74 MIN Routine 03/31/2025 8:45 PM CDT URINALYSIS AND REFLEX TO MICROSCOPIC AND CULTURE STAT 03/31/2025 8:18 PM CDT INFLUENZA A/B, RSV, AND COVID-19 PCR STAT 03/31/2025 5:57 PM CDT TROPONIN T HIGH-SENSITIVITY SERIES (BASELINE, 2HR, 4HR, 6HR) STAT 03/31/2025 5:14 PM CDT EGFR STAT 03/31/2025 5:14 PM CDT DIFFERENTIAL AUTO STAT 03/31/2025 5:1 4 PM CDT PRO B-TYPE NATRIURETIC PEPTIDE STAT 03/31/2025 5:14 PM CDT CBC WITH AUTO DIFFERENTIAL STAT 03/31/2025 5:14 PM CDT D-DIMER, QUANTITATIVE STAT 03/31/2025 5:14 PM CDT BLOOD GAS, VENOUS STAT 03/31/2025 5:1 4 PM CDT COMPREHENSIVE METABOLIC PANEL STAT 03/31/2025 5:14 PM CDT XR CHEST 1 VIEW ED 03/31/2025 5:06 PM CDT documented in this encounter Results * GA CRITICAL CARE ILL/INJURED PATIENT INIT 30-74 MIN [...] tendency for uric acid stone formation. Source: [facility] [employer] Current Interpretive Data was last revised on [...] GENERAL ORDERABLES Final Result Performing Organization Address [facility]/ZIP Co de Phone Number TANIYA MITCHELL) 1 [facility] Department [place] [address] * Influenza A/B, RSV, and COVID-19 PCR Nasopharyngeal (03/31/2025 5:57 PM CDT) Pathologist [facility] COVID-19 RNA Negative Negative Influenza A RNA Negative Negative [facility] ([place]) Influenza B RNA Negative Negative [facility] ER [facility] ([place]) RSV RNA Negative Negative [facility] Comment: Interpretive data: Testing performed by [facility]. This test is performed using the [employer] Xpert Xpress CoV-2/Flu/RSV plus assay. This is a multiplex, real- time reverse transcriptase PCR assay intended for the qualitative detection of nucleic acid from SARS-CoV-2, influenza A, influenza B, and respiratory syncytial virus. This assay has been cleared by the [place] Food and Drug administration. The performance characteristics have been verified by the [facility]. Results must be considered in the clinical context, and a negative result does not rule out infection. Interpretive Data last revised 2023 Nasopharyngeal 03/31/2025 5: 57 PM CDT 03/31/2025 6:00 PM CDT Narrative TANIYA RODRIGUEZ ([place]) - 03/31/2025 6:40 PM CDT Is the Patient experiencing symptoms consistent with COVID?->Yes Bertha Voss MD LAB MICROBIOLOGY - GENERAL ORDERABLES Final Result TANIYA RODRIGUEZ ([place]) 1 [facility] [place] [address] * eGFR (03/31/2025 5:14 PM CDT) eGFR [...] MD LAB BLOOD ORDERABLE S Final Result [facility] ([place]) 1 [facility] Department of Laboratories [place] [id number] * (ABNORMAL) Differential, auto (03/31/2025 5:14 PM [...] 2018. Basophil pct 0.3 % [facility] ([place]) Comment: Interpretive Data Percent cell count reference ranges are not reported, since discordance with absolute values may lead to misinterpretation of CBC data. Current Interpretive Data was last revised on 2018. Blood 03/31/2025 5:14 PM CDT 03/31/2025 5:16 PM CDT us Bertha Voss MD LAB BLOOD ORDERABLE S Final Result TANIYA RODRIGUEZ ([place]) 1 [facility] Department [place] [address] * (ABNORMAL) Blood gas, venous (03/31/2025 5:14 PM CDT) pH, Venous 7.37 7.32 - 7.43 PCO2, Venous 51(H) 40 - 50 mmHg TANIYA RODRIGUEZ ([place]) PO2, Venous 38 mmHg TANIYA Pham ([place]) Comment: Interpretive Data No reference range [...] ORDERABLE S Final Result Performing Organization Address City/[facility]/ZIP Co de Phone Number TANIYA [facility] ([place]) 1 [facility] [place] [address] * D-dimer, quantitative (03/31/2025 5:14 PM CDT) [...] 68, VTE cut-off 680 ng/ml FEU. References; Schoutmanuel HT et al. Brit Med J. 2013;346:f2492. Oralia et al. Annals Int Med. 2015;163:701-11. Current interpretive data was last revised on 2019. Blood 03/31/2025 5:14 PM CDT 03/31/2025 5:16 PM CDT Bertha Voss MD LAB BLOOD ORDERABLE S Final Result TANIYA RODRIGUEZ ([place]) 1 [facility] [place] [address] * Pro B-type natriuretic peptide (03/31/2025 5:14 [...] as advanced age. - References: 1. Soy JL et.al. Eur Heart J. 2006:27:330-337. 2. Adrianne RW, Warren GALDAMEZ. J. AM Leonides Cardiol: Cardiovasc Imag. 2009;2: 216- 225. Interpretive Data Last Revised Date: 2018. Blood 03/31/2025 5:14 PM CDT 03/31/2025 5:16 PM CDT us Bertha Voss MD LAB BLOOD ORDERABLE S Final Result TANIYA RODRIGUEZ [place]) 2 [facility] Department [place] [employer] [place] [address] * Troponin T high-sensitivity series (baseline, 2hr, [...] MD LAB BLOOD ORDERABLE S Final Result [facility] ([place]) 1 [facility] of Laboratories [place] [id number] * (ABNORMAL) CBC with auto differential (03/31/2025 [...] abs 0.00 0.00 - 0.01 K/cumm [facility] ([place]) Blood 03/31/2025 5:14 PM CDT 03/31/2025 5:16 PM CDT Bertha Voss MD LAB BLOOD ORDERABLE S Final Result TANIYA [facility] ([place]) 1 [facility] Department [place] [address] * (ABNORMAL) Comprehensive metabolic panel (03/31/2025 5:14 PM CDT) Sodium 139 135 - 145 mmol/L Potassium, pl 2.9(C) 3.3 - 4.9 mmol/L [facility] ([place]) Comment:Critical Result call ed by [email or web address] at 2025-03-31 17:49:43. Result Read Back by Bridgette Tang RN ER Chloride 96(L) 97 - 110 mmol/L [facility] [...] ([place]) AST 35 10 - 45 Units/L [facility] ([place]) Comment:Slightly Hemolyzed S pecimen Blood 03/31/2025 5:14 PM CDT 03/31/2025 5:16 PM CDT us Bertha Voss MD LAB BLOOD ORDERABLE S Final Result TANIYA RODRIGUEZ ([place]) 1 [facility] Department [place] [address] * XR Chest 1 Vw Portable (if patient condition/safety warrant portable) (03/31/2025 5:06 PM CDT) Anatomical Region Laterality Modality Body, Chest N/A Computed Radiogr aphy 03/31/2025 5:09 PM CDT Narrative 03/31/2025 5:10 PM CDT EXAM DESCRIPTION: XR CHEST 1 VIEW REASON FOR STUDY: Shortness of breath Patient to ED via EMS from [facility] with Complaints of SOB starting this [...] Mendel Cortes D.O. PS: PS Report ID: [id number] Reading Location: [id number] Procedure Note Mendel Cortes DO - 03/31/2025 EXAM DESCRIPTION: XR CHEST 1 VIEW REASON FOR STUDY: Shortness of breath Patient to ED via EMS from [facility] convenient care of [facility] with Complaintsof SOB starting this morning, chronic [...] Mendel Cortes D.O. PS: PS Report ID: [id number] Reading Location: [id number] Bertha Voss MD IMG XR PROCEDURES F inal Result documented in this encounter Visit Diagnoses Diagnosis Mild asthma with exacerbation, unspecified whether persistent- Primary Hypokalemia Hypopotassemia documented in this encounter Administered Medications Inactive Administered Medications - up to 3 most recent administrations Medication Order MAR Action Action Date Dose Rate Site albuterol 2.5 mg/0.5 mL nebulizer solution 20 mg 20 mg, nebulization, Once (correspondence dictator), On 03/31/25 at 1655, For 1 dose Given 03/31/2025 5:08 PM CDT 20 mg diazePAM (VALIUM) tablet 5 mg 5 mg, oral, Once, On 03/31/25 at 1857, For 1 dose Given 03/31/2025 7:03 PM CDT 5 mg ipratropium (ATROVENT) 0.02 % nebulizer solution 1 mg 1 mg, nebulization, Once (correspondence dictator), On 03/31/25 at 1655, For 1 dose Given 03/31/2025 5:07 PM CDT 1 mg magnesium sulfate 2 g/50 mL in water (premix) 2 g 2 g, intravenous, at 50 mL/hr, Administer over 60 Minutes, Once, On 03/31/25 at 1655, For 1 dose New Bag 03/31/2025 5:48 PM CDT 2 g 50 mL/hr methylPREDNISolone sodium succinate (SOLU-medrol) preservative free injection 125 mg 125 mg, intravenous, Administer over 3 Minutes, Once, On 03/31/25 at 2046, For 1 dose Given 03/31/2025 8:53 PM CDT 125 mg potassium chloride (KLOR-CON) packet 40 mEq 40 mEq, feeding tube, Once, On 03/31/25 at 1850, For 1 dose, Dissolve one packet in at least 120 mL of cold water or other beverage prior to administration. Given 03/31/2025 7:03 PM CDT 40 mEq sodium chloride 0.9% bolus 1,000 mL 1,000 mL, intravenous, at 999 mL/hr, Administer over 1 Hours, Once, On 03/31/25 at 1910, For 1 dose New Bag 03/31/2025 7:25 PM CDT 1,000 mL 999 mL/hr documented in this encounter Discontinued Medications Medication Sig Discontinue Reason Start Date End Da te albuterol 2.5 mg /3 mL (0.083 %) nebulizer solution Take 3 mL (2.5 mg total) by nebulization every 6 (six) hours as needed for wheezing Other 09/21/2023 03/31/2025 albuterol HFA (PROVENTIL HFA,VENTOLIN HFA,PROAIR HFA) 90 mcg/actuation inhaler Inhale 2 puffs every 6 (six) hours as needed for wheezing or shortness of breath Other 09/04/2024 03/31/2025 documented as of this encounter Active and Recently Administered Medications Times are shown in CDT. Scheduled Medication Order 03/29/2025 03/30/2025 03/31/2025 albuterol 2.5 mg/0.5 mL nebulizer solution 20 mg (COMPLETED) 20 mg, nebulization, Once (correspondence dictator), On 03/31/25 at 1655, For 1 dose 1708 (Given - Provid er: Rosalba Soria RRT) diazePAM (VALIUM) tablet 5 mg (COMPLETED) 5 mg, oral, Once, On 03/31/25 at 1857, For 1 dose 1903 (Given - Provid er: Anyi Ashraf RN) ipratropium (ATROVENT) 0.02 % nebulizer solution 1 mg (COMPLETED) 1 mg, nebulization, Once (correspondence dictator), On 03/31/25 at 1655, For 1 dose 1707 (Given - Provid er: Rosalba Soria, JERRY) magnesium sulfate 2 g/50 mL in water (premix) 2 g (COMPLETED) 2 g, intravenous, at 50 mL/hr, Administer over 60 Minutes, Once, On 03/31/25 at 1655, For 1 dose 1748 (New Bag - Prov ider: Susan Lai RN)1848 (Stopped - Provider: Susan Lai RN) methylPREDNISolone sodium succinate (SOLU-medrol) preservative free injection 125 mg (COMPLETED) 125 mg, intravenous, Administer over 3 Minutes, Once, On 03/31/25 at 2046, For 1 dose 2052 (Given - Provid er: Arcenio Silverio RN) potassium chloride (KLOR-CON) packet 40 mEq (COMPLETED) 40 mEq, feeding tube, Once, On 03/31/25 at 1850, For 1 dose, Dissolve one packet in at least 120 mL of cold water or other beverage prior to administration. 1902 (Given - Provid er: Anyi Ashraf RN) sodium chloride 0.9% bolus 1,000 mL (COMPLETED) 1,000 mL, intravenous, at 999 mL/hr, Administer over 1 Hours, Once, On 03/31/25 at 1910, For 1 dose 192 (New Bag - Prov ider: Arcenio Silverio RN)210 (Stopped - Provider: Arcenio Silverio RN) documented in this encounter Orders EKG Orders Without Results Count Last Ordered D ate First Ordered Date ECG 12-LEAD 1 03/31/2025 Nursing Count Last Ordered Date First Orde red Date CAPNOGRAPHY MONITORING 1 03/31/2025 CONTINUOUS PULSE OXIMETRY 1 03/31/2025 IV Count Last Ordered Date First Orde red Date SALINE LOCK IV 1 03/31/2025 documented in this encounter Additional Health Concerns Infection Onset Date Last Indicated Resolved Time COVID: Suspected 03/31/2025 03/31/2025 03/31/2025 6:42 PM CDT documented as of this encounter Care Teams School Bus Operator Relationship Specialty Start Date End Date Thomas Morrow MD [address] [place] [address] PCP - General Family Medicine 03/06/24 Zakia Busch MD [address] [place] [address] Medical Oncologist/Studio Control Operator Medical Oncology 07/02/20 documented as of this encounter
--- OUTSIDE RECORDS SUMMARY | 2025-04-02 04:32 | XMS_ITS ---
Author Name Interface, [place] [address] [facility] [place] [address] Care Team Providers Care Conveyor Mechanic Name Role Phone Ceasar Eduardo Unavailable Unavailable [...] * Nurse Note for: 05-APR-17 [facility] [place] Nurse Note Print Location: Unknown Date/Time Printed: 04/02/2025 02:31 AM ([facility]) Patient: KRISTY IQBAL Sex: Female : 1965 [...] * Nurse Note for: 05-JAN-17 [facility] [place] Nurse Note Print Location: Unknown Date/Time Printed: 04/02/2025 02:31 AM ([facility]) Patient: KRISTY IQBAL Sex: Female : 1965 [...] plan: Dispense/Waste: 700/0 mg Pharmacy dispense: NDC: [id number] Dispense/Waste: 200/0 mg Pharmacy dispense: NDC: [id number] Dispense/Waste: 500/0 mg Given Dose/Discard: 700/0 mg [...] plan: Dispense/Waste: 20/0 mg Pharmacy dispense: NDC: [id number] Dispense/Waste: 20/0 mg Given Dose/Discard: 20/0 mg Start Time: 08:54 AM, Entered By: Viviane Berumen RN, Stop Time: 09:16 AM, Entered By: Viviane Berumen RN Admix Fluid: 0.9 % sodium chloride, Admix Fluid Volume: 50mL Diphenhydramine IV, 50 mg intravenously once, Allow Substitution GIVEN: 50 mg Pharmacy plan: Dispense/Waste: 50/0 mg Pharmacy dispense: [facility]: [id number] Dispense/Waste: 50/0 mg Given Dose/Discard: 50/0 mg [...]
--- OUTSIDE RECORDS SUMMARY | 2025-04-02 04:32 | XMS_ITS | Encounter Summary ---
Author Organization [facility] Address [address] [place] [address] Care Team Providers Care Galley Hand Name Role Phone Zakia Busch MD Unavailable [phone] Thomas Morrow MD Primary Care Provider [phone] Reason for Visit * Reason Onset Date Comments Medical Question/Miscellaneous 03/12/2025 Encounter Details Date Type Department Care Team (Late st Contact Info) Description 03/12/[address] [facility] [address] [place] [address] Thomas Morrow MD [address] [place] [address] Medical Question/Miscellaneous Social History Tobacco Use Types Packs/Day Years Used Date Smoking Tobacco: Former Cigarettes 0.1 10 0 01/23/1999 - 01/23/2009 Passive Smoke Exposure: Past Smokeless Tobacco: Never Comments:social only Alcohol Use Standard Drinks/Week Comments Not Currently 0 (1 standard drink = 0.6 oz pur e alcohol) [facility] Utilities Answer Date Recorded In the past [...] week 11/08/2024 How often do you attend [facility] or restoration services? More than 4 times per year 11/08/2024 Do you belong to any clubs o r organizations such as gnosticism groups, unions, fraternal or athletic groups, or [...] staff should administer the PHQ-9) 0 02/21/2025 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 I advised him there were, but the order # weren't the ones he wanted so he will fax it again. Does message need to be routed? No documented in this encounter Plan of Treatment [...] documented as of this encounter Care Teams Galley Hand Relationship Specialty Start Date End Date Thomas Morrow MD [address] [place] [address] PCP - General Family Medicine 03/06/24 Zakia Busch MD [address] [place] [address] Medical Oncologist/Tree Faller Medical Oncology 07/02/20 documented as of this encounter
--- OUTSIDE RECORDS SUMMARY | 2025-04-02 04:32 | XMS_ITS | Encounter Summary ---
Author Organization [facility] Address [address] [place] [address] Phone Care Team Providers Care Instructional Systems Designer Name Role Phone Miscellaneous, Not In File Primary Care Provider Unavailable No, Physician Primary Care Provider [phone] Zakia Busch MD Unavailable Clark Casillas MD Primary Care Provider [phone] Jenny Olvera MD Unavailable [phone] Estrellita Stroud NP Primary Care Provider Estrellita Stroud BALL TRUING MACHINE OPERATOR Primary Care Provider [phone] Thomas Morrow MD Primary Care Provider [phone] Serena Toledo MA Unavailable [phone] Melinda Sinclair RN Unavailable [phone] Encounter Details Date Type Department Care Team (Latest Contact Info) Description 03/08/2020 Orders Only [facility] Scanning, Provider Social History Tobacco Use Types Packs/Day Years Used Date Smoking Tobacco: Never Assessed Comments Unknown Sex and Gender Information Value Date Recorded Sex Assigned at Not on file Legal Sex Female 11:09 AM BAND STRAIGHTENER Gender Identity Female 07/18/2020 6:40 AM CDT Sexual Orientation Straight 07/18/2020 6: 40 AM CDT documented as of this encounter Plan of Treatment Not on file documented as of this encounter Procedures Procedure Name Priority Date/Time Associated Diagnosis Comments SCAN - RADIOLOGY/IMAGING 03/08/2020 documented in this encounter Results * SCAN - RADIOLOGY/IMAGING (03/08/2020) Anatomical Region Laterality Modality Other us Provider Scanning Final Result documented in this encounter Visit Diagnoses Not on filedocumented in this encounter Additional Health Concerns Infection Onset Date Last Indicated Resolved Time COVID: Suspected 08/03/2020 08/03/2020 08/03/2020 8:52 PM CDT Respiratory Infection (DB), contact + droplet Comment:Automatically added due to negative COVID-19 result. 08/03/2020 08/03/2020 08/17/2020 3:0 6 AM CDT COVID: Suspected 10/17/2024 10/17/2024 10/17/2024 11:42 AM BAND STRAIGHTENER COVID: Suspected 10/19/2024 10/19/2024 10/19/2024 11:09 AM BAND STRAIGHTENER COVID: Suspected 10/22/2024 10/22/2024 10/22/2024 6:53 AM BAND STRAIGHTENER COVID: Suspected 12/22/2024 12/22/2024 12/22/2024 4:22 PM BAND STRAIGHTENER COVID: Suspected 03/31/2025 03/31/2025 03/31/2025 6:42 PM CDT documented as of this encounter Care Teams Instructional Systems Designer Relationship Specialty Start Date End Date Miscellaneous, Not In File PCP - General 03/06/17 05/29/20 No, Physician PCP - General 05/30/20 07/11/20 Clark Casillas MD [address] [place] [address] PCP - General 07/12/20 08/22/23 Estrellita Stroud NP [address] [facility] [address] [id number] PCP - General Nurse Practitioner 08/23/23 11/23/23 Estrellita Stroud NP [address] [facility] [address] [place] [address] PCP - General Family Medicine 11/24/23 03/05/24 Thomas Morrow MD [address] [place] [address] PCP - General Family Medicine 03/06/24 Zakia Busch MD [address] [place] [address] Medical Oncologist/Water Regulator And Valve Repairer Medical Oncology 07/02/20 Jenny Olvera MD [address] [place] [address] Referring Physician Gastroenterology 07/25/20 04/30/22 Serena Toledo MA [address] [facility] [address] [facility] [address] [place], [place] [id number] ACO Care Commercial Lending Assistant 10/20/24 10/20/24 Melinda Blankenship RN [address] [facility] [address] [address] [place] [address] Teacher Early Childhood Development 11/07/24 12/05/24 documented as of this encounter
--- OUTSIDE RECORDS SUMMARY | 2025-04-02 04:32 | XMS_ITS | CCD ---
Author Name Interface, Q1[place] [address] Organization [facility] [place] [address] Allergies and Adverse Reactions Care Plan Reason for Visit Encounters Problems Social History
--- OUTSIDE RECORDS SUMMARY | 2025-04-02 04:32 | XMS_ITS | CCD ---
Author Name Interface, [place] [address] Organization [facility] [place] [address] Allergies and Adverse Reactions Medication/Group Name Reaction Severity Date No known allergies Care Plan Date Type Value APPOINTMENT Lab APPOINTMENT RTC APPOINTMENT Lab APPOINTMENT RTC 07/10/2016 LABORDER CBC With Diff an d Plt 07/10/2016 LABORDER LDH 07/10/2016 LABORDER CMP 09/17/2016 LABORDER Vitamin B12 09/17/2016 LABORDER CBC With Diff an d Plt 09/17/2016 LABORDER CMP 12/17/2016 LABORDER CBC With Diff an d Plt 12/17/2016 LABORDER PET/CT scan, sku ll base/mid thigh 12/17/2016 LABORDER CMP Reason for Visit TREATMENT 4HRS Encounters Date Name 01/05/2017 Follicular lymphoma Problems Diagnosis Status Date of Diagnosi s Follicular lymphoma Active Social History Date Name Value Sex Female
--- OUTSIDE RECORDS SUMMARY | 2025-04-02 04:32 | XMS_ITS | Encounter Summary ---
Author Organization [facility] Address [address] [place] [address] Phone Care Team Providers Care Worm Packer Name Role Phone Miscellaneous, Not In File Primary Care Provider Unavailable No, Physician Primary Care Provider [phone] No, Physician Primary Care Provider [phone], Physician Primary Care Provider [phone] Zakia Busch MD Unavailable Clark Casillas MD Primary Care Provider [phone] Jenny Olvera MD Unavailable [phone] Estrellita Stroud NP Primary Care Provider Estrellita Stroud NP Primary Care Provider [phone] Thomas Morrow MD Primary Care Provider [phone] Serena Toledo MA Unavailable [phone] Melinda Blankenship RN Unavailable [phone] Encounter Details Date Type Department Care Team (Latest Contact Info) Description 08/31/2015 Orders Only [facility] Scanning, Provider Social History Tobacco Use Types Packs/Day Years Used Date Smoking Tobacco: Never Assessed Comments Unknown Sex and Gender Information Value Date Recorded Sex Assigned at Not on file Legal Sex Female 11:09 AM SENIOR COMPLIANCE OFFICER Gender Identity Female 07/18/2020 6:40 AM CDT Sexual Orientation Straight 07/18/2020 6: 40 AM CDT documented as of this encounter Plan of Treatment Not on file documented as of this encounter Procedures Procedure Name Priority Date/Time Associated Diagnosis Comments SCAN - PATHOLOGY 08/31/2015 documented in this encounter Results * SCAN - PATHOLOGY (08/31/2015) us Provider Scanning Final Result documented in this encounter Visit Diagnoses Not on filedocumented in this encounter Additional Health Concerns Infection Onset Date Last Indicated Resolved Time COVID: Suspected 08/03/2020 08/03/2020 08/03/2020 8:52 PM CDT Respiratory Infection (DB), contact + droplet Comment:Automatically added due to negative COVID-19 result. 08/03/2020 08/03/2020 08/17/2020 3:0 6 AM CDT COVID: Suspected 10/17/2024 10/17/2024 10/17/2024 11:42 AM SENIOR COMPLIANCE OFFICER COVID: Suspected 10/19/2024 10/19/2024 10/19/2024 11:09 AM SENIOR COMPLIANCE OFFICER COVID: Suspected 10/22/2024 10/22/2024 10/22/2024 6:53 AM SENIOR COMPLIANCE OFFICER COVID: Suspected 12/22/2024 12/22/2024 12/22/2024 4:22 PM SENIOR COMPLIANCE OFFICER COVID: Suspected 03/31/2025 03/31/2025 03/31/2025 6:42 PM CDT documented as of this encounter Care Teams Worm Packer Relationship Specialty Start Date End Date Miscellaneous, Not In File PCP - General 03/06/17 05/29/20 No, Physician PCP - General 02/14/17 02/20/17 No, Physician PCP - General 02/21/17 03/05/17 No, Physician PCP - General 05/30/20 07/11/20 Clark [place]illas [address] [place] [address] PCP - General 07/12/20 08/22/23 Estrellita Stroud, MATEUSZ [address] [facility] [address] [id number] PCP - General Nurse Practitioner 08/23/23 11/23/23 Estrellita Stroud, TOY DEPARTMENT MANAGER [address] [facility] [address] [place] [address] PCP - General Family Medicine 11/24/23 03/05/24 Thomas Morrow MD [address] [place] [address] PCP - General Family Medicine 03/06/24 Zakia Busch MD [address] [place] [address] Medical Oncologist/Hull Builder Medical Oncology 07/02/20 Jenny Olvera MD [address] [place] [address] Referring Physician Gastroenterology 07/25/20 04/30/22 Serena Toledo MA [address] [place] [address] [address] [place] [address] ACO Care Wet Machine Tender 10/20/24 10/20/24 Melinda Blankenship, BRONSON [address] [place] [address] [address] [place] [address] Exchange Consultant 11/07/24 12/05/24 documented as of this encounter
--- OUTSIDE RECORDS SUMMARY | 2025-04-02 04:32 | XMS_ITS ---
Author Name Interface, [id number] [address] Organization [facility] [place] [address] Care Team Providers Care Automotive Airconditioning Mechanic Name Role Phone Basim Nesbitt Unavailable Unavailable [...] Gluco se mg/dL 65.0 99.0 80 FINAL [facility], [address] [place] [id number] 8 Bharti Nicholson MD 09/15 BUN mg/dL 6.0 24.0 19 FINAL [facility], [address] [place] [id number] 8 Bharti Nicholson MD 09/15 Creat inine mg/dL 0.57 1.0 0.88 FINAL [facility], [address] [place] [id number] 8 Bharti Nicholson MD 09/15 GFR non-A frica n Ameri can, estim ated mL/min /1.73 77 FINAL [facility], [address] [place] [id number] 8 Bharti Nicholson MD 09/15 GFR Afric an Ameri can, estim ated mL/min /1.73 89 FINAL [facility], [address] Jim[address] [place] [id number] 8 Bharti Nicholson MD 09/15 BUN/C reati nine ratio 9.0 23.0 22 FINAL [facility], [address] Jim[address] [place] [id number] 8 Bharti Nicholson MD 09/15 Sodiu m mmol/L 136.0 144.0 140 FINAL [facility], [address] [place] [id number] 8 Bharti Nicholson MD 09/15 Potas sium mmol/L 3.5 5.2 4.2 FINAL [facility], [address] Jim[address] [place] [id number] 8 Bharti Nicholson MD 09/15 Chlor stephanie mmol/L 97.0 106.0 104 FINAL [facility], [address] Jim[address] [place] [id number] 8 Bharti Nicholson MD 09/15 CO2 mmol/L 18.0 29.0 23 FINAL [facility], [address] Jim[address] [place] [id number] 8 Bharti Nicholson MD 09/15 Calci um mg/dL 8.7 10.2 9.8 FINAL [facility], [address] Jim[address] 200 [facility] [id number] 8 Bharti Nicholson MD 09/15 Total prote in g/dL 6.0 8.5 6.4 FINAL [facility], [address] 200 [facility] [id number] Bharti Nicholson MD 09/15 Album in g/dL 3.5 5.5 4.4 FINAL [facility], [address] 200 [facility] [id number] 8 Bharti Nicholson MD 09/15 Globu last g/dL 1.5 4.5 2.0 FINAL [facility], [address] 200 [facility] [id number] Bharti Nicholson MD 09/15 A/G ratio 1.1 2.5 2.2 FINAL [facility], [address] [facility] [id number] 8 Bharti Nicholson MD 09/15 Bilir ubin, total mg/dL 0.0 1.2 0.4 FINAL [facility], [address] [place] [id number] 8 Bharti Nicholson MD 09/15 Alkal ine phosp hatas e IU/L 39.0 117.0 49 FINAL [facility], [address] [place] [id number] 8 Bharti Nicholson MD 09/15 AST/S GOT, IU/L IU/L 0.0 40.0 19 FINAL [facility], [address] So Jimy 200 [facility] [id number] Bharti Nicholson MD 09/15 ALT/S GPT, IU/L IU/L 0.0 32.0 18 FINAL Bsaim Delicia [facility] [place], [address] [facility] [id number] 8 Bharti Nicholson MD 09/15 WBC x10E3/ uL 3.4 10.8 3.0 Low FINAL Basim Delicia [facility] [place], [address] [facility] [id number] Bharti Nicholson MD 09/15 RBC x10E6/ uL 3.77 5.28 3.57 Low FINAL Basim Delicia [facility] [place], [address] 200 [facility] [id number] 8 Bharti Nicholson MD 09/15 HGB g/dL 11.1 15.9 12.4 FINAL Basim Delicia [facility] [place], [address] 200 [facility] [id number] 8 Bharti Nicholson MD 09/15 HCT % 34.0 46.6 36.0 FINAL Basim Delicia [facility] [place], [address] [facility] [id number] 8 Bharti Nicholson MD 09/15 MCV fL 79.0 97.0 101 High FINAL Basim Delicia [facility] [place], [address] [facility] [id number] Bharti Nicholson MD 09/15 MCH pg 26.6 33.0 34.7 High FINAL Basim Delicia [facility] [place], [address] [place] [id number] 8 Bharti Nicholson MD 09/15 MCHC g/dL 31.5 35.7 34.4 FINAL Basim Delicia [facility] [place], [address] Jim[address] [facility] [id number] 8 Bharti Nicholson MD 09/15 RDW % 12.3 15.4 13.2 FINAL Basim Delicia [facility] [place], [address] hC Jimy 200 [facility] [id number] Bharti Nicholson MD 09/15 PLT x10E3/ uL 150.0 379.0 221 FINAL Basim Delicia [facility] [place], [address] [address] [place] [id number] 8 Bharti Nicholson MD 09/15 Bentley % % 59 FINAL Basim Delicia [facility] [place], [address] [address] [place] [id number] 8 Bharti Nicholson MD 09/15 LY % % 23 FINAL Basim Delicia [facility] [place], [address] [address] [place] [id number] 8 Bharti Nicholson MD 09/15 MO % % 9 FINAL Basim Delicia [facility] [place], [address] [address] [place] [id number] 8 Bharti Nicholson MD 09/15 EO % % 9 FINAL Basim Delicia [facility] [place], [address] [address] [place] [id number] 8 Bharti Nicholson MD 09/15 BA % % 0 FINAL Basim Delicia [facility] [place], [address] [address] [address] [place] [id number] 8 Bharti Nicholson MD 09/15 Immat ure Cells N FINAL Baism Delicia [facility] [place], [address] [address] [place] [id number] 8 Bharti Nicholson MD 09/15 Bentley # (ANC) x10E3/ uL 1.4 7.0 1.8 FINAL Basim Delicia [facility] [place], [address] [address] [place] [id number] 8 Bharti Nicholson MD 09/15 LY # x10E3/ uL 0.7 3.1 0.7 FINAL Absim Delicia [facility] [place], [address] [address] [address] [place] [id number] 8 Bharti Nicholson MD 09/15 MO # x10E3/ uL 0.1 0.9 0.3 FINAL Basim Delicia [facility] [place], [address] [address] [address] [place] [id number] 8 Bharti Nicholson MD 09/15 EO # x10E3/ uL 0.0 0.4 0.3 FINAL Basim [facility], [address] [place] [id number] 8 Bharti Nicholson MD 09/15 BA # x10E3/ uL 0.0 0.2 0.0 FINAL Basim [facility], [address] [place] [id number] 8 Bharti Nicholson MD 09/15 IG % N FINAL Basim [facility], [address] [place] [id number] 8 Bharti Nicholson MD 09/15 IG # N FINAL Basim [facility], [address] [address] [place] [id number] 8 Bharti Nicholson MD 09/15 NRBC % N FINAL Basim [facility], [address] [place] [id number] 8 Bharti Nicholson MD 09/15 CBC Comme nts Note: Manual different ial was performed . FINAL Basim [facility], [address] [address] [place] [id number] 8 Bharti Nicholson MD 12/08 Vitam in B12 pg/mL 211.0 946.0 431 FINAL Ceasar [facility], [address] [place] [id number] 8 Bharti Nicholson MD 12/08 WBC x10E3/ uL 3.4 10.8 5.5 FINAL Ceasar [facility], [address] [place] [id number] 8 Bharti Nicholson MD 12/08 RBC x10E6/ uL 3.77 5.28 4.05 FINAL Ceasar [facility], [address] [address] [place] [id number] 8 Bharti Nicholson MD 12/08 HGB g/dL 11.1 15.9 13.6 FINAL Ceasarlily Eduardo [facility], [address] [address] [place] [id number] 8 Bharti Nicholson MD 12/08 HCT % 34.0 46.6 41.1 FINAL Ceasar [facility], [address] So Jimy [address] [place] [id number] 8 Bharti Nicholson MD 12/08 MCV fL 79.0 97.0 102 High FINAL Ceasar [facility], [address] So Jimy 200 [facility] [id number] Bharti Nicholson MD 12/08 MCH pg 26.6 33.0 33.6 High FINAL Ceasar [facility], [address] [address] [address] [place] [id number] 8 Bharti Nicholson MD 12/08 MCHC g/dL 31.5 35.7 33.1 FINAL Ceasar [facility], [address] [address] [address] [facility] [id number] 8 Bharti Nicholson MD 12/08 RDW % 12.3 15.4 13.7 FINAL Ceasar [facility], [address] [address] [address] [place] [id number] 8 Bharti Nicholson MD 12/08 PLT x10E3/ uL 150.0 379.0 266 FINAL Ceasar [facility], [address] So Jimy [address] [place] [id number] 8 Bharti Nicholson MD 12/08 Bentley % % 73 FINAL Ceasar [facility], [address] [address] [address] [place] [id number] 8 Bharti Nicholson MD 12/08 LY % % 17 FINAL Ceasar [facility], [address] [address] [address] [place] [id number] 8 Bharti Nicholson MD 12/08 MO % % 4 FINAL Ceasar [facility], [address] [address] [address] [place] [id number] 8 Bharti Nicholson MD 12/08 EO % % 5 FINAL Ceasar [facility], [address] [address] [place] [address] [facility] [id number] 8 Bharti Nicholson MD 12/08 BA % % 1 FINAL Ceasar [facility], [address] [address] [place] [address] [place] [id number] 8 Bharti Nicholson MD 12/08 Immat ure Cells N FINAL Ceasar [facility], [address] [address] [address] [place] [id number] 8 Bharti Nicholson MD 12/08 Bentley # (ANC) x10E3/ uL 1.4 7.0 4.0 FINAL Ceasar [facility], [address] [address] [address] [place] [id number] 8 Bharti Nicholson MD 12/08 LY # x10E3/ uL 0.7 3.1 0.9 FINAL Ceasar [facility], [address] [address] [place] [address] [place] [id number] 8 Bharti Nicholson MD 12/08 MO # x10E3/ uL 0.1 0.9 0.2 FINAL Ceasar [facility], [address] [address] [place] [address] [place] [id number] 8 Bharti Nicholson MD 12/08 EO # x10E3/ uL 0.0 0.4 0.3 FINAL Ceasar [facility], [address] [address] [address] [place] [id number] 8 Bharti Nicholson MD 12/08 BA # x10E3/ uL 0.0 0.2 0.0 FINAL Ceasar [facility], [address] [address] [address] [place] [id number] 8 Bhrati Nicholson MD 12/08 IG % % 0 FINAL Ceasar [facility], [address] [address] [place] [address] [place] [id number] 8 Bharti Nicholson MD 12/08 IG # x10E3/ uL 0.0 0.1 0.0 FINAL Ceasar [facility], [address] [address] [address] [place] [id number] 8 Bharti Nicholson MD 12/08 NRBC % N FINAL Ceasar [facility], [address] [address] [place] [address] [place] [id number] 8 Bharti Nicholson MD 12/08 CBC Comme nts N FINAL [facility], [address] Ch Jimy [address] [facility] [id number] 8 Bharti Nicholson MD 12/08 Gluco se mg/dL 65.0 99.0 84 FINAL [facility], [address] Ch Jimy 200 [facility] [id number] 8 Bharti Nicholson MD 12/08 BUN mg/dL 6.0 24.0 8 FINAL [facility], [address] Jimy 200 [facility] [id number] 8 Bharti Nicholson MD 12/08 Creat inine mg/dL 0.57 1.0 0.75 FINAL [facility], [address] Jimy 200 [facility] [id number] 8 Bharti Nicholson MD 12/08 GFR non-A frica n Ameri can, estim ated mL/min /1.73 93 FINAL [facility], [address] Ch Jimy 200 [facility] [id number] 8 Bharti Nicholson MD 12/08 GFR Afric an Ameri can, estim ated mL/min /1.73 107 FINAL [facility], [address] Ch Jimy 200 [facility] [id number] 8 Bharti Nicholson MD 12/08 BUN/C reati nine ratio 9.0 23.0 11 FINAL [facility], [address] Ch Jimy 200 [facility] [id number] 8 Bharti Nicholson MD 12/08 Sodiu m mmol/L 134.0 144.0 142 FINAL [facility], [address] Ch Jimy 200 [facility] [id number] 8 Bharti Nicholson MD 12/08 Potas sium mmol/L 3.5 5.2 4.2 FINAL [facility], [address] Ch Jimy 200 [facility] [id number] 8 Bharti Nicholson MD 12/08 Chlor stephanie mmol/L 96.0 106.0 98 FINAL [facility], [address] Ch Jimy 200 [facility] [id number] 8 Bharti Nicholson MD 12/08 CO2 mmol/L 18.0 29.0 27 FINAL [facility], [address] Ch Jimy 200 [facility] [id number] 8 Bharti Nicholson MD 12/08 Calci um mg/dL 8.7 10.2 9.5 FINAL [facility], [address] Ch Jimy 200 [facility] [id number] 8 Bharti Nicholson MD 12/08 Total prote in g/dL 6.0 8.5 6.9 FINAL [facility], [address] Ch Jimy 200 [facility] [id number] 8 Bharti Nicholson MD 12/08 Album in g/dL 3.5 5.5 4.5 FINAL [facility], [address] Ch Jimy 200 [facility] [id number] 8 Bharti Nicholson MD 12/08 Globu last g/dL 1.5 4.5 2.4 FINAL [facility], [address] Ch Jimy 200 [facility] [id number] 8 Bharti Nicholson MD 12/08 A/G ratio 1.1 2.5 1.9 [facility], [address] Ch Jimy 200 [facility] [id number] 8 Bharti Nicholson MD 12/08 Bilir ubin, total mg/dL 0.0 1.2 0.3 FINAL [facility], [address] Ch Jimy 200 [facility] [id number] 8 Bharti Nicholson MD 12/08 Alkal ine phosp hatas e IU/L 39.0 117.0 59 FINAL [facility], [address] Ch Jimy 200 [facility] [id number] 8 Bharti Nicholson MD 12/08 AST/S GOT, IU/L IU/L 0.0 40.0 19 FINAL [facility], [address] Ch Jimy 200 [facility] [id number] 8 Bharti Nicholson MD 12/08 ALT/S GPT, IU/L IU/L 0.0 32.0 17 FINAL Ceasar Eduardo [facility], [address] Ch Jimy 200 [facility] [id number] 8 Bharti Nicholson MD Medications Date Name [...] * Nurse Note for: 05-APR-17 [facility] [place] Nurse Note Print Location: Unknown Date/Time Printed: 04/02/2025 02:31 AM ([facility]) Patient: KRISTY IQBAL Sex: Female : [...] * Nurse Note for: 05-JAN-17 [facility] [place] Nurse Note Print Location: Unknown Date/Time Printed: 04/02/2025 02:31 AM ([facility]) Patient: KRISTY IQBAL Sex: Female : [...] plan: Dispense/Waste: 700/0 mg Pharmacy dispense: [place]: [id number] Dispense/Waste: 200/0 mg Pharmacy dispense: [facility]: [id number] Dispense/Waste: 500/0 mg Given Dose/Discard: 700/0 mg [...] 2/0 tablet Time: 08:54 AM, Entered By: Vivaine Berumen RN Incident to: Ceasar Eduardo MD TOI- Rituxageoffrey Maintenance Premedications Dexamethasone IV, 20 mg intravenously Piggyback once, Admin over: 20 minutes to 20 minutes, Allow Substitution GIVEN: 20 mg Pharmacy plan: Dispense/Waste: 20/0 mg Pharmacy dispense: [facility]: [id number] Dispense/Waste: 20/0 mg Given Dose/Discard: 20/0 mg Start Time: 08:54 AM, Entered By: Viviane Berumen RN, Stop Time: 09:16 AM, Entered By: Viviane Berumen RN Admix Fluid: 0.9 % sodium chloride, Admix Fluid Volume: 50mL Diphenhydramine IV, 50 mg intravenously once, Allow Substitution GIVEN: 50 mg Pharmacy plan: Dispense/Waste: 50/0 mg Pharmacy dispense: [facility]: [id number] Dispense/Waste: 50/0 mg Given Dose/Discard: 50/0 mg [...] * Nurse Note for: 06-OCT-16 [facility] [place] Nurse Note Print Location: Unknown Date/Time Printed: 04/02/2025 02:31 AM ([facility]) Patient: KRISTY IQBAL Sex: Female : [...] Pharmacy plan: Dispense/Waste: 700/0 mg Pharmacy dispense: [facility]: [id number] Dispense/Waste: 200/0 mg Pharmacy dispense: [facility]: [id number] Dispense/Waste: 500/0 mg Given Dose/Discard: 700/0 mg [...] Pharmacy plan: Dispense/Waste: 50/0 mg Pharmacy dispense: [facility]: [id number] Dispense/Waste: 50/0 mg Given Dose/Discard: 50/0 mg Start Time: 09:20 AM, Entered By: Viviane Berumen RN, Stop Time: 09:42 AM, Entered By: Viviane Berumen RN Admix Fluid: 0.9 % sodium chloride, Admix Fluid Volume: 50mL Dexamethasone IV, 20 mg intravenously Piggyback once, Admin over: 20 minutes to 20 minutes, Allow Substitution GIVEN: 20 mg Pharmacy plan: Dispense/Waste: 20/0 mg Pharmacy dispense: [facility]: [id number] Dispense/Waste: 20/0 mg Given Dose/Discard: 20/0 mg [...] * Nurse Note for: 14-JUL-16 [facility] [place] Nurse Note Print Location: Unknown Date/Time Printed: 04/02/2025 02:31 AM ([facility]) Patient: KRISTY IQBAL Sex: Female : [...] plan: Dispense/Waste: 700/0 mg Pharmacy dispense: [place]: [id number] Dispense/Waste: 200/0 mg Pharmacy dispense: [facility]: [id number] Dispense/Waste: 500/0 mg Given Dose/Discard: 700/0 mg [...] Pharmacy plan: Dispense/Waste: 50/0 mg Pharmacy dispense: [facility]: [id number] Dispense/Waste: 50/0 mg Given Dose/Discard: 50/0 mg Start Time: 08:55 AM, Entered By: Viviane Berumen RN, Stop Time: 09:12 AM, Entered By: Viviane Berumen RN Admix Fluid: 0.9 % sodium chloride, Admix Fluid Volume: 50mL Dexamethasone IV, 20 mg intravenously Piggyback once, Admin over: 20 minutes to 20 minutes, Allow Substitution GIVEN: 20 mg Pharmacy plan: Dispense/Waste: 20/0 mg Pharmacy dispense: [facility]: [id number] Dispense/Waste: 20/0 mg Given Dose/Discard: 20/0 mg [...]
--- OUTSIDE RECORDS SUMMARY | 2025-04-02 04:32 | XMS_ITS | Encounter Summary ---
Author Organization [facility] Healthcare Address [address] [place] [address] Care Team Providers Care Motor Vehicle Assembler Name Role Phone Zakia Busch MD Unavailable [phone] Thomas Morrow MD Primary Care Provider [phone] Encounter Details Date Type Department Care Team (Late st Contact Info) Description 03/06/2025 Telephone [facility] Radiology [address] [place] [address] Karime Singh, RN Social History Tobacco Use Types Packs/Day Years Used Date Smoking Tobacco: Former Cigarettes 0.1 10 0 01/23/1999 - 01/23/2009 Passive Smoke Exposure: Past Smokeless Tobacco: Never Comments:social only Alcohol Use Standard Drinks/Week Comments Not Currently 0 (1 standard drink = 0.6 oz pur e alcohol) [facility] Utilities Answer Date Recorded In the past [...] How often do you attend chur or yazidism services? More than 4 times per year 11/08/2024 Do you belong to any clubs o r organizations such as adventism groups, unions, fraternal or athletic groups, or [...] staff should administer the PHQ-9) 0 02/21/2025 [facility] Occupat ional [facility] - Occupational Stress [...] place to sleep or slept in a longterm (including now)? No 06/09/2023 PHQ-9 Answer Date [...] any time in the past 12 [facility], were you homeless or living in a longterm (including now)? No 11/08/2024 Personal Safety Answer Date Recorded Have you ever been in or are you currently in a harmful physical or emotional relationship or is someone making you feel afraid or unsafe? 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
--- OUTSIDE RECORDS SUMMARY | 2025-04-02 04:33 | XMS_ITS | Encounter Summary ---
Author Organization [facility] Address [address] [place] [address] Phone Care Team Providers Care Borderer Name Role Phone Zakia Busch MD Unavailable [phone] Clark Casillas MD Primary Care Provider [phone] Jenny Olvera MD Unavailable [phone] Estrellita Stroud NP Primary Care Provider Estrellita Stroud NP Primary Care Provider [phone] Thomas Morrow MD Primary Care Provider [phone] Serena Toledo MA Unavailable [phone] Melinda Blankenship RN Unavailable [phone] Encounter Details Date Type Department Care Team (Latest Contact Info) Description 11/05/2020 Orders Only [facility] Scanning, Provider Social History Tobacco Use Types Packs/Day Years Used Date Smoking Tobacco: Former Cigarettes 0.1 10 Smokeless Tobacco: Never Alcohol Use Standard Drinks/Week Comments Not Currently 0 (1 standard drink = 0.6 oz pur e alcohol) PHQ-2 Answer Date Recorded PHQ-2 Score 2 09/11/2020 Comments No Sex and Gender Information Value Date Recorded Sex Assigned at Not on file Legal Sex Female 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 PLAYER 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 Gender Identity Female 07/18/2020 6:40 AM CDT Sexual Orientation Straight 07/18/2020 6: 40 AM CDT documented as of this encounter Plan of Treatment Not on file documented as of this encounter Procedures Procedure Name Priority Date/Time Associated Diagnosis Comments SCAN - RADIOLOGY/IMAGING 11/05/2020 SCAN - LABS 11/05/2020 documented in this encounter Results * SCAN - LABS (11/05/2020) us Provider Scanning Final Result * SCAN - RADIOLOGY/IMAGING (11/05/2020) Anatomical Region Laterality Modality Other us Provider Scanning Final Result documented in this encounter Visit Diagnoses Not on filedocumented in this encounter Additional Health Concerns Infection Onset Date Last Indicated Resolved Time COVID: Suspected 10/17/2024 10/17/2024 10/17/2024 11:42 AM PLAYER 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 COVID: Suspected 10/19/2024 10/19/2024 10/19/2024 11:09 AM PLAYER 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 COVID: Suspected 10/22/2024 10/22/2024 10/22/2024 6:53 AM PLAYER 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 COVID: Suspected 12/22/2024 12/22/2024 12/22/2024 4:22 PM PLAYER 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 COVID: Suspected 03/31/2025 03/31/2025 03/31/2025 6:42 PM CDT documented as of this encounter Care Teams Borderer Relationship Specialty Start Date End Date Clark Casillas MD [address] [place] [address] PCP - General 07/12/20 08/22/23 Estrellita Stroud NP [address] [facility] [address] [address] PCP - General Nurse Practitioner 08/23/23 11/23/23 Estrellita Stroud, MATEUSZ [address] [facility] [address] [place] [address] PCP - General Family Medicine 11/24/23 03/05/24 Thomas Morrow MD [address] [place] [address] PCP - General Family Medicine 03/06/24 Zakia Busch MD [address] [place] [address] Medical Oncologist/Glassblower Medical Oncology 07/02/20 Jenny Olvera MD [address] [place] [address] Referring Physician Gastroenterology 07/25/20 04/30/22 Serena Toledo MA [address] [place] [address] [address] [place] [address] ACO Care Picking Tech 10/20/24 10/20/24 Melinda Blankenship RN [address] [place] [address] [address] [place] [address] Tester Electronic Scale 11/07/24 12/05/24 documented as of this encounter
--- OUTSIDE RECORDS SUMMARY | 2025-04-02 04:33 | XMS_ITS | Encounter Summary ---
Author Organization [facility] Healthcare Address [address] [place] [address] Care Team Providers Care Mysql Dba Name Role Phone Zakia Busch MD Unavailable [phone] Clark Casillas MD Primary Care Provider [phone] Jenny Olvera MD Unavailable [phone] Reason for Visit * Diagnostic Imaging (Routine) - Closed Specialty Diagnoses / Procedures Referred By Maverick t Referred To Contact Procedures Breast Imaging Screening Outside Reference Transcribed Order, Provider Referral ID Status Reason Start Date Expiration Date Visits Re quested Visits Authorized [id number] Closed 01/14/2024 02/12/2025 1 1 Encounter Details Date Type Department Care Team (Late st Contact Info) Description 03/11/2021 Hospital Encounter [facility] [address] [place] [id number] Social History Tobacco Use Types Packs/Day Years Used Date Smoking Tobacco: Former Cigarettes 0.1 10 0 01/23/1999 - 01/23/2009 Passive Smoke Exposure: Past Smokeless Tobacco: Never Comments:social only Alcohol Use Standard Drinks/Week Comments Not Currently 0 (1 standard drink = 0.6 oz pur e alcohol) [facility] Utilities Answer Date Recorded In the past 12 months has [employer] electric, gas, oil, or water company threatened [...] week 11/08/2024 How often do you attend [facility] or restorationist services? More than 4 times per year 11/08/2024 Do you belong to any clubs o r organizations such as advent groups, unions, fraternal or athletic groups, or [...] staff should administer the PHQ-9) 0 02/21/2025 [place] [facility] - Occupational Stress [...] place to sleep or slept in a usp (including now)? No 06/09/2023 PHQ-9 Answer Date [...] any time in the past [address] [facility], were you homeless or living in a usp (including now)? No 11/08/2024 Personal Safety Answer Date Recorded Have you ever been in or are you currently in a harmful physical or emotional relationship or is someone making you feel afraid or unsafe? 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 Monthly or less 03/28/2025 10:01 AM ROGERT Riri Montgomery RN Q2: How many drinks containing alcohol do you have on a typical day when you are drinking? 3 or 4 03/28/2025 10:01 AM ROGERT Riri Montgomery RN Q3: How often do [...] BREAST IMAGING MG SCREENING OUTSIDE REFERENCE Routine 03/11/2021 12:00 AM CDT documented in this encounter Results * Breast Imaging Screening Outside Reference (03/11/2021 12:00 AM CDT) Impressions [facility] - 01/14/2024 10:57 AM CDT These images are for Reference purposes only and have not been reviewed by [facility] Radiology. There will be no report generated by a [facility] Radiologist. Narrative [facility] - 01/14/2024 10:57 AM CDT EXAMINATION: Images For Reference Purposes Only us Provider Transcribed Order IMG MAMMO PROCEDURES Final Result [facility] documented in this encounter Visit Diagnoses Not on filedocumented in this encounter Additional Health Concerns Infection Onset Date Last Indicated Resolved Time COVID: Suspected 10/17/2024 10/17/2024 10/17/2024 11:42 AM GRAPHITE PAN DRIER TENDER COVID: Suspected 10/19/2024 10/19/2024 10/19/2024 11:09 AM GRAPHITE PAN DRIER TENDER COVID: Suspected 10/22/2024 10/22/2024 10/22/2024 6:53 AM GRAPHITE PAN DRIER TENDER COVID: Suspected 12/22/2024 12/22/2024 12/22/2024 4:22 PM GRAPHITE PAN DRIER TENDER COVID: Suspected 03/31/2025 03/31/2025 03/31/2025 6:42 PM CDT documented as of this encounter Care Teams Mysql Dba Relationship Specialty Start Date End Date Clark Casillas MD [address] [place] [address] PCP - General 07/12/20 08/22/23 Zakia Busch MD [address] [place] [address] Medical Oncologist/Associate Field Service Engineer Medical Oncology 07/02/20 Jenny Olvera MD [address] [place] [address] Referring Physician Gastroenterology 07/25/20 04/30/22 documented as of this encounter
[2025-04-02] MEDS: LEVALBUTEROL NEB 1.25 MG/3 ML INHALATION (04:37)
--- NOTE | 2025-04-02 04:37 | ED_ITS ---
HPI - SOB/Dyspnea General Chief Complaint: Shortness of Breath/Dyspnea Stated Complaint: ASTHMATIC RESP DISTRESS Time Seen by Provider: 04/02/25 04:10 Source: patient and EMS Mode of arrival: EMS Limitations: clinical condition History of Present Illness HPI Narrative: Patient presents with report of asthma exacerbation. She has been using her inhaler throughout the day with no relief. 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 No previous usage of BiPAP for intubation for asthma exacerbation. Feels like she can not catch her breath and her throat is closing. EMS administered 2 g magnesium, 125 mg Solu-Medrol, nebulized treatments and IM epinephrine but she remained in respiratory distress. Related Data Allergies Allergy/AdvReac Type Severity Reaction Status Date / Time rituximab Allergy Intermediate ABDOMINAL Verified 04/02/25 04:21 PAIN PMFSH Past Medical History Medical History Asthma Hyperlipemia Depression Non-Hodgkin lymphoma Surgical History Surgical History (Updated 11/05/20 @ 12:59 by Shawna Ruiz MD) H/O: hysterectomy Social History Social History (Updated 11/05/20 @ 13:00 by Shawna Ruiz MD) Smoking status: Never smoker Alcohol intake: never Substance use type: marijuana Exam 2 Narrative: GENERAL: well-nourished but in acute distress, tripoding HEAD: Normocephalic, atraumatic. EYES: Non injected, non icteric ENT: Nares clear, no rhinorrhea or epistaxis. Gross auditory acuity intact. Tacky mucous membranes. Malampati I. Anterior airway. Sticky mucous versus small lesion on vocal cords appreciated during intubation. NECK: Supple. No meningismus. CHEST: Speaking in 2 word sentences. Respiratory distress. Lungs are tight on auscultation bilaterally with wheezes appreciated throughout. Poor air movement HEART: Tachycardic rate and rhythm. ABDOMEN: Soft, nondistended. No rigidity or guarding. Not peritoneal EXTREMITIES: Normal range of motion. No lower extremity edema. SKIN: Warm, dry, no rash. NEURO: No focal deficits. Alert and oriented. Answering questions. Following commands. Normal speech without aphasia or dysarthria. PSYCH: Congruent mood and affect, anxious, mildly tremulous Course Vital Signs Vital signs: Vital Signs Temperature 98.1 F 04/02/25 04:04 Pulse Rate 119 H 04/02/25 04:04 Respiratory Rate 30 H 04/02/25 04:04 Blood Pressure 166/90 H 04/02/25 04:04 Pulse Oximetry 100 04/02/25 04:04 Oxygen Delivery Room Air 04/02/25 04:04 Temperature 98.1 F 04/02/25 04:04 Pulse Rate 112 H 04/02/25 10:01 Respiratory Rate 18 04/02/25 10:01 Blood Pressure 147/111 H 04/02/25 10:00 Pulse Oximetry 100 04/02/25 10:00 Oxygen Delivery Mechanical Ventilation 04/02/25 08:15 Fraction of Inspired Oxygen 50 04/02/25 08:15 Procedures Intubation Intubation #1: Intubation Date: 04/02/25 Intubation Time: 08:13 Time out performed: Yes sedative: Etomidate Mg Given: 20 paralytic: Rocuronium Mg Given: 70 Laryngoscope: Digna Tube Size (cm): 7.5 Method of Intubation: orotracheal Number of Attempts: 2 Tube Secured Depth (cm): 25 Tube Secured Location: lips Tube Placement Confirmation: visualized tube passing through cords, equal breath sounds bilaterally and confirmation by capnometry Patient Tolerated Procedure: well and no complications Intubation Complications: none Additional Comments: Peewee Nava Initially trialed a MAC 3 with limited visualization. Second attempt with a MAC 4. Successful MDM - SOB/Dyspnea MDM Narrative Medical decision making narrative: Patient presents with shortness of breath. She states she has a history of asthma and has been using her inhaler throughout the day with no relief. EMS administered 2g magnesium, nebulized treatment, 125mg Solu-Medrol, and IM epinephrine. In the emergency department she is afebrile vital signs notable for hypertension, tachypnea, tachycardia. She is in respiratory distress. Her blood pressure then becomes systolic the 200s. Nitro paste ordered. 1L IV fluids initially ordered given concern for insensible losses due to respiratory rate. Point of care ultrasound attempted to be performed given patient's blood pressure. Possible occasional B lines but not >3 per field so less suspicious for flash pulmonary edema. During this assessment patient is requesting Adderal. She also states I'll take morphine as well. Will give morphine to see if respiratory rate slows a bit. Initial blood gas obtained as VBG while patient receiving Duoneb treatment. ABG performed <30min after patient on BIPAP 50% FIO2 12/6 back up rate 12. Increased to 16/6 and FiO2 can be downtitrated. D-dimer unable to be obtained as lab issues. Given history of cancer which makes higher pretest probability, will proceed with CTA imaging. She has a marked leukocytosis. Also mild AST/ALT elevations. so will include abd/pelvis imaging. Patient states that she can not hold still for this imaging however she does continue to appear restless and then is asking for something else for anxiety. Valium is ordered for this as well as to facilitate obtaining quality imaging studies. Patient reassessed at 735. She is resting comfortably. She has agreed to be straight cath'd per RN who note that she is pending blood cultures and that RT is coming down to help transport to CT. She is reassessed approximately 8:00 a.m.. She has become restless and continues to be tachypneic at a rate in the 30s. Still very tight on auscultation. DIscussed intubation as patient continues to have labored work of breathing. She is agreeable as she states she has been up for 48 hours and is tired. She requests her thyroid be checked (TSH ordered, result pending). Intubation performed as above. Recommend permissive hypercapnia. Sedation drip ordered. Vancomycin cefepime ordered given patient flexor sepsis given her abnormal vital signs and marked leukocytosis although her lactic acid is normal. Continuous Xopenex (3 doses) ordered given her continued tachycardia. UDS with opiates, benzodiazepines, and cannabinoids. Again, patient had received opiates and benzodiazepines while in the emergency department. CT Chest/abd/pelvis w/o abnormalities. RT to obtain repeat ABG as patient has been on ventilator 30-60 minutes. Patient discussed with wholesale diamond broker Dr. Kohler who does recommend propofol as sedating agent and to help with hemodynamics. Discussed with ping pong table assembler hospitalist Dr Garcia; patient admitted to the ICU. TSH does result abnormal; T3 and T4 ordered and will need to be followed up (only CT finding was multinodular goiter). === Critical Care: 1 or more vital organ systems impaired with a high probability of imminent or life-threatening deterioration in the patient's condition requiring frequent personal assessment and manipulation of the patient's condition. This included time spent evaluating the patient, speaking with EMS pre-hospital personnel and family, reviewing/interpreting laboratory/imaging studies, discussing the case with consultants or admitting teams, retrieving data and reviewing charts, monitoring for decompensation, documenting the visit, and performing bundled procedures exclusive of separately billed procedures. Differential Diagnosis Differential diagnosis: Likely acute exacerbation of chronic obstructive airways disease, congestive heart failure (Including considering flash pulmonary edema/scape), community acquired pneumonia, asthma with exacerbation, pulmonary embolism and other (acute viral syndrome; medication/drug use versus possible withdrawal considered; considered thyroid dysfunction) Lab Data Attestation: I reviewed the patient's lab results. 04/02/25 04:18 04/02/25 04:18 Labs: Lab Results 04/02/25 04/02/25 04/02/25 Range/Units 04:18 04:18 05:00 WBC 23.9 H (4.5-10.0) K/mm3 RBC 4.34 (4.2-5.4) M/mm3 Hgb 14.9 (12.0-15.0) g/dL Hct 43.7 (37.0-47.0) % MCV 100.7 H (80-100) fl MCH 34.3 H (26-34) pg MCHC 34.1 (32-36) g/dl RDW 13.5 (11.5-14.5) % Plt Count 287 (150-375) k/mm3 MPV 10.4 (7.4-10.4) fl Immature Gran % (Auto) 0.4 (0-0.5) % Neut % (Auto) 74.5 H (45.5-73.1) % Lymph % (Auto) 18.3 (18.3-44.2) % [place] % (Auto) 6.7 (2.6-8.5) % Eos % (Auto) 0.0 (0-4.4) % Baso % (Auto) 0.1 L (0.2-1.2) % Lymph # (Auto) 4.37 H (0.9-3.2) K/mm3 [place] # (Auto) 1.6 H (0.1-0.6) K/mm3 Eos # (Auto) 0.0 (0-0.3) K/mm3 Baso # (Auto) 0.0 (0.0-0.1) K/mm3 Abs Immat Gran (auto) 0.09 H (0.00-0.031) K/mm3 Absolute Neuts (auto) 17.8 H (1.3-6.7) K/mm3 Absolute Nucleated RBC 0.000 (0.0-0.012) K/mm3 Nucleated RBC % 0.0 (0.0-0.2) % PT (11.1-14.7) Seconds INR APTT (22.3-36.8) Seconds D-Dimer Methemoglobin Pending Minute Volume Vent Mode Expiratory Pressure 6 cmH2O Tidal Volume ml PEEP cmH2O Inspiratory Pressure 12 cmH2O Peak Inspir Pressure Pressure Support Sodium 140 (137-145) mmol/L Potassium 3.7 (3.4-5.0) mmol/L Chloride 100 (98-107) mmol/L Carbon Dioxide 30 (22-30) mmol/L Anion Gap 10 (4-12) mmol/L BUN 16 (7-17) mg/dL Creatinine 0.68 L (0.7-1.0) mg/dL Estim Creat Clear Calc 73 ml/min Estimated GFR > 60 (59 - ) Glucose 159 H (65-110) mg/dL Lactic Acid (0.7-2.0) mmol/L Calcium 9.5 (8.4-10.2) mg/dL Magnesium 3.8 H (1.6-2.3) mg/dL Total Bilirubin 0.7 (0.2-1.3) mg/dL AST 72 H (14-36) U/L ALT 60 H (6-35) U/L Alkaline Phosphatase 65 (38-126) U/L Troponin I < 0.012 (0.000-0.034) ng/mL C-Reactive Protein 1.1 Cancelled (<1.0) mg/dL NT-Pro-B Natriuret Pep 567 H (19.9-100) pg/mL Total Protein 8.0 (6.3-8.2) g/dL Albumin 5.1 (3.5-5.1) g/dL TSH (0.465-4.680) uIU/mL Urine Color (Yellow) Urine Appearance (Clear) Urine pH (5.0-9.0) Ur Specific [place] (1.001-1.035) Urine Protein (Negative) mg/dL Urine Glucose (UA) (Negative) mg/dL Urine Ketones (Negative) mg/dL Ur Blood (Man) (Negative) Urine Nitrate (Negative) Urine Bilirubin (Negative) Urine Urobilinogen (<2.0) mg/dL Leukocyte Esterase Rfl (Negative) MANDO/UL Urine RBC (0-2) /hpf Urine WBC (0-3) /hpf Ur Squamous Epith Cells (Few) /hpf Urine Bacteria /hpf Urine Casts Urine Opiates Screen (Negative) Urine Methadone Screen (Negative) Ur Barbiturates Screen (Negative) Ur Phencyclidine Scrn (Negative) Ur Amphetamine Screen (Negative) U Benzodiazepines Scrn (Negative) Urine Cocaine Screen (Negative) U Cannabinoids Screen (Negative) 04/02/25 04/02/25 04/02/25 Range/Units 05:49 07:35 07:53 WBC (4.5-10.0) K/mm3 RBC (4.2-5.4) M/mm3 Hgb (12.0-15.0) g/dL Hct (37.0-47.0) % MCV (80-100) fl MCH (26-34) pg MCHC (32-36) g/dl RDW (11.5-14.5) % Plt Count (150-375) k/mm3 MPV (7.4-10.4) fl Immature Gran % (Auto) (0-0.5) % Neut % (Auto) (45.5-73.1) % Lymph % (Auto) (18.3-44.2) % [place] % (Auto) (2.6-8.5) % Eos % (Auto) (0-4.4) % Baso % (Auto) (0.2-1.2) % Lymph # (Auto) (0.9-3.2) K/mm3 [place] # (Auto) (0.1-0.6) K/mm3 Eos # (Auto) (0-0.3) K/mm3 Baso # (Auto) (0.0-0.1) K/mm3 Abs Immat Gran (auto) (0.00-0.031) K/mm3 Absolute Neuts (auto) (1.3-6.7) K/mm3 Absolute Nucleated RBC (0.0-0.012) K/mm3 Nucleated RBC % (0.0-0.2) % PT 13.4 (11.1-14.7) Seconds INR 1.0 APTT 20.1 L (22.3-36.8) Seconds D-Dimer Cancelled Methemoglobin Minute Volume Vent Mode Expiratory Pressure cmH2O Tidal Volume ml PEEP cmH2O Inspiratory Pressure cmH2O Peak Inspir Pressure Pressure Support Sodium (137-145) mmol/L Potassium (3.4-5.0) mmol/L Chloride (98-107) mmol/L Carbon Dioxide (22-30) mmol/L Anion Gap (4-12) mmol/L BUN (7-17) mg/dL Creatinine (0.7-1.0) mg/dL Estim Creat Clear Calc ml/min Estimated GFR (59 - ) Glucose (65-110) mg/dL Lactic Acid 1.6 (0.7-2.0) mmol/L Calcium (8.4-10.2) mg/dL Magnesium (1.6-2.3) mg/dL Total Bilirubin (0.2-1.3) mg/dL AST (14-36) U/L ALT (6-35) U/L Alkaline Phosphatase (38-126) U/L Troponin I (0.000-0.034) ng/mL C-Reactive Protein (<1.0) mg/dL NT-Pro-B Natriuret Pep (19.9-100) pg/mL Total Protein (6.3-8.2) g/dL Albumin (3.5-5.1) g/dL TSH 0.079 L (0.465-4.680) uIU/mL Urine Color (Yellow) Urine Appearance (Clear) Urine pH (5.0-9.0) Ur Specific [place] (1.001-1.035) Urine Protein (Negative) mg/dL Urine Glucose (UA) (Negative) mg/dL Urine Ketones (Negative) mg/dL Ur Blood (Man) (Negative) Urine Nitrate (Negative) Urine Bilirubin (Negative) Urine Urobilinogen (<2.0) mg/dL Leukocyte Esterase Rfl (Negative) MANDO/UL Urine RBC (0-2) /hpf Urine WBC (0-3) /hpf Ur Squamous Epith Cells (Few) /hpf Urine Bacteria /hpf Urine Casts Urine Opiates Screen (Negative) Urine Methadone Screen (Negative) Ur Barbiturates Screen (Negative) Ur Phencyclidine Scrn (Negative) Ur Amphetamine Screen (Negative) U Benzodiazepines Scrn (Negative) Urine Cocaine Screen (Negative) U Cannabinoids Screen (Negative) 04/02/25 04/02/25 Range/Units 08:26 09:15 WBC (4.5-10.0) K/mm3 RBC (4.2-5.4) M/mm3 Hgb (12.0-15.0) g/dL Hct (37.0-47.0) % MCV (80-100) fl MCH (26-34) pg MCHC (32-36) g/dl RDW (11.5-14.5) % Plt Count (150-375) k/mm3 MPV (7.4-10.4) fl Immature Gran % (Auto) (0-0.5) % Neut % (Auto) (45.5-73.1) % Lymph % (Auto) (18.3-44.2) % [place] % (Auto) (2.6-8.5) % Eos % (Auto) (0-4.4) % Baso % (Auto) (0.2-1.2) % Lymph # (Auto) (0.9-3.2) K/mm3 [place] # (Auto) (0.1-0.6) K/mm3 Eos # (Auto) (0-0.3) K/mm3 Baso # (Auto) (0.0-0.1) K/mm3 Abs Immat Gran (auto) (0.00-0.031) K/mm3 Absolute Neuts (auto) (1.3-6.7) K/mm3 Absolute Nucleated RBC (0.0-0.012) K/mm3 Nucleated RBC % (0.0-0.2) % PT (11.1-14.7) Seconds INR APTT (22.3-36.8) Seconds D-Dimer Methemoglobin Minute Volume Not Reportable Vent Mode Cmv Expiratory Pressure cmH2O Tidal Volume 500 ml PEEP 5 cmH2O Inspiratory Pressure cmH2O Peak Inspir Pressure Not Reportable Pressure Support Not Reportable Sodium (137-145) mmol/L Potassium (3.4-5.0) mmol/L Chloride (98-107) mmol/L Carbon Dioxide (22-30) mmol/L Anion Gap (4-12) mmol/L BUN (7-17) mg/dL Creatinine (0.7-1.0) mg/dL Estim Creat Clear Calc ml/min Estimated GFR (59 - ) Glucose (65-110) mg/dL Lactic Acid (0.7-2.0) mmol/L Calcium (8.4-10.2) mg/dL Magnesium (1.6-2.3) mg/dL Total Bilirubin (0.2-1.3) mg/dL AST (14-36) U/L ALT (6-35) U/L Alkaline Phosphatase (38-126) U/L Troponin I (0.000-0.034) ng/mL C-Reactive Protein (<1.0) mg/dL NT-Pro-B Natriuret Pep (19.9-100) pg/mL Total Protein (6.3-8.2) g/dL Albumin (3.5-5.1) g/dL TSH (0.465-4.680) uIU/mL Urine Color Yellow (Yellow) Urine Appearance Clear (Clear) Urine pH 5.0 (5.0-9.0) Ur Specific [place] 1.015 (1.001-1.035) Urine Protein 1+ H (Negative) mg/dL Urine Glucose (UA) 1+ H (Negative) mg/dL Urine Ketones Negative (Negative) mg/dL Ur Blood (Man) Trace (Negative) Urine Nitrate Negative (Negative) Urine Bilirubin Negative (Negative) Urine Urobilinogen 0.2 (<2.0) mg/dL Leukocyte Esterase Rfl Negative (Negative) MANDO/UL Urine RBC 0-2 (0-2) /hpf Urine WBC 0-5 (0-3) /hpf Ur Squamous Epith Cells None seen (Few) /hpf Urine Bacteria None seen /hpf Urine Casts 0-2 Urine Opiates Screen Positive A (Negative) Urine Methadone Screen Negative (Negative) Ur Barbiturates Screen Negative (Negative) Ur Phencyclidine Scrn Negative (Negative) Ur Amphetamine Screen Negative (Negative) U Benzodiazepines Scrn Positive A (Negative) Urine Cocaine Screen Negative (Negative) U Cannabinoids Screen Positive A (Negative) ABG Data ABG results: 04/02/25 04/02/25 04/02/25 04:18 05:00 09:15 Puncture Site Right radial Left radial ABG pH 7.272 L* 7.232 L* 7.220 L* ABG pCO2 68.7 H* 69.2 H* 63.5 H* ABG pO2 53.2 L 155.1 H 75.2 L ABG PO2/FiO2 Ratio 0.53 3.10 1.50 ABG HCO3 31.0 H 28.5 H 25.4 ABG O2 Saturation 82.0 L* 98.6 91.9 L ABG O2 Content 19.2 ABG Base Excess 1.9 -1.0 -3.6 A-a Gradient 123.6 209.9 Oxyhemoglobin 92.4 Total Hemoglobin 14.8 O2 Delivery Device Bipap Ventilator O2 Liters/Min Not Reportable Not Reportable Vent Rate 12 FiO2 100 50 50 Imaging Data Radiologist's impression: Impressions Chest X-Ray 04/02/25 07:01 Impression: Normal chest. Chest X-Ray 04/02/25 08:46 IMPRESSION: 1. Endotracheal tube tip 3.4 cm above the ricky. No acute cardiopulmonary disease. Neck CTA 04/02/25 09:06 IMPRESSION: 1. No evident atherosclerotic plaque with 0% stenosis of the right and left carotid bulbs relative to normal distal artery lumen diameter (NASCET criteria). 2. Multinodular goiter. Could consider thyroid ultrasound for risk stratification. Chest/Abdomen/Pelvis CTA 04/02/25 09:10 Impression: No significant abnormalities seen. ECG Data EKG #1: Attestation: I personally reviewed and interpreted this ECG as follows: ECG completion date: 04/02/25 ECG completion time: 04:31 Interpretation: Sinus tachycardia at a rate of 115 beats per minute. SD interval 175. QRS 93. QT/QTC 304/372. Good R-wave progression across the precordial leads. No T-wave inversions. Left atrial enlargement is suspected. Left axis deviation (QRS is positive with dominant R wave in Lead I; QRS is negative with dominant S wave in leads II, III, and aVF). Critical Care Time Critical Care Time Critical Care Time: Yes Total Critical Care Time: 60 Discharge Plan Discharge Clinical Impression: Asthma exacerbation, Leukocytosis, Transaminitis, On mechanically assisted ventilation, Marijuana use, Multinodular goiter Respiratory failure Qualifiers: Chronicity: acute Respiratory failure complication: hypercapnia Qualified Code(s): J96.02 - Acute respiratory failure with hypercapnia Patient Disposition: Still a Patient Condition: Serious
[2025-04-02] MEDS: NITROGLYCERIN OINTMENT 1 INCH DOSE TRANSDERM (04:38)
[2025-04-02 04:44] LABS: Alanine Aminotransferase 60 U/L (6-35); Albumin Level 5.1 g/dL (3.5-5.1); Alkaline Phosphatase 65 U/L (38-126); Anion Gap 10 mmol/L (4-12); Aspartate Amino Transferase 72 U/L (14-36); Bilirubin,Total 0.7 mg/dL (0.2-1.3); Blood Urea Nitrogen 16 mg/dL (7-17); Calcium 9.5 mg/dL (8.4-10.2); Carbon Dioxide 30 mmol/L (22-30); Chloride 100 mmol/L (98-107); Estimated CRCL calculation 73 ml/min; Estimated Glomerular Filt Rate > 60; Glucose 159 mg/dL (65-110); Potassium 3.7 mmol/L (3.4-5.0); Sodium 140 mmol/L (137-145)
[2025-04-02] MEDS: SODIUM CHLORIDE 0.9% IV 1,000 ML 999 ML IV CONT ×2 (04:49→09:28)
[2025-04-02] MEDS: MORPHINE SULFATE (*CRX) 2 MG/ML INJ IV PUSH (04:52)
[2025-04-02 04:55] LABS: NT Pro B Type Natriuretic Pept 567 pg/mL (19.9-100); Troponin I < 0.012 ng/mL (0.000-0.034)
[2025-04-02 04:59] LABS: Alveolar/Arterial O2 Gradient 123.6 mmHg; Fractional Inspired Oxygen 50 %; HCO3 ABG 28.5 mEq/l (22.0-26.0); Oxygen Saturation ABG 98.6 % (95.0-100.0); PO2 ABG 155.1 mmHg (80.0-100.0)
[2025-04-02 05:19] LABS: CRP 1.1 mg/dL (<1.0); Magnesium 3.8 mg/dL (1.6-2.3)
[2025-04-02 05:30] LABS: PCO2 ABG 68.7 mmHg (35.0-45.0); pH ABG 7.272 (7.350-7.450)
[2025-04-02 05:31] LABS: pH ABG 7.232 (7.350-7.450)
[2025-04-02 05:32] LABS: Device BIPAP; Modified Allen's Test Pass; PCO2 ABG 69.2 mmHg (35.0-45.0); Site Drawn RIGHT RADIAL
[2025-04-02 05:33] LABS: Expiratory Pressure 6 cmH2O; Inspiratory Pressure 12 cmH2O
[2025-04-02 06:03] LABS: Lactic Acid Reflex 1.6 mmol/L (0.7-2.0)
--- NOTE | 2025-04-02 06:11 | PC.NURSE ---
Patient informed of need for urine sample. Patient informed that her O2 sats decrease rapidly with any exertion so walking to the bathroom is not the most appropriate option. Patient offered a straight cath by this RN. Patient refused. Patient states after fluids infuse she can attempt at BSC to provide sample.
[2025-04-02] MEDS: diazePAM INJ (*CRX) 10 MG/2 ML SYRINGE 2.5 MG IV PUSH (07:01)
--- NOTE | 2025-04-02 08:16 | PC.NURSE ---
20mg etomidate given IVP then 70mg rocuronium given IVP at 0813 for intubation. EDP used a 7.5 ET tube measuring 25 at the lip, OG tube then inserted 65 at the lip.
[2025-04-02 08:31] LABS: Partial Thromboplastin Time 20.1 Seconds (22.3-36.8); Prothrombin Time 13.4 Seconds (11.1-14.7)
[2025-04-02] MEDS: MIDAZOLAM 100MG/NS 100ML(*CRX) 100 MG/100 ML BAG IV CONT (08:34)
[2025-04-02 08:49] LABS: Add Urine Microscopic? YES; Appearance Urine Clear (Clear); Bacteria Urine None Seen /hpf; Bilirubin Urine Negative (Negative); Blood Urine Trace (Negative); Color Urine Yellow (Yellow); Glucose Urine UA 1+ mg/dL (Negative); Ketones Urine Negative (Negative); Leukocyte Esterase Ur Negative LEU/UL (Negative); Nitrate Urine Negative (Negative); Non Pathogenic Casts 0-2; Protein Urine 1+ mg/dL (Negative); RBC Urine 0-2 /hpf (0-2); Specific Grav Ur 1.015 (1.001-1.035); Squamous Epithelial Cell Urine None Seen /hpf (Few); Urobilinogen Urine 0.2 mg/dL (<2.0); WBC Urine 0-5 /hpf (0-3)
[2025-04-02 08:52] LABS: Barbiturate Screen Urine Negative (Negative); Benzodiazepines Screen Urine Positive (Negative)
[2025-04-02 08:53] LABS: Amphetamine Screen Urine Negative (Negative); Cannabinoid Screen Urine Positive (Negative); Cocaine Screen Urine Negative (Negative); Methadone Screen Urine Negative (Negative); Opiate Screen Urine Positive (Negative); Phencyclidine Screen Urine Negative (Negative)
[2025-04-02] MEDS: LEVALBUTEROL NEB 1.25 MG/3 ML 3.75 MG INHALATION (09:19)
[2025-04-02] MEDS: CEFEPIME 1 GM/NS 50 ML 1 GM/50 ML BAG IVPB (09:28)
[2025-04-02] MEDS: CRASH CART LOCKS 1 EACH XX (09:29)
[2025-04-02] MEDS: PROPOFOL IV EMULSION 100 ML 2.18 MG IV CONT (09:55)
[2025-04-02 09:58] LABS: Alveolar/Arterial O2 Gradient 209.9 mmHg; Base Excess ABG -3.6 mEq/l (+/-2.0); Fractional Inspired Oxygen 50 %; HCO3 ABG 25.4 mEq/l (22.0-26.0); Oxygen Content ABG 19.2 %vol (16.0-22.0); Oxygen Saturation ABG 91.9 % (95.0-100.0); Oxyhemoglobin 92.4 % THb (90.0-100.0); PO2 ABG 75.2 mmHg (80.0-100.0); Total Hemoglobin 14.8 g/dL (12.0-18.0)
[2025-04-02] MEDS: VANCOMYCIN 1,750 MG/NS 500 ML 1,750 MG/500 ML BAG 250 MG IVPB (09:58)
[2025-04-02 10:02] LABS: Device VENTILATOR; Modified Allen's Test Pass; PCO2 ABG 63.5 mmHg (35.0-45.0); Site Drawn LEFT RADIAL
[2025-04-02 10:03] LABS: Arterial Blood Gas PEEP 5 cmH2O; Arterial Blood Gas Tidal Volume 500 ml; Arterial Blood Gas Vent Mode CMV; Arterial Blood Gas Ventilator rate 12 /MIN
[2025-04-02] MEDS: MINERAL OIL/WHITE PETROLATUM OINTMENT 1 APPLIC EACH EYE ×2 (10:04→20:02)
[2025-04-02 10:35] LABS: MRSA (PCR) NOT DETECTED (NOT DETECTE)
[2025-04-02 10:49] LABS: Free T4 Free Thyroxine 1.59 ng/dL (0.78-2.19)
--- NOTE | 2025-04-02 10:54 | PC.NURSE ---
This patient, Maggie Correa, was admitted to Intensive Care Unit-5. Patient/family oriented to hospital policies and general routines including ID bracelet, bed and alarms, visiting hours, pain management, procedures, bathroom and other care routines, personal items, smoking policy, room service/diet, and visiting hours. Information on how to activate the Rapid Response Team has been discussed. Patient/Family are encouraged to report perceived risks to care and to ask questions if they do not understand what they are told or what they should do.
[2025-04-02 11:02] LABS: Total Triiodothyronine (T3) 1.09 NG/ML (0.82-1.58)
[2025-04-02] MEDS: fentaNYL CITRATE INJ (*CRX) 100 MCG/2 ML VIAL IV PUSH (11:04)
[2025-04-02] MEDS: methylPREDNISolone SOD SUCC 125 MG VIAL IV PUSH (11:26)
[2025-04-02] MEDS: ROCURONIUM BROMIDE 50 MG/5 ML VIAL IV PUSH ×2 (11:30→13:50)
[2025-04-02] MEDS: ALBUMIN HUMAN 25% 25 GM/100 ML 100 ML IVPB (11:43)
[2025-04-02] MEDS: LACTATED RINGERS 1,000 ML 125 ML IV CONT ×2 (11:44→21:35)
--- NOTE | 2025-04-02 11:48 | P.CONIN_ITS ---
Assessment and Plan Assessment and plan (1) Respiratory failure: Qualifiers: Chronicity: acute Respiratory failure complication: hypercapnia Q ualified Code(s): J96.02 - Acute respiratory failure with hypercapnia Code(s): J96.90 - Respiratory failure, unspecified, unspecified whether with hypoxia or hypercapnia Status: Acute Assessment and Plan: Acute respiratory failure likely related to asthma exacerbation -continue mechanical ventilation with low respiratory rate, high I:E ratio -Sedated with propofol and Versed infusion, patient did receive a dose of rocuronium as she was dyssynchronous with the ventilator with high peak pressures. Maintain RASS of -2 -continue bronchodilators -continue IV steroids -added Pulmicort (2) Asthma exacerbation: Code(s): J45.901 - Unspecified asthma with (acute) exacerbation Status: Acute Assessment and Plan: Patient has a history of asthma, came in with asthma exacerbation. Received Solu-Medrol, epinephrine, magnesium, continues nebs in the ED 04/02: Intubated, discussed with ER physician, patient was tripoding and was in severe respiratory distress so was intubated for airway protection -remains on CMV mode of ventilation, low respiratory rate, I increased the I : E ratio -chest x-ray reviewed -Repeat ABGs -treatment as above 04/02:CT chest abdomen and pelvis: No evidence of mediastinal, hilar or axillary lymphadenopathy, no pulmonary embolism, no aortic aneurysm or dissection P no evidence of pleural or pericardial effusion. Lungs are clear, no pulmonary nodules or infiltrates are noted. No significant abdominal abnormalities were seen. (3) Leukocytosis: Code(s): D72.829 - Elevated white blood cell count, unspecified Status: Acute Assessment and Plan: Leukocytosis likely reactive, received 1 dose of cefepime and vancomycin -will start ceftriaxone for asthma exacerbation -continue to monitor -CRP is low (4) Multinodular goiter: Code(s): E04.2 - Nontoxic multinodular goiter Status: Acute Assessment and Plan: Patient has multinodular goiter, will obtain thyroid ultrasound -TSH levels are low -patient required may require FNAC, once thyroid ultrasound is done will have intervention Radiology to of FNAC is extubated CTA neck: IMPRESSION: 1. No evident atherosclerotic plaque with 0% stenosis of the right and left carotid bulbs relative to normal distal artery lumen diameter (NASCET criteria). 2. Multinodular goiter. Could consider thyroid ultrasound for risk stratification. (5) Transaminitis: Code(s): R74.01 - Elevation of levels of liver transaminase levels Status: Acute Assessment and Plan: Elevation LFTs likely related to hypovolemia, hypoxia due to asthma exacerbated -will obtain right upper quadrant ultrasound, hepatitis panel Plan DVT prophylaxis: Lovenox Stress ulcer prophylaxis: Protonix Nutrition: NPO Code Status: Full code Critical Care Time Spent: 51 minutes Due to a high probability of clinically significant, life threatening deterioration, the patient required my highest level of preparedness to intervene emergently and I personally spent this critical care time directly and personally managing the patient. This critical care time included obtaining a history; examining the patient; pulse oximetry; ordering and review of studies; arranging urgent treatment with development of a management plan; evaluation of patient's response to treatment; frequent reassessment; and discussions with other providers. It was exclusive of separately billable procedures and treating other patients and teaching time. Please see Assessment and Plan section and the rest of the note for further information on patient assessment and treatment This dictation may have been done utilizing a voice recognition system. Attempts have been made to correct errors. However, there may be uncorrected grammatical, spelling, and recognitions errors present. Telehealth Case Manager Consult Note Consult date: 04/02/25 Reason for consult: Shortness of breath, respiratory distress, asthma exacerbation HPI: Maggie Correa is a 59 year old female with past medical history of asthma, hyperlipidemia, depression, non-Hodgkin's lymphoma presented the ED on 04/02/2024 with complains of shortness of breath, respiratory distress, has been using her inhalers through in a on the day without any relief on 04/01 and 04/02. 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 No previous history of BiPAP or intubation. Patient in the ER stated that she could not catch her breath and throw this closing. In the ED patient's blood pressures were in the 200, nitro paste was ordered. Initial VBG showed hypoxic and hypercapnic respiratory failure. WBC count 23.9, hemoglobin of 14.9, platelets 287. Post intubation ABG showed a pH of 7.22, pCO2 of 63, PO2 of 75 on peep of 5 and 50% FiO2. Electrolytes were within normal limits lactic acid was 1.6, mild elevation in her AST and ALT, total bilirubin was normal, troponin levels was <0.012, CRP was 1.1. ProBNP 567, TSH of 0.079. Creatinine was 0.68. UA was not reflective of UTI. Urine drug screen was positive for opiates, benzos and cannabinoids (patient did receive morphine and diazepam in the ER) 04/02:CT chest abdomen and pelvis: No evidence of mediastinal, hilar or axillary lymphadenopathy, no pulmonary embolism, no aortic aneurysm or dissection P no evidence of pleural or pericardial effusion. Lungs are clear, no pulmonary nodules or infiltrates are noted. No significant abdominal abnormalities were seen. Patient was intubated in the ER, started on Versed infusion, discussed with the ER physician and since her blood pressures were elevated I requested her to start propofol. Patient seen and examined upon arrival to the ICU, remains intubated, on CMV mode of ventilation, peep of 5, 40% FiO2. Versed and propofol infusions. Cruz catheter with clear urine. Hemodynamically stable, adequate O2 sats. Patient is afebrile. Patient does not open eyes or follow simple command Review of Systems 2 Review of Systems: ROS unobtainable: Yes unobtainable due to endotracheal tube, unobtainable due to medical condition and unobtainable due to mental status PMFSH Past Medical History Medical History Asthma Hyperlipemia Depression Non-Hodgkin lymphoma Surgical History Surgical History (Updated 11/05/20 @ 12:59 by Shawna Ruiz MD) H/O: hysterectomy Social History Social History (Updated 11/05/20 @ 13:00 by Shawna Ruiz MD) Smoking status: Never smoker Alcohol intake: never Substance use type: marijuana Meds Home Medications and Allergies Allergies Allergy/AdvReac Type Severity Reaction Status Date / Time rituximab AdvReac Intermediate ABDOMINAL Verified 04/02/25 10:41 PAIN Vital Signs Vital Signs - 24 hr 04/02/25 04:04 04/02/25 04:45 04/02/25 05:00 Temperature 98.1 F Pulse Rate 119 H 113 H Respiratory Rate 30 H 34 H Blood Pressure 166/90 H Pulse Oximetry 100 100 Oxygen Delivery Room Air BiPAP Fraction of Inspired Oxygen 04/02/25 05:00 04/02/25 05:04 04/02/25 05:04 Temperature Pulse Rate 113 H 108 H 113 H Respiratory Rate 34 H 20 34 H Blood Pressure 151/102 H Pulse Oximetry 100 100 Oxygen Delivery BiPAP Fraction of Inspired Oxygen 04/02/25 05:09 04/02/25 05:27 04/02/25 06:32 Temperature Pulse Rate 113 H 112 H Respiratory Rate 27 H 20 Blood Pressure 131/99 H Pulse Oximetry 100 100 97 Oxygen Delivery BiPAP BiPAP Fraction of Inspired Oxygen 50 04/02/25 07:08 04/02/25 07:51 04/02/25 08:15 Temperature Pulse Rate 104 H 117 H Respiratory Rate 29 H 27 H Blood Pressure 144/101 H Pulse Oximetry 98 100 Oxygen Delivery BiPAP Mechanical Ventilation Fraction of Inspired Oxygen 50 04/02/25 08:34 04/02/25 09:23 04/02/25 09:25 Temperature Pulse Rate 140 H 136 H 137 H Respiratory Rate 16 16 23 H Blood Pressure Pulse Oximetry Oxygen Delivery Fraction of Inspired Oxygen 04/02/25 09:27 04/02/25 09:33 04/02/25 09:44 Temperature Pulse Rate 138 H 134 H 131 H Respiratory Rate 19 25 H 20 Blood Pressure 199/142 H Pulse Oximetry 100 Oxygen Delivery Fraction of Inspired Oxygen 04/02/25 09:55 04/02/25 09:57 04/02/25 10:00 Temperature Pulse Rate 107 H 106 H 109 H Respiratory Rate 14 14 Blood Pressure Pulse Oximetry Oxygen Delivery Fraction of Inspired Oxygen 04/02/25 10:00 04/02/25 10:01 04/02/25 10:08 Temperature Pulse Rate 109 H 112 H 118 H Respiratory Rate 24 H 18 25 H Blood Pressure 147/111 H Pulse Oximetry 100 Oxygen Delivery Fraction of Inspired Oxygen 04/02/25 10:12 04/02/25 10:31 04/02/25 10:37 Temperature 98.1 F Pulse Rate 122 H 98 100 Respiratory Rate 18 16 25 H Blood Pressure 138/102 H Pulse Oximetry 100 Oxygen Delivery Fraction of Inspired Oxygen 04/02/25 10:37 04/02/25 10:43 04/02/25 10:46 Temperature Pulse Rate 103 H 108 H 108 H Respiratory Rate 27 H 26 H 21 H Blood Pressure Pulse Oximetry Oxygen Delivery Fraction of Inspired Oxygen 04/02/25 10:46 04/02/25 11:00 06/02/25 11:15 Temperature Pulse Rate 104 H 95 95 Respiratory Rate 26 H 28 H 26 H Blood Pressure Pulse Oximetry Oxygen Delivery Fraction of Inspired Oxygen Exam 2 Narrative: General: Intubated sedated, in no acute distress HEENT:? Pupils are pinpoint but reactive, sclera is clear, ETT in place Neck:? Supple Respiratory:? Diffuse wheezing bilaterally, decreased air entry, no rales Cardiac:? S1-S2 is normal, regular rate and rhythm Abdomen:? Soft, nontender, nondistended, normoactive bowel sound Extremities:? No edema, palpable pedal pulse Neuro:? Intubated, sedated, does not open her eyes or follow simple commands per Skin:? Warm and dry Psych:? Unable to assess at this time Results Labs 04/02/25 04:18 04/02/25 04:18 Labs: Short CBC 04/02/25 Range/Units 04:18 WBC 23.9 H (4.5-10.0) K/mm3 Hgb 14.9 (12.0-15.0) g/dL Hct 43.7 (37.0-47.0) % Plt Count 287 (150-375) k/mm3 BMP 04/02/25 04:18 Sodium 140 Potassium 3.7 Chloride 100 Carbon Dioxide 30 BUN 16 Creatinine 0.68 L Glucose 159 H Calcium 9.5 Cardiac Enzymes 04/02/25 Range/Units 04:18 Troponin I < 0.012 (0.000-0.034) ng/mL Liver Function 04/02/25 Range/Units 04:18 Total Bilirubin 0.7 (0.2-1.3) mg/dL AST 72 H (14-36) U/L ALT 60 H (6-35) U/L Alkaline Phosphatase 65 (38-126) U/L Albumin 5.1 (3.5-5.1) g/dL Urine 04/02/25 Range/Units 08:26 Urine Color Yellow (Yellow) Urine Appearance Clear (Clear) Urine pH 5.0 (5.0-9.0) Ur Specific Nichols 1.015 (1.001-1.035) Urine Protein 1+ H (Negative) mg/dL Urine Glucose (UA) 1+ H (Negative) mg/dL Quality VTE Prophylaxis VTE prophylaxis: pharmacologic ordered Hospitalist [facility] Advance Care Plan I have confirmed that the patient's Advanced Care Plan is present, code status is documented, or surrogate decision maker is listed in patient medical record.: Yes Medication Reconciliation I have utilized all available resources to obtain, update and review the patients current medications (includes all prescriptions, OTC, herbals, cannabis, and nutritional supplements).: Yes
--- NOTE | 2025-04-02 13:07 | WPDPROCEDUR ---
Procedures Central Line Placement Right IJ: Central Line Date: 04/02/25 Central Line Time: 12:15 Discussed w/ the patient/family/POA,the placement of a central venous catheter, including its clinical necessity/indication & associated potential risks, benifits and alternatives.: Yes The patient/family/POA understand(s) and acknowledge(s) the need to proceed with central venous catheter insertion as an important element of the patient's clinical management.: Yes Consent: I have discussed with the patient and/or surrogate, the non-emergent placement of a central venous catheter, including its clinical necessity/indication and associated potential risks and complications. The patient and/or surrogate understand(s) and acknowledge(s) the need to proceed with central venous catheter insertion as an important element of the patient's clinical management. Time Out Performed: Yes Patient Position: supine Patient placed on monitor/pulse ox: Yes Provider Prep: mask, sterile gown, sterile gloves, Max. sterile barrier precautions, cap and hand hygiene with conventional soap/water or alcohol based hand rub Central line prep: 2% Chlorhexidine scrub Local anesthesia used: lidocaine 1% Amount of anesthesia used (ml): 3 Sterile US Technique with sterile gel/sterile probe covers: Yes Central line lumen inserted: triple Estonian: 7 Length (cm): 16 Depth of Insertion (cm): 16 Post Procedure: sutured in place, good blood return, all ports aspirated, flushed, capped, transparent dressing, hemostatic product, antimicrobial product, securement product and aseptic technique maintained throughout procedure Post procedure x-ray: tip of catheter in good position and no pneumothorax seen Patient tolerated procedure: well and no complications Complications: none
[2025-04-02 13:43] LABS: Alveolar/Arterial O2 Gradient 133.1 mmHg; Fractional Inspired Oxygen 40 %; Oxygen Content ABG 18.6 %vol (16.0-22.0); Oxygen Saturation ABG 92.5 % (95.0-100.0); Oxyhemoglobin 92.8 % THb (90.0-100.0); PO2 ABG 76.7 mmHg (80.0-100.0); PO2 FiO2 Ratio Arterial Blood 1.92 %; Total Hemoglobin 14.2 g/dL (12.0-18.0)
[2025-04-02 13:44] LABS: Device VENTILATOR; Modified Allen's Test Pass; PCO2 ABG 65.6 mmHg (35.0-45.0); Site Drawn LEFT RADIAL; pH ABG 7.232 (7.350-7.450)
[2025-04-02 13:45] LABS: Arterial Blood Gas PEEP 5 cmH2O; Arterial Blood Gas Tidal Volume 400 ml; Arterial Blood Gas Vent Mode CMV; Arterial Blood Gas Ventilator rate 14 /MIN
[2025-04-02] MEDS: IPRATROPIUM 0.5 MG/ALBUTEROL SULFATE 2.5 MG AMPUL.NEB 3 ML INHALATION ×2 (13:50→20:43)
[2025-04-02] MEDS: ENOXAPARIN 40 MG/0.4 ML SYRINGE SUB-Q (14:17)
[2025-04-02] MEDS: PANTOPRAZOLE SODIUM IV 40 MG VIAL IV PUSH (14:17)
[2025-04-02] MEDS: CENTRAL LINE FLUSH 10 ML IV PUSH ×2 (14:18→20:02)
[2025-04-02] MEDS: LACTATED RINGERS 500 ML 999 ML IV CONT (14:25)
[2025-04-02] MEDS: PROPOFOL IV EMULSION 100 ML 21.81 MG IV CONT ×3 (14:27→23:11)
--- NOTE | 2025-04-02 14:27 | P.HP_ITS ---
H&P: HPI History of Present Illness Date/Time: 04/02/25 14:27 Chief Complaint: Shortness of Breath/Dyspnea Narrative: Patient is 59 year old female with past medical history of asthma, hyperlipidemia, depression, non-Hodgkin's lymphoma presented the ED on 04/02/2024 with complains of shortness of breath, respiratory distress, has been using her inhalers through in a on the day without any relief on 04/01 and 0 04/02. As per daughter patient recently went to [facility] 2 days ago due to low saturation in 80%. She believes was not admitted and discharged with inhaler. Past 2 days when she was talking to her in the phone she believes her mother was exhausted and not able to complete sentences. She reports her mother texted her this morning around 1:00 a.m. to see whether she was awake. Unfortunately she was not awake and saw the message after 3 hours and her neighbors told patient was taken in ambulance to the hospital. She also reports patient has a history of non-Hodgkin's lymphoma which was diagnosed approximately around 2013 when she was living in [place]. She returned back to [place] and follows up with oncologist at [place]. Also she reported patient has some masses in thyroid possibly related to NHL. She receives IVIG periodically. Pertinent ED labs: WBC 23.9, hemoglobin 14.9, hematocrit 43.7, platelet 287, sodium 140, potassium 3.7, carbon dioxide 30, creatinine 0.6, glucose 159 CT chest abdomen and pelvis: No evidence of mediastinal, hilar or axillary lymphadenopathy, no pulmonary embolism, no aortic aneurysm or dissection P no evidence of pleural or pericardial effusion. Lungs are clear, no pulmonary nodules or infiltrates are noted. No significant abdominal abnormalities were seen. Patient was intubated in the ER, started on Versed infusion, discussed with the ER physician and since her blood pressures were elevated I requested her to start propofol. Patient seen and examined upon arrival to the ICU, remains intubated, on CMV mode of ventilation, peep of 5, 40% FiO2. Versed and propofol infusions. Cruz catheter with clear urine. Hemodynamically stable, adequate O2 sats. Patient is afebrile. Patient does not open eyes or follow simple command. Patient has been is returning from [place] this Wednesday. Review of Systems Review of Systems: Except as documented, all other systems were reviewed and are negative. ROS unobtainable: Yes unobtainable due to endotracheal tube, unobtainable due to medical condition and unobtainable due to mental status PMFSH Past Medical History Medical History Asthma Hyperlipemia Depression Non-Hodgkin lymphoma Surgical History Surgical History (Updated 11/05/20 @ 12:59 by Shawna Ruiz MD) H/O: hysterectomy Social History Social History (Updated 11/05/20 @ 13:00 by Shawna Ruiz MD) Smoking status: Current every day smoker Alcohol intake: never Substance use: current Substance use type: marijuana Spiritual care concerns: No Meds Home Medications and Allergies Home Medications ?Medication ?Instructions ?Recorded ?Confirmed ?Type albuterol sulfate 90 mcg/actuation 2 puff inhalation Q6H PRN 04/02/25 04/02/25 History aerosol inhaler shortness of breath or wheezing budesonide-formoterol HFA 160 2 puff inhalation Q12H 04/02/25 04/02/25 History mcg-4.5 mcg/actuation aerosol inhaler bupropion HCl 200 mg tablet,12 hr 200 mg PO DAILY 04/02/25 04/02/25 History sustained-release dextroamphetamine-amphetamine 10 20 mg PO DAILY 04/02/25 04/02/25 History mg tablet ipratropium 0.5 mg-albuterol 3 mg 3 ml inhalation Q8H PRN shortness 04/02/25 04/02/25 History (2.5 mg base)/3 mL nebulization of breath or wheezing soln prednisone 20 mg tablet 20 mg PO DAILY 04/02/25 04/02/25 History Allergies Allergy/AdvReac Type Severity Reaction Status Date / Time rituximab AdvReac Intermediate ABDOMINAL Verified 04/02/25 10:41 PAIN Vital Signs Vital Signs - 24 hr 04/02/25 04:04 04/02/25 04:45 04/02/25 05:00 Temperature 98.1 F Pulse Rate 119 H 113 H Respiratory Rate 30 H 34 H Blood Pressure 166/90 H Pulse Oximetry 100 100 Oxygen Delivery Room Air BiPAP Fraction of Inspired Oxygen 04/02/25 05:00 04/02/25 05:04 04/02/25 05:04 Temperature Pulse Rate 113 H 108 H 113 H Respiratory Rate 34 H 20 34 H Blood Pressure 151/102 H Pulse Oximetry 100 100 Oxygen Delivery BiPAP Fraction of Inspired Oxygen 04/02/25 05:09 04/02/25 05:27 04/02/25 06:32 Temperature Pulse Rate 113 H 112 H Respiratory Rate 27 H 20 Blood Pressure 131/99 H Pulse Oximetry 100 100 97 Oxygen Delivery BiPAP BiPAP Fraction of Inspired Oxygen 50 04/02/25 07:08 04/02/25 07:51 04/02/25 08:15 Temperature Pulse Rate 104 H 117 H Respiratory Rate 29 H 27 H Blood Pressure 144/101 H Pulse Oximetry 98 100 Oxygen Delivery BiPAP Mechanical Ventilation Fraction of Inspired Oxygen 50 04/02/25 08:34 04/02/25 09:23 04/02/25 09:25 Temperature Pulse Rate 140 H 136 H 137 H Respiratory Rate 16 16 23 H Blood Pressure Pulse Oximetry Oxygen Delivery Fraction of Inspired Oxygen 04/02/25 09:27 04/02/25 09:33 04/02/25 09:44 Temperature Pulse Rate 138 H 134 H 131 H Respiratory Rate 19 25 H 20 Blood Pressure 199/142 H Pulse Oximetry 100 Oxygen Delivery Fraction of Inspired Oxygen 04/02/25 09:55 04/02/25 09:57 04/02/25 10:00 Temperature Pulse Rate 107 H 106 H 109 H Respiratory Rate 14 14 Blood Pressure Pulse Oximetry Oxygen Delivery Fraction of Inspired Oxygen 04/02/25 10:00 04/02/25 10:01 04/02/25 10:08 Temperature Pulse Rate 109 H 112 H 118 H Respiratory Rate 24 H 18 25 H Blood Pressure 147/111 H Pulse Oximetry 100 Oxygen Delivery Fraction of Inspired Oxygen 04/02/25 10:12 04/02/25 10:31 04/02/25 10:37 Temperature 98.1 F Pulse Rate 122 H 98 100 Respiratory Rate 18 16 25 H Blood Pressure 138/102 H Pulse Oximetry 100 Oxygen Delivery Fraction of Inspired Oxygen 04/02/25 10:37 04/02/25 10:43 04/02/25 10:46 Temperature Pulse Rate 103 H 108 H 108 H Respiratory Rate 27 H 26 H 21 H Blood Pressure Pulse Oximetry Oxygen Delivery Fraction of Inspired Oxygen 04/02/25 10:46 04/02/25 11:00 04/02/25 11:15 Temperature Pulse Rate 104 H 95 95 Respiratory Rate 26 H 28 H 26 H Blood Pressure Pulse Oximetry Oxygen Delivery Fraction of Inspired Oxygen 04/02/25 11:15 04/02/25 11:30 04/02/25 11:36 Temperature Pulse Rate 95 93 98 Respiratory Rate 26 H 26 H Blood Pressure 81/64 L 81/66 L Pulse Oximetry 98 96 99 Oxygen Delivery Mechanical Ventilation Fraction of Inspired Oxygen 40 04/02/25 11:45 04/02/25 12:00 04/02/25 12:00 Temperature Pulse Rate 99 Respiratory Rate 14 Blood Pressure 86/65 L Pulse Oximetry 98 99 Oxygen Delivery Mechanical Ventilation Fraction of Inspired Oxygen 40 40 04/02/25 12:00 04/02/25 12:00 04/02/25 12:00 Temperature 97.4 F L Pulse Rate 93 93 97 Respiratory Rate 14 14 14 Blood Pressure 97/76 L Pulse Oximetry 98 Oxygen Delivery Fraction of Inspired Oxygen 04/02/25 12:00 04/02/25 13:50 04/02/25 13:50 Temperature Pulse Rate 94 94 94 Respiratory Rate 16 Blood Pressure Pulse Oximetry 98 Oxygen Delivery Mechanical Ventilation Fraction of Inspired Oxygen 40 04/02/25 13:50 04/02/25 14:00 04/02/25 14:00 Temperature Pulse Rate 95 95 Respiratory Rate 16 Blood Pressure 101/73 Pulse Oximetry 98 Oxygen Delivery Fraction of Inspired Oxygen 40 04/02/25 14:00 04/02/25 14:00 Temperature Pulse Rate 95 95 Respiratory Rate 16 16 Blood Pressure Pulse Oximetry Oxygen Delivery Fraction of Inspired Oxygen Exam Narrative: General: Intubated sedated, in no acute distress HEENT:? Pupils are pinpoint but reactive, sclera is clear, ETT in place Neck:? Supple Respiratory:? Diffuse wheezing bilaterally, decreased air entry, no rales Cardiac:? S1-S2 is normal, regular rate and rhythm Abdomen:? Soft, nontender, nondistended, normoactive bowel sound Extremities:? No edema, palpable pedal pulse Neuro:? Intubated, sedated, does not open her eyes or follow simple commands per Skin:? Warm and dry Psych:? Unable to assess at this time H&P: Results Labs Labs: Short CBC 04/02/25 Range/Units 04:18 WBC 23.9 H (4.5-10.0) K/mm3 Hgb 14.9 (12.0-15.0) g/dL Hct 43.7 (37.0-47.0) % Plt Count 287 (150-375) k/mm3 BMP 04/02/25 04:18 Sodium 140 Potassium 3.7 Chloride 100 Carbon Dioxide 30 BUN 16 Creatinine 0.68 L Glucose 159 H Calcium 9.5 Cardiac Enzymes 04/02/25 Range/Units 04:18 Troponin I < 0.012 (0.000-0.034) ng/mL Liver Function 04/02/25 Range/Units 04:18 Total Bilirubin 0.7 (0.2-1.3) mg/dL AST 72 H (14-36) U/L ALT 60 H (6-35) U/L Alkaline Phosphatase 65 (38-126) U/L Albumin 5.1 (3.5-5.1) g/dL Urine 04/02/25 Range/Units 08:26 Urine Color Yellow (Yellow) Urine Appearance Clear (Clear) Urine pH 5.0 (5.0-9.0) Ur Specific [place] 1.015 (1.001-1.035) Urine Protein 1+ H (Negative) mg/dL Urine Glucose (UA) 1+ H (Negative) mg/dL Assessment and Plan Assessment and plan (1) Respiratory failure: Qualifiers: Chronicity: acute Respiratory failure complication: hypercapnia Qualified Code(s): J96.02 - Acute respiratory failure with hypercapnia Code(s): J96.90 - Respiratory failure, unspecified, unspecified whether with hypoxia or hypercapnia Status: Acute Assessment and Plan: Acute respiratory failure likely related to asthma exacerbation -continue mechanical ventilation with low respiratory rate, high I:E ratio -Sedated with propofol and Versed infusion, patient did receive a dose of rocuronium as she was dyssynchronous with the ventilator with high peak pressures. Maintain RASS of -2 -continue bronchodilators -continue IV steroids -added Pulmicort (2) Asthma exacerbation: Code(s): J45.901 - Unspecified asthma with (acute) exacerbation Status: Acute Assessment and Plan: Patient has a history of asthma, came in with asthma exacerbation. Received Solu-Medrol, epinephrine, magnesium, continues nebs in the ED 04/02: Intubated, discussed with ER physician, patient was tripoding and was in severe respiratory distress so was intubated for airway protection -remains on CMV mode of ventilation, low respiratory rate, I increased the I : E ratio -chest x-ray reviewed -Repeat ABGs -treatment as above 04/02:CT chest abdomen and pelvis: No evidence of mediastinal, hilar or axillary lymphadenopathy, no pulmonary embolism, no aortic aneurysm or dissection P no evidence of pleural or pericardial effusion. Lungs are clear, no pulmonary nodules or infiltrates are noted. No significant abdominal abnormalities were seen. (3) Leukocytosis: Code(s): D72.829 - Elevated white blood cell count, unspecified Status: Acute Assessment and Plan: Leukocytosis likely reactive, received 1 dose of cefepime and vancomycin -will start ceftriaxone for asthma exacerbation -continue to monitor -CRP is low (4) Multinodular goiter: Code(s): E04.2 - Nontoxic multinodular goiter Status: Acute Assessment and Plan: Patient has multinodular goiter, will obtain thyroid ultrasound -TSH levels are low -patient required may require FNAC, once thyroid ultrasound is done will have intervention Radiology to of FNAC is extubated CTA neck: IMPRESSION: 1. No evident atherosclerotic plaque with 0% stenosis of the right and left carotid bulbs relative to normal distal artery lumen diameter (NASCET criteria). 2. Multinodular goiter. Could consider thyroid ultrasound for risk stratification. (5) Transaminitis: Code(s): R74.01 - Elevation of levels of liver transaminase levels Status: Acute Assessment and Plan: Elevation LFTs likely related to hypovolemia, hypoxia due to asthma exacerbated -will obtain right upper quadrant ultrasound, hepatitis panel Quality VTE Prophylaxis VTE prophylaxis: pharmacologic ordered Hospitalist [facility] Advance Care Plan I have confirmed that the patient's Advanced Care Plan is present, code status is documented, or surrogate decision maker is listed in patient medical record.: Yes Medication Reconciliation I have utilized all available resources to obtain, update and review the patients current medications (includes all prescriptions, OTC, herbals, cannabis, and nutritional supplements).: Yes
[2025-04-02 14:41] LABS: Hepatitis B Surface Antigen Negative (Negative); Thyroid Stimulating Hormone 0.072 uIU/mL (0.465-4.680)
[2025-04-02 14:47] LABS: HAV RESULT Negative (Negative); Hepatitis B Core IgM Result Negative (Negative)
[2025-04-02 14:55] LABS: Alveolar/Arterial O2 Gradient 138.1 mmHg; Fractional Inspired Oxygen 40 %; HCO3 ABG 25.9 mEq/l (22.0-26.0); Oxygen Content ABG 16.8 %vol (16.0-22.0); Oxygen Saturation ABG 93.9 % (95.0-100.0); Oxyhemoglobin 93.8 % THb (90.0-100.0); PCO2 ABG 58.5 mmHg (35.0-45.0); PO2 ABG 79.8 mmHg (80.0-100.0); Total Hemoglobin 12.7 g/dL (12.0-18.0)
[2025-04-02 14:56] LABS: Influenza A QL RT-PCR Negative (Negative); Influenza B QL RT-PCR Negative (Negative); RSV RNA, RT-PCR Negative (Negative); SARS-CoV-2 RNA PCR Negative (Negative)
[2025-04-02 14:56] LABS: Arterial Blood Gas PEEP 5 cmH2O; Arterial Blood Gas Tidal Volume 450 ml; Arterial Blood Gas Vent Mode CMV; Arterial Blood Gas Ventilator rate 16 /MIN; Device VENTILATOR; Modified Allen's Test Pass; Site Drawn LEFT RADIAL; pH ABG 7.264 (7.350-7.450)
[2025-04-02 14:59] LABS: Hepatitis C Virus Antibody Negative (Negative)
--- NOTE | 2025-04-02 15:15 | PC.NURSE ---
medical history and medication rec was given through daughter Yanira Deleoner
[2025-04-02] MEDS: methylPREDNISolone SOD SUCC 40 MG VIAL IV PUSH ×2 (17:09→23:12)
[2025-04-02] MEDS: BUDESONIDE RESPULE NEB 0.5 MG/2 ML AMP INHALATION (20:42)
[2025-04-02 21:25] LABS: Alveolar/Arterial O2 Gradient 155.7 mmHg; Fractional Inspired Oxygen 40 %; HCO3 ABG 24.1 mEq/l (22.0-26.0); Oxygen Content ABG 17.3 %vol (16.0-22.0); Oxygen Saturation ABG 96.7 % (95.0-100.0); Oxyhemoglobin 96.6 % THb (90.0-100.0); PCO2 ABG 37.7 mmHg (35.0-45.0); PO2 ABG 86.1 mmHg (80.0-100.0); PO2 FiO2 Ratio Arterial Blood 2.15 %; Total Hemoglobin 12.7 g/dL (12.0-18.0); pH ABG 7.424 (7.350-7.450)
[2025-04-02 21:31] LABS: Arterial Blood Gas Vent Mode CMV; Arterial Blood Gas Ventilator rate 16 /MIN; Device VENTILATOR; Modified Allen's Test Pass; Site Drawn RIGHT RADIAL
[2025-04-02 21:32] LABS: Arterial Blood Gas PEEP 5 cmH2O; Arterial Blood Gas Tidal Volume 450 ml
[2025-04-02 23:24] LABS: Glucose Point of Care 167 mg/dl (65-105)
[2025-04-03] VITALS (35 sets, daily range): BP systolic 94–129; BP diastolic 63–88; PULSE 77–101; RESP 16–22; TEMP 36.7–37.2; O2SAT 91–100; BMI 25.8
[2025-04-03] MEDS: IPRATROPIUM 0.5 MG/ALBUTEROL SULFATE 2.5 MG AMPUL.NEB 3 ML INHALATION ×4 (02:26→20:46)
[2025-04-03] MEDS: MIDAZOLAM 100MG/NS 100ML(*CRX) 100 MG/100 ML BAG IV CONT ×2 (02:43→17:17)
[2025-04-03] MEDS: PROPOFOL IV EMULSION 100 ML 21.81 MG IV CONT ×5 (03:35→20:00)
[2025-04-03] MEDS: VANCOMYCIN 1,250 MG/NS 250 ML 1,250 MG/250 ML BAG 250 MG IVPB (03:36)
[2025-04-03 04:32] LABS: Alveolar/Arterial O2 Gradient 152.6 mmHg; Base Excess ABG 2.7 mEq/l (+/-2.0); Carboxyhemoglobin 0.3 % THb (0-2.0); Fractional Inspired Oxygen 40 %; HCO3 ABG 26.7 mEq/l (22.0-26.0); Methemoglobin ABG 0.1 %THb (0-1.5); Oxygen Content ABG 16.6 %vol (16.0-22.0); Oxygen Saturation ABG 97.1 % (95.0-100.0); Oxyhemoglobin 96.8 % THb (90.0-100.0); PCO2 ABG 38.6 mmHg (35.0-45.0); PO2 ABG 88.2 mmHg (80.0-100.0); Reduced Hemoglobin 2.8 %THb (0-5.0); Total Hemoglobin 12.1 g/dL (12.0-18.0); pH ABG 7.457 (7.350-7.450)
[2025-04-03 04:43] LABS: Arterial Blood Gas PEEP 5 cmH2O; Arterial Blood Gas Tidal Volume 450 ml; Arterial Blood Gas Vent Mode CMV; Arterial Blood Gas Ventilator rate 16 /MIN; Device VENTILATOR; Modified Allen's Test Pass; Site Drawn RIGHT RADIAL
[2025-04-03 04:57] LABS: Hematocrit 33.8 % (37.0-47.0); Hemoglobin 10.9 g/dL (12.0-15.0); Mean Corpuscular HGB Conc 32.2 g/dl (32-36); Mean Corpuscular Hemoglobin 33.9 pg (26-34); Mean Platelet Volume 10.7 fl (7.4-10.4); Platelet Count Result 185 k/mm3 (150-375); Red Blood Count 3.22 M/mm3 (4.2-5.4); Red Cell Distribution Width 14.1 % (11.5-14.5); White Blood Count 14.7 K/mm3 (4.5-10.0)
[2025-04-03 05:10] LABS: Alanine Aminotransferase 44 U/L (6-35); Albumin Level 3.7 g/dL (3.5-5.1); Alkaline Phosphatase 53 U/L (38-126); Anion Gap 4 mmol/L (4-12); Aspartate Amino Transferase 44 U/L (14-36); Bilirubin,Total 0.3 mg/dL (0.2-1.3); Blood Urea Nitrogen 17 mg/dL (7-17); Calcium 9.2 mg/dL (8.4-10.2); Carbon Dioxide 29 mmol/L (22-30); Chloride 107 mmol/L (98-107); Estimated CRCL calculation 65 ml/min; Estimated Glomerular Filt Rate > 60; Glucose 162 mg/dL (65-110); Lactic Acid Reflex 1.1 mmol/L (0.7-2.0); Magnesium 2.5 mg/dL (1.6-2.3); Phosphorus 2.4 mg/dL (2.5-4.5); Potassium 3.5 mmol/L (3.4-5.0); Sodium 140 mmol/L (137-145)
[2025-04-03] MEDS: CENTRAL LINE FLUSH 20 ML IV PUSH (05:21)
[2025-04-03] MEDS: methylPREDNISolone SOD SUCC 40 MG VIAL IV PUSH ×2 (05:21→17:14)
[2025-04-03] MEDS: LACTATED RINGERS 1,000 ML 125 ML IV CONT (05:22)
[2025-04-03] MEDS: CENTRAL LINE FLUSH 10 ML IV PUSH ×3 (05:22→22:24)
[2025-04-03 05:48] LABS: Band Neutrophils Percent 12 % (0-6); Lymphocytes Absolute Manual 1.02 K/mm3 (1.1-4.5); Monocytes Absolute Manual 0.44 K/mm3 (0.1-0.90); Monocytes Percent Manual 3 % (3-9); Neutrophils Absolute Manual 13.23 K/mm3 (1.3-6.7); Neutrophils Percent Manual 78 % (46-73); Platelet Estimate Adequate (Adequate); Schistocytes None Seen; Total Cells Counted 100
[2025-04-03] MEDS: BUDESONIDE RESPULE NEB 0.5 MG/2 ML AMP INHALATION ×2 (07:52→20:46)
[2025-04-03] MEDS: ENOXAPARIN 40 MG/0.4 ML SYRINGE SUB-Q (08:12)
[2025-04-03] MEDS: PANTOPRAZOLE SODIUM IV 40 MG VIAL IV PUSH (08:12)
[2025-04-03] MEDS: MINERAL OIL/WHITE PETROLATUM OINTMENT 1 APPLIC EACH EYE ×2 (08:12→20:02)
[2025-04-03] MEDS: POTASSIUM/PHOSPHORUS/SODIUM 1.5 GM PACKET 1 PACKET FEED TUBE (08:12)
--- NOTE | 2025-04-03 09:19 | WPDINTPN ---
Progress Note: A&P Assessment and Plan (1) Respiratory failure: Qualifiers: Chronicity: acute Respiratory failure complication: hypercapnia Qualified Code(s): J96.02 - Acute respiratory failure with hypercapnia Code(s): J96.90 - Respiratory failure, unspecified, unspecified whether with hypoxia or hypercapnia Status: Acute Assessment and Plan: Acute respiratory failure likely related to status asthmaticus -continue mechanical ventilation. ABG improving. Hypercapnia has resolved. -decrease tidal volume to 420 -continue sedation with propofol and Versed infusion. Patient did receive neuromuscular jaimie at the time of presentation but now off -continue bronchodilators -continue IV steroids but decrease to q.12 hours -continue Pulmicort (2) Asthma exacerbation: Code(s): J45.901 - Unspecified asthma with (acute) exacerbation Status: Acute Assessment and Plan: Patient has a history of asthma, came in with asthma exacerbation. Received Solu-Medrol, epinephrine, magnesium, continues nebs in the ED 04/02: Intubated, discussed with ER physician, patient was tripoding and was in severe respiratory distress so was intubated for airway protection Management as above 04/02:CT chest abdomen and pelvis: No evidence of mediastinal, hilar or axillary lymphadenopathy, no pulmonary embolism, no aortic aneurysm or dissection P no evidence of pleural or pericardial effusion. Lungs are clear, no pulmonary nodules or infiltrates are noted. No significant abdominal abnormalities were seen. (3) Leukocytosis: Code(s): D72.829 - Elevated white blood cell count, unspecified Status: Acute Assessment and Plan: Leukocytosis likely reactive, received 1 dose of cefepime and vancomycin -continue ceftriaxone for asthma exacerbation -continue to monitor -CRP is low (4) Multinodular goiter: Code(s): E04.2 - Nontoxic multinodular goiter Status: Acute Assessment and Plan: Patient has multinodular goiter, although I a.m. not sure of the treatment details TSH levels are low but T3 and T4 adequate Will try to obtain records CTA neck: IMPRESSION: 1. No evident atherosclerotic plaque with 0% stenosis of the right and left carotid bulbs relative to normal distal artery lumen diameter (NASCET criteria). 2. Multinodular goiter. Could consider thyroid ultrasound for risk stratification. Thyroid ultrasound 1. Limited study. Multinodular goiter. Recommend repeat thyroid ultrasound when the patient's condition permits. (5) Transaminitis: Code(s): R74.01 - Elevation of levels of liver transaminase levels Status: Acute Assessment and Plan: Elevation LFTs likely related to hypovolemia, hypoxia due to asthma exacerbated Right upper quadrant ultrasound is unremarkable Plan DVT prophylaxis: Lovenox Stress ulcer prophylaxis: Protonix Nutrition: Start Tube feeds Code Status: Full code Critical Care Time Spent: 32 minutes Due to a high probability of clinically significant, life threatening deterioration, the patient required my highest level of preparedness to intervene emergently and I personally spent this critical care time directly and personally managing the patient. This critical care time included obtaining a history; examining the patient; pulse oximetry; ordering and review of studies; arranging urgent treatment with development of a management plan; evaluation of patient's response to treatment; frequent reassessment; and discussions with other providers. It was exclusive of separately billable procedures and treating other patients and teaching time. Please see Assessment and Plan section and the rest of the note for further information on patient assessment and treatment This dictation may have been done utilizing a voice recognition system. Attempts have been made to correct errors. However, there may be uncorrected grammatical, spelling, and recognitions errors present. Subjective Date/time seen: 04/03/25 Overnight events reviewed. Afebrile Continues to be on mechanical ventilation 35% FiO2 Continues to be sedated with Versed and propofol Other Vitals acceptable Review of Systems Review of Systems: ROS unobtainable: Yes unobtainable due to endotracheal tube, unobtainable due to medical condition and unobtainable due to mental status Exam Narrative: General: Intubated sedated, in no acute distress HEENT:? Pupils are pinpoint but reactive, sclera is clear, ETT in place Neck:? Supple Respiratory:? Diffuse wheezing bilaterally, , no rales Cardiac:? S1-S2 is normal, regular rate and rhythm Abdomen:? Soft, nontender, nondistended, normoactive bowel sound Extremities:? No edema, palpable pedal pulse Neuro:? Intubated, sedated, does not open her eyes or follow simple commands per Skin:? Warm and dry Psych:? Unable to assess at this time Objective Data Vital Signs Vital Signs: Vital Signs - 24 hr 04/02/25 09:23 04/02/25 09:25 04/02/25 09:27 Temperature Pulse Rate 136 H 137 H 138 H Respiratory Rate 16 23 H 19 Blood Pressure 199/142 H Pulse Oximetry 100 Oxygen Delivery Fraction of Inspired Oxygen 04/02/25 09:33 04/02/25 09:44 04/02/25 09:55 Temperature Pulse Rate 134 H 131 H 107 H Respiratory Rate 25 H 20 14 Blood Pressure Pulse Oximetry Oxygen Delivery Fraction of Inspired Oxygen 04/02/25 09:57 04/02/25 10:00 04/02/25 10:00 Temperature Pulse Rate 106 H 109 H 109 H Respiratory Rate 14 24 H Blood Pressure 147/111 H Pulse Oximetry 100 Oxygen Delivery Fraction of Inspired Oxygen 04/02/25 10:01 04/02/25 10:08 04/02/25 10:12 Temperature Pulse Rate 112 H 118 H 122 H Respiratory Rate 18 25 H 18 Blood Pressure Pulse Oximetry Oxygen Delivery Fraction of Inspired Oxygen 04/02/25 10:31 04/02/25 10:37 04/02/25 10:37 Temperature 36.7 C Pulse Rate 98 100 103 H Respiratory Rate 16 25 H 27 H Blood Pressure 138/102 H Pulse Oximetry 100 Oxygen Delivery Fraction of Inspired Oxygen 04/02/25 10:43 04/02/25 10:46 04/02/25 10:46 Temperature Pulse Rate 108 H 108 H 104 H Respiratory Rate 26 H 21 H 26 H Blood Pressure Pulse Oximetry Oxygen Delivery Fraction of Inspired Oxygen 04/02/25 11:00 04/02/25 11:15 04/02/25 11:15 Temperature Pulse Rate 95 95 95 Respiratory Rate 28 H 26 H 26 H Blood Pressure 81/64 L Pulse Oximetry 98 Oxygen Delivery Fraction of Inspired Oxygen 04/02/25 11:30 04/02/25 11:36 04/02/25 11:45 Temperature Pulse Rate 93 98 99 Respiratory Rate 26 H 14 Blood Pressure 81/66 L 86/65 L Pulse Oximetry 96 99 98 Oxygen Delivery Mechanical Ventilation Fraction of Inspired Oxygen 40 04/02/25 12:00 04/02/25 12:00 04/02/25 12:00 Temperature Pulse Rate 93 Respiratory Rate 14 Blood Pressure Pulse Oximetry 99 Oxygen Delivery Mechanical Ventilation Fraction of Inspired Oxygen 40 40 04/02/25 12:00 04/02/25 12:00 04/02/25 12:00 Temperature 36.3 C L Pulse Rate 93 97 94 Respiratory Rate 14 14 Blood Pressure 97/76 L Pulse Oximetry 98 Oxygen Delivery Fraction of Inspired Oxygen 04/02/25 13:50 04/02/25 13:50 04/02/25 13:50 Temperature Pulse Rate 94 94 Respiratory Rate 16 Blood Pressure Pulse Oximetry 98 Oxygen Delivery Mechanical Ventilation Fraction of Inspired Oxygen 40 40 04/02/25 14:00 04/02/25 14:00 04/02/25 14:00 Temperature Pulse Rate 95 95 95 Respiratory Rate 16 16 Blood Pressure 101/73 Pulse Oximetry 98 Oxygen Delivery Fraction of Inspired Oxygen 04/02/25 14:00 04/02/25 14:27 04/02/25 14:27 Temperature Pulse Rate 95 94 94 Respiratory Rate 16 16 16 Blood Pressure Pulse Oximetry Oxygen Delivery Fraction of Inspired Oxygen 04/02/25 14:40 04/02/25 16:00 04/02/25 16:00 Temperature 36.7 C Pulse Rate 92 92 92 Respiratory Rate 16 16 16 Blood Pressure 113/91 H Pulse Oximetry 98 Oxygen Delivery Fraction of Inspired Oxygen 04/02/25 16:00 04/02/25 16:00 04/02/25 16:00 Temperature Pulse Rate 92 Respiratory Rate 16 Blood Pressure Pulse Oximetry 98 Oxygen Delivery Mechanical Ventilation Fraction of Inspired Oxygen 40 40 04/02/25 16:00 04/02/25 16:45 04/02/25 18:00 Temperature Pulse Rate 93 90 87 Respiratory Rate Blood Pressure Pulse Oximetry 99 Oxygen Delivery Mechanical Ventilation Fraction of Inspired Oxygen 40 04/02/25 18:00 04/02/25 18:00 04/02/25 18:00 Temperature Pulse Rate 88 88 88 Respiratory Rate 16 16 16 Blood Pressure 102/80 Pulse Oximetry 99 Oxygen Delivery Fraction of Inspired Oxygen 04/02/25 18:55 04/02/25 18:55 04/02/25 20:00 Temperature Pulse Rate 87 87 Respiratory Rate 16 16 Blood Pressure Pulse Oximetry Oxygen Delivery Fraction of Inspired Oxygen 40 04/02/25 20:00 04/02/25 20:00 04/02/25 20:00 Temperature Pulse Rate 83 83 Respiratory Rate 16 16 Blood Pressure Pulse Oximetry 100 Oxygen Delivery Mechanical Ventilation Fraction of Inspired Oxygen 40 04/02/25 20:00 04/02/25 20:04 04/02/25 20:40 Temperature 37.1 C Pulse Rate 85 87 86 Respiratory Rate 16 16 Blood Pressure 131/92 H Pulse Oximetry 100 Oxygen Delivery Fraction of Inspired Oxygen 04/02/25 20:45 04/02/25 20:58 04/02/25 22:00 Temperature Pulse Rate 86 86 96 Respiratory Rate 16 Blood Pressure Pulse Oximetry 100 Oxygen Delivery Mechanical Ventilation Fraction of Inspired Oxygen 40 04/02/25 22:00 04/02/25 22:00 04/02/25 22:00 Temperature Pulse Rate 96 96 96 Respiratory Rate 16 16 16 Blood Pressure 116/80 Pulse Oximetry 99 Oxygen Delivery Fraction of Inspired Oxygen 04/02/25 23:11 04/02/25 23:11 04/02/25 23:38 Temperature Pulse Rate 95 95 Respiratory Rate 16 16 Blood Pressure Pulse Oximetry 99 Oxygen Delivery Mechanical Ventilation Fraction of Inspired Oxygen 40 04/02/25 23:38 04/02/25 23:53 04/03/25 00:00 Temperature 37.1 C Pulse Rate 100 94 Respiratory Rate 16 Blood Pressure 119/84 Pulse Oximetry 95 99 Oxygen Delivery Mechanical Ventilation Fraction of Inspired Oxygen 40 40 04/03/25 00:00 04/03/25 00:00 04/03/25 00:00 Temperature Pulse Rate 94 94 94 Respiratory Rate 16 16 Blood Pressure Pulse Oximetry Oxygen Delivery Fraction of Inspired Oxygen 04/03/25 02:00 04/03/25 02:00 04/03/25 02:00 Temperature Pulse Rate 93 93 93 Respiratory Rate 16 16 Blood Pressure 115/87 Pulse Oximetry 99 Oxygen Delivery Fraction of Inspired Oxygen 04/03/25 02:00 04/03/25 02:26 04/03/25 02:26 Temperature Pulse Rate 93 91 98 Respiratory Rate 16 20 Blood Pressure Pulse Oximetry 91 Oxygen Delivery Mechanical Ventilation Fraction of Inspired Oxygen 40 04/03/25 02:40 04/03/25 02:43 04/03/25 02:43 Temperature Pulse Rate 91 98 98 Respiratory Rate 20 20 20 Blood Pressure Pulse Oximetry Oxygen Delivery Fraction of Inspired Oxygen 04/03/25 03:35 04/03/25 03:35 04/03/25 03:56 Temperature Pulse Rate 98 98 Respiratory Rate 16 16 Blood Pressure Pulse Oximetry 98 Oxygen Delivery Mechanical Ventilation Fraction of Inspired Oxygen 40 04/03/25 03:57 04/03/25 04:00 04/03/25 04:00 Temperature 37.2 C Pulse Rate 96 96 Respiratory Rate 16 Blood Pressure 110/74 Pulse Oximetry 95 Oxygen Delivery Fraction of Inspired Oxygen 40 04/03/25 04:00 04/03/25 04:00 04/03/25 04:37 Temperature Pulse Rate 96 96 98 Respiratory Rate 16 16 Blood Pressure Pulse Oximetry 91 Oxygen Delivery Mechanical Ventilation Fraction of Inspired Oxygen 40 04/03/25 05:25 04/03/25 05:31 04/03/25 06:00 Temperature Pulse Rate 98 91 Respiratory Rate Blood Pressure Pulse Oximetry 91 Oxygen Delivery Mechanical Ventilation Fraction of Inspired Oxygen 35 35 04/03/25 06:00 04/03/25 06:00 04/03/25 06:00 Temperature Pulse Rate 91 91 91 Respiratory Rate 16 16 16 Blood Pressure 113/79 Pulse Oximetry 97 Oxygen Delivery Fraction of Inspired Oxygen 04/03/25 07:54 04/03/25 07:54 04/03/25 08:00 Temperature 36.7 C Pulse Rate 90 90 90 Respiratory Rate 16 16 Blood Pressure 129/88 Pulse Oximetry 100 98 Oxygen Delivery Mechanical Ventilation Fraction of Inspired Oxygen 35 04/03/25 08:00 04/03/25 08:00 04/03/25 08:00 Temperature Pulse Rate 90 90 90 Respiratory Rate 16 16 16 Blood Pressure Pulse Oximetry Oxygen Delivery Fraction of Inspired Oxygen 04/03/25 08:28 Temperature Pulse Rate 101 H Respiratory Rate 22 H Blood Pressure Pulse Oximetry Oxygen Delivery Fraction of Inspired Oxygen Intake/Output Intake/Output: Intake & Output 03/31/25 04/01/25 04/02/25 04/03/25 23:59 23:59 23:59 23:59 Intake Total 4448.9 1821.6 Output Total 400 500 Balance 4048.9 1321.6 Meds/Results Medications: Active Medications Generic Name Dose Route Start Last Admin Trade Name Freq PRN Reason Stop Dose Admin Acetaminophen 650 mg 04/02/25 09:36 Acetaminophen 650 Mg Suppository RECTAL Q6H PRN Mild Pain (1-3) or Fever Albuterol/Ipratropium 3 ml 04/02/25 14:00 04/03/25 07:51 Ipratropium 0.5 Mg/Albuterol Sulfate 2.5 Mg Ampul.Neb 3 Ml INHALATION 3 ml Q6HRT CARROL Administration Budesonide 0.5 mg 04/02/25 20:00 04/03/25 07:52 Budesonide Respule Neb 0.5 Mg/2 Ml Amp INHALATION 0.5 mg Q12HRT CARROL Administration Dextrose 12.5 gm 04/03/25 07:41 Dextrose 50% 25 Gm/50 Ml Syringe IV PUSH PRN PRN Hypoglycemia Protocol Enoxaparin Sodium 40 mg 04/02/25 13:40 04/03/25 08:12 Enoxaparin 40 Mg/0.4 Ml Syringe SUB-Q 40 mg DAILY CARROL Administration Glucagon 1 mg 04/03/25 07:41 Glucagon For Inj 1 Mg Vial IM PRN PRN Hypoglycemia Protocol Glucose 15 gm 04/03/25 07:41 Glucose Oral Gel 15 Gm Of Glucse In 37.5 Gm Tube PO PRN PRN Hypoglycemia Protocol Midazolam HCl 100 mg in 100 mls @ 6 mls/hr 04/02/25 08:30 04/03/25 08:28 Versed 100 Mg/Ns 100 Ml IV CONT 6 mg/hr .[id number] CARROL 6 mls/hr Titration Protocol 6 MG/HR Propofol 100 mls @ 21.81 mls/hr 04/02/25 09:40 04/03/25 08:00 Diprivan IV CONT 50 mcg/kg/min .Q4H36M CARROL 21.81 mls/hr Administration Protocol 50 MCG/KG/MIN Lactated Ringer's 1,000 mls @ 75 mls/hr 04/02/25 09:40 04/03/25 08:12 Lr - Lactated Ringers Iv IV CONT 04/03/25 23:59 75 mls/hr .[id number] CARROL Infusion Ceftriaxone Sodium 1 gm in 50 mls @ 100 mls/hr 04/02/25 14:00 04/02/25 14:50 Rocephin 1 Gm/Ns 50 Ml IVPB Infused Q24H CARROL Infusion Dextrose 1,000 mls @ 100 mls/hr 04/03/25 07:41 Dextrose 5% 1,000 Ml IVPB PRN PRN Hypoglycemia Protocol Insulin Aspart 2 - 5 units 04/03/25 12:00 Insulin Aspart (*Bkc) 100 Units/Ml SUB-Q Q6HR CARROL Protocol Methylprednisolone Sodium Succinate 40 mg 04/03/25 18:00 Methylprednisolone Sod Succ 40 Mg Vial IV PUSH Q12H CARROL Multi-Ingred Cream/Lotion/Oil/Oint 1 applic 04/02/25 09:00 04/03/25 08:12 Mineral Oil/White Petrolatum Ointment EACH EYE 1 applic Q12HR CARROL Administration Ondansetron HCl 4 mg 04/02/25 09:36 Ondansetron Inj 4 Mg/2 Ml Vial IV PUSH Q4H PRN Nausea Pantoprazole Sodium 40 mg 04/03/25 09:00 04/03/25 08:12 Pantoprazole Sodium Iv 40 Mg Vial IV PUSH 40 mg QAM CARROL Administration Sodium Chloride 10 ml 04/02/25 14:00 04/03/25 05:22 Central Line Flush IV PUSH 10 ml Q8HR CARROL Administration Sodium Chloride 20 ml 04/02/25 12:54 04/03/25 05:21 Central Line Flush IV PUSH 20 ml PRN PRN Administration after blood draws Radiology Results: ITS Impressions Neck CTA 04/02/25 09:06 IMPRESSION: 1. No evident atherosclerotic plaque with 0% stenosis of the right and left carotid bulbs relative to normal distal artery lumen diameter (NASCET criteria). 2. Multinodular goiter. Could consider thyroid ultrasound for risk stratification. Chest/Abdomen/Pelvis CTA 04/02/25 09:10 Impression: No significant abnormalities seen. Abdomen Ultrasound 04/02/25 15:47 IMPRESSION: 1: Unremarkable limited abdominal ultrasound. Thyroid Ultrasound 04/02/25 15:50 IMPRESSION: 1. Limited study. Multinodular goiter. Recommend repeat thyroid ultrasound when the patient's condition permits. Chest X-Ray 04/03/25 06:00 Impression: Clear lungs. Support tubes, as above. Labs Labs: Laboratory Results - last 24 hr 04/02/25 04/02/25 04/02/25 04:17 04:18 05:00 WBC RBC Hgb Hct MCV MCH MCHC RDW Plt Count MPV Immature Gran % (Auto) Neut % (Auto) Lymph % (Auto) [place] % (Auto) Eos % (Auto) Baso % (Auto) Lymph # (Auto) [place] # (Auto) Eos # (Auto) Baso # (Auto) Abs Immat Gran (auto) Absolute Neuts (auto) Absolute Nucleated RBC Total Counted Neutrophils % (Manual) Band Neutrophils % Lymphocytes % (Manual) Monocytes % (Manual) Nucleated RBC % Abs Neuts (Manual) Abs Lymphs (Manual) Abs Monocytes (Manual) Platelet Estimate Schistocytes Puncture Site Not Reportable ABG pH ABG pCO2 ABG pO2 ABG PO2/FiO2 Ratio ABG HCO3 ABG O2 Saturation ABG O2 Content Not Reportable Not Reportable ABG Base Excess A-a Gradient Not Reportable Oxyhemoglobin Not Reportable Not Reportable Carboxyhemoglobin Not Reportable Methemoglobin Not Reportable Reduced Hemoglobin Not Reportable Total Hemoglobin Not Reportable Not Reportable O2 Delivery Device Not Reportable O2 Liters/Min Not Reportable Minute Volume Vent Rate Vent Mode FiO2 Tidal Volume PEEP Peak Inspir Pressure Pressure Support Sodium Potassium Chloride Carbon Dioxide Anion Gap BUN Creatinine Estim Creat Clear Calc Estimated GFR Glucose POC Capillary Glucose Lactic Acid Calcium Phosphorus Magnesium Total Bilirubin AST ALT Alkaline Phosphatase Total Protein Albumin TSH Free T4 1.59 Total T3 1.09 Nasal MRSA (PCR) Hepatitis A IgM Ab Hep Bs Antigen Hep B Core IgM Ab Hepatitis C Ab Screen Influenza A (RT-PCR) Influenza B (RT-PCR) RSV (RT-PCR) SARS-CoV-2 RNA (RT-PCR) 04/02/25 04/02/25 04/02/25 07:53 09:15 09:17 WBC RBC Hgb Hct MCV MCH MCHC RDW Plt Count MPV Immature Gran % (Auto) Neut % (Auto) Lymph % (Auto) [place] % (Auto) Eos % (Auto) Baso % (Auto) Lymph # (Auto) [place] # (Auto) Eos # (Auto) Baso # (Auto) Abs Immat Gran (auto) Absolute Neuts (auto) Absolute Nucleated RBC Total Counted Neutrophils % (Manual) Band Neutrophils % Lymphocytes % (Manual) Monocytes % (Manual) Nucleated RBC % Abs Neuts (Manual) Abs Lymphs (Manual) Abs Monocytes (Manual) Platelet Estimate Schistocytes Puncture Site Left radial ABG pH 7.220 L* ABG pCO2 63.5 H* ABG pO2 75.2 L ABG PO2/FiO2 Ratio 1.50 ABG HCO3 25.4 ABG O2 Saturation 91.9 L ABG O2 Content 19.2 ABG Base Excess -3.6 A-a Gradient 209.9 Oxyhemoglobin 92.4 Carboxyhemoglobin Methemoglobin Reduced Hemoglobin Total Hemoglobin 14.8 O2 Delivery Device Ventilator O2 Liters/Min Not Reportable Minute Volume Not Reportable Vent Rate 12 Vent Mode Cmv FiO2 50 Tidal Volume 500 PEEP 5 Peak Inspir Pressure Not Reportable Pressure Support Not Reportable Sodium Potassium Chloride Carbon Dioxide Anion Gap BUN Creatinine Estim Creat Clear Calc Estimated GFR Glucose POC Capillary Glucose Lactic Acid Calcium Phosphorus Magnesium Total Bilirubin AST ALT Alkaline Phosphatase Total Protein Albumin TSH 0.072 L Free T4 Total T3 Nasal MRSA (PCR) Not detected Hepatitis A IgM Ab Negative Hep Bs Antigen Negative Hep B Core IgM Ab Negative Hepatitis C Ab Screen Negative Influenza A (RT-PCR) Influenza B (RT-PCR) RSV (RT-PCR) SARS-CoV-2 RNA (RT-PCR) 04/02/25 04/02/25 04/02/25 13:21 14:15 14:53 WBC RBC Hgb Hct MCV MCH MCHC RDW Plt Count MPV Immature Gran % (Auto) Neut % (Auto) Lymph % (Auto) [place] % (Auto) Eos % (Auto) Baso % (Auto) Lymph # (Auto) [place] # (Auto) Eos # (Auto) Baso # (Auto) Abs Immat Gran (auto) Absolute Neuts (auto) Absolute Nucleated RBC Total Counted Neutrophils % (Manual) Band Neutrophils % Lymphocytes % (Manual) Monocytes % (Manual) Nucleated RBC % Abs Neuts (Manual) Abs Lymphs (Manual) Abs Monocytes (Manual) Platelet Estimate Schistocytes Puncture Site Left radial Left radial ABG pH 7.232 L* 7.264 L* ABG pCO2 65.6 H* 58.5 H ABG pO2 76.7 L 79.8 L ABG PO2/FiO2 Ratio 1.92 2.00 ABG HCO3 27.0 H 25.9 ABG O2 Saturation 92.5 L 93.9 L ABG O2 Content 18.6 16.8 ABG Base Excess -2.0 -2.0 A-a Gradient 133.1 138.1 Oxyhemoglobin 92.8 93.8 Carboxyhemoglobin Methemoglobin Reduced Hemoglobin Total Hemoglobin 14.2 12.7 O2 Delivery Device Ventilator Ventilator O2 Liters/Min Not Reportable Not Reportable Minute Volume Not Reportable Not Reportable Vent Rate 14 16 Vent Mode Cmv Cmv FiO2 40 40 Tidal Volume 400 450 PEEP 5 5 Peak Inspir Pressure Not Reportable Not Reportable Pressure Support Not Reportable Not Reportable Sodium Potassium Chloride Carbon Dioxide Anion Gap BUN Creatinine Estim Creat Clear Calc Estimated GFR Glucose POC Capillary Glucose Lactic Acid Calcium Phosphorus Magnesium Total Bilirubin AST ALT Alkaline Phosphatase Total Protein Albumin TSH Free T4 Total T3 Nasal MRSA (PCR) Hepatitis A IgM Ab Hep Bs Antigen Hep B Core IgM Ab Hepatitis C Ab Screen Influenza A (RT-PCR) Negative Influenza B (RT-PCR) Negative RSV (RT-PCR) Negative SARS-CoV-2 RNA (RT-PCR) Negative 04/02/25 04/02/25 04/03/25 21:20 23:19 04:23 WBC RBC Hgb Hct MCV MCH MCHC RDW Plt Count MPV Immature Gran % (Auto) Neut % (Auto) Lymph % (Auto) [place] % (Auto) Eos % (Auto) Baso % (Auto) Lymph # (Auto) [place] # (Auto) Eos # (Auto) Baso # (Auto) Abs Immat Gran (auto) Absolute Neuts (auto) Absolute Nucleated RBC Total Counted Neutrophils % (Manual) Band Neutrophils % Lymphocytes % (Manual) Monocytes % (Manual) Nucleated RBC % Abs Neuts (Manual) Abs Lymphs (Manual) Abs Monocytes (Manual) Platelet Estimate Schistocytes Puncture Site Right radial Right radial ABG pH 7.424 7.457 H ABG pCO2 37.7 38.6 ABG pO2 86.1 88.2 ABG PO2/FiO2 Ratio 2.15 2.20 ABG HCO3 24.1 26.7 H ABG O2 Saturation 96.7 97.1 ABG O2 Content 17.3 16.6 ABG Base Excess 0.0 2.7 A-a Gradient 155.7 152.6 Oxyhemoglobin 96.6 96.8 Carboxyhemoglobin 0.3 Methemoglobin 0.1 Reduced Hemoglobin 2.8 Total Hemoglobin 12.7 12.1 O2 Delivery Device Ventilator Ventilator O2 Liters/Min Not Reportable Not Reportable Minute Volume Not Reportable Not Reportable Vent Rate 16 16 Vent Mode Cmv Cmv FiO2 40 40 Tidal Volume 450 450 PEEP 5 5 Peak Inspir Pressure Not Reportable Not Reportable Pressure Support Not Reportable Not Reportable Sodium Potassium Chloride Carbon Dioxide Anion Gap BUN Creatinine Estim Creat Clear Calc Estimated GFR Glucose POC Capillary Glucose 167 H Lactic Acid Calcium Phosphorus Magnesium Total Bilirubin AST ALT Alkaline Phosphatase Total Protein Albumin TSH Free T4 Total T3 Nasal MRSA (PCR) Hepatitis A IgM Ab Hep Bs Antigen Hep B Core IgM Ab Hepatitis C Ab Screen Influenza A (RT-PCR) Influenza B (RT-PCR) RSV (RT-PCR) SARS-CoV-2 RNA (RT-PCR) 04/03/25 04:25 WBC 14.7 H RBC 3.22 L Hgb 10.9 L D Hct 33.8 L MCV 105.0 H MCH 33.9 MCHC 32.2 RDW 14.1 Plt Count 185 MPV 10.7 H Immature Gran % (Auto) Not Reportable Neut % (Auto) Not Reportable Lymph % (Auto) Not Reportable [place] % (Auto) Not Reportable Eos % (Auto) Not Reportable Baso % (Auto) Not Reportable Lymph # (Auto) Not Reportable [place] # (Auto) Not Reportable Eos # (Auto) Not Reportable Baso # (Auto) Not Reportable Abs Immat Gran (auto) Not Reportable Absolute Neuts (auto) Not Reportable Absolute Nucleated RBC Not Reportable Total Counted 100 Neutrophils % (Manual) 78 H Band Neutrophils % 12 H Lymphocytes % (Manual) 7.0 L Monocytes % (Manual) 3 Nucleated RBC % Not Reportable Abs Neuts (Manual) 13.23 H Abs Lymphs (Manual) 1.02 L Abs Monocytes (Manual) 0.44 Platelet Estimate Adequate Schistocytes None seen Puncture Site ABG pH ABG pCO2 ABG pO2 ABG PO2/FiO2 Ratio ABG HCO3 ABG O2 Saturation ABG O2 Content ABG Base Excess A-a Gradient Oxyhemoglobin Carboxyhemoglobin Methemoglobin Reduced Hemoglobin Total Hemoglobin O2 Delivery Device O2 Liters/Min Minute Volume Vent Rate Vent Mode FiO2 Tidal Volume PEEP Peak Inspir Pressure Pressure Support Sodium 140 Potassium 3.5 Chloride 107 Carbon Dioxide 29 Anion Gap 4 BUN 17 Creatinine 0.77 Estim Creat Clear Calc 65 Estimated GFR > 60 Glucose 162 H POC Capillary Glucose Lactic Acid 1.1 Calcium 9.2 Phosphorus 2.4 L Magnesium 2.5 H Total Bilirubin 0.3 AST 44 H ALT 44 H Alkaline Phosphatase 53 Total Protein 6.0 L Albumin 3.7 TSH Free T4 Total T3 Nasal MRSA (PCR) Hepatitis A IgM Ab Hep Bs Antigen Hep B Core IgM Ab Hepatitis C Ab Screen Influenza A (RT-PCR) Influenza B (RT-PCR) RSV (RT-PCR) SARS-CoV-2 RNA (RT-PCR) Quality VTE Prophylaxis VTE prophylaxis: pharmacologic ordered
[2025-04-03] MEDS: fentaNYL CITRATE INJ (*CRX) 100 MCG/2 ML VIAL 50 MCG IV PUSH ×2 (10:41→14:26)
[2025-04-03 12:04] LABS: Glucose Point of Care 149 mg/dl (65-105)
[2025-04-03] MEDS: FENTANYL 2,500MCG/NS250ML(*CRX 2,500 MCG/250 ML BAG IV CONT (14:27)
[2025-04-03] MEDS: LACTATED RINGERS 1,000 ML 75 ML IV CONT (16:45)
[2025-04-03 18:08] LABS: Glucose Point of Care 148 mg/dl (65-105)
--- NOTE | 2025-04-03 19:36 | PC.NURSE ---
[id number] in the unit. Family has snacks and live plant for patient. Reviewed policy with family and patient condition with family. Family decided not to leave items at bedside at the moment.
[2025-04-04] VITALS (41 sets, daily range): BP systolic 98–144; BP diastolic 67–92; PULSE 66–111; RESP 9–31; TEMP 37.1–37.3; O2SAT 92–97
[2025-04-04 01:33] LABS: Glucose Point of Care 189 mg/dl (65-105)
[2025-04-04] MEDS: IPRATROPIUM 0.5 MG/ALBUTEROL SULFATE 2.5 MG AMPUL.NEB 3 ML INHALATION ×4 (01:59→20:55)
[2025-04-04] MEDS: PROPOFOL IV EMULSION 100 ML 21.81 MG IV CONT ×6 (04:00→22:00)
[2025-04-04 04:39] LABS: Hematocrit 32.6 % (37.0-47.0); Hemoglobin 10.5 g/dL (12.0-15.0); Mean Corpuscular HGB Conc 32.2 g/dl (32-36); Mean Corpuscular Hemoglobin 34.4 pg (26-34); Mean Corpuscular Volume 106.9 fl (80-100); Mean Platelet Volume 10.6 fl (7.4-10.4); Platelet Count Result 170 k/mm3 (150-375); Red Blood Count 3.05 M/mm3 (4.2-5.4); Red Cell Distribution Width 14.5 % (11.5-14.5); White Blood Count 12.5 K/mm3 (4.5-10.0)
[2025-04-04 04:53] LABS: Alanine Aminotransferase 37 U/L (6-35); Albumin Level 3.6 g/dL (3.5-5.1); Alkaline Phosphatase 43 U/L (38-126); Anion Gap 3 mmol/L (4-12); Aspartate Amino Transferase 32 U/L (14-36); Bilirubin,Total 0.1 mg/dL (0.2-1.3); Blood Urea Nitrogen 37 mg/dL (7-17); Calcium 9.3 mg/dL (8.4-10.2); Carbon Dioxide 30 mmol/L (22-30); Chloride 105 mmol/L (98-107); Estimated CRCL calculation 47 ml/min; Estimated Glomerular Filt Rate 52; Glucose 134 mg/dL (65-110); Magnesium 2.8 mg/dL (1.6-2.3); Phosphorus 4.2 mg/dL (2.5-4.5); Potassium 4.2 mmol/L (3.4-5.0); Sodium 138 mmol/L (137-145); Total Protein 5.8 g/dL (6.3-8.2)
[2025-04-04 05:16] LABS: Base Excess ABG 0.4 mEq/l (+/-2.0); Carboxyhemoglobin 0.3 % THb (0-2.0); Fractional Inspired Oxygen 35 %; HCO3 ABG 25.7 mEq/l (22.0-26.0); Methemoglobin ABG 0.3 %THb (0-1.5); Oxygen Saturation ABG 94.6 % (95.0-100.0); Oxyhemoglobin 94.2 % THb (90.0-100.0); PCO2 ABG 44.4 mmHg (35.0-45.0); PO2 ABG 73.9 mmHg (80.0-100.0); PO2 FiO2 Ratio Arterial Blood 2.11 %; Reduced Hemoglobin 5.2 %THb (0-5.0); Total Hemoglobin 11.3 g/dL (12.0-18.0); pH ABG 7.381 (7.350-7.450)
[2025-04-04 05:18] LABS: Arterial Blood Gas PEEP 5 cmH2O; Arterial Blood Gas Tidal Volume 420 ml; Arterial Blood Gas Vent Mode CMV; Arterial Blood Gas Ventilator rate 16 /MIN; Device VENTILATOR; Modified Allen's Test Unable to perform; Site Drawn RIGHT RADIAL
[2025-04-04] MEDS: methylPREDNISolone SOD SUCC 40 MG VIAL IV PUSH ×2 (05:42→17:18)
[2025-04-04] MEDS: CENTRAL LINE FLUSH 10 ML IV PUSH ×3 (05:43→22:03)
[2025-04-04] MEDS: PANTOPRAZOLE SODIUM IV 40 MG VIAL IV PUSH (08:26)
[2025-04-04] MEDS: ENOXAPARIN 40 MG/0.4 ML SYRINGE SUB-Q (08:26)
[2025-04-04] MEDS: MINERAL OIL/WHITE PETROLATUM OINTMENT 1 APPLIC EACH EYE ×2 (08:26→20:11)
[2025-04-04] MEDS: BUDESONIDE RESPULE NEB 0.5 MG/2 ML AMP INHALATION ×2 (08:44→20:55)
--- NOTE | 2025-04-04 09:28 | P.PNINT_ITS ---
Progress Note: A&P Assessment and Plan (1) Respiratory failure: Qualifiers: Chronicity: acute Respiratory failure complication: hypercapnia Qualified Code(s): J96.02 - Acute respiratory failure with hypercapnia Code(s): J96.90 - Respiratory failure, unspecified, unspecified whether with hypoxia or hypercapnia Status: Acute Assessment and Plan: Acute respiratory failure likely related to status asthmaticus -continue mechanical ventilation. ABG improving. Hypercapnia has resolved. -currently sedated with with propofol, fentanyl and Versed infusion. Patient did receive neuromuscular jaimie at the time of presentation but now off -I performed a sedation holiday and evaluated patient for weaning trial but once patient was on low-dose of sedation she became tachypneic, asynchronous with the ventilator and on exam had diffuse wheezing. -continue bronchodilators -continue IV steroids but decrease to q.12 hours -continue Pulmicort (2) Asthma exacerbation: Code(s): J45.901 - Unspecified asthma with (acute) exacerbation Status: Acute Assessment and Plan: Patient has a history of asthma, came in with asthma exacerbation. Received Solu-Medrol, epinephrine, magnesium, continues nebs in the ED 04/02: Intubated, discussed with ER physician, patient was tripoding and was in severe respiratory distress so was intubated for airway protection Management as above 04/02:CT chest abdomen and pelvis: No evidence of mediastinal, hilar or axillary lymphadenopathy, no pulmonary embolism, no aortic aneurysm or di ssection P no evidence of pleural or pericardial effusion. Lungs are clear, no pulmonary nodules or infiltrates are noted. No significant abdominal abnormalities were seen. (3) Leukocytosis: Code(s): D72.829 - Elevated white blood cell count, unspecified Status: Acute Assessment and Plan: Leukocytosis likely reactive, received 1 dose of cefepime and vancomycin -continue ceftriaxone for asthma exacerbation -continue to monitor -CRP is low (4) Multinodular goiter: Code(s): E04.2 - Nontoxic multinodular goiter Status: Acute Assessment and Plan: Patient has multinodular goiter, although I a.m. not sure of the treatment details TSH levels are low but T3 and T4 adequate Will try to obtain records CTA neck: IMPRESSION: 1. No evident atherosclerotic plaque with 0% stenosis of the right and left carotid bulbs relative to normal distal artery lumen diameter (NASCET criteria). 2. Multinodular goiter. Could consider thyroid ultrasound for risk stratification. Thyroid ultrasound 1. Limited study. Multinodular goiter. Recommend repeat thyroid ultrasound when the patient's condition permits. (5) Transaminitis: Code(s): R74.01 - Elevation of levels of liver transaminase levels Status: Acute Assessment and Plan: Elevation LFTs likely related to hypovolemia, hypoxia due to asthma exacerbated Right upper quadrant ultrasound is unremarkable Levels improving Plan DVT prophylaxis: Lovenox Stress ulcer prophylaxis: Protonix Nutrition: Start Tube feeds Code Status: Full code Critical Care Time Spent: 30 minutes Due to a high probability of clinically significant, life threatening deterioration, the patient required my highest level of preparedness to intervene emergently and I personally spent this critical care time directly and personally managing the patient. This critical care time included obtaining a history; examining the patient; pulse oximetry; ordering and review of studies; arranging urgent treatment with development of a management plan; evaluation of patient's response to treatment; frequent reassessment; and discussions with other providers. It was exclusive of separately billable procedures and treating other patients and teaching time. Please see Assessment and Plan section and the rest of the note for further information on patient assessment and treatment This dictation may have been done utilizing a voice recognition system. Attempts have been made to correct errors. However, there may be uncorrected grammatical, spelling, and recognitions errors present. Subjective Date/time seen: 04/04/25 0 Overnight events reviewed. Afebrile Continues to be on mechanical ventilation 35% FiO2 Continues to be sedated with Versed fentanyl and propofol Tolerating tube feeds. Vitals acceptable Review of Systems Review of Systems: ROS unobtainable: Yes unobtainable due to endotracheal tube, unobtainable due to medical condition and unobtainable due to mental s tatus Exam Narrative: General: Intubated sedated, in no acute distress HEENT:? Pupils are pinpoint but reactive, sclera is clear, ETT in place Neck:? Supple Respiratory:? Diffuse wheezing bilaterally specially on holding sedation, bilateral breath sound Cardiac:? S1-S2 is normal, regular rate and rhythm Abdomen:? Soft, nontender, nondistended, normoactive bowel sound Extremities:? No edema, palpable pedal pulse Neuro:? Intubated, sedated, does not open her eyes or follow simple commands per Skin:? Warm and dry Psych:? Unable to assess at this time Objective Data Vital Signs Vital Signs: Vital Signs - 24 hr 04/03/25 09:30 04/03/25 10:00 04/03/25 10:00 Temperature Pulse Rate 97 96 96 Respiratory Rate 22 H 22 H 22 H Blood Pressure 108/65 Pulse Oximetry 95 Oxygen Delivery Fraction of Inspired Oxygen 04/03/25 10:00 04/03/25 10:00 04/03/25 11:04 Temperature Pulse Rate 96 96 92 Respiratory Rate 22 H Blood Pressure Pulse Oximetry 96 Oxygen Delivery Mechanical Ventilation Fraction of Inspired Oxygen 35 04/03/25 11:46 04/03/25 11:46 04/03/25 12:00 Temperature 36.7 C Pulse Rate 90 90 90 Respiratory Rate 16 16 16 Blood Pressure 103/67 Pulse Oximetry 96 Oxygen Delivery Fraction of Inspired Oxygen 04/03/25 12:00 04/03/25 12:00 04/03/25 12:00 Temperature Pulse Rate 90 90 Respiratory Rate 16 16 Blood Pressure Pulse Oximetry Oxygen Delivery Fraction of Inspired Oxygen 35 04/03/25 12:00 04/03/25 12:00 04/03/25 13:38 Temperature Pulse Rate 89 87 Respiratory Rate Blood Pressure Pulse Oximetry 96 96 Oxygen Delivery Mechanical Ventilation Mechanical Ventilation Fraction of Inspired Oxygen 35 35 04/03/25 13:38 04/03/25 14:00 04/03/25 14:00 Temperature Pulse Rate 87 95 95 Respiratory Rate 16 22 H Blood Pressure 121/72 Pulse Oximetry 95 Oxygen Delivery Fraction of Inspired Oxygen 04/03/25 14:00 04/03/25 14:00 04/03/25 14:27 Temperature Pulse Rate 95 95 95 Respiratory Rate 22 H 22 H 22 H Blood Pressure Pulse Oximetry Oxygen Delivery Fraction of Inspired Oxygen 04/03/25 16:00 04/03/25 16:00 04/03/25 16:00 Temperature Pulse Rate 89 89 89 Respiratory Rate 18 18 18 Blood Pressure Pulse Oximetry Oxygen Delivery Fraction of Inspired Oxygen 04/03/25 16:00 04/03/25 16:00 04/03/25 16:00 Temperature 36.8 C Pulse Rate 89 Respiratory Rate 18 Blood Pressure 100/70 Pulse Oximetry 95 96 Oxygen Delivery Mechanical Ventilation Fraction of Inspired Oxygen 35 35 04/03/25 16:00 04/03/25 16:16 04/03/25 16:46 Temperature Pulse Rate 88 89 89 Respiratory Rate 18 16 Blood Pressure Pulse Oximetry Oxygen Delivery Fraction of Inspired Oxygen 04/03/25 17:10 04/03/25 17:17 04/03/25 17:17 Temperature Pulse Rate 85 85 85 Respiratory Rate 16 16 Blood Pressure Pulse Oximetry 96 Oxygen Delivery Mechanical Ventilation Fraction of Inspired Oxygen 35 04/03/25 18:00 04/03/25 18:00 04/03/25 18:00 Temperature Pulse Rate 83 83 83 Respiratory Rate 16 16 Blood Pressure 95/65 L Pulse Oximetry 96 Oxygen Delivery Fraction of Inspired Oxygen 04/03/25 18:00 04/03/25 18:00 04/03/25 20:00 Temperature Pulse Rate 83 83 78 Respiratory Rate 16 16 16 Blood Pressure Pulse Oximetry Oxygen Delivery Fraction of Inspired Oxygen 04/03/25 20:00 04/03/25 20:00 04/03/25 20:00 Temperature 37.0 C Pulse Rate 78 77 Respiratory Rate 16 16 Blood Pressure 97/63 L Pulse Oximetry 99 Oxygen Delivery Fraction of Inspired Oxygen 35 04/03/25 20:00 04/03/25 20:00 04/03/25 20:00 Temperature Pulse Rate 78 78 78 Respiratory Rate 16 16 16 Blood Pressure Pulse Oximetry 99 Oxygen Delivery Mechanical Ventilation Fraction of Inspired Oxygen 35 04/03/25 20:00 04/03/25 20:20 04/03/25 20:46 Temperature Pulse Rate 80 84 80 Respiratory Rate 16 Blood Pressure Pulse Oximetry 95 Oxygen Delivery Mechanical Ventilation Fraction of Inspired Oxygen 35 04/03/25 20:54 04/03/25 22:00 04/03/25 22:00 Temperature Pulse Rate 85 88 88 Respiratory Rate 17 16 Blood Pressure 94/68 L Pulse Oximetry 94 Oxygen Delivery Fraction of Inspired Oxygen 04/03/25 22:00 04/03/25 22:00 04/03/25 22:00 Temperature Pulse Rate 88 88 88 Respiratory Rate 16 16 16 Blood Pressure Pulse Oximetry Oxygen Delivery Fraction of Inspired Oxygen 04/03/25 22:58 04/04/25 00:00 04/04/25 00:00 Temperature Pulse Rate 85 86 86 Respiratory Rate 18 18 Blood Pressure Pulse Oximetry 95 Oxygen Delivery Mechanical Ventilation Fraction of Inspired Oxygen 35 04/04/25 00:00 04/04/25 00:00 04/04/25 00:00 Temperature 37.3 C Pulse Rate 86 86 86 Respiratory Rate 18 18 18 Blood Pressure 98/69 L Pulse Oximetry 96 Oxygen Delivery Fraction of Inspired Oxygen 04/04/25 00:00 04/04/25 00:00 04/04/25 00:00 Temperature Pulse Rate 86 84 Respiratory Rate 18 Blood Pressure Pulse Oximetry 96 Oxygen Delivery Mechanical Ventilation Fraction of Inspired Oxygen 35 35 04/04/25 01:59 04/04/25 02:00 04/04/25 02:00 Temperature Pulse Rate 84 84 85 Respiratory Rate 16 Blood Pressure Pulse Oximetry 96 Oxygen Delivery Mechanical Ventilation Fraction of Inspired Oxygen 35 04/04/25 02:00 04/04/25 02:00 04/04/25 02:00 Temperature Pulse Rate 85 84 84 Respiratory Rate 16 16 16 Blood Pressure 98/67 L Pulse Oximetry 96 Oxygen Delivery Fraction of Inspired Oxygen 04/04/25 02:00 04/04/25 02:05 04/04/25 04:00 Temperature Pulse Rate 84 88 85 Respiratory Rate 16 16 16 Blood Pressure Pulse Oximetry Oxygen Delivery Fraction of Inspired Oxygen 04/04/25 04:00 04/04/25 04:00 04/04/25 04:00 Temperature Pulse Rate 85 85 85 Respiratory Rate 16 16 16 Blood Pressure Pulse Oximetry Oxygen Delivery Fraction of Inspired Oxygen 04/04/25 04:00 04/04/25 04:00 04/04/25 04:00 Temperature 37.3 C Pulse Rate 84 84 Respiratory Rate 16 16 Blood Pressure 109/77 Pulse Oximetry 96 95 Oxygen Delivery Mechanical Ventilation Fraction of Inspired Oxygen 35 35 04/04/25 04:00 04/04/25 05:01 04/04/25 06:00 Temperature Pulse Rate 85 78 85 Respiratory Rate Blood Pressure Pulse Oximetry 95 Oxygen Delivery Mechanical Ventilation Fraction of Inspired Oxygen 35 04/04/25 06:00 04/04/25 06:00 04/04/25 06:00 Temperature Pulse Rate 74 74 74 Respiratory Rate 16 16 16 Blood Pressure 106/72 Pulse Oximetry 96 Oxygen Delivery Fraction of Inspired Oxygen 04/04/25 06:00 04/04/25 07:30 04/04/25 08:00 Temperature 37.1 C Pulse Rate 74 71 73 Respiratory Rate 16 16 16 Blood Pressure 117/77 Pulse Oximetry 95 Oxygen Delivery Fraction of Inspired Oxygen 04/04/25 08:00 04/04/25 08:00 04/04/25 08:00 Temperature Pulse Rate 92 73 Respiratory Rate 19 Blood Pressure Pulse Oximetry 96 Oxygen Delivery Mechanical Ventilation Fraction of Inspired Oxygen 35 35 04/04/25 08:37 04/04/25 08:39 04/04/25 08:45 Temperature Pulse Rate 76 71 77 Respiratory Rate 16 16 17 Blood Pressure Pulse Oximetry Oxygen Delivery Fraction of Inspired Oxygen 04/04/25 08:48 04/04/25 08:56 04/04/25 09:07 Temperature Pulse Rate 77 92 111 H Respiratory Rate 19 31 H Blood Pressure Pulse Oximetry 96 Oxygen Delivery Mechanical Ventilation Fraction of Inspired Oxygen 35 04/04/25 09:24 Temperature Pulse Rate 111 H Respiratory Rate 31 H Blood Pressure Pulse Oximetry Oxygen Delivery Fraction of Inspired Oxygen Intake/Output Intake/Output: Intake & Output 04/01/25 04/02/25 04/03/25 04/04/25 23:59 23:59 23:59 23:59 Intake Total 4448.9 3190.0 865.7 Output Total 400 800 350 Balance 4048.9 2390.0 515.7 Meds/Results Medications: Active Medications Generic Name Dose Route Start Last Admin Trade Name Freq PRN Reason Stop Dose Admin Acetaminophen 650 mg 04/02/25 09:36 Acetaminophen 650 Mg Suppository RECTAL Q6H PRN Mild Pain (1-3) or Fever Albuterol/Ipratropium 3 ml 04/02/25 14:00 04/04/25 08:45 Ipratropium 0.5 Mg/Albuterol Sulfate 2.5 Mg Ampul.Neb 3 Ml INHALATION 3 ml Q6HRT CARROL Administration Budesonide 0.5 mg 04/02/25 20:00 04/04/25 08:44 Budesonide Respule Neb 0.5 Mg/2 Ml Amp INHALATION 0.5 mg Q12HRT CARROL Administration Dextrose 12.5 gm 04/03/25 07:41 Dextrose 50% 25 Gm/50 Ml Syringe IV PUSH PRN PRN Hypoglycemia Protocol Enoxaparin Sodium 40 mg 04/02/25 13:40 04/04/25 08:26 Enoxaparin 40 Mg/0.4 Ml Syringe SUB-Q 40 mg DAILY CARROL Administration Glucagon 1 mg 04/03/25 07:41 Glucagon For Inj 1 Mg Vial IM PRN PRN Hypoglycemia Protocol Glucose 15 gm 04/03/25 07:41 Glucose Oral Gel 15 Gm Of Glucse In 37.5 Gm Tube PO PRN PRN Hypoglycemia Protocol Midazolam HCl 100 mg in 100 mls @ 0 mls/hr 04/02/25 08:30 04/04/25 07:30 Versed 100 Mg/Ns 100 Ml IV CONT 0 mg/hr .Q0M CARROL 0 mls/hr Titration Protocol Propofol 100 mls @ 21.81 mls/hr 04/02/25 09:40 04/04/25 09:24 Diprivan IV CONT Infused .Q4H36M CARROL Titration Protocol 50 MCG/KG/MIN Ceftriaxone Sodium 1 gm in 50 mls @ 100 mls/hr 04/02/25 14:00 04/03/25 13:40 Rocephin 1 Gm/Ns 50 Ml IVPB Infused Q24H CARROL Infusion Dextrose 1,000 mls @ 100 mls/hr 04/03/25 07:41 Dextrose 5% 1,000 Ml IVPB PRN PRN Hypoglycemia Protocol Fentanyl Citrate 2,500 mcg in 250 mls @ 7.5 mls/hr 04/03/25 14:15 04/04/25 09:07 Fentanyl 2,500 Mcg/Ns 250 Ml IV CONT 75 mcg/hr .[id number] CARROL 7.5 mls/hr Titration Protocol 75 MCG/HR Insulin Aspart 2 - 5 units 04/03/25 12:00 04/04/25 05:05 Insulin Aspart (*Bk) 100 Units/Ml SUB-Q Not Given Q6HR CARROL Protocol Methylprednisolone Sodium Succinate 40 mg 04/03/25 18:00 04/04/25 05:42 Methylprednisolone Sod Succ 40 Mg Vial IV PUSH 40 mg Q12H CARROL Administration Multi-Ingred Cream/Lotion/Oil/Oint 1 applic 04/02/25 09:00 04/04/25 08:26 Mineral Oil/White Petrolatum Ointment EACH EYE 1 applic Q12HR CARROL Administration Ondansetron HCl 4 mg 04/02/25 09:36 Ondansetron Inj 4 Mg/2 Ml Vial IV PUSH Q4H PRN Nausea Pantoprazole Sodium 40 mg 04/03/25 09:00 04/04/25 08:26 Pantoprazole Sodium Iv 40 Mg Vial IV PUSH 40 mg QAM CARROL Administration Sodium Chloride 10 ml 04/02/25 14:00 04/04/25 05:43 Central Line Flush IV PUSH 10 ml Q8HR CARROL Administration Sodium Chloride 20 ml 04/02/25 12:54 04/03/25 05:21 Central Line Flush IV PUSH 20 ml PRN PRN Administration after blood draws Radiology Results: ITS Impressions Neck CTA 04/02/25 09:06 IMPRESSION: 1. No evident atherosclerotic plaque with 0% stenosis of the right and left carotid bulbs relative to normal distal artery lumen diameter (NASCET criteria). 2. Multinodular goiter. Could consider thyroid ultrasound for risk stratification. Chest/Abdomen/Pelvis CTA 04/02/25 09:10 Impression: No significant abnormalities seen. Abdomen Ultrasound 04/02/25 15:47 IMPRESSION: 1: Unremarkable limited abdominal ultrasound. Thyroid Ultrasound 04/02/25 15:50 IMPRESSION: 1. Limited study. Multinodular goiter. Recommend repeat thyroid ultrasound when the patient's condition permits. Chest X-Ray 04/04/25 06:49 Impression: Stable support tubes. Clear lungs. Labs Labs: Laboratory Results - last 24 hr 04/03/25 04/03/25 04/04/25 11:45 17:13 00:11 WBC RBC Hgb Hct MCV MCH MCHC RDW Plt Count MPV Puncture Site ABG pH ABG pCO2 ABG pO2 ABG PO2/FiO2 Ratio ABG HCO3 ABG O2 Saturation ABG O2 Content ABG Base Excess A-a Gradient Oxyhemoglobin Carboxyhemoglobin Methemoglobin Reduced Hemoglobin Total Hemoglobin O2 Delivery Device O2 Liters/Min Minute Volume Vent Rate Vent Mode FiO2 Tidal Volume PEEP Peak Inspir Pressure Pressure Support Sodium Potassium Chloride Carbon Dioxide Anion Gap BUN Creatinine Estim Creat Clear Calc Estimated GFR Glucose POC Capillary Glucose 149 H 148 H 189 H Calcium Phosphorus Magnesium Total Bilirubin AST ALT Alkaline Phosphatase Total Protein Albumin 04/04/25 04/04/25 04/04/25 04:16 04:17 05:07 WBC 12.5 H RBC 3.05 L Hgb 10.5 L Hct 32.6 L MCV 106.9 H MCH 34.4 H MCHC 32.2 RDW 14.5 Plt Count 170 MPV 10.6 H Puncture Site Right radial ABG pH 7.381 ABG pCO2 44.4 ABG pO2 73.9 L ABG PO2/FiO2 Ratio 2.11 ABG HCO3 25.7 ABG O2 Saturation 94.6 L ABG O2 Content 15.0 L ABG Base Excess 0.4 A-a Gradient 124.0 Oxyhemoglobin 94.2 Carboxyhemoglobin 0.3 Methemoglobin 0.3 Reduced Hemoglobin 5.2 H Total Hemoglobin 11.3 L O2 Delivery Device Ventilator O2 Liters/Min Not Reportable Minute Volume Not Reportable Vent Rate 16 Vent Mode Cmv FiO2 35 Tidal Volume 420 PEEP 5 Peak Inspir Pressure Not Reportable Pressure Support Not Reportable Sodium 138 Potassium 4.2 Chloride 105 Carbon Dioxide 30 Anion Gap 3 L BUN 37 H D Creatinine 1.08 H Estim Creat Clear Calc 47 Estimated GFR 52 L Glucose 134 H POC Capillary Glucose Calcium 9.3 Phosphorus 4.2 Magnesium 2.8 H Total Bilirubin 0.1 L AST 32 ALT 37 H Alkaline Phosphatase 43 Total Protein 5.8 L Albumin 3.6 Quality VTE Prophylaxis VTE prophylaxis: pharmacologic ordered
[2025-04-04] MEDS: dexmedeTOMIDine 400 MCG/100 ML 400 MCG/100 ML BAG IV CONT (09:42)
--- NOTE | 2025-04-04 09:51 | PC.NURSE ---
Full bag of Precedex wasted in [facility] related to it leaking. This was verified with another nurse (BRONSON Avalos).
--- NOTE | 2025-04-04 10:52 | PCFNICU ---
ICU Rounding Note: Pt current nutrition is Vital AF 1.2. at 40 ml/hr. Last recorded weight is 73.7 kg, up from 72.6 kg on admit. Bowel Motility: No BM reported. Labs Reviewed: Mg 2.8, Cr 1.08, BUN 37, Glu 134, Hct 32.6,Hgb 10.5 Meds Noted: Protonix, Rocephin, Lovenox, Propofol 50 iwqm=424 kcal, Versed. Skin: WNL Additional Notes: Patient remains on mechanical vent. Tube feedings continues and are being tolerated of Vital AF 1.2 at 40 ml/hr with free water flush of 30 ml q 4 hours. Agree with diet orders at this time. Following daily in ICU rounds. Will monitor weight, labs, skin, diet orders, meds every Wednesday and Wednesday.
[2025-04-04 11:12] LABS: Glucose Point of Care 174 mg/dl (65-105)
[2025-04-04 17:23] LABS: Glucose Point of Care 185 mg/dl (65-105)
[2025-04-04] MEDS: dexmedeTOMIDine 400 MCG/100 ML 400 MCG/100 ML BAG 7.37 MCG IV CONT (20:00)
[2025-04-04] MEDS: FENTANYL 2,500MCG/NS250ML(*CRX 2,500 MCG/250 ML BAG 7.5 MCG IV CONT (22:26)
[2025-04-05] VITALS (44 sets, daily range): BP systolic 137–183; BP diastolic 80–110; PULSE 64–118; RESP 16–36; TEMP 36.8–37.8; O2SAT 92–100
[2025-04-05 00:47] LABS: Glucose Point of Care 186 mg/dl (65-105)
[2025-04-05] MEDS: PROPOFOL IV EMULSION 100 ML 21.81 MG IV CONT ×6 (02:46→23:50)
[2025-04-05] MEDS: IPRATROPIUM 0.5 MG/ALBUTEROL SULFATE 2.5 MG AMPUL.NEB 3 ML INHALATION ×4 (03:15→20:32)
[2025-04-05 04:00] LABS: Hematocrit 35.4 % (37.0-47.0); Hemoglobin 11.5 g/dL (12.0-15.0); Mean Corpuscular HGB Conc 32.5 g/dl (32-36); Mean Corpuscular Hemoglobin 34.4 pg (26-34); Mean Platelet Volume 10.5 fl (7.4-10.4); Platelet Count Result 166 k/mm3 (150-375); Red Blood Count 3.34 M/mm3 (4.2-5.4); Red Cell Distribution Width 13.7 % (11.5-14.5); White Blood Count 11.9 K/mm3 (4.5-10.0)
[2025-04-05 04:14] LABS: Alanine Aminotransferase 39 U/L (6-35); Albumin Level 3.7 g/dL (3.5-5.1); Alkaline Phosphatase 47 U/L (38-126); Anion Gap 2 mmol/L (4-12); Aspartate Amino Transferase 29 U/L (14-36); Bilirubin,Total 0.1 mg/dL (0.2-1.3); Blood Urea Nitrogen 33 mg/dL (7-17); Calcium 9.3 mg/dL (8.4-10.2); Carbon Dioxide 33 mmol/L (22-30); Chloride 105 mmol/L (98-107); Estimated CRCL calculation 59 ml/min; Estimated Glomerular Filt Rate > 60; Glucose 165 mg/dL (65-110); Magnesium 2.4 mg/dL (1.6-2.3); Phosphorus 3.7 mg/dL (2.5-4.5); Potassium 4.8 mmol/L (3.4-5.0); Sodium 140 mmol/L (137-145); Total Protein 6.1 g/dL (6.3-8.2)
[2025-04-05 05:21] LABS: Base Excess ABG 4.6 mEq/l (+/-2.0); Carboxyhemoglobin 0.2 % THb (0-2.0); Fractional Inspired Oxygen 40 %; HCO3 ABG 29.3 mEq/l (22.0-26.0); Oxygen Content ABG 16.8 %vol (16.0-22.0); Oxygen Saturation ABG 94.3 % (95.0-100.0); Oxyhemoglobin 94.2 % THb (90.0-100.0); PO2 ABG 68.6 mmHg (80.0-100.0); PO2 FiO2 Ratio Arterial Blood 1.71 %; Reduced Hemoglobin 5.6 %THb (0-5.0); Total Hemoglobin 12.7 g/dL (12.0-18.0); pH ABG 7.442 (7.350-7.450)
[2025-04-05 05:24] LABS: Device VENTILATOR; Modified Allen's Test Pass; Site Drawn RIGHT RADIAL
[2025-04-05 05:25] LABS: Arterial Blood Gas PEEP 5 cmH2O; Arterial Blood Gas Tidal Volume 420 ml; Arterial Blood Gas Vent Mode CMV; Arterial Blood Gas Ventilator rate 16 /MIN
[2025-04-05] MEDS: methylPREDNISolone SOD SUCC 40 MG VIAL IV PUSH ×2 (05:53→17:45)
[2025-04-05] MEDS: CENTRAL LINE FLUSH 10 ML IV PUSH ×3 (05:53→22:25)
[2025-04-05] MEDS: dexmedeTOMIDine 400 MCG/100 ML 400 MCG/100 ML BAG 18.43 MCG IV CONT ×3 (06:30→17:44)
[2025-04-05] MEDS: FUROSEMIDE INJ 40 MG/4 ML VIAL IV PUSH (07:58)
[2025-04-05] MEDS: PANTOPRAZOLE SODIUM IV 40 MG VIAL IV PUSH (08:00)
[2025-04-05] MEDS: ENOXAPARIN 40 MG/0.4 ML SYRINGE SUB-Q (08:01)
[2025-04-05] MEDS: MINERAL OIL/WHITE PETROLATUM OINTMENT 1 APPLIC EACH EYE ×2 (08:01→21:00)
--- NOTE | 2025-04-05 08:45 | WPDINTPN ---
Progress Note: A&P Assessment and Plan (1) Respiratory failure: Qualifiers: Chronicity: acute Respiratory failure complication: hypercapnia Qualified Code(s): J96.02 - Acute respiratory failure with hypercapnia Code(s): J96.90 - Respiratory failure, unspecified, unspecified whether with hypoxia or hypercapnia Status: Acute Assessment and Plan: Acute respiratory failure likely related to status asthmaticus -continue mechanical ventilation. ABG improving. Hypercapnia has resolved. -currently sedated with with propofol, fentanyl and Precedex infusion. -04/04 I performed a sedation holiday and evaluated patient for weaning trial but once patient was on low-dose of sedation she became tachypneic, asynchronous with the ventilator and on exam had diffuse wheezing. 04/06 p sedation holiday was performed by holding propofol and fentanyl and patient was placed on PSV 03/08. After few minutes patient again became tachypneic desaturated and asynchronous with the ventilator. She had diffuse agree wheezing on exam and tachypnea. Weaning trial was aborted and patient was placed back on sedation and CMV. Lasix IV 40 mg given today -continue bronchodilators -continue IV steroids but decrease to q.12 hours -continue Pulmicort (2) Asthma exacerbation: Code(s): J45.901 - Unspecified asthma with (acute) exacerbation Status: Acute Assessment and Plan: Patient has a history of asthma, came in with asthma exacerbation. Received Solu-Medrol, epinephrine, magnesium, continues nebs in the ED 04/02: Intubated, discussed with ER physician, patient was tripoding and was in severe respiratory distress so was intubated for airway protection Management as above 04/02:CT chest abdomen and pelvis: No evidence of mediastinal, hilar or axillary lymphadenopathy, no pulmonary embolism, no aortic aneurysm or dissection P no evidence of pleural or pericardial effusion. Lungs are clear, no pulmonary nodules or infiltrates are noted. No significant abdominal abnormalities were seen. (3) Leukocytosis: Code(s): D72.829 - Elevated white blood cell count, unspecified Status: Acute Assessment and Plan: Leukocytosis likely reactive, received 1 dose of cefepime and vancomycin -continue ceftriaxone for asthma exacerbation -continue to monitor -CRP is low (4) Multinodular goiter: Code(s): E04.2 - Nontoxic multinodular goiter Status: Acute Assessment and Plan: Patient has multinodular goiter, although I a.m. not sure of the treatment details TSH levels are low but T3 and T4 adequate Will try to obtain records CTA neck: IMPRESSION: 1. No evident atherosclerotic plaque with 0% stenosis of the right and left carotid bulbs relative to normal distal artery lumen diameter (NASCET criteria). 2. Multinodular goiter. Could consider thyroid ultrasound for risk stratification. Thyroid ultrasound 1. Limited study. Multinodular goiter. Recommend repeat thyroid ultrasound when the patient's condition permits. (5) Transaminitis: Code(s): R74.01 - Elevation of levels of liver transaminase levels Status: Acute Assessment and Plan: Elevation LFTs likely related to hypovolemia, hypoxia due to asthma exacerbated Right upper quadrant ultrasound is unremarkable Levels improving Plan DVT prophylaxis: Lovenox Stress ulcer prophylaxis: Protonix Nutrition: Continue Tube feeds Code Status: Full code Critical Care Time Spent: 30 minutes Due to a high probability of clinically significant, life threatening deterioration, the patient required my highest level of preparedness to intervene emergently and I personally spent this critical care time directly and personally managing the patient. This critical care time included obtaining a history; examining the patient; pulse oximetry; ordering and review of studies; arranging urgent treatment with development of a management plan; evaluation of patient's response to treatment; frequent reassessment; and discussions with other providers. It was exclusive of separately billable procedures and treating other patients and teaching time. Please see Assessment and Plan section and the rest of the note for further information on patient assessment and treatment This dictation may have been done utilizing a voice recognition system. Attempts have been made to correct errors. However, there may be uncorrected grammatical, spelling, and recognitions errors present. Subjective Date/time seen: 04/05/25 Overnight events reviewed. Afebrile Continues to be on mechanical ventilation 40% FiO2 Tolerating tube feed Continues to be sedated with propofol, pressor and fentanyl Acceptable urine output Other Vitals acceptable Review of Systems Review of Systems: ROS unobtainable: Yes unobtainable due to endotracheal tube, unobtainable due to medical condition and unobtainable due to mental status Exam Narrative: General: Intubated sedated, in no acute distress HEENT:? Pupils are pinpoint but reactive, sclera is clear, ETT in place Neck:? Supple Respiratory:? Diffuse wheezing bilaterally specially on holding sedation, bilateral breath sound Cardiac:? S1-S2 is normal, regular rate and rhythm Abdomen:? Soft, nontender, nondistended, normoactive bowel sound Extremities:? No edema, palpable pedal pulse Neuro:? Intubated, sedated, does not open her eyes or follow simple commands per Skin:? Warm and dry Psych:? Unable to assess at this time Objective Data Vital Signs Vital Signs: Vital Signs - 24 hr 04/04/25 08:48 04/04/25 08:56 04/04/25 09:07 Temperature Pulse Rate 77 92 111 H Respiratory Rate 19 31 H Blood Pressure Pulse Oximetry 96 Oxygen Delivery Mechanical Ventilation Fraction of Inspired Oxygen 35 04/04/25 09:24 04/04/25 09:28 04/04/25 09:33 Temperature Pulse Rate 111 H 100 97 Respiratory Rate 31 H 16 11 L Blood Pressure Pulse Oximetry Oxygen Delivery Fraction of Inspired Oxygen 04/04/25 09:42 04/04/25 10:00 04/04/25 10:00 Temperature 37.1 C Pulse Rate 96 69 95 Respiratory Rate 12 16 Blood Pressure 124/79 Pulse Oximetry 92 Oxygen Delivery Fraction of Inspired Oxygen 04/04/25 10:30 04/04/25 10:30 04/04/25 10:48 Temperature Pulse Rate 98 93 86 Respiratory Rate 12 12 9 L Blood Pressure Pulse Oximetry Oxygen Delivery Fraction of Inspired Oxygen 04/04/25 11:25 04/04/25 12:00 04/04/25 12:00 Temperature 37.2 C Pulse Rate 82 79 79 Respiratory Rate 9 L Blood Pressure 123/82 Pulse Oximetry 95 95 95 Oxygen Delivery Mechanical Ventilation Mechanical Ventilation Fraction of Inspired Oxygen 40 40 04/04/25 12:00 04/04/25 12:00 04/04/25 12:00 Temperature Pulse Rate 79 79 Respiratory Rate 21 H Blood Pressure Pulse Oximetry Oxygen Delivery Fraction of Inspired Oxygen 40 04/04/25 12:00 04/04/25 12:30 04/04/25 13:41 Temperature Pulse Rate 93 75 72 Respiratory Rate 21 H 16 19 Blood Pressure Pulse Oximetry Oxygen Delivery Fraction of Inspired Oxygen 04/04/25 13:41 04/04/25 13:44 04/04/25 13:45 Temperature Pulse Rate 72 72 76 Respiratory Rate 19 16 Blood Pressure Pulse Oximetry 96 Oxygen Delivery Mechanical Ventilation Fraction of Inspired Oxygen 40 04/04/25 13:52 04/04/25 14:00 04/04/25 14:00 Temperature 37.3 C Pulse Rate 78 82 82 Respiratory Rate 16 22 H 14 Blood Pressure 129/82 Pulse Oximetry 94 Oxygen Delivery Fraction of Inspired Oxygen 04/04/25 14:00 04/04/25 14:00 04/04/25 16:00 Temperature 37.2 C Pulse Rate 82 81 74 Respiratory Rate 18 16 Blood Pressure 131/83 Pulse Oximetry 97 Oxygen Delivery Fraction of Inspired Oxygen 04/04/25 16:00 04/04/25 16:00 04/04/25 16:00 Temperature Pulse Rate 73 77 Respiratory Rate 18 Blood Pressure Pulse Oximetry 97 Oxygen Delivery Mechanical Ventilation Fraction of Inspired Oxygen 40 40 04/04/25 16:00 04/04/25 17:17 04/04/25 17:17 Temperature Pulse Rate 76 74 74 Respiratory Rate 16 18 18 Blood Pressure Pulse Oximetry Oxygen Delivery Fraction of Inspired Oxygen 04/04/25 17:26 04/04/25 18:00 04/04/25 18:00 Temperature Pulse Rate 73 69 71 Respiratory Rate 16 Blood Pressure 134/85 Pulse Oximetry 97 97 Oxygen Delivery Mechanical Ventilation Fraction of Inspired Oxygen 40 04/04/25 18:00 04/04/25 18:00 04/04/25 18:00 Temperature Pulse Rate 72 72 72 Respiratory Rate 16 22 H 16 Blood Pressure Pulse Oximetry Oxygen Delivery Fraction of Inspired Oxygen 04/04/25 20:00 04/04/25 20:00 04/04/25 20:00 Temperature Pulse Rate 66 66 66 Respiratory Rate 16 16 16 Blood Pressure Pulse Oximetry Oxygen Delivery Fraction of Inspired Oxygen 04/04/25 20:00 04/04/25 20:00 04/04/25 20:00 Temperature 37.3 C Pulse Rate 66 67 Respiratory Rate 16 16 Blood Pressure 144/92 H Pulse Oximetry 97 Oxygen Delivery Fraction of Inspired Oxygen 40 04/04/25 20:00 04/04/25 20:00 04/04/25 21:00 Temperature Pulse Rate 67 67 67 Respiratory Rate 16 Blood Pressure Pulse Oximetry 97 97 Oxygen Delivery Mechanical Ventilation Mechanical Ventilation Fraction of Inspired Oxygen 40 40 04/04/25 21:07 04/04/25 21:20 04/04/25 22:00 Temperature Pulse Rate 67 78 79 Respiratory Rate 24 H 16 16 Blood Pressure 138/82 Pulse Oximetry 94 Oxygen Delivery Fraction of Inspired Oxygen 04/04/25 22:00 04/04/25 22:00 04/04/25 22:00 Temperature Pulse Rate 79 79 79 Respiratory Rate 16 16 Blood Pressure Pulse Oximetry Oxygen Delivery Fraction of Inspired Oxygen 04/04/25 22:00 04/04/25 22:26 04/04/25 22:26 Temperature Pulse Rate 79 75 75 Respiratory Rate 16 16 16 Blood Pressure Pulse Oximetry Oxygen Delivery Fraction of Inspired Oxygen 04/04/25 22:45 04/05/25 00:00 04/05/25 00:00 Temperature 36.9 C Pulse Rate 72 70 70 Respiratory Rate 16 16 Blood Pressure 156/97 H Pulse Oximetry 96 96 Oxygen Delivery Mechanical Ventilation Fraction of Inspired Oxygen 40 04/05/25 00:00 04/05/25 00:00 04/05/25 00:00 Temperature Pulse Rate 71 71 69 Respiratory Rate 16 16 Blood Pressure Pulse Oximetry Oxygen Delivery Fraction of Inspired Oxygen 04/05/25 00:00 04/05/25 00:00 04/05/25 00:30 Temperature Pulse Rate 71 70 Respiratory Rate 16 16 Blood Pressure Pulse Oximetry 97 Oxygen Delivery Mechanical Ventilation Fraction of Inspired Oxygen 40 40 04/05/25 00:30 04/05/25 02:00 04/05/25 02:00 Temperature Pulse Rate 70 64 64 Respiratory Rate 16 16 Blood Pressure 159/98 H Pulse Oximetry 98 Oxygen Delivery Fraction of Inspired Oxygen 04/05/25 02:00 04/05/25 02:00 04/05/25 02:00 Temperature Pulse Rate 64 64 64 Respiratory Rate 16 16 16 Blood Pressure Pulse Oximetry Oxygen Delivery Fraction of Inspired Oxygen 04/05/25 02:46 04/05/25 02:46 04/05/25 03:15 Temperature Pulse Rate 67 67 68 Respiratory Rate 16 16 Blood Pressure Pulse Oximetry 97 Oxygen Delivery Mechanical Ventilation Fraction of Inspired Oxygen 40 04/05/25 03:15 04/05/25 04:00 04/05/25 04:00 Temperature Pulse Rate 68 67 67 Respiratory Rate 16 16 16 Blood Pressure Pulse Oximetry Oxygen Delivery Fraction of Inspired Oxygen 04/05/25 04:00 04/05/25 04:00 04/05/25 04:00 Temperature 37.1 C Pulse Rate 67 67 Respiratory Rate 16 16 Blood Pressure 158/97 H Pulse Oximetry 97 Oxygen Delivery Fraction of Inspired Oxygen 40 04/05/25 04:00 04/05/25 04:00 04/05/25 06:00 Temperature Pulse Rate 71 73 67 Respiratory Rate 16 17 Blood Pressure Pulse Oximetry 97 Oxygen Delivery Mechanical Ventilation Fraction of Inspired Oxygen 40 04/05/25 06:00 04/05/25 06:00 04/05/25 06:00 Temperature Pulse Rate 67 67 67 Respiratory Rate 17 17 17 Blood Pressure Pulse Oximetry Oxygen Delivery Fraction of Inspired Oxygen 04/05/25 06:00 04/05/25 06:00 04/05/25 06:30 Temperature Pulse Rate 67 67 68 Respiratory Rate 17 17 Blood Pressure 173/110 H Pulse Oximetry 96 Oxygen Delivery Fraction of Inspired Oxygen 04/05/25 07:35 04/05/25 07:38 04/05/25 07:44 Temperature 37.2 C Pulse Rate 67 67 67 Respiratory Rate 16 16 16 Blood Pressure 183/109 H Pulse Oximetry 96 Oxygen Delivery Fraction of Inspired Oxygen 04/05/25 08:33 Temperature Pulse Rate 118 H Respiratory Rate 36 H Blood Pressure Pulse Oximetry Oxygen Delivery Fraction of Inspired Oxygen Intake/Output Intake/Output: Intake & Output 04/02/25 04/03/25 04/04/25 04/05/25 23:59 23:59 23:59 23:59 Intake Total 4448.9 3190.0 2838.5 899.7 Output Total 400 800 950 800 Balance 4048.9 2390.0 1888.5 99.7 Meds/Results Medications: Active Medications Generic Name Dose Route Start Last Admin Trade Name Freq PRN Reason Stop Dose Admin Acetaminophen 650 mg 04/02/25 09:36 Acetaminophen 650 Mg Suppository RECTAL Q6H PRN Mild Pain (1-3) or Fever Albuterol/Ipratropium 3 ml 04/02/25 14:00 04/05/25 03:15 Ipratropium 0.5 Mg/Albuterol Sulfate 2.5 Mg Ampul.Neb 3 Ml INHALATION 3 ml Q6HRT CARROL Administration Budesonide 0.5 mg 04/02/25 20:00 04/04/25 20:55 Budesonide Respule Neb 0.5 Mg/2 Ml Amp INHALATION 0.5 mg Q12HRT CARROL Administration Dextrose 12.5 gm 04/03/25 07:41 Dextrose 50% 25 Gm/50 Ml Syringe IV PUSH PRN PRN Hypoglycemia Protocol Enoxaparin Sodium 40 mg 04/02/25 13:40 04/05/25 08:01 Enoxaparin 40 Mg/0.4 Ml Syringe SUB-Q 40 mg DAILY CARROL Administration Glucagon 1 mg 04/03/25 07:41 Glucagon For Inj 1 Mg Vial IM PRN PRN Hypoglycemia Protocol Glucose 15 gm 04/03/25 07:41 Glucose Oral Gel 15 Gm Of Glucse In 37.5 Gm Tube PO PRN PRN Hypoglycemia Protocol Hydralazine HCl 20 mg 04/05/25 07:44 Hydralazine Hcl 20 Mg/Ml Vial IV PUSH Q4H PRN SBP more than 160 Propofol 100 mls @ 21.81 mls/hr 04/02/25 09:40 04/05/25 08:33 Diprivan IV CONT 50 mcg/kg/min .Q4H36M CARROL 21.81 mls/hr Titration Protocol 50 MCG/KG/MIN Ceftriaxone Sodium 1 gm in 50 mls @ 100 mls/hr 04/02/25 14:00 04/04/25 14:19 Rocephin 1 Gm/Ns 50 Ml IVPB 04/06/25 14:29 100 mls/hr Q24H CARROL Administration Dextrose 1,000 mls @ 100 mls/hr 04/03/25 07:41 Dextrose 5% 1,000 Ml IVPB PRN PRN Hypoglycemia Protocol Fentanyl Citrate 2,500 mcg in 250 mls @ 0 mls/hr 04/03/25 14:15 04/05/25 06:00 Fentanyl 2,500 Mcg/Ns 250 Ml IV CONT 0 mcg/hr .Q0M CARROL 0 mls/hr Titration Protocol Dexmedetomidine HCl 400 mcg in 100 mls @ 18.425 mls/hr 04/04/25 09:30 04/05/25 06:30 Precedex 400 Mcg/100 Ml IV CONT 1 mcg/kg/hr .Q5H26M CARROL 18.43 mls/hr Administration Protocol 1 MCG/KG/HR Insulin Aspart 2 - 5 units 04/03/25 12:00 04/05/25 05:53 Insulin Aspart (*Bkc) 100 Units/Ml SUB-Q Not Given Q6HR CARROL Protocol Methylprednisolone Sodium Succinate 40 mg 04/03/25 18:00 04/05/25 05:53 Methylprednisolone Sod Succ 40 Mg Vial IV PUSH 40 mg Q12H CARROL Administration Midazolam HCl 2 mg 04/04/25 09:28 Midazolam Hcl (*Crx) 2 Mg/2 Ml Vial IV PUSH Q5M PRN ventilator asynchrony Miscellaneous Information 1 each 04/05/25 00:01 04/05/25 07:34 Please Renew Propofol. Per [employer] Procedure, It Will Discontinue If Not Renewed XX 05/05/25 00:00 Not Given CLARIFY CARROL Multi-Ingred Cream/Lotion/Oil/Oint 1 applic 04/02/25 09:00 04/05/25 08:01 Mineral Oil/White Petrolatum Ointment EACH EYE 1 applic Q12HR CARROL Administration Ondansetron HCl 4 mg 04/02/25 09:36 Ondansetron Inj 4 Mg/2 Ml Vial IV PUSH Q4H PRN Nausea Pantoprazole Sodium 40 mg 04/03/25 09:00 04/05/25 08:00 Pantoprazole Sodium Iv 40 Mg Vial IV PUSH 40 mg QAM CARROL Administration Sodium Chloride 10 ml 04/02/25 14:00 04/05/25 05:53 Central Line Flush IV PUSH 10 ml Q8HR CARROL Administration Sodium Chloride 20 ml 04/02/25 12:54 04/03/25 05:21 Central Line Flush IV PUSH 20 ml PRN PRN Administration after blood draws Radiology Results: ITS Impressions Neck CTA 04/02/25 09:06 IMPRESSION: 1. No evident atherosclerotic plaque with 0% stenosis of the right and left carotid bulbs relative to normal distal artery lumen diameter (NASCET criteria). 2. Multinodular goiter. Could consider thyroid ultrasound for risk stratification. Chest/Abdomen/Pelvis CTA 04/02/25 09:10 Impression: No significant abnormalities seen. Abdomen Ultrasound 04/02/25 15:47 IMPRESSION: 1: Unremarkable limited abdominal ultrasound. Thyroid Ultrasound 04/02/25 15:50 IMPRESSION: 1. Limited study. Multinodular goiter. Recommend repeat thyroid ultrasound when the patient's condition permits. Chest X-Ray 04/05/25 05:43 Impression: Stable support tubes. Clear lungs. Labs Labs: Laboratory Results - last 24 hr 04/04/25 04/04/25 04/05/25 11:06 17:19 00:20 WBC RBC Hgb Hct MCV MCH MCHC RDW Plt Count MPV Puncture Site ABG pH ABG pCO2 ABG pO2 ABG PO2/FiO2 Ratio ABG HCO3 ABG O2 Saturation ABG O2 Content ABG Base Excess A-a Gradient Oxyhemoglobin Carboxyhemoglobin Methemoglobin Reduced Hemoglobin Total Hemoglobin O2 Delivery Device O2 Liters/Min Minute Volume Vent Rate Vent Mode FiO2 Tidal Volume PEEP Peak Inspir Pressure Pressure Support Sodium Potassium Chloride Carbon Dioxide Anion Gap BUN Creatinine Estim Creat Clear Calc Estimated GFR Glucose POC Capillary Glucose 174 H 185 H 186 H Calcium Phosphorus Magnesium Total Bilirubin AST ALT Alkaline Phosphatase Total Protein Albumin 04/05/25 04/05/25 03:50 05:09 WBC 11.9 H RBC 3.34 L Hgb 11.5 L Hct 35.4 L MCV 106.0 H MCH 34.4 H MCHC 32.5 RDW 13.7 Plt Count 166 MPV 10.5 H Puncture Site Right radial ABG pH 7.442 ABG pCO2 44.0 ABG pO2 68.6 L ABG PO2/FiO2 Ratio 1.71 ABG HCO3 29.3 H ABG O2 Saturation 94.3 L ABG O2 Content 16.8 ABG Base Excess 4.6 A-a Gradient 166.0 Oxyhemoglobin 94.2 Carboxyhemoglobin 0.2 Methemoglobin 0.0 Reduced Hemoglobin 5.6 H Total Hemoglobin 12.7 O2 Delivery Device Ventilator O2 Liters/Min Not Reportable Minute Volume Not Reportable Vent Rate 16 Vent Mode Cmv FiO2 40 Tidal Volume 420 PEEP 5 Peak Inspir Pressure Not Reportable Pressure Support Not Reportable Sodium 140 Potassium 4.8 Chloride 105 Carbon Dioxide 33 H Anion Gap 2 L BUN 33 H Creatinine 0.85 Estim Creat Clear Calc 59 Estimated GFR > 60 Glucose 165 H POC Capillary Glucose Calcium 9.3 Phosphorus 3.7 Magnesium 2.4 H Total Bilirubin 0.1 L AST 29 ALT 39 H Alkaline Phosphatase 47 Total Protein 6.1 L Albumin 3.7 Quality VTE Prophylaxis VTE prophylaxis: pharmacologic ordered
[2025-04-05] MEDS: MIDAZOLAM HCL (*CRX) 2 MG/2 ML VIAL IV PUSH ×2 (08:48→10:27)
[2025-04-05] MEDS: BUDESONIDE RESPULE NEB 0.5 MG/2 ML AMP INHALATION ×2 (08:59→20:32)
--- NOTE | 2025-04-05 10:42 | PCFNICU ---
ICU Rounding Note: Pt current nutrition is Vital AF 1.2 at 40 ml/hr. Last recorded weight is 77 kg, up from 72.6 kg om admit. Bowel Motility: No BM reported. Labs Reviewed: Mg 2.4, BUN 33,Glu 165 Meds Noted: Rocephin, Protonix, Lovenox, Propofol 50 xvth=838 kcal, Fentanyl, Precedex. Skin: WNL Additional Notes: Patient remains on a mechanical vent. Failed breathing trial today. Nursing noted elevated residuals overnight 350-400 ml. Tube feedings have been resumed at 40 ml/hr of Vital AF 1.2 and tolerating. Flush 30 ml q 4 hours. Agree with diet orders at this time. Following daily in ICU rounds. Will monitor weight, labs, skin, diet orders, meds every Wednesday and Wednesday.
[2025-04-05 11:44] LABS: Glucose Point of Care 169 mg/dl (65-105)
[2025-04-05 18:13] LABS: Glucose Point of Care 159 mg/dl (65-105)
[2025-04-05] MEDS: dexmedeTOMIDine 400 MCG/100 ML 400 MCG/100 ML BAG 22.11 MCG IV CONT (22:50)
[2025-04-05 23:32] LABS: Glucose Point of Care 187 mg/dl (65-105)
[2025-04-06] VITALS (80 sets, daily range): BP systolic 109–156; BP diastolic 72–104; PULSE 76–117; RESP 9–80; TEMP 36.6–37.7; O2SAT 86–100
[2025-04-06] MEDS: IPRATROPIUM 0.5 MG/ALBUTEROL SULFATE 2.5 MG AMPUL.NEB 3 ML INHALATION ×4 (02:08→20:31)
[2025-04-06] MEDS: dexmedeTOMIDine 400 MCG/100 ML 400 MCG/100 ML BAG 25.8 MCG IV CONT (03:15)
[2025-04-06] MEDS: PROPOFOL IV EMULSION 100 ML 21.81 MG IV CONT (03:15)
[2025-04-06 05:14] LABS: Alveolar/Arterial O2 Gradient 94.5 mmHg; Base Excess ABG 12.6 mEq/l (+/-2.0); Carboxyhemoglobin 0.1 % THb (0-2.0); Fractional Inspired Oxygen 30 %; HCO3 ABG 37.7 mEq/l (22.0-26.0); Oxygen Content ABG 17.2 %vol (16.0-22.0); Oxygen Saturation ABG 92.9 % (95.0-100.0); PCO2 ABG 49.7 mmHg (35.0-45.0); PO2 FiO2 Ratio Arterial Blood 2.03 %; Reduced Hemoglobin 7.9 %THb (0-5.0); Total Hemoglobin 13.3 g/dL (12.0-18.0); pH ABG 7.498 (7.350-7.450)
[2025-04-06 05:16] LABS: Device VENTILATOR; Modified Allen's Test Pass; Site Drawn LEFT RADIAL
[2025-04-06 05:17] LABS: Arterial Blood Gas PEEP 5 cmH2O; Arterial Blood Gas Tidal Volume 420 ml; Arterial Blood Gas Vent Mode CMV; Arterial Blood Gas Ventilator rate 16 /MIN
[2025-04-06] MEDS: methylPREDNISolone SOD SUCC 40 MG VIAL IV PUSH ×2 (05:20→17:02)
[2025-04-06] MEDS: CENTRAL LINE FLUSH 10 ML IV PUSH ×3 (05:20→20:01)
[2025-04-06 06:20] LABS: Hematocrit 37.3 % (37.0-47.0); Hemoglobin 12.2 g/dL (12.0-15.0); Mean Corpuscular HGB Conc 32.7 g/dl (32-36); Mean Corpuscular Hemoglobin 34.4 pg (26-34); Mean Corpuscular Volume 105.1 fl (80-100); Platelet Count Result 164 k/mm3 (150-375); Red Blood Count 3.55 M/mm3 (4.2-5.4); Red Cell Distribution Width 13.2 % (11.5-14.5); White Blood Count 12.5 K/mm3 (4.5-10.0)
[2025-04-06 06:34] LABS: Alanine Aminotransferase 61 U/L (6-35); Albumin Level 3.5 g/dL (3.5-5.1); Alkaline Phosphatase 51 U/L (38-126); Aspartate Amino Transferase 36 U/L (14-36); Bilirubin,Total 0.2 mg/dL (0.2-1.3); Blood Urea Nitrogen 33 mg/dL (7-17); Calcium 9.2 mg/dL (8.4-10.2); Carbon Dioxide > 40 mmol/L (22-30); Chloride 97 mmol/L (98-107); Estimated CRCL calculation 65 ml/min; Estimated Glomerular Filt Rate > 60; Glucose 133 mg/dL (65-110); Magnesium 2.4 mg/dL (1.6-2.3); Phosphorus 3.5 mg/dL (2.5-4.5); Potassium 3.8 mmol/L (3.4-5.0); Sodium 140 mmol/L (137-145)
[2025-04-06] MEDS: dexmedeTOMIDine 400 MCG/100 ML 400 MCG/100 ML BAG 20.27 MCG IV CONT (07:54)
[2025-04-06] MEDS: PANTOPRAZOLE SODIUM IV 40 MG VIAL IV PUSH (08:02)
[2025-04-06] MEDS: ENOXAPARIN 40 MG/0.4 ML SYRINGE SUB-Q (08:02)
[2025-04-06] MEDS: PROPOFOL IV EMULSION 100 ML 17.45 MG IV CONT (08:03)
[2025-04-06] MEDS: MINERAL OIL/WHITE PETROLATUM OINTMENT 1 APPLIC EACH EYE (08:03)
[2025-04-06] MEDS: BUDESONIDE RESPULE NEB 0.5 MG/2 ML AMP INHALATION ×2 (08:15→20:31)
--- NOTE | 2025-04-06 09:03 | WPDINTPN ---
Progress Note: A&P Assessment and Plan (1) Respiratory failure: Qualifiers: Chronicity: acute Respiratory failure complication: hypercapnia Qualified Code(s): J96.02 - Acute respiratory failure with hypercapnia Code(s): J96.90 - Respiratory failure, unspecified, unspecified whether with hypoxia or hypercapnia Status: Acute Assessment and Plan: Acute respiratory failure likely related to status asthmaticus -continue mechanical ventilation. ABG improving. Hypercapnia has resolved. -currently sedated with with propofol, fentanyl and Precedex infusion. -04/04 I performed a sedation holiday and evaluated patient for weaning trial but once patient was on low-dose of sedation she became tachypneic, asynchronous with the ventilator and on exam had diffuse wheezing. 04/05 sedation holiday was performed by holding propofol and fentanyl and patient was placed on PSV 03/08. After few minutes patient again became tachypneic desaturated and asynchronous with the ventilator. She had diffuse agree wheezing on exam and tachypnea. Weaning trial was aborted and patient was placed back on sedation and CMV. Lasix IV 40 mg given today -sedation holiday and PSV weaning trial again today -continue bronchodilators -continue IV steroids but decrease to q.12 hours -continue Pulmicort (2) Asthma exacerbation: Code(s): J45.901 - Unspecified asthma with (acute) exacerbation Status: Acute Assessment and Plan: Patient has a history of asthma, came in with asthma exacerbation. Received Solu-Medrol, epinephrine, magnesium, continues nebs in the ED 04/02: Intubated, discussed with ER physician, patient was tripoding and was in severe respiratory distress so was intubated for airway protection Management as above 04/02:CT chest abdomen and pelvis: No evidence of mediastinal, hilar or axillary lymphadenopathy, no pulmonary embolism, no aortic aneurysm or dissection P no evidence of pleural or pericardial effusion. Lungs are clear, no pulmonary nodules or infiltrates are noted. No significant abdominal abnormalities were seen. (3) Leukocytosis: Code(s): D72.829 - Elevated white blood cell count, unspecified Status: Acute Assessment and Plan: Leukocytosis likely reactive, received 1 dose of cefepime and vancomycin -continue ceftriaxone for asthma exacerbation -continue to monitor -CRP is low (4) Multinodular goiter: Code(s): E04.2 - Nontoxic multinodular goiter Status: Acute Assessment and Plan: Patient has multinodular goiter, although I a.m. not sure of the treatment details TSH levels are low but T3 and T4 adequate Records requested from [facility] CTA neck: IMPRESSION: 1. No evident atherosclerotic plaque with 0% stenosis of the right and left carotid bulbs relative to normal distal artery lumen diameter (NASCET criteria). 2. Multinodular goiter. Could consider thyroid ultrasound for risk stratification. Thyroid ultrasound 1. Limited study. Multinodular goiter. Recommend repeat thyroid ultrasound when the patient's condition permits. (5) Transaminitis: Code(s): R74.01 - Elevation of levels of liver transaminase levels Status: Acute Assessment and Plan: Elevation LFTs likely related to hypovolemia, hypoxia due to asthma exacerbated Right upper quadrant ultrasound is unremarkable Levels improving Plan DVT prophylaxis: Lovenox Stress ulcer prophylaxis: Protonix Nutrition: Continue Tube feeds Code Status: Full code Spoke to and updated patient's at bedside and answered all the questions. Critical Care Time Spent: 30 minutes Due to a high probability of clinically significant, life threatening deterioration, the patient required my highest level of preparedness to intervene emergently and I personally spent this critical care time directly and personally managing the patient. This critical care time included obtaining a history; examining the patient; pulse oximetry; ordering and review of studies; arranging urgent treatment with development of a management plan; evaluation of patient's response to treatment; frequent reassessment; and discussions with other providers. It was exclusive of separately billable procedures and treating other patients and teaching time. Please see Assessment and Plan section and the rest of the note for further information on patient assessment and treatment This dictation may have been done utilizing a voice recognition system. Attempts have been made to correct errors. However, there may be uncorrected grammatical, spelling, and recognitions errors present. Subjective Date/time seen: 04/06/25 Overnight events reviewed. Afebrile Continues to be on mechanical ventilation 35% FiO2 Tolerating tube feed Continues to be sedated with Precedex fentanyl and propofol Vitals acceptable Review of Systems Review of Systems: ROS unobtainable: Yes unobtainable due to endotracheal tube, unobtainable due to medical condition and unobtainable due to mental status Exam Narrative: General: Intubated sedated, in no acute distress HEENT:? Pupils are pinpoint but reactive, sclera is clear, ETT in place Neck:? Supple Respiratory:? Diffuse wheezing bilaterally specially on holding sedation, bilateral breath sound Cardiac:? S1-S2 is normal, regular rate and rhythm Abdomen:? Soft, nontender, nondistended, normoactive bowel sound Extremities:? No edema, palpable pedal pulse Neuro:? Intubated, sedated, does not open her eyes or follow simple commands , moves all 4 extremities spontaneously PERRL Skin:? Warm and dry Psych:? Unable to assess at this time Objective Data Vital Signs Vital Signs: Vital Signs - 24 hr 04/05/25 10:00 04/05/25 10:00 04/05/25 10:00 Temperature Pulse Rate 93 88 88 Respiratory Rate 24 H 16 16 Blood Pressure 137/90 Pulse Oximetry 97 Oxygen Delivery Fraction of Inspired Oxygen 04/05/25 10:00 04/05/25 10:28 04/05/25 11:16 Temperature Pulse Rate 88 95 91 Respiratory Rate 30 H Blood Pressure Pulse Oximetry 98 Oxygen Delivery Mechanical Ventilation Fraction of Inspired Oxygen 40 04/05/25 11:27 04/05/25 11:27 04/05/25 11:56 Temperature Pulse Rate 91 91 82 Respiratory Rate 16 16 16 Blood Pressure Pulse Oximetry Oxygen Delivery Fraction of Inspired Oxygen 04/05/25 12:00 04/05/25 12:00 04/05/25 12:00 Temperature 36.8 C Pulse Rate 78 Respiratory Rate 16 Blood Pressure 139/85 Pulse Oximetry 92 Oxygen Delivery Mechanical Ventilation Fraction of Inspired Oxygen 40 04/05/25 12:00 04/05/25 12:00 04/05/25 12:00 Temperature Pulse Rate 80 80 80 Respiratory Rate 16 16 Blood Pressure Pulse Oximetry Oxygen Delivery Fraction of Inspired Oxygen 04/05/25 12:11 04/05/25 12:11 04/05/25 14:00 Temperature Pulse Rate 82 80 70 Respiratory Rate 16 16 16 Blood Pressure 157/94 H Pulse Oximetry 98 Oxygen Delivery Fraction of Inspired Oxygen 04/05/25 14:00 04/05/25 14:00 04/05/25 14:00 Temperature Pulse Rate 70 70 70 Respiratory Rate 16 16 16 Blood Pressure Pulse Oximetry Oxygen Delivery Fraction of Inspired Oxygen 04/05/25 14:00 04/05/25 14:00 04/05/25 14:38 Temperature Pulse Rate 70 70 73 Respiratory Rate 16 16 Blood Pressure 157/94 H Pulse Oximetry 98 Oxygen Delivery Fraction of Inspired Oxygen 04/05/25 14:42 04/05/25 14:55 04/05/25 15:32 Temperature Pulse Rate 79 91 Respiratory Rate 16 Blood Pressure Pulse Oximetry 97 98 Oxygen Delivery Mechanical Ventilation Fraction of Inspired Oxygen 50 60 04/05/25 15:32 04/05/25 15:48 04/05/25 15:53 Temperature 37.4 C Pulse Rate 91 92 89 Respiratory Rate 16 16 16 Blood Pressure 147/80 H Pulse Oximetry 93 Oxygen Delivery Fraction of Inspired Oxygen 04/05/25 16:00 04/05/25 16:00 04/05/25 16:00 Temperature Pulse Rate 87 87 87 Respiratory Rate 16 16 Blood Pressure Pulse Oximetry Oxygen Delivery Fraction of Inspired Oxygen 04/05/25 16:00 04/05/25 16:00 04/05/25 16:00 Temperature Pulse Rate 87 Respiratory Rate 16 Blood Pressure Pulse Oximetry Oxygen Delivery Mechanical Ventilation Fraction of Inspired Oxygen 60 04/05/25 17:37 04/05/25 17:44 04/05/25 18:00 Temperature Pulse Rate 84 84 83 Respiratory Rate 16 16 16 Blood Pressure Pulse Oximetry Oxygen Delivery Fraction of Inspired Oxygen 04/05/25 18:00 04/05/25 18:00 04/05/25 18:00 Temperature Pulse Rate 83 83 79 Respiratory Rate 16 16 Blood Pressure Pulse Oximetry Oxygen Delivery Fraction of Inspired Oxygen 04/05/25 18:00 04/05/25 18:32 04/05/25 19:01 Temperature Pulse Rate 80 84 78 Respiratory Rate 16 16 Blood Pressure 140/82 Pulse Oximetry 96 97 Oxygen Delivery Mechanical Ventilation Fraction of Inspired Oxygen 50 04/05/25 19:01 04/05/25 20:00 04/05/25 20:00 Temperature 37.8 C H Pulse Rate 78 75 Respiratory Rate 16 16 Blood Pressure 157/91 H Pulse Oximetry 97 Oxygen Delivery Fraction of Inspired Oxygen 40 04/05/25 20:00 04/05/25 20:00 04/05/25 20:00 Temperature Pulse Rate 75 75 75 Respiratory Rate 16 16 16 Blood Pressure Pulse Oximetry Oxygen Delivery Fraction of Inspired Oxygen 04/05/25 20:00 04/05/25 20:00 04/05/25 20:25 Temperature Pulse Rate 76 78 Respiratory Rate 17 Blood Pressure Pulse Oximetry 100 Oxygen Delivery Mechanical Ventilation Fraction of Inspired Oxygen 40 06/05/25 20:39 04/05/25 20:45 04/05/25 20:50 Temperature Pulse Rate 78 78 86 Respiratory Rate 16 22 H Blood Pressure Pulse Oximetry 97 Oxygen Delivery Mechanical Ventilation Fraction of Inspired Oxygen 45 04/05/25 22:00 04/05/25 22:00 04/05/25 22:00 Temperature Pulse Rate 87 87 87 Respiratory Rate 16 16 16 Blood Pressure 138/92 H Pulse Oximetry 94 Oxygen Delivery Fraction of Inspired Oxygen 04/05/25 22:00 04/05/25 22:00 04/05/25 22:50 Temperature Pulse Rate 87 87 82 Respiratory Rate 16 16 Blood Pressure Pulse Oximetry Oxygen Delivery Fraction of Inspired Oxygen 04/05/25 22:50 04/05/25 23:08 04/05/25 23:50 Temperature Pulse Rate 82 80 82 Respiratory Rate 16 16 Blood Pressure Pulse Oximetry 96 Oxygen Delivery Mechanical Ventilation Fraction of Inspired Oxygen 40 04/05/25 23:50 04/06/25 00:00 04/06/25 00:00 Temperature Pulse Rate 82 85 82 Respiratory Rate 16 16 16 Blood Pressure Pulse Oximetry Oxygen Delivery Fraction of Inspired Oxygen 04/06/25 00:00 04/06/25 00:00 04/06/25 00:00 Temperature 37.7 C H Pulse Rate 82 82 Respiratory Rate 16 16 Blood Pressure 134/84 Pulse Oximetry 94 Oxygen Delivery Fraction of Inspired Oxygen 35 04/06/25 00:00 04/06/25 00:00 04/06/25 01:20 Temperature Pulse Rate 82 79 Respiratory Rate 22 H Blood Pressure Pulse Oximetry 94 Oxygen Delivery Mechanical Ventilation Fraction of Inspired Oxygen 35 04/06/25 02:00 04/06/25 02:00 04/06/25 02:00 Temperature Pulse Rate 79 79 79 Respiratory Rate 16 16 Blood Pressure 146/92 H Pulse Oximetry 95 Oxygen Delivery Fraction of Inspired Oxygen 04/06/25 02:00 04/06/25 02:00 04/06/25 02:08 Temperature Pulse Rate 79 79 80 Respiratory Rate 16 16 Blood Pressure Pulse Oximetry 95 Oxygen Delivery Mechanical Ventilation Fraction of Inspired Oxygen 35 04/06/25 02:11 04/06/25 02:20 04/06/25 03:15 Temperature Pulse Rate 80 81 90 Respiratory Rate 16 16 16 Blood Pressure Pulse Oximetry Oxygen Delivery Fraction of Inspired Oxygen 04/06/25 03:15 04/06/25 03:15 04/06/25 03:15 Temperature Pulse Rate 90 90 90 Respiratory Rate 16 16 16 Blood Pressure Pulse Oximetry Oxygen Delivery Fraction of Inspired Oxygen 04/06/25 04:00 04/06/25 04:00 04/06/25 04:00 Temperature 37.5 C Pulse Rate 83 Respiratory Rate 16 Blood Pressure 149/92 H Pulse Oximetry 94 94 Oxygen Delivery Mechanical Ventilation Fraction of Inspired Oxygen 30 30 04/06/25 04:00 04/06/25 04:00 04/06/25 04:00 Temperature Pulse Rate 83 83 83 Respiratory Rate 16 16 16 Blood Pressure Pulse Oximetry Oxygen Delivery Fraction of Inspired Oxygen 04/06/25 04:00 04/06/25 05:00 04/06/25 05:20 Temperature Pulse Rate 83 78 80 Respiratory Rate 16 Blood Pressure Pulse Oximetry 93 Oxygen Delivery Mechanical Ventilation Fraction of Inspired Oxygen 30 04/06/25 05:35 04/06/25 06:00 04/06/25 06:00 Temperature Pulse Rate 80 79 79 Respiratory Rate 16 16 16 Blood Pressure 148/95 H Pulse Oximetry 93 Oxygen Delivery Fraction of Inspired Oxygen 04/06/25 06:00 04/06/25 06:00 04/06/25 06:00 Temperature Pulse Rate 79 79 79 Respiratory Rate 16 16 Blood Pressure Pulse Oximetry Oxygen Delivery Fraction of Inspired Oxygen 04/06/25 06:30 04/06/25 06:30 04/06/25 07:21 Temperature Pulse Rate 76 76 88 Respiratory Rate 16 16 26 H Blood Pressure Pulse Oximetry Oxygen Delivery Fraction of Inspired Oxygen 04/06/25 07:54 04/06/25 08:00 04/06/25 08:00 Temperature Pulse Rate 88 81 81 Respiratory Rate 26 H 16 16 Blood Pressure Pulse Oximetry Oxygen Delivery Fraction of Inspired Oxygen 04/06/25 08:00 04/06/25 08:00 04/06/25 08:00 Temperature 37.0 C Pulse Rate 81 81 80 Respiratory Rate 16 21 H Blood Pressure 131/84 Pulse Oximetry 91 Oxygen Delivery Fraction of Inspired Oxygen 04/06/25 08:03 04/06/25 08:12 04/06/25 08:15 Temperature Pulse Rate 81 83 Respiratory Rate 16 Blood Pressure Pulse Oximetry 93 Oxygen Delivery Mechanical Ventilation Fraction of Inspired Oxygen 35 35 04/06/25 08:15 04/06/25 08:30 04/06/25 08:30 Temperature Pulse Rate 83 94 94 Respiratory Rate 15 23 H Blood Pressure Pulse Oximetry 92 Oxygen Delivery Mechanical Ventilation Fraction of Inspired Oxygen 35 04/06/25 08:36 04/06/25 08:36 04/06/25 08:37 Temperature Pulse Rate 94 94 96 Respiratory Rate 19 19 21 H Blood Pressure Pulse Oximetry 92 Oxygen Delivery Mechanical Ventilation Fraction of Inspired Oxygen 35 04/06/25 08:44 04/06/25 08:54 04/06/25 08:56 Temperature Pulse Rate 95 96 95 Respiratory Rate 20 15 18 Blood Pressure Pulse Oximetry Oxygen Delivery Fraction of Inspired Oxygen Intake/Output Intake/Output: Intake & Output 04/03/25 04/04/25 04/05/25 04/06/25 23:59 23:59 23:59 23:59 Intake Total 3190.0 2888.5 2161.8 1063.8 Output Total 106 219 6873 1275 Balance 2390.0 1938.5 -2038.2 -211.2 Meds/Results Medications: Active Medications Generic Name Dose Route Start Last Admin Trade Name Freq PRN Reason Stop Dose Admin Acetaminophen 650 mg 04/02/25 09:36 Acetaminophen 650 Mg Suppository RECTAL Q6H PRN Mild Pain (1-3) or Fever Albuterol/Ipratropium 3 ml 04/02/25 14:00 04/06/25 08:15 Ipratropium 0.5 Mg/Albuterol Sulfate 2.5 Mg Ampul.Neb 3 Ml INHALATION 3 ml Q6HRT CARROL Administration Budesonide 0.5 mg 04/02/25 20:00 04/06/25 08:15 Budesonide Respule Neb 0.5 Mg/2 Ml Amp INHALATION 0.5 mg Q12HRT CARROL Administration Dextrose 12.5 gm 04/03/25 07:41 Dextrose 50% 25 Gm/50 Ml Syringe IV PUSH PRN PRN Hypoglycemia Protocol Enoxaparin Sodium 40 mg 04/02/25 13:40 04/06/25 08:02 Enoxaparin 40 Mg/0.4 Ml Syringe SUB-Q 40 mg DAILY CARROL Administration Glucagon 1 mg 04/03/25 07:41 Glucagon For Inj 1 Mg Vial IM PRN PRN Hypoglycemia Protocol Glucose 15 gm 04/03/25 07:41 Glucose Oral Gel 15 Gm Of Glucse In 37.5 Gm Tube PO PRN PRN Hypoglycemia Protocol Hydralazine HCl 20 mg 04/05/25 07:44 Hydralazine Hcl 20 Mg/Ml Vial IV PUSH Q4H PRN SBP more than 160 Propofol 100 mls @ 0 mls/hr 04/02/25 09:40 04/06/25 08:56 Diprivan IV CONT 0 mcg/kg/min .Q0M CARROL 0 mls/hr Titration Protocol Ceftriaxone Sodium 1 gm in 50 mls @ 100 mls/hr 04/02/25 14:00 04/05/25 14:12 Rocephin 1 Gm/Ns 50 Ml IVPB 04/06/25 14:29 Infused Q24H CARROL Infusion Dextrose 1,000 mls @ 100 mls/hr 04/03/25 07:41 Dextrose 5% 1,000 Ml IVPB PRN PRN Hypoglycemia Protocol Dexmedetomidine HCl 400 mcg in 100 mls @ 23.953 mls/hr 04/04/25 09:30 04/06/25 08:48 Precedex 400 Mcg/100 Ml IV CONT Not Given .Q4H11M CARROL Protocol 1.3 MCG/KG/HR Insulin Aspart 2 - 5 units 04/03/25 12:00 04/06/25 06:44 Insulin Aspart (*Bkc) 100 Units/Ml SUB-Q Not Given Q6HR CARROL Protocol Methylprednisolone Sodium Succinate 40 mg 04/03/25 18:00 04/06/25 05:20 Methylprednisolone Sod Succ 40 Mg Vial IV PUSH 40 mg Q12H CARROL Administration Midazolam HCl 2 mg 04/04/25 09:28 04/05/25 10:27 Midazolam Hcl (*Crx) 2 Mg/2 Ml Vial IV PUSH 2 mg Q5M PRN Administration ventilator asynchrony Multi-Ingred Cream/Lotion/Oil/Oint 1 applic 04/02/25 09:00 04/06/25 08:03 Mineral Oil/White Petrolatum Ointment EACH EYE 1 applic Q12HR CARROL Administration Ondansetron HCl 4 mg 04/02/25 09:36 Ondansetron Inj 4 Mg/2 Ml Vial IV PUSH Q4H PRN Nausea Pantoprazole Sodium 40 mg 04/03/25 09:00 04/06/25 08:02 Pantoprazole Sodium Iv 40 Mg Vial IV PUSH 40 mg QAM CARROL Administration Sodium Chloride 10 ml 04/02/25 14:00 04/06/25 05:20 Central Line Flush IV PUSH 10 ml Q8HR CARROL Administration Sodium Chloride 20 ml 04/02/25 12:54 04/03/25 05:21 Central Line Flush IV PUSH 20 ml PRN PRN Administration after blood draws Radiology Results: ITS Impressions Neck CTA 04/02/25 09:06 IMPRESSION: 1. No evident atherosclerotic plaque with 0% stenosis of the right and left carotid bulbs relative to normal distal artery lumen diameter (NASCET criteria). 2. Multinodular goiter. Could consider thyroid ultrasound for risk stratification. Chest/Abdomen/Pelvis CTA 04/02/25 09:10 Impression: No significant abnormalities seen. Abdomen Ultrasound 04/02/25 15:47 IMPRESSION: 1: Unremarkable limited abdominal ultrasound. Thyroid Ultrasound 04/02/25 15:50 IMPRESSION: 1. Limited study. Multinodular goiter. Recommend repeat thyroid ultrasound when the patient's condition permits. Chest X-Ray 04/06/25 05:45 Impression: Stable support tubes. Clear lungs. Labs Labs: Laboratory Results - last 24 hr 04/05/25 04/05/25 04/05/25 11:29 18:08 23:20 WBC RBC Hgb Hct MCV MCH MCHC RDW Plt Count MPV Puncture Site ABG pH ABG pCO2 ABG pO2 ABG PO2/FiO2 Ratio ABG HCO3 ABG O2 Saturation ABG O2 Content ABG Base Excess A-a Gradient Oxyhemoglobin Carboxyhemoglobin Methemoglobin Reduced Hemoglobin Total Hemoglobin O2 Delivery Device O2 Liters/Min Minute Volume Vent Rate Vent Mode FiO2 Tidal Volume PEEP Peak Inspir Pressure Pressure Support Sodium Potassium Chloride Carbon Dioxide Anion Gap BUN Creatinine Estim Creat Clear Calc Estimated GFR Glucose POC Capillary Glucose 169 H 159 H 187 H Calcium Phosphorus Magnesium Total Bilirubin AST ALT Alkaline Phosphatase Total Protein Albumin 04/06/25 04/06/25 05:10 05:58 WBC 12.5 H RBC 3.55 L Hgb 12.2 Hct 37.3 MCV 105.1 H MCH 34.4 H MCHC 32.7 RDW 13.2 Plt Count 164 MPV 11.0 H Puncture Site Left radial ABG pH 7.498 H ABG pCO2 49.7 H ABG pO2 61.0 L ABG PO2/FiO2 Ratio 2.03 ABG HCO3 37.7 H ABG O2 Saturation 92.9 L ABG O2 Content 17.2 ABG Base Excess 12.6 A-a Gradient 94.5 Oxyhemoglobin 92.0 Carboxyhemoglobin 0.1 Methemoglobin 0.0 Reduced Hemoglobin 7.9 H Total Hemoglobin 13.3 O2 Delivery Device Ventilator O2 Liters/Min Not Reportable Minute Volume Not Reportable Vent Rate 16 Vent Mode Cmv FiO2 30 Tidal Volume 420 PEEP 5 Peak Inspir Pressure Not Reportable Pressure Support Not Reportable Sodium 140 Potassium 3.8 Chloride 97 L Carbon Dioxide > 40 H Anion Gap BUN 33 H Creatinine 0.77 Estim Creat Clear Calc 65 Estimated GFR > 60 Glucose 133 H POC Capillary Glucose Calcium 9.2 Phosphorus 3.5 Magnesium 2.4 H Total Bilirubin 0.2 AST 36 ALT 61 H Alkaline Phosphatase 51 Total Protein 6.0 L Albumin 3.5 Quality VTE Prophylaxis VTE prophylaxis: pharmacologic ordered
[2025-04-06 09:24] LABS: Alveolar/Arterial O2 Gradient 137.6 mmHg; Fractional Inspired Oxygen 35 %; HCO3 ABG 33.8 mEq/l (22.0-26.0); Oxygen Saturation ABG 94.1 % (95.0-100.0); Oxyhemoglobin 92.9 % THb (90.0-100.0); PCO2 ABG 42.2 mmHg (35.0-45.0); PO2 ABG 62.9 mmHg (80.0-100.0); Total Hemoglobin 13.8 g/dL (12.0-18.0)
[2025-04-06 09:25] LABS: Arterial Blood Gas Vent Mode SPONTANEOUS; Device VENTILATOR; Modified Allen's Test Pass; Site Drawn RIGHT RADIAL; pH ABG 7.522 (7.350-7.450)
[2025-04-06 09:26] LABS: Arterial Blood Gas PEEP 8 cmH2O; Arterial Blood Gas Pressure Support 5 cmH2O
--- NOTE | 2025-04-06 10:09 | PCRCNOTE ---
Patient extubated @ 0933 to a 4L IA. BRONSON Lopez present during encounter. Bipap ordered 10/06 rate of [address] Barber.
--- NOTE | 2025-04-06 11:32 | PCNFU ---
Nutrition Follow-Up Complete: Suboptimal Energy Intake as related to mechanical ventilation as evidenced by NPO. goal: Meet estimated nutritional needs Patient is progressing towards goal. We will continue current goal. Pt current nutrition is Clear liquids. Nutrition recommendation: advance diet as tolerated per MD orders. Last recorded weight is 73 kg, up from 72.6 kg on admit Bowel Motility: No BM reported. Labs Reviewed: Mg 2.4, Glu 133, Bun 33 Meds Noted:Rocephin, Protonix, Lovenox. Skin: WNL Additional Notes: Patient has been extubated. Diet order advanced to clear liquids. Ensure Clear TID providing an additional 240 kcal and 8 gm protein. Agree with diet orders. Will monitor weight, labs, skin, diet orders, meds every 3 days.
[2025-04-06] MEDS: dexmedeTOMIDine 400 MCG/100 ML 400 MCG/100 ML BAG 9.21 MCG IV CONT (12:47)
[2025-04-06] MEDS: hydrALAZINE HCL 20 MG/ML VIAL IV PUSH (15:49)
[2025-04-06 17:19] LABS: Fractional Inspired Oxygen 32 %; HCO3 ABG 29.4 mEq/l (22.0-26.0); Oxygen Content ABG 19.2 %vol (16.0-22.0); Oxygen Saturation ABG 90.3 % (95.0-100.0); PCO2 ABG 31.4 mmHg (35.0-45.0); PO2 FiO2 Ratio Arterial Blood 1.51 %; Total Hemoglobin 15.6 g/dL (12.0-18.0)
[2025-04-06 17:20] LABS: PO2 ABG 48.4 mmHg (80.0-100.0); pH ABG 7.589 (7.350-7.450)
[2025-04-06 17:21] LABS: Device NASAL CANNULA; Modified Allen's Test Pass; Oxyhemoglobin 87.7 % THb (90.0-100.0); Site Drawn RIGHT RADIAL
[2025-04-06] MEDS: FUROSEMIDE INJ 40 MG/4 ML VIAL IV PUSH (18:01)
[2025-04-06] MEDS: dexmedeTOMIDine 400 MCG/100 ML 400 MCG/100 ML BAG 23.95 MCG IV CONT (19:59)
[2025-04-07] VITALS (60 sets, daily range): BP systolic 117–176; BP diastolic 77–98; PULSE 64–118; RESP 12–21; TEMP 36.4–37.1; O2SAT 91–100
[2025-04-07] MEDS: dexmedeTOMIDine 400 MCG/100 ML 400 MCG/100 ML BAG 25.8 MCG IV CONT (00:20)
[2025-04-07] MEDS: IPRATROPIUM 0.5 MG/ALBUTEROL SULFATE 2.5 MG AMPUL.NEB 3 ML INHALATION ×4 (02:11→20:20)
[2025-04-07] MEDS: dexmedeTOMIDine 400 MCG/100 ML 400 MCG/100 ML BAG 23.95 MCG IV CONT (04:28)
[2025-04-07] MEDS: CENTRAL LINE FLUSH 10 ML IV PUSH ×3 (05:08→21:31)
[2025-04-07] MEDS: methylPREDNISolone SOD SUCC 40 MG VIAL IV PUSH (05:08)
[2025-04-07 05:38] LABS: Hematocrit 36.3 % (37.0-47.0); Hemoglobin 12.5 g/dL (12.0-15.0); Mean Corpuscular HGB Conc 34.4 g/dl (32-36); Mean Corpuscular Hemoglobin 34.4 pg (26-34); Mean Platelet Volume 10.8 fl (7.4-10.4); Platelet Count Result 156 k/mm3 (150-375); Red Blood Count 3.63 M/mm3 (4.2-5.4); White Blood Count 15.4 K/mm3 (4.5-10.0)
--- NOTE | 2025-04-07 05:38 | PC.NURSE ---
bed re-zeroed due to reading patient weight at 13.2kg.
[2025-04-07 05:56] LABS: Sodium 133 mmol/L (137-145)
[2025-04-07 05:57] LABS: Alanine Aminotransferase 54 U/L (6-35); Albumin Level 3.5 g/dL (3.5-5.1); Alkaline Phosphatase 50 U/L (38-126); Aspartate Amino Transferase 35 U/L (14-36); Bilirubin,Total 0.5 mg/dL (0.2-1.3); Blood Urea Nitrogen 29 mg/dL (7-17); Calcium 9.2 mg/dL (8.4-10.2); Carbon Dioxide > 40 mmol/L (22-30); Chloride 92 mmol/L (98-107); Estimated CRCL calculation 78 ml/min; Estimated Glomerular Filt Rate > 60; Glucose 102 mg/dL (65-110); Magnesium 2.3 mg/dL (1.6-2.3); Phosphorus 3.2 mg/dL (2.5-4.5); Potassium 3.1 mmol/L (3.4-5.0); Total Protein 5.9 g/dL (6.3-8.2)
[2025-04-07] MEDS: BUDESONIDE RESPULE NEB 0.5 MG/2 ML AMP INHALATION ×2 (07:48→20:20)
--- NOTE | 2025-04-07 08:07 | P.PNINT_ITS ---
Progress Note: A&P Assessment and Plan (1) Respiratory failure: Qualifiers: Chronicity: acute Respiratory failure complication: hypercapnia Qualified Code(s): J96.02 - Acute respiratory failure with hypercapnia Code(s): J96.90 - Respiratory failure, unspecified, unspecified whether with hypoxia or hypercapnia Status: Acute Assessment and Plan: Acute respiratory failure likely related to status asthmaticus which may be induced by smoking marijuana -04/04 I performed a sedation holiday and evaluated patient for weaning trial but once patient was on low-dose of sedation she became tachypneic, asynchronous with the ventilator and on exam had diffuse wheezing. 04/05 sedation holiday was performed by holding propofol and fentanyl and patient was placed on PSV 03/08. After few minutes patient again became tachypneic desaturated and asynchronous with the ventilator. She had diffuse agree wheezing on exam and tachypnea. Weaning trial was aborted and patient was placed back on sedation and CMV. Lasix IV 40 mg given today 04/06 extubated after a successful weaning trial. BiPAP p.r.n. Continue steroids but decrease dose to q.day -continue bronchodilators -continue Pulmicort Discontinue Precedex infusion (2) Asthma exacerbation: Code(s): J45.901 - Unspecified asthma with (acute) exacerbation Status: Acute Assessment and Plan: Patient has a history of asthma, came in with asthma exacerbation. Received Solu-Medrol, epinephrine, magnesium, continues nebs in the ED 04/02: Intubated, discussed with ER physician, patient was tripoding and was in severe respiratory distress so was intubated for airway protection Management as above 04/02:CT chest abdomen and pelvis: No evidence of mediastinal, hilar or axill cong lymphadenopathy, no pulmonary embolism, no aortic aneurysm or dissection P no evidence of pleural or pericardial effusion. Lungs are clear, no pulmonary nodules or infiltrates are noted. No significant abdominal abnormalities were seen. (3) Leukocytosis: Code(s): D72.829 - Elevated white blood cell count, unspecified Status: Acute Assessment and Plan: Leukocytosis likely reactive, received 1 dose of cefepime and vancomycin -continue ceftriaxone for asthma exacerbation -continue to monitor -CRP is low (4) Multinodular goiter: Code(s): E04.2 - Nontoxic multinodular goiter Status: Acute Assessment and Plan: Patient has multinodular goiter, although I a.m. not sure of the treatment det ails TSH levels are low but T3 and T4 adequate Records requested from [facility] Patient states that she is not on any thyroid hormone replacement therapy CTA neck: IMPRESSION: 1. No evident atherosclerotic plaque with 0% stenosis of the right and left carotid bulbs relative to normal distal artery lumen diameter (NASCET criteria). 2. Multinodular goiter. Could consider thyroid ultrasound for risk stratification. Thyroid ultrasound 1. Limited study. Multinodular goiter. Recommend repeat thyroid ultrasound when the patient's condition permits. (5) Transaminitis: Code(s): R74.01 - Elevation of levels of liver transaminase levels Status: Acute Assessment and Plan: Elevation LFTs likely related to hypovolemia, hypoxia due to asthma exacerbated Right upper quadrant ultrasound is unremarkable Levels improving Plan DVT prophylaxis: Lovenox Stress ulcer prophylaxis: Protonix Nutrition: Regular diet Code Status: Full code Incentive spirometry, PT OT, up in chair Total Critical Care Time - 30 minutes Due to a high probability of clinically significant, life threatening deterioration, the patient required my highest level of preparedness to intervene emergently and I personally spent this critical care time directly and personally managing the patient. This critical care time included obtaining a history; examining the patient; pulse oximetry; ordering and review of studies; arranging urgent treatment with development of a management plan; evaluation of patient's response to treatment; frequent reassessment; and discussions with other providers. It was exclusive of separately billable procedures and treating other patients and teaching time. Please see Assessment and Plan section and the rest of the note for further information on patient assessment and treatment Subjective Date/time seen: 04/07/25 Patient was extubated yesterday after a successful weaning trial. She did well initially but later needed BiPAP for few hours. She also wore BiPAP only 50 minutes last night. This morning she states she feels much better and denies any shortness of breath or chest pain. She states that she is going to quit smoking marijuana after this event. Patient denies fever, chest pain, shortness of breath, cough, nausea vomiting, abdominal pain,, diarrhea, headache or co nstipation. All other systems were reviewed and were negative She is on 2 L nasal cannula. Tolerating liquid diet Sinus rhythm on the monitor Other vitals acceptable range Patient still on low-dose Precedex infusion Review of Systems Review of Systems: All systems reviewed & are unremarkable except as noted in HPI and below (HPI) Exam Narrative: General: Pt is alert awake and in NAD Lungs/Chest: Trachea central Clear BS B/L, No crackles or wheezing. Cardiac: RRR. Normal S1 S2. No murmurs Circulation: Pedal pulses are intact and symmetrical. Abdomen: Normal bowel sounds.. Soft. NT. ND. Extremities: No clubbing, cyanosis or edema. Warm : Cruz in place Neurologic: Follows commands. Moves all 4 extremities PERRL AO x3 Skin: No Rash Objective Data Vital Signs Vital Signs: Vital Signs - 24 hr 04/06/25 08:12 04/06/25 08:15 04/06/25 08:15 Temperature Pulse Rate 83 83 Respiratory Rate 15 Blood Pressure Pulse Oximetry 93 Oxygen Delivery Mechanical Ventilation Oxygen Flow Rate Fraction of Inspired Oxygen 35 35 04/06/25 08:30 04/06/25 08:30 04/06/25 08:36 Temperature Pulse Rate 94 94 94 Respiratory Rate 23 H 19 Blood Pressure Pulse Oximetry 92 Oxygen Delivery Mechanical Ventilation Oxygen Flow Rate Fraction of Inspired Oxygen 35 04/06/25 08:36 04/06/25 08:37 04/06/25 08:44 Temperature Pulse Rate 94 96 95 Respiratory Rate 19 21 H 20 Blood Pressure Pulse Oximetry 92 Oxygen Delivery Mechanical Ventilation Oxygen Flow Rate Fraction of Inspired Oxygen 35 04/06/25 08:54 04/06/25 08:56 04/06/25 09:04 Temperature Pulse Rate 96 95 94 Respiratory Rate 15 18 16 Blood Pressure Pulse Oximetry Oxygen Delivery Oxygen Flow Rate Fraction of Inspired Oxygen 04/06/25 09:30 04/06/25 09:33 04/06/25 09:38 Temperature Pulse Rate 89 89 Respiratory Rate 16 16 Blood Pressure Pulse Oximetry 94 93 Oxygen Delivery Nasal Cannula Nasal Cannula Oxygen Flow Rate 4 4 Fraction of Inspired Oxygen 36 04/06/25 09:40 04/06/25 10:00 04/06/25 10:00 Temperature Pulse Rate 90 90 84 Respiratory Rate 21 H 12 12 Blood Pressure 149/94 H Pulse Oximetry 93 Oxygen Delivery Oxygen Flow Rate Fraction of Inspired Oxygen 04/06/25 10:00 04/06/25 10:00 04/06/25 11:08 Temperature Pulse Rate 83 80 Respiratory Rate 14 Blood Pressure Pulse Oximetry 95 Oxygen Delivery Nasal Cannula Oxygen Flow Rate 3 Fraction of Inspired Oxygen 32 04/06/25 11:19 04/06/25 11:29 04/06/25 12:00 Temperature Pulse Rate 79 81 81 Respiratory Rate 13 12 10 L Blood Pressure Pulse Oximetry 96 Oxygen Delivery Nasal Cannula Oxygen Flow Rate 4 Fraction of Inspired Oxygen 04/06/25 12:00 04/06/25 12:00 04/06/25 12:30 Temperature 36.6 C Pulse Rate 82 82 81 Respiratory Rate 10 L 14 Blood Pressure 155/104 H Pulse Oximetry 93 Oxygen Delivery Oxygen Flow Rate Fraction of Inspired Oxygen 04/06/25 12:45 04/06/25 12:47 04/06/25 13:10 Temperature Pulse Rate 81 81 81 Respiratory Rate 13 13 20 Blood Pressure Pulse Oximetry 97 Oxygen Delivery BiPAP Oxygen Flow Rate Fraction of Inspired Oxygen 04/06/25 13:10 04/06/25 13:24 04/06/25 14:00 Temperature Pulse Rate 81 86 86 Respiratory Rate 20 14 Blood Pressure Pulse Oximetry Oxygen Delivery Oxygen Flow Rate Fraction of Inspired Oxygen 04/06/25 14:00 04/06/25 14:00 04/06/25 16:00 Temperature Pulse Rate 86 86 82 Respiratory Rate 13 14 14 Blood Pressure 151/99 H Pulse Oximetry 96 Oxygen Delivery Oxygen Flow Rate Fraction of Inspired Oxygen 04/06/25 16:00 04/06/25 16:00 04/06/25 16:00 Temperature 36.6 C Pulse Rate 91 94 84 Respiratory Rate 15 15 Blood Pressure 156/102 H Pulse Oximetry 93 95 Oxygen Delivery Nasal Cannula Oxygen Flow Rate 4 Fraction of Inspired Oxygen 04/06/25 16:25 04/06/25 16:45 04/06/25 17:01 Temperature Pulse Rate 110 H 117 H Respiratory Rate 22 H 29 H Blood Pressure Pulse Oximetry 91 Oxygen Delivery Nasal Cannula Oxygen Flow Rate 3 Fraction of Inspired Oxygen 32 04/06/25 17:40 04/06/25 17:44 04/06/25 17:52 Temperature Pulse Rate 91 Respiratory Rate 14 Blood Pressure Pulse Oximetry 86 L 88 L 91 Oxygen Delivery Nasal Cannula Nasal Cannula BiPAP Oxygen Flow Rate 3 5 Fraction of Inspired Oxygen 32 40 04/06/25 18:00 04/06/25 18:00 04/06/25 18:00 Temperature Pulse Rate 91 94 93 Respiratory Rate 20 20 Blood Pressure 139/93 H Pulse Oximetry 94 Oxygen Delivery Oxygen Flow Rate Fraction of Inspired Oxygen 04/06/25 18:31 04/06/25 19:55 04/06/25 19:59 Temperature Pulse Rate 85 80 80 Respiratory Rate 15 15 15 Blood Pressure Pulse Oximetry Oxygen Delivery Oxygen Flow Rate Fraction of Inspired Oxygen 04/06/25 20:00 04/06/25 20:00 04/06/25 20:00 Temperature 36.6 C Pulse Rate 80 80 80 Respiratory Rate 80 H 15 Blood Pressure 110/72 Pulse Oximetry 92 92 Oxygen Delivery High Flow Nasal Cannula Oxygen Flow Rate 7 Fraction of Inspired Oxygen 04/06/25 20:00 04/06/25 20:01 04/06/25 20:15 Temperature Pulse Rate 79 79 79 Respiratory Rate 16 13 18 Blood Pressure 110/72 Pulse Oximetry 92 93 94 Oxygen Delivery Oxygen Flow Rate Fraction of Inspired Oxygen 04/06/25 20:21 04/06/25 20:30 04/06/25 20:30 Temperature Pulse Rate 81 81 Respiratory Rate 15 15 Blood Pressure Pulse Oximetry 95 97 Oxygen Delivery High Flow Nasal Cannula Oxygen Flow Rate 7 Fraction of Inspired Oxygen 04/06/25 20:34 04/06/25 20:42 04/06/25 20:43 Temperature Pulse Rate 78 80 Respiratory Rate 12 12 Blood Pressure Pulse Oximetry 100 Oxygen Delivery High Flow Nasal Cannula Oxygen Flow Rate 6 Fraction of Inspired Oxygen 04/06/25 20:45 04/06/25 21:00 04/06/25 21:01 Temperature Pulse Rate 84 83 83 Respiratory Rate 14 11 L 13 Blood Pressure 131/84 Pulse Oximetry 99 97 99 Oxygen Delivery Oxygen Flow Rate Fraction of Inspired Oxygen 04/06/25 21:15 04/06/25 21:30 04/06/25 21:45 Temperature Pulse Rate 82 83 84 Respiratory Rate 14 9 L 10 L Blood Pressure Pulse Oximetry 98 97 94 Oxygen Delivery Oxygen Flow Rate Fraction of Inspired Oxygen 04/06/25 21:58 04/06/25 22:00 04/06/25 22:00 Temperature Pulse Rate 82 79 81 Respiratory Rate 11 L 11 L Blood Pressure 109/73 109/73 Pulse Oximetry 92 91 Oxygen Delivery Oxygen Flow Rate Fraction of Inspired Oxygen 04/06/25 22:01 04/06/25 22:02 04/06/25 22:15 Temperature Pulse Rate 79 81 Respiratory Rate 11 L 12 Blood Pressure Pulse Oximetry 92 93 93 Oxygen Delivery High Flow Nasal Cannula Oxygen Flow Rate 6 Fraction of Inspired Oxygen 04/06/25 22:30 04/06/25 22:45 04/06/25 23:00 Temperature Pulse Rate 79 80 79 Respiratory Rate 13 20 18 Blood Pressure 138/76 Pulse Oximetry 97 98 100 Oxygen Delivery Oxygen Flow Rate Fraction of Inspired Oxygen 04/06/25 23:01 04/06/25 23:05 04/06/25 23:15 Temperature Pulse Rate 79 80 79 Respiratory Rate 21 H 20 17 Blood Pressure Pulse Oximetry 99 100 97 Oxygen Delivery BiPAP Oxygen Flow Rate Fraction of Inspired Oxygen 04/06/25 23:20 04/06/25 23:30 04/06/25 23:34 Temperature Pulse Rate 80 79 79 Respiratory Rate 18 13 18 Blood Pressure Pulse Oximetry 99 Oxygen Delivery Oxygen Flow Rate Fraction of Inspired Oxygen 04/06/25 23:45 04/07/25 00:00 04/07/25 00:00 Temperature 36.5 C Pulse Rate 79 78 76 Respiratory Rate 13 18 15 Blood Pressure 117/77 Pulse Oximetry 98 97 98 Oxygen Delivery High Flow Nasal Cannula Oxygen Flow Rate 6 Fraction of Inspired Oxygen 04/07/25 00:00 04/07/25 00:00 04/07/25 00:01 Temperature Pulse Rate 73 78 76 Respiratory Rate 15 17 Blood Pressure 117/77 Pulse Oximetry 98 98 Oxygen Delivery Oxygen Flow Rate Fraction of Inspired Oxygen 04/07/25 00:15 04/07/25 00:20 04/07/25 00:20 Temperature Pulse Rate 77 75 75 Respiratory Rate 14 13 13 Blood Pressure Pulse Oximetry 96 Oxygen Delivery Oxygen Flow Rate Fraction of Inspired Oxygen 04/07/25 00:30 04/07/25 00:35 04/07/25 00:45 Temperature Pulse Rate 78 73 77 Respiratory Rate 15 14 18 Blood Pressure Pulse Oximetry 95 95 96 Oxygen Delivery High Flow Nasal Cannula Oxygen Flow Rate 5 Fraction of Inspired Oxygen 04/07/25 01:00 04/07/25 01:01 04/07/25 01:15 Temperature Pulse Rate 79 77 76 Respiratory Rate 21 H 13 12 Blood Pressure 138/98 H Pulse Oximetry 98 97 97 Oxygen Delivery Oxygen Flow Rate Fraction of Inspired Oxygen 04/07/25 01:30 04/07/25 01:37 04/07/25 01:37 Temperature Pulse Rate 70 76 Respiratory Rate 19 14 Blood Pressure Pulse Oximetry 97 98 98 Oxygen Delivery Heliox High Flow Nasal Cannula Oxygen Flow Rate 4 4 Fraction of Inspired Oxygen 04/07/25 01:45 04/07/25 02:00 04/07/25 02:00 Temperature Pulse Rate 70 75 75 Respiratory Rate 16 18 Blood Pressure 137/86 Pulse Oximetry 97 99 Oxygen Delivery Oxygen Flow Rate Fraction of Inspired Oxygen 04/07/25 02:00 04/07/25 02:00 04/07/25 02:01 Temperature Pulse Rate 76 66 76 Respiratory Rate 16 16 17 Blood Pressure 137/86 Pulse Oximetry 97 99 Oxygen Delivery Oxygen Flow Rate Fraction of Inspired Oxygen 04/07/25 02:05 04/07/25 02:11 04/07/25 02:15 Temperature Pulse Rate 73 73 72 Respiratory Rate 19 17 17 Blood Pressure Pulse Oximetry 98 99 Oxygen Delivery BiPAP Oxygen Flow Rate Fraction of Inspired Oxygen 04/07/25 02:18 04/07/25 02:30 04/07/25 02:45 Temperature Pulse Rate 72 79 77 Respiratory Rate 16 18 17 Blood Pressure Pulse Oximetry 100 100 Oxygen Delivery Oxygen Flow Rate Fraction of Inspired Oxygen 04/07/25 03:00 04/07/25 03:01 04/07/25 03:02 Temperature Pulse Rate 79 77 Respiratory Rate 16 12 Blood Pressure 125/81 Pulse Oximetry 97 95 96 Oxygen Delivery High Flow Nasal Cannula Oxygen Flow Rate 3 Fraction of Inspired Oxygen 04/07/25 03:15 04/07/25 03:30 04/07/25 03:45 Temperature Pulse Rate 74 75 74 Respiratory Rate 17 18 17 Blood Pressure Pulse Oximetry 96 93 93 Oxygen Delivery Oxygen Flow Rate Fraction of Inspired Oxygen 04/07/25 03:58 04/07/25 04:00 04/07/25 04:00 Temperature 36.8 C Pulse Rate 74 74 74 Respiratory Rate 17 17 17 Blood Pressure 125/82 Pulse Oximetry 94 94 Oxygen Delivery High Flow Nasal Cannula Oxygen Flow Rate 3 Fraction of Inspired Oxygen 04/07/25 04:00 04/07/25 04:00 04/07/25 04:01 Temperature Pulse Rate 74 73 73 Respiratory Rate 18 17 Blood Pressure 124/82 Pulse Oximetry 93 93 Oxygen Delivery Oxygen Flow Rate Fraction of Inspired Oxygen 04/07/25 04:14 04/07/25 04:15 04/07/25 04:28 Temperature Pulse Rate 76 73 76 Respiratory Rate 14 17 14 Blood Pressure Pulse Oximetry 93 Oxygen Delivery Oxygen Flow Rate Fraction of Inspired Oxygen 04/07/25 04:30 04/07/25 04:45 04/07/25 05:00 Temperature Pulse Rate 76 74 70 Respiratory Rate 13 14 14 Blood Pressure Pulse Oximetry 92 96 Oxygen Delivery Oxygen Flow Rate Fraction of Inspired Oxygen 04/07/25 05:00 04/07/25 05:01 04/07/25 05:15 Temperature Pulse Rate 72 73 67 Respiratory Rate 17 13 13 Blood Pressure 158/82 H Pulse Oximetry 96 96 96 Oxygen Delivery Oxygen Flow Rate Fraction of Inspired Oxygen 04/07/25 05:30 04/07/25 05:30 04/07/25 05:30 Temperature Pulse Rate 68 68 71 Respiratory Rate 14 14 15 Blood Pressure Pulse Oximetry 97 96 Oxygen Delivery High Flow Nasal Cannula Oxygen Flow Rate 2 Fraction of Inspired Oxygen 04/07/25 05:45 04/07/25 05:50 04/07/25 06:00 Temperature Pulse Rate 64 64 66 Respiratory Rate 16 16 Blood Pressure Pulse Oximetry 95 Oxygen Delivery Oxygen Flow Rate Fraction of Inspired Oxygen 04/07/25 06:00 04/07/25 06:30 04/07/25 07:49 Temperature Pulse Rate 66 75 71 Respiratory Rate 16 14 20 Blood Pressure 141/94 H Pulse Oximetry 95 92 Oxygen Delivery Nasal Cannula Oxygen Flow Rate 2 Fraction of Inspired Oxygen 04/07/25 07:49 04/07/25 07:54 04/07/25 08:03 Temperature Pulse Rate 71 73 76 Respiratory Rate 20 20 20 Blood Pressure Pulse Oximetry Oxygen Delivery Oxygen Flow Rate Fraction of Inspired Oxygen Intake/Output Intake/Output: Intake & Output 04/04/25 04/05/25 04/06/25 04/07/25 23:59 23:59 23:59 23:59 Intake Total 2888.5 2161.8 1523.6 1140.0 Output Total 950 4200 3325 1650 Balance 1938.5 -2038.2 -1801.4 -510.0 Meds/Results Medications: Active Medications Generic Name Dose Route Start Last Admin Trade Name Freq PRN Reason Stop Dose Admin Acetaminophen 650 mg 04/02/25 09:36 Acetaminophen 650 Mg Suppository RECTAL Q6H PRN Mild Pain (1-3) or Fever Albuterol/Ipratropium 3 ml 04/02/25 14:00 04/07/25 07:48 Ipratropium 0.5 Mg/Albuterol Sulfate 2.5 Mg Ampul.Neb 3 Ml INHALATION 3 ml Q6HRT CARROL Administration Budesonide 0.5 mg 04/02/25 20:00 04/07/25 07:48 Budesonide Respule Neb 0.5 Mg/2 Ml Amp INHALATION 0.5 mg Q12HRT CARROL Administration Dextrose 12.5 gm 04/03/25 07:41 Dextrose 50% 25 Gm/50 Ml Syringe IV PUSH PRN PRN Hypoglycemia Protocol Enoxaparin Sodium 40 mg 04/02/25 13:40 04/06/25 08:02 Enoxaparin 40 Mg/0.4 Ml Syringe SUB-Q 40 mg DAILY CARROL Administration Glucagon 1 mg 04/03/25 07:41 Glucagon For Inj 1 Mg Vial IM PRN PRN Hypoglycemia Protocol Glucose 15 gm 04/03/25 07:41 Glucose Oral Gel 15 Gm Of Glucse In 37.5 Gm Tube PO PRN PRN Hypoglycemia Protocol Hydralazine HCl 20 mg 04/05/25 07:44 04/06/25 15:49 Hydralazine Hcl 20 Mg/Ml Vial IV PUSH 20 mg Q4H PRN Administration SBP more than 160 Dextrose 1,000 mls @ 100 mls/hr 04/03/25 07:41 Dextrose 5% 1,000 Ml IVPB PRN PRN Hypoglycemia Protocol Potassium Chloride 100 mls @ 25 mls/hr 04/07/25 07:36 Kcl 40 Meq/Water 100 Ml IVPB 04/07/25 11:35 ONCE ONE Methylprednisolone Sodium Succinate 40 mg 04/08/25 09:00 Methylprednisolone Sod Succ 40 Mg Vial IV PUSH QAM CARROL Multi-Ingred Cream/Lotion/Oil/Oint 1 applic 04/02/25 09:00 04/06/25 19:26 Mineral Oil/White Petrolatum Ointment EACH EYE Not Given Q12HR CARROL Ondansetron HCl 4 mg 04/02/25 09:36 Ondansetron Inj 4 Mg/2 Ml Vial IV PUSH Q4H PRN Nausea Pantoprazole Sodium 40 mg 04/03/25 09:00 04/06/25 08:02 Pantoprazole Sodium Iv 40 Mg Vial IV PUSH 40 mg QAM CARROL Administration Sodium Chloride 10 ml 04/02/25 14:00 04/07/25 05:08 Central Line Flush IV PUSH 10 ml Q8HR CARROL Administration Sodium Chloride 20 ml 04/02/25 12:54 04/03/25 05:21 Central Line Flush IV PUSH 20 ml PRN PRN Administration after blood draws Radiology Results: ITS Impressions Neck CTA 04/02/25 09:06 IMPRESSION: 1. No evident atherosclerotic plaque with 0% stenosis of the right and left carotid bulbs relative to normal distal artery lumen diameter (NASCET criteria). 2. Multinodular goiter. Could consider thyroid ultrasound for risk stratification. Chest/Abdomen/Pelvis CTA 04/02/25 09:10 Impression: No significant abnormalities seen. Abdomen Ultrasound 04/02/25 15:47 IMPRESSION: 1: Unremarkable limited abdominal ultrasound. Thyroid Ultrasound 04/02/25 15:50 IMPRESSION: 1. Limited study. Multinodular goiter. Recommend repeat thyroid ultrasound when the patient's condition permits. Chest X-Ray 04/07/25 06:42 IMPRESSION: 1. No acute cardiopulmonary disease. Labs Labs: Laboratory Results - last 24 hr 04/06/25 04/06/25 04/07/25 09:21 17:15 05:09 WBC 15.4 H RBC 3.63 L Hgb 12.5 Hct 36.3 L MCV 100.0 MCH 34.4 H MCHC 34.4 RDW 13.0 Plt Count 156 MPV 10.8 H Puncture Site Right radial Right radial ABG pH 7.522 H* 7.589 H* ABG pCO2 42.2 31.4 L ABG pO2 62.9 L 48.4 L* ABG PO2/FiO2 Ratio 1.80 1.51 ABG HCO3 33.8 H 29.4 H ABG O2 Saturation 94.1 L 90.3 L ABG O2 Content 18.0 19.2 ABG Base Excess 10.0 8.0 A-a Gradient 137.6 143.0 Oxyhemoglobin 92.9 87.7 L* Total Hemoglobin 13.8 15.6 O2 Delivery Device Ventilator Nasal cannula O2 Liters/Min Not Reportable 3.0 Minute Volume Not Reportable Vent Rate Not Reportable Vent Mode Spontaneous FiO2 35 32 Tidal Volume Not Reportable PEEP 8 Peak Inspir Pressure Not Reportable Pressure Support 5 Sodium 133 L Potassium 3.1 L Chloride 92 L Carbon Dioxide > 40 H Anion Gap BUN 29 H Creatinine 0.77 Estim Creat Clear Calc 78 Estimated GFR > 60 Glucose 102 Calcium 9.2 Phosphorus 3.2 Magnesium 2.3 Total Bilirubin 0.5 AST 35 ALT 54 H Alkaline Phosphatase 50 Total Protein 5.9 L Albumin 3.5 Quality VTE Prophylaxis VTE prophylaxis: pharmacologic ordered
[2025-04-07] MEDS: POTASSIUM CHLORIDE 20 MEQ PACKET (FOR LIQUID) 40 MEQ PO (08:15)
[2025-04-07] MEDS: ENOXAPARIN 40 MG/0.4 ML SYRINGE SUB-Q (08:15)
[2025-04-07] MEDS: KCL 40 MEQ/WATER 100 ML 100 ML 25 ML IVPB (08:15)
[2025-04-07] MEDS: PANTOPRAZOLE SODIUM IV 40 MG VIAL IV PUSH (08:15)
--- NOTE | 2025-04-07 11:21 | P.PNIM_ITS ---
Progress Note: A&P Assessment and Plan (1) Respiratory failure: Qualifiers: Chronicity: acute Respiratory failure complication: hypercapnia Qualified Code(s): J96.02 - Acute respiratory failure with hypercapnia Code(s): J96.90 - Respiratory failure, unspecified, unspecified whether with hypoxia or hypercapnia Status: Acute Assessment and Plan: Acute respiratory failure likely related to status asthmaticus which may be induced by smoking marijuana -04/04 I performed a sedation holiday and evaluated patient for weaning trial but once patient was on low-dose of sedation she became tachypneic, asynchronous with the ventilator and on exam had diffuse wheezing. 04/05 sedation holiday was performed by holding propofol and fentanyl and patient was placed on PSV 03/08. After few minutes patient again became tachypneic desaturated and asynchronous with the ventilator. She had diffuse agree wheezing on exam and tachypnea. Weaning trial was aborted and patient was placed back on sedation and CMV. Lasix IV 40 mg given today 04/06 extubated after a successful weaning trial. BiPAP p.r.n. Continue steroids but decrease dose to q.day -continue bronchodilators -continue Pulmicort Discontinue Precedex infusion (2) Asthma exacerbation: Code(s): J45.901 - Unspecified asthma with (acute) exacerbation Status: Acute Assessment and Plan: Patient has a history of asthma, came in with asthma exacerbation. Received Solu-Medrol, epinephrine, magnesium, continues nebs in the ED 04/02: Intubated, discussed with ER physician, patient was tripoding and was in severe respiratory distress so was intubated for airway protection Management as above 04/02:CT chest abdomen and pelvis: No evidence of mediastinal, hilar or axill cong lymphadenopathy, no pulmonary embolism, no aortic aneurysm or dissection P no evidence of pleural or pericardial effusion. Lungs are clear, no pulmonary nodules or infiltrates are noted. No significant abdominal abnormalities were seen. (3) Leukocytosis: Code(s): D72.829 - Elevated white blood cell count, unspecified Status: Acute Assessment and Plan: Leukocytosis likely reactive, received 1 dose of cefepime and vancomycin -continue ceftriaxone for asthma exacerbation -continue to monitor -CRP is low (4) Multinodular goiter: Code(s): E04.2 - Nontoxic multinodular goiter Status: Acute Assessment and Plan: Patient has multinodular goiter, although I a.m. not sure of the treatment det ails TSH levels are low but T3 and T4 adequate Records requested from [facility] Patient states that she is not on any thyroid hormone replacement therapy CTA neck: IMPRESSION: 1. No evident atherosclerotic plaque with 0% stenosis of the right and left carotid bulbs relative to normal distal artery lumen diameter (NASCET criteria). 2. Multinodular goiter. Could consider thyroid ultrasound for risk stratification. Thyroid ultrasound 1. Limited study. Multinodular goiter. Recommend repeat thyroid ultrasound when the patient's condition permits. (5) Transaminitis: Code(s): R74.01 - Elevation of levels of liver transaminase levels Status: Acute Assessment and Plan: Elevation LFTs likely related to hypovolemia, hypoxia due to asthma exacerbated Right upper quadrant ultrasound is unremarkable Levels improving Subjective Date/time seen: 04/07/25 11:21 Interval history: During the evaluation patient reports that she has a history of non-Hodgkin's lymphoma. He sees the oncologist at [facility]. Patient smokes marijuana. Patient reports that recently she went to [facility] for shortness of breath and was given inhaler and came back to home. On April 02, 2025 patient went to her PCP and after that patient does not remember any incident and how she came to hospital. Patient is currently extubated. Precedex drip is off. Patient denies any alcoholism. Son was present during the evaluation. In regards to NHL she receives only IV immunoglobulin. Her chemo port has been r emoved due to infectious process about 3 years ago. Exam Narrative: General: Pt is alert awake and in NAD Lungs/Chest: Trachea central Clear BS B/L, No crackles or wheezing. Cardiac: RRR. Normal S1 S2. No murmurs Circulation: Pedal pulses are intact and symmetrical. Abdomen: Normal bowel sounds.. Soft. NT. ND. Extremities: No clubbing, cyanosis or edema. Warm : Cruz in place Neurologic: Follows commands. Moves all 4 extremities PERRL AO x3 Skin: No Rash Objective Data Vital Signs Vital Signs: Vital Signs - 24 hr 04/06/25 11:29 04/06/25 12:00 04/06/25 12:00 Temperature 97.9 F Pulse Rate 81 81 82 Respiratory Rate 12 10 L 10 L Blood Pressure 155/104 H Pulse Oximetry 93 Oxygen Delivery Oxygen Flow Rate Fraction of Inspired Oxygen 04/06/25 12:00 04/06/25 12:30 04/06/25 12:45 Temperature Pulse Rate 82 81 81 Respiratory Rate 14 13 Blood Pressure Pulse Oximetry Oxygen Delivery Oxygen Flow Rate Fraction of Inspired Oxygen 04/06/25 12:47 04/06/25 13:10 04/06/25 13:10 Temperature Pulse Rate 81 81 81 Respiratory Rate 13 20 20 Blood Pressure Pulse Oximetry 97 Oxygen Delivery BiPAP Oxygen Flow Rate Fraction of Inspired Oxygen 04/06/25 13:24 04/06/25 14:00 04/06/25 14:00 Temperature Pulse Rate 86 86 86 Respiratory Rate 14 13 Blood Pressure 151/99 H Pulse Oximetry 96 Oxygen Delivery Oxygen Flow Rate Fraction of Inspired Oxygen 04/06/25 14:00 04/06/25 16:00 04/06/25 16:00 Temperature Pulse Rate 86 82 91 Respiratory Rate 14 14 15 Blood Pressure Pulse Oximetry 93 Oxygen Delivery Nasal Cannula Oxygen Flow Rate 4 Fraction of Inspired Oxygen 04/06/25 16:00 04/06/25 16:00 04/06/25 16:25 Temperature 98 F Pulse Rate 94 84 Respiratory Rate 15 Blood Pressure 156/102 H Pulse Oximetry 95 91 Oxygen Delivery Nasal Cannula Oxygen Flow Rate 3 Fraction of Inspired Oxygen 32 04/06/25 16:45 04/06/25 17:01 04/06/25 17:40 Temperature Pulse Rate 110 H 117 H Respiratory Rate 22 H 29 H Blood Pressure Pulse Oximetry 86 L Oxygen Delivery Nasal Cannula Oxygen Flow Rate 3 Fraction of Inspired Oxygen 32 04/06/25 17:44 04/06/25 17:52 04/06/25 18:00 Temperature Pulse Rate 91 91 Respiratory Rate 14 20 Blood Pressure Pulse Oximetry 88 L 91 Oxygen Delivery Nasal Cannula BiPAP Oxygen Flow Rate 5 Fraction of Inspired Oxygen 40 04/06/25 18:00 04/06/25 18:00 04/06/25 18:31 Temperature Pulse Rate 94 93 85 Respiratory Rate 20 15 Blood Pressure 139/93 H Pulse Oximetry 94 Oxygen Delivery Oxygen Flow Rate Fraction of Inspired Oxygen 04/06/25 19:55 04/06/25 19:59 04/06/25 20:00 Temperature Pulse Rate 80 80 80 Respiratory Rate 15 15 80 H Blood Pressure Pulse Oximetry 92 Oxygen Delivery High Flow Nasal Cannula Oxygen Flow Rate 7 Fraction of Inspired Oxygen 04/06/25 20:00 04/06/25 20:00 04/06/25 20:00 Temperature 97.9 F Pulse Rate 80 80 79 Respiratory Rate 15 16 Blood Pressure 110/72 110/72 Pulse Oximetry 92 92 Oxygen Delivery Oxygen Flow Rate Fraction of Inspired Oxygen 04/06/25 20:01 04/06/25 20:15 04/06/25 20:21 Temperature Pulse Rate 79 79 Respiratory Rate 13 18 Blood Pressure Pulse Oximetry 93 94 95 Oxygen Delivery High Flow Nasal Cannula Oxygen Flow Rate 7 Fraction of Inspired Oxygen 04/06/25 20:30 04/06/25 20:30 04/06/25 20:34 Temperature Pulse Rate 81 81 78 Respiratory Rate 15 15 12 Blood Pressure Pulse Oximetry 97 Oxygen Delivery Oxygen Flow Rate Fraction of Inspired Oxygen 04/06/25 20:42 04/06/25 20:43 04/06/25 20:45 Temperature Pulse Rate 80 84 Respiratory Rate 12 14 Blood Pressure Pulse Oximetry 100 99 Oxygen Delivery High Flow Nasal Cannula Oxygen Flow Rate 6 Fraction of Inspired Oxygen 04/06/25 21:00 04/06/25 21:01 04/06/25 21:15 Temperature Pulse Rate 83 83 82 Respiratory Rate 11 L 13 14 Blood Pressure 131/84 Pulse Oximetry 97 99 98 Oxygen Delivery Oxygen Flow Rate Fraction of Inspired Oxygen 04/06/25 21:30 04/06/25 21:45 04/06/25 21:58 Temperature Pulse Rate 83 84 82 Respiratory Rate 9 L 10 L Blood Pressure Pulse Oximetry 97 94 Oxygen Delivery Oxygen Flow Rate Fraction of Inspired Oxygen 04/06/25 22:00 04/06/25 22:00 04/06/25 22:01 Temperature Pulse Rate 79 81 79 Respiratory Rate 11 L 11 L 11 L Blood Pressure 109/73 109/73 Pulse Oximetry 92 91 92 Oxygen Delivery Oxygen Flow Rate Fraction of Inspired Oxygen 04/06/25 22:02 04/06/25 22:15 04/06/25 22:30 Temperature Pulse Rate 81 79 Respiratory Rate 12 13 Blood Pressure Pulse Oximetry 93 93 97 Oxygen Delivery High Flow Nasal Cannula Oxygen Flow Rate 6 Fraction of Inspired Oxygen 04/06/25 22:45 04/06/25 23:00 04/06/25 23:01 Temperature Pulse Rate 80 79 79 Respiratory Rate 20 18 21 H Blood Pressure 138/76 Pulse Oximetry 98 100 99 Oxygen Delivery Oxygen Flow Rate Fraction of Inspired Oxygen 04/06/25 23:05 04/06/25 23:15 04/06/25 23:20 Temperature Pulse Rate 80 79 80 Respiratory Rate 20 17 18 Blood Pressure Pulse Oximetry 100 97 Oxygen Delivery BiPAP Oxygen Flow Rate Fraction of Inspired Oxygen 04/06/25 23:30 04/06/25 23:34 04/06/25 23:45 Temperature Pulse Rate 79 79 79 Respiratory Rate 13 18 13 Blood Pressure Pulse Oximetry 99 98 Oxygen Delivery Oxygen Flow Rate Fraction of Inspired Oxygen 04/07/25 00:00 04/07/25 00:00 04/07/25 00:00 Temperature 97.7 F Pulse Rate 78 76 73 Respiratory Rate 18 15 Blood Pressure 117/77 Pulse Oximetry 97 98 Oxygen Delivery High Flow Nasal Cannula Oxygen Flow Rate 6 Fraction of Inspired Oxygen 04/07/25 00:00 04/07/25 00:01 04/07/25 00:15 Temperature Pulse Rate 78 76 77 Respiratory Rate 15 17 14 Blood Pressure 117/77 Pulse Oximetry 98 98 96 Oxygen Delivery Oxygen Flow Rate Fraction of Inspired Oxygen 04/07/25 00:20 04/07/25 00:20 04/07/25 00:30 Temperature Pulse Rate 75 75 78 Respiratory Rate 13 13 15 Blood Pressure Pulse Oximetry 95 Oxygen Delivery Oxygen Flow Rate Fraction of Inspired Oxygen 04/07/25 00:35 04/07/25 00:45 04/07/25 01:00 Temperature Pulse Rate 73 77 79 Respiratory Rate 14 18 21 H Blood Pressure Pulse Oximetry 95 96 98 Oxygen Delivery High Flow Nasal Cannula Oxygen Flow Rate 5 Fraction of Inspired Oxygen 04/07/25 01:01 04/07/25 01:15 04/07/25 01:30 Temperature Pulse Rate 77 76 70 Respiratory Rate 13 12 19 Blood Pressure 138/98 H Pulse Oximetry 97 97 97 Oxygen Delivery Oxygen Flow Rate Fraction of Inspired Oxygen 04/07/25 01:37 04/07/25 01:37 04/07/25 01:45 Temperature Pulse Rate 76 70 Respiratory Rate 14 16 Blood Pressure Pulse Oximetry 98 98 97 Oxygen Delivery Heliox High Flow Nasal Cannula Oxygen Flow Rate 4 4 Fraction of Inspired Oxygen 04/07/25 02:00 04/07/25 02:00 04/07/25 02:00 Temperature Pulse Rate 75 75 76 Respiratory Rate 18 16 Blood Pressure 137/86 Pulse Oximetry 99 Oxygen Delivery Oxygen Flow Rate Fraction of Inspired Oxygen 04/07/25 02:00 04/07/25 02:01 04/07/25 02:05 Temperature Pulse Rate 66 76 73 Respiratory Rate 16 17 19 Blood Pressure 137/86 Pulse Oximetry 97 99 98 Oxygen Delivery BiPAP Oxygen Flow Rate Fraction of Inspired Oxygen 04/07/25 02:11 04/07/25 02:15 04/07/25 02:18 Temperature Pulse Rate 73 72 72 Respiratory Rate 17 17 16 Blood Pressure Pulse Oximetry 99 Oxygen Delivery Oxygen Flow Rate Fraction of Inspired Oxygen 04/07/25 02:30 04/07/25 02:45 04/07/25 03:00 Temperature Pulse Rate 79 77 79 Respiratory Rate 18 17 16 Blood Pressure Pulse Oximetry 100 100 97 Oxygen Delivery Oxygen Flow Rate Fraction of Inspired Oxygen 04/07/25 03:01 04/07/25 03:02 04/07/25 03:15 Temperature Pulse Rate 77 74 Respiratory Rate 12 17 Blood Pressure 125/81 Pulse Oximetry 95 96 96 Oxygen Delivery High Flow Nasal Cannula Oxygen Flow Rate 3 Fraction of Inspired Oxygen 04/07/25 03:30 04/07/25 03:45 04/07/25 03:58 Temperature Pulse Rate 75 74 74 Respiratory Rate 18 17 17 Blood Pressure Pulse Oximetry 93 93 Oxygen Delivery Oxygen Flow Rate Fraction of Inspired Oxygen 04/07/25 04:00 04/07/25 04:00 04/07/25 04:00 Temperature 98.3 F Pulse Rate 74 74 74 Respiratory Rate 17 17 Blood Pressure 125/82 Pulse Oximetry 94 94 Oxygen Delivery High Flow Nasal Cannula Oxygen Flow Rate 3 Fraction of Inspired Oxygen 04/07/25 04:00 04/07/25 04:01 04/07/25 04:14 Temperature Pulse Rate 73 73 76 Respiratory Rate 18 17 14 Blood Pressure 124/82 Pulse Oximetry 93 93 Oxygen Delivery Oxygen Flow Rate Fraction of Inspired Oxygen 04/07/25 04:15 04/07/25 04:28 04/07/25 04:30 Temperature Pulse Rate 73 76 76 Respiratory Rate 17 14 13 Blood Pressure Pulse Oximetry 93 92 Oxygen Delivery Oxygen Flow Rate Fraction of Inspired Oxygen 04/07/25 04:45 04/07/25 05:00 04/07/25 05:00 Temperature Pulse Rate 74 70 72 Respiratory Rate 14 14 17 Blood Pressure 158/82 H Pulse Oximetry 96 96 Oxygen Delivery Oxygen Flow Rate Fraction of Inspired Oxygen 04/07/25 05:01 04/07/25 05:15 04/07/25 05:30 Temperature Pulse Rate 73 67 68 Respiratory Rate 13 13 14 Blood Pressure Pulse Oximetry 96 96 Oxygen Delivery Oxygen Flow Rate Fraction of Inspired Oxygen 04/07/25 05:30 04/07/25 05:30 04/07/25 05:45 Temperature Pulse Rate 68 71 64 Respiratory Rate 14 15 16 Blood Pressure Pulse Oximetry 97 96 95 Oxygen Delivery High Flow Nasal Cannula Oxygen Flow Rate 2 Fraction of Inspired Oxygen 04/07/25 05:50 04/07/25 06:00 04/07/25 06:00 Temperature Pulse Rate 64 66 66 Respiratory Rate 16 16 Blood Pressure 141/94 H Pulse Oximetry 95 Oxygen Delivery Oxygen Flow Rate Fraction of Inspired Oxygen 04/07/25 06:30 04/07/25 07:49 04/07/25 07:49 Temperature Pulse Rate 75 71 71 Respiratory Rate 14 20 20 Blood Pressure Pulse Oximetry 92 Oxygen Delivery Nasal Cannula Oxygen Flow Rate 2 Fraction of Inspired Oxygen 04/07/25 07:54 04/07/25 08:00 04/07/25 08:00 Temperature 98.4 F Pulse Rate 73 76 Respiratory Rate 20 15 Blood Pressure 135/82 Pulse Oximetry 94 94 Oxygen Delivery Nasal Cannula Oxygen Flow Rate 2 Fraction of Inspired Oxygen 04/07/25 08:00 04/07/25 08:03 04/07/25 10:00 Temperature Pulse Rate 77 76 98 Respiratory Rate 20 Blood Pressure Pulse Oximetry Oxygen Delivery Oxygen Flow Rate Fraction of Inspired Oxygen 04/07/25 10:00 Temperature Pulse Rate 98 Respiratory Rate 17 Blood Pressure 141/89 H Pulse Oximetry 98 Oxygen Delivery Oxygen Flow Rate Fraction of Inspired Oxygen Intake/Output Intake/Output: Intake & Output 04/04/25 04/05/25 04/06/25 04/07/25 23:59 23:59 23:59 23:59 Intake Total 2888.5 2161.8 1523.6 1140.0 Output Total 950 4200 3325 1650 Balance 1938.5 -2038.2 -1801.4 -510.0 Meds/Results Medications: Active Medications Generic Name Dose Route Start Last Admin Trade Name Freq PRN Reason Stop Dose Admin Acetaminophen 650 mg 04/02/25 09:36 Acetaminophen 650 Mg Suppository RECTAL Q6H PRN Mild Pain (1-3) or Fever Albuterol/Ipratropium 3 ml 04/02/25 14:00 04/07/25 07:48 Ipratropium 0.5 Mg/Albuterol Sulfate 2.5 Mg Ampul.Neb 3 Ml INHALATION 3 ml Q6HRT CARROL Administration Budesonide 0.5 mg 04/02/25 20:00 04/07/25 07:48 Budesonide Respule Neb 0.5 Mg/2 Ml Amp INHALATION 0.5 mg Q12HRT CARROL Administration Dextrose 12.5 gm 04/03/25 07:41 Dextrose 50% 25 Gm/50 Ml Syringe IV PUSH PRN PRN Hypoglycemia Protocol Enoxaparin Sodium 40 mg 04/02/25 13:40 04/07/25 08:15 Enoxaparin 40 Mg/0.4 Ml Syringe SUB-Q 40 mg DAILY CARROL Administration Glucagon 1 mg 04/03/25 07:41 Glucagon For Inj 1 Mg Vial IM PRN PRN Hypoglycemia Protocol Glucose 15 gm 04/03/25 07:41 Glucose Oral Gel 15 Gm Of Glucse In 37.5 Gm Tube PO PRN PRN Hypoglycemia Protocol Hydralazine HCl 20 mg 04/05/25 07:44 04/06/25 15:49 Hydralazine Hcl 20 Mg/Ml Vial IV PUSH 20 mg Q4H PRN Administration SBP more than 160 Dextrose 1,000 mls @ 100 mls/hr 04/03/25 07:41 Dextrose 5% 1,000 Ml IVPB PRN PRN Hypoglycemia Protocol Potassium Chloride 100 mls @ 25 mls/hr 04/07/25 07:36 04/07/25 08:15 Kcl 40 Meq/Water 100 Ml IVPB 04/07/25 11:35 25 mls/hr ONCE ONE Administration Methylprednisolone Sodium Succinate 40 mg 04/08/25 09:00 Methylprednisolone Sod Succ 40 Mg Vial IV PUSH QAM [facility] Multi-Ingred Cream/Lotion/Oil/Oint 1 applic 04/02/25 09:00 04/07/25 08:16 Mineral Oil/White Petrolatum Ointment EACH EYE Not Given Q12HR [facility] Ondansetron HCl 4 mg 04/02/25 09:36 Ondansetron Inj 4 Mg/2 Ml Vial IV PUSH Q4H PRN Nausea Pantoprazole Sodium 40 mg 04/03/25 09:00 04/07/25 08:15 Pantoprazole Sodium Iv 40 Mg Vial IV PUSH 40 mg QAM CARROL Administration Sodium Chloride 10 ml 04/02/25 14:00 04/07/25 05:08 Central Line Flush IV PUSH 10 ml Q8HR CARROL Administration Sodium Chloride 20 ml 04/02/25 12:54 04/03/25 05:21 Central Line Flush IV PUSH 20 ml PRN PRN Administration after blood draws Radiology Results: ITS Impressions Neck CTA 04/02/25 09:06 IMPRESSION: 1. No evident atherosclerotic plaque with 0% stenosis of the right and left carotid bulbs relative to normal distal artery lumen diameter (NASCET criteria). 2. Multinodular goiter. Could consider thyroid ultrasound for risk stratification. Chest/Abdomen/Pelvis CTA 04/02/25 09:10 Impression: No significant abnormalities seen. Abdomen Ultrasound 04/02/25 15:47 IMPRESSION: 1: Unremarkable limited abdominal ultrasound. Thyroid Ultrasound 04/02/25 15:50 IMPRESSION: 1. Limited study. Multinodular goiter. Recommend repeat thyroid ultrasound when the patient's condition permits. Chest X-Ray 04/07/25 06:42 IMPRESSION: 1. No acute cardiopulmonary disease. Labs Labs: Laboratory Results - last 24 hr 04/06/25 04/07/25 17:15 05:09 WBC 15.4 H RBC 3.63 L Hgb 12.5 Hct 36.3 L MCV 100.0 MCH 34.4 H MCHC 34.4 RDW 13.0 Plt Count 156 MPV 10.8 H Puncture Site Right radial ABG pH 7.589 H* ABG pCO2 31.4 L ABG pO2 48.4 L* ABG PO2/FiO2 Ratio 1.51 ABG HCO3 29.4 H ABG O2 Saturation 90.3 L ABG O2 Content 19.2 ABG Base Excess 8.0 A-a Gradient 143.0 Oxyhemoglobin 87.7 L* Total Hemoglobin 15.6 O2 Delivery Device Nasal cannula O2 Liters/Min 3.0 FiO2 32 Sodium 133 L Potassium 3.1 L Chloride 92 L Carbon Dioxide > 40 H Anion Gap BUN 29 H Creatinine 0.77 Estim Creat Clear Calc 78 Estimated GFR > 60 Glucose 102 Calcium 9.2 Phosphorus 3.2 Magnesium 2.3 Total Bilirubin 0.5 AST 35 ALT 54 H Alkaline Phosphatase 50 Total Protein 5.9 L Albumin 3.5 Hospitalist MIPS Advance Care Plan I have confirmed that the patient's Advanced Care Plan is present, code status is documented, or surrogate decision maker is listed in patient medical record.: Yes Medication Reconciliation I have utilized all available resources to obtain, update and review the patients current medications (includes all prescriptions, OTC, herbals, cannabis, and nutritional supplements).: Yes
[2025-04-07] MEDS: ALPRAZolam (*CRX) 0.5 MG TABLET PO ×2 (13:11→21:29)
--- NOTE | 2025-04-07 17:11 | PC.NURSE ---
This patient, Maggie Correa, was received from [ICU-5 ] on 04/07/25 at 1652. Patient/family oriented to unit policies and routines. Report received from BRONSON Soto @ [id number]
[2025-04-07] MEDS: QUEtiapine FUMARATE 25 MG TABLET PO (21:29)
[2025-04-08] VITALS (19 sets, daily range): BP systolic 143–155; BP diastolic 81–92; PULSE 10–108; RESP 12–20; TEMP 36.6–37.3; O2SAT 95–100
[2025-04-08] MEDS: IPRATROPIUM 0.5 MG/ALBUTEROL SULFATE 2.5 MG AMPUL.NEB 3 ML INHALATION ×3 (03:42→20:10)
[2025-04-08] MEDS: CENTRAL LINE FLUSH 10 ML IV PUSH ×3 (04:52→21:44)
[2025-04-08 05:46] LABS: Hematocrit 41.7 % (37.0-47.0); Hemoglobin 13.9 g/dL (12.0-15.0); Mean Corpuscular HGB Conc 33.3 g/dl (32-36); Mean Corpuscular Hemoglobin 33.8 pg (26-34); Mean Corpuscular Volume 101.5 fl (80-100); Mean Platelet Volume 11.2 fl (7.4-10.4); Platelet Count Result 176 k/mm3 (150-375); Red Blood Count 4.11 M/mm3 (4.2-5.4); Red Cell Distribution Width 13.2 % (11.5-14.5); White Blood Count 12.8 K/mm3 (4.5-10.0)
[2025-04-08 06:04] LABS: Alanine Aminotransferase 50 U/L (6-35); Albumin Level 3.6 g/dL (3.5-5.1); Alkaline Phosphatase 51 U/L (38-126); Anion Gap 5 mmol/L (4-12); Aspartate Amino Transferase 37 U/L (14-36); Bilirubin,Total 0.8 mg/dL (0.2-1.3); Blood Urea Nitrogen 31 mg/dL (7-17); Calcium 9.2 mg/dL (8.4-10.2); Carbon Dioxide 36 mmol/L (22-30); Chloride 97 mmol/L (98-107); Estimated CRCL calculation 71 ml/min; Estimated Glomerular Filt Rate > 60; Glucose 97 mg/dL (65-110); Magnesium 2.3 mg/dL (1.6-2.3); Phosphorus 3.5 mg/dL (2.5-4.5); Potassium 2.9 mmol/L (3.4-5.0); Sodium 138 mmol/L (137-145); Total Protein 6.2 g/dL (6.3-8.2)
[2025-04-08] MEDS: ENOXAPARIN 40 MG/0.4 ML SYRINGE SUB-Q (08:28)
[2025-04-08] MEDS: PANTOPRAZOLE SODIUM IV 40 MG VIAL IV PUSH (08:28)
[2025-04-08] MEDS: methylPREDNISolone SOD SUCC 40 MG VIAL IV PUSH (08:28)
[2025-04-08] MEDS: BUDESONIDE RESPULE NEB 0.5 MG/2 ML AMP INHALATION (09:13)
[2025-04-08] MEDS: POTASSIUM CHLORIDE INJ 40 MEQ in SODIUM CHLORIDE 0.9% IV 500 ML 130 MEQ IVPB (10:03)
[2025-04-08] MEDS: POTASSIUM CHLORIDE 20 MEQ ER TABLET 40 MEQ PO (10:05)
[2025-04-08] MEDS: ALPRAZolam (*CRX) 0.5 MG TABLET PO (10:09)
--- NOTE | 2025-04-08 10:55 | PM.IMPN ---
Progress Note: A&P Assessment and Plan (1) Respiratory failure: Qualifiers: Chronicity: acute Respiratory failure complication: hypercapnia Qualified Code(s): J96.02 - Acute respiratory failure with hypercapnia Code(s): J96.90 - Respiratory failure, unspecified, unspecified whether with hypoxia or hypercapnia Status: Acute Assessment and Plan: Acute respiratory failure likely related to status asthmaticus which may be induced by smoking marijuana -04/04 I performed a sedation holiday and evaluated patient for weaning trial but once patient was on low-dose of sedation she became tachypneic, asynchronous with the ventilator and on exam had diffuse wheezing. 04/05 sedation holiday was performed by holding propofol and fentanyl and patient was placed on PSV 03/08. After few minutes patient again became tachypneic desaturated and asynchronous with the ventilator. She had diffuse agree wheezing on exam and tachypnea. Weaning trial was aborted and patient was placed back on sedation and CMV. Lasix IV 40 mg given today 04/06 extubated after a successful weaning trial. BiPAP p.r.n. Continue steroids but decrease dose to q.day -continue bronchodilators -continue Pulmicort Discontinue Precedex infusion (2) Asthma exacerbation: Code(s): J45.901 - Unspecified asthma with (acute) exacerbation Status: Acute Assessment and Plan: Patient has a history of asthma, came in with asthma exacerbation. Received Solu-Medrol, epinephrine, magnesium, continues nebs in the ED 04/02: Intubated, discussed with ER physician, patient was tripoding and was in severe respiratory distress so was intubated for airway protection Management as above 04/02:CT chest abdomen and pelvis: No evidence of mediastinal, hilar or axillary lymphadenopathy, no pulmonary embolism, no aortic aneurysm or dissection P no evidence of pleural or pericardial effusion. Lungs are clear, no pulmonary nodules or infiltrates are noted. No significant abdominal abnormalities were seen. (3) Leukocytosis: Code(s): D72.829 - Elevated white blood cell count, unspecified Status: Acute Assessment and Plan: Leukocytosis likely reactive, received 1 dose of cefepime and vancomycin -continue ceftriaxone for asthma exacerbation -continue to monitor -CRP is low (4) Multinodular goiter: Code(s): E04.2 - Nontoxic multinodular goiter Status: Acute Assessment and Plan: Patient has multinodular goiter, although I a.m. not sure of the treatment details TSH levels are low but T3 and T4 adequate Records requested from [facility] Patient states that she is not on any thyroid hormone replacement therapy CTA neck: IMPRESSION: 1. No evident atherosclerotic plaque with 0% stenosis of the right and left carotid bulbs relative to normal distal artery lumen diameter (NASCET criteria). 2. Multinodular goiter. Could consider thyroid ultrasound for risk stratification. Thyroid ultrasound 1. Limited study. Multinodular goiter. Recommend repeat thyroid ultrasound when the patient's condition permits. (5) Transaminitis: Code(s): R74.01 - Elevation of levels of liver transaminase levels Status: Acute Assessment and Plan: Elevation LFTs likely related to hypovolemia, hypoxia due to asthma exacerbated Right upper quadrant ultrasound is unremarkable Levels improving Subjective Date/time seen: 04/08/25 10:55 Interval history: Patient still has shallow breathing. Re-consult home medication. Started Prednisone tapering dose Review of Systems Review of Systems: Except as documented, all other systems were reviewed and are negative. ROS unobtainable: Yes unobtainable due to endotracheal tube, unobtainable due to medical condition and unobtainable due to mental status Exam Narrative: General: Pt is alert awake and in NAD Lungs/Chest: Trachea central Clear BS B/L, No crackles or wheezing. Cardiac: RRR. Normal S1 S2. No murmurs Circulation: Pedal pulses are intact and symmetrical. Abdomen: Normal bowel sounds.. Soft. NT. ND. Extremities: No clubbing, cyanosis or edema. Warm : Cruz in place Neurologic: Follows commands. Moves all 4 extremities PERRL AO x3 Skin: No Rash Objective Data Vital Signs Vital Signs: Vital Signs - 24 hr 04/07/25 12:00 04/07/25 12:00 04/07/25 12:00 Temperature 97.6 F Pulse Rate 103 H 95 Respiratory Rate 16 Blood Pressure 153/92 H Pulse Oximetry 94 94 Oxygen Delivery Nasal Cannula Oxygen Flow Rate 2 04/07/25 14:00 04/07/25 14:00 04/07/25 14:11 Temperature Pulse Rate 100 100 Respiratory Rate 13 Blood Pressure 140/91 H Pulse Oximetry 95 Oxygen Delivery Nasal Cannula Oxygen Flow Rate 2 04/07/25 14:19 04/07/25 14:28 04/07/25 14:38 Temperature Pulse Rate 118 H 113 H Respiratory Rate 20 19 Blood Pressure Pulse Oximetry Oxygen Delivery Nasal Cannula Oxygen Flow Rate 2 04/07/25 16:00 04/07/25 16:00 04/07/25 16:00 Temperature 98.5 F Pulse Rate 102 H 104 H Respiratory Rate 17 Blood Pressure 139/92 H Pulse Oximetry 96 96 Oxygen Delivery Nasal Cannula Oxygen Flow Rate 2 04/07/25 17:00 04/07/25 17:56 04/07/25 20:00 Temperature 98.8 F 98.6 F Pulse Rate 118 H 115 H 104 H Respiratory Rate 18 20 Blood Pressure 154/90 H 176/86 H Pulse Oximetry 92 91 Oxygen Delivery Oxygen Flow Rate 04/07/25 20:00 04/07/25 20:20 04/07/25 20:36 Temperature Pulse Rate 107 H 111 H 108 H Respiratory Rate 16 16 Blood Pressure Pulse Oximetry Oxygen Delivery Oxygen Flow Rate 04/07/25 22:00 04/07/25 23:45 04/08/25 00:00 Temperature 98.7 F Pulse Rate 108 H 100 101 H Respiratory Rate 20 Blood Pressure 154/82 H Pulse Oximetry 98 Oxygen Delivery Oxygen Flow Rate 04/08/25 02:00 04/08/25 03:40 04/08/25 04:00 Temperature 98.5 F Pulse Rate 97 104 H 102 H Respiratory Rate 14 16 Blood Pressure 155/92 H Pulse Oximetry 97 Oxygen Delivery Oxygen Flow Rate 04/08/25 04:00 04/08/25 06:00 04/08/25 07:52 Temperature 98.3 F Pulse Rate 106 H 95 97 Respiratory Rate 16 Blood Pressure 143/85 H Pulse Oximetry 99 Oxygen Delivery Oxygen Flow Rate 04/08/25 09:14 Temperature Pulse Rate 10 L Respiratory Rate 18 Blood Pressure Pulse Oximetry Oxygen Delivery Oxygen Flow Rate Intake/Output Intake/Output: Intake & Output 04/05/25 04/06/25 04/07/25 04/08/25 23:59 23:59 23:59 23:59 Intake Total 2161.8 1523.6 1930.0 250 Output Total 4200 3325 3100 500 Balance -2038.2 -1801.4 -1170.0 -250 Meds/Results Medications: Active Medications Generic Name Dose Route Start Last Admin Trade Name Freq PRN Reason Stop Dose Admin Acetaminophen 650 mg 04/02/25 09:36 Acetaminophen 650 Mg Suppository RECTAL Q6H PRN Mild Pain (1-3) or Fever Albuterol/Ipratropium 3 ml 04/02/25 14:00 04/08/25 09:13 Ipratropium 0.5 Mg/Albuterol Sulfate 2.5 Mg Ampul.Neb 3 Ml INHALATION 3 ml Q6HRT CARROL Administration Alprazolam 0.5 mg 04/07/25 12:58 04/08/25 10:09 Alprazolam (*Crx) 0.5 Mg Tablet PO 0.5 mg TID PRN Administration Anxiety Bupropion HCl 200 mg 04/09/25 09:00 Bupropion Hcl Sr (12hr) 100 Mg Tabcr PO DAILY [facility] Dextrose 12.5 gm 04/03/25 07:41 Dextrose 50% 25 Gm/50 Ml Syringe IV PUSH PRN PRN Hypoglycemia Protocol Enoxaparin Sodium 40 mg 04/02/25 13:40 04/08/25 08:28 Enoxaparin 40 Mg/0.4 Ml Syringe SUB-Q 40 mg DAILY C[facility]OL Administration Glucagon 1 mg 04/03/25 07:41 Glucagon For Inj 1 Mg Vial IM PRN PRN Hypoglycemia Protocol Glucose 15 gm 04/03/25 07:41 Glucose Oral Gel 15 Gm Of Glucse In 37.5 Gm Tube PO PRN PRN Hypoglycemia Protocol Hydralazine HCl 20 mg 04/05/25 07:44 04/06/25 15:49 Hydralazine Hcl 20 Mg/Ml Vial IV PUSH 20 mg Q4H PRN Administration SBP more than 160 Dextrose 1,000 mls @ 100 mls/hr 04/03/25 07:41 Dextrose 5% 1,000 Ml IVPB PRN PRN Hypoglycemia Protocol Potassium Chloride 40 meq/ 520 mls @ 130 mls/hr 04/08/25 09:25 04/08/25 10:03 Sodium Chloride IVPB 04/08/25 13:24 130 mls/hr ONCE ONE Administration Ondansetron HCl 4 mg 04/02/25 09:36 Ondansetron Inj 4 Mg/2 Ml Vial IV PUSH Q4H PRN Nausea Pantoprazole Sodium 40 mg 04/09/25 09:00 Pantoprazole 40 Mg Tablet PO DAILY [facility] Prednisone 20 mg 04/09/25 09:00 Prednisone 20 Mg Tablet PO DAILY [facility] Prochlorperazine Maleate 5 mg 04/08/25 09:22 Prochlorperazine Maleate 5 Mg Tablet PO Q6H PRN nausea and vomiting Quetiapine Fumarate 25 mg 04/07/25 21:00 04/07/25 21:29 Quetiapine Fumarate 25 Mg Tablet PO 25 mg HS C[facility] Administration Fluticasone/Salmeterol 2 puff 04/08/25 09:35 Fluticasone/Salmeterol 115-21 Mcg Inhaler 1 Puff INHALATION Q12HRT [facility] Sodium Chloride 10 ml 04/02/25 14:00 04/08/25 04:52 Central Line Flush IV PUSH 10 ml Q8HR CARROL Administration Sodium Chloride 20 ml 04/02/25 12:54 04/03/25 05:21 Central Line Flush IV PUSH 20 ml PRN PRN Administration after blood draws Radiology Results: ITS Impressions Neck CTA 04/02/25 09:06 IMPRESSION: 1. No evident atherosclerotic plaque with 0% stenosis of the right and left carotid bulbs relative to normal distal artery lumen diameter (NASCET criteria). 2. Multinodular goiter. Could consider thyroid ultrasound for risk stratification. Chest/Abdomen/Pelvis CTA 04/02/25 09:10 Impression: No significant abnormalities seen. Abdomen Ultrasound 04/02/25 15:47 IMPRESSION: 1: Unremarkable limited abdominal ultrasound. Thyroid Ultrasound 04/02/25 15:50 IMPRESSION: 1. Limited study. Multinodular goiter. Recommend repeat thyroid ultrasound when the patient's condition permits. Chest X-Ray 04/07/25 06:42 IMPRESSION: 1. No acute cardiopulmonary disease. Labs Labs: Laboratory Results - last 24 hr 04/08/25 05:00 WBC 12.8 H RBC 4.11 L Hgb 13.9 Hct 41.7 MCV 101.5 H MCH 33.8 MCHC 33.3 RDW 13.2 Plt Count 176 MPV 11.2 H Sodium 138 Potassium 2.9 L Chloride 97 L Carbon Dioxide 36 H Anion Gap 5 BUN 31 H Creatinine 0.85 Estim Creat Clear Calc 71 Estimated GFR > 60 Glucose 97 Calcium 9.2 Phosphorus 3.5 Magnesium 2.3 Total Bilirubin 0.8 AST 37 H ALT 50 H Alkaline Phosphatase 51 Total Protein 6.2 L Albumin 3.6 Quality VTE Prophylaxis VTE prophylaxis: pharmacologic ordered Hospitalist MIPS Advance Care Plan I have confirmed that the patient's Advanced Care Plan is present, code status is documented, or surrogate decision maker is listed in patient medical record.: Yes Medication Reconciliation I have utilized all available resources to obtain, update and review the patients current medications (includes all prescriptions, OTC, herbals, cannabis, and nutritional supplements).: Yes
[2025-04-08] MEDS: predniSONE 20 MG TABLET 40 MG PO (11:51)
[2025-04-08] MEDS: PANTOPRAZOLE 40 MG TABLET PO (11:51)
[2025-04-08] MEDS: buPROPion HCL SR (12HR) 100 MG TABCR 200 MG PO (11:52)
--- NOTE | 2025-04-08 13:56 | PCRCNOTE ---
pt did not want her 1400 tx, stating that it makes her anxious
[2025-04-08 16:42] LABS: Potassium 4.5 mmol/L (3.4-5.0)
[2025-04-08] MEDS: FLUTICASONE/SALMETEROL 115-21 MCG INHALER 1 PUFF 2 PUFF INHALATION (20:10)
[2025-04-08] MEDS: QUEtiapine FUMARATE 25 MG TABLET PO (21:43)
[2025-04-09] VITALS (12 sets, daily range): BP systolic 146–150; BP diastolic 87–96; PULSE 71–106; RESP 14–20; TEMP 36.4–36.8; O2SAT 96–100
[2025-04-09] MEDS: ACETAMINOPHEN 325 MG TABLET 650 MG PO (00:42)
[2025-04-09] MEDS: ARTIFICIAL TEARS OPHTH SOLN 15 ML BOTTLE 1 DROP EACH EYE (01:34)
[2025-04-09] MEDS: IPRATROPIUM 0.5 MG/ALBUTEROL SULFATE 2.5 MG AMPUL.NEB 3 ML INHALATION ×2 (01:41→08:06)
[2025-04-09] MEDS: ALPRAZolam (*CRX) 0.5 MG TABLET PO (04:08)
[2025-04-09 06:31] LABS: Hematocrit 37.3 % (37.0-47.0); Hemoglobin 13.1 g/dL (12.0-15.0); Mean Corpuscular HGB Conc 35.1 g/dl (32-36); Mean Corpuscular Hemoglobin 34.7 pg (26-34); Mean Corpuscular Volume 98.9 fl (80-100); Mean Platelet Volume 10.8 fl (7.4-10.4); Platelet Count Result 175 k/mm3 (150-375); Red Blood Count 3.77 M/mm3 (4.2-5.4); Red Cell Distribution Width 12.8 % (11.5-14.5); White Blood Count 17.5 K/mm3 (4.5-10.0)
[2025-04-09 06:59] LABS: Alanine Aminotransferase 45 U/L (6-35); Albumin Level 3.8 g/dL (3.5-5.1); Alkaline Phosphatase 53 U/L (38-126); Anion Gap 7 mmol/L (4-12); Aspartate Amino Transferase 35 U/L (14-36); Bilirubin,Total 0.9 mg/dL (0.2-1.3); Blood Urea Nitrogen 19 mg/dL (7-17); Calcium 9.3 mg/dL (8.4-10.2); Carbon Dioxide 30 mmol/L (22-30); Chloride 101 mmol/L (98-107); Estimated CRCL calculation 82 ml/min; Estimated Glomerular Filt Rate > 60; Glucose 119 mg/dL (65-110); Potassium 3.3 mmol/L (3.4-5.0); Sodium 138 mmol/L (137-145); Total Protein 6.3 g/dL (6.3-8.2)
--- NOTE | 2025-04-09 08:11 | P.PNIM_ITS ---
Progress Note: A&P Assessment and Plan (1) Respiratory failure: Qualifiers: Chronicity: acute Respiratory failure complication: hypercapnia Qualified Code(s): J96.02 - Acute respiratory failure with hypercapnia Code(s): J96.90 - Respiratory failure, unspecified, unspecified whether with hypoxia or hypercapnia Status: Acute Assessment and Plan: Acute respiratory failure likely related to status asthmaticus which may be induced by smoking marijuana -04/04 performed a sedation holiday and evaluated patient for weaning trial but once patient was on low-dose of sedation she became tachypneic, asynchronous with the ventilator and on exam had diffuse wheezing. -04/05 sedation holiday was performed by holding propofol and fentanyl and patient was placed on PSV 03/08. After few minutes patient again became tachypneic desaturated and asynchronous with the ventilator. She had diffuse agree wheezing on exam and tachypnea. Weaning trial was aborted and patient was placed back on sedation and CMV. Lasix IV 40 mg given today -04/06 extubated after a successful weaning trial. -BiPAP p.r.n. -discontinued stated due to leukemoid reaction -continue bronchodilators -continue Pulmicort -Discontinue Precedex infusion (2) Asthma exacerbation: Code(s): J45.901 - Unspecified asthma with (acute) exacerbation Status: Acute Assessment and Plan: Patient has a history of asthma, came in with asthma exacerbation. Received Solu-Medrol, epinephrine, magnesium, continues nebs in the ED 04/02: Intubated, discussed with ER physician, patient was tripoding and was in severe respiratory distress so was intubated for airway protection Management as above 04/02:CT chest abdomen and pelvis: No evidence of mediastinal, hilar or axillary lymphadenopathy, no pulmonary embolism, no aortic aneurysm or dissection P no evidence of pleural or pericardial effusion. Lungs are clear, no pulmonary nodules or infiltrates are noted. No significant abdominal abnormalities were seen. (3) Leukocytosis: Code(s): D72.829 - Elevated white blood cell count, unspecified Status: Acute Assessment and Plan: Leukocytosis likely reactive, received 1 dose of cefepime and vancomycin -continue ceftriaxone for asthma exacerbation -continue to monitor -CRP is low (4) Multinodular goiter: Code(s): E04.2 - Nontoxic multinodular goiter Status: Acute Assessment and Plan: Patient has multinodular goiter, although not sure of the treatment details TSH levels are low but T3 and T4 adequate Records requested from [facility] Patient states that she is not on any thyroid hormone replacement therapy CTA neck: IMPRESSION: 1. No evident atherosclerotic plaque with 0% stenosis of the right and left carotid bulbs relative to normal distal artery lumen diameter (NASCET criteria). 2. Multinodular goiter. Could consider thyroid ultrasound for risk stratification. Thyroid ultrasound 1. Limited study. Multinodular goiter. Recommend repeat thyroid ultrasound when the patient's condition permits. (5) Transaminitis: Code(s): R74.01 - Elevation of levels of liver transaminase levels Status: Acute Assessment and Plan: Elevation LFTs likely related to hypovolemia, hypoxia due to asthma exacerbated Right upper quadrant ultrasound is unremarkable Levels improving Subjective Date/time seen: 04/09/25 08:11 Interval history: Patient needs physical therapy assessment for further plan. Patient needs rehab. Patient baseline able to ambulate without assistance. Discontinued steroid due to leukemoid reaction. Patient is currently saturating 96% on 3 L. Review of Systems Review of Systems: Except as documented, all other systems were reviewed and are negative. All systems reviewed & are unremarkable except as noted in HPI and below (HPI) ROS unobtainable: Yes unobtainable due to endotracheal tube, unobtainable due to medical condition and unobtainable due to mental status Exam Narrative: General: Pt is alert awake and in NAD Lungs/Chest: Trachea central Clear BS B/L, No crackles or wheezing. Cardiac: RRR. Normal S1 S2. No murmurs Circulation: Pedal pulses are intact and symmetrical. Abdomen: Normal bowel sounds.. Soft. NT. ND. Extremities: No clubbing, cyanosis or edema. Warm : Cruz in place Neurologic: Follows commands. Moves all 4 extremities PERRL AO x3 Skin: No Rash Objective Data Vital Signs Vital Signs: Vital Signs - 24 hr 04/08/25 08:30 04/08/25 08:30 04/08/25 09:14 Temperature Pulse Rate 108 H 10 L Respiratory Rate 18 Blood Pressure Pulse Oximetry 99 Oxygen Delivery Nasal Cannula Oxygen Flow Rate 2 Fraction of Inspired Oxygen 04/08/25 12:00 04/08/25 12:35 04/08/25 14:00 Temperature 99.1 F Pulse Rate 103 H 97 Respiratory Rate 20 20 Blood Pressure 145/87 H Pulse Oximetry 99 99 Oxygen Delivery Nasal Cannula Oxygen Flow Rate 2 Fraction of Inspired Oxygen 04/08/25 16:00 04/08/25 16:00 04/08/25 16:00 Temperature 98.2 F Pulse Rate 96 96 Respiratory Rate 12 Blood Pressure 143/81 H Pulse Oximetry 100 95 Oxygen Delivery Nasal Cannula Oxygen Flow Rate 2 Fraction of Inspired Oxygen 04/08/25 18:00 04/08/25 19:53 04/08/25 20:00 Temperature 97.9 F Pulse Rate 104 H 94 Respiratory Rate 20 Blood Pressure 146/91 H Pulse Oximetry 98 96 Oxygen Delivery Nasal Cannula Oxygen Flow Rate 2 Fraction of Inspired Oxygen 04/08/25 20:00 04/08/25 20:10 04/08/25 20:25 Temperature Pulse Rate 96 95 95 Respiratory Rate 18 18 Blood Pressure Pulse Oximetry Oxygen Delivery Oxygen Flow Rate Fraction of Inspired Oxygen 04/08/25 20:38 04/08/25 22:00 04/09/25 00:00 Temperature Pulse Rate 95 Respiratory Rate 18 Blood Pressure Pulse Oximetry 98 97 Oxygen Delivery Nasal Cannula Nasal Cannula Oxygen Flow Rate 3 2 Fraction of Inspired Oxygen 04/09/25 00:00 04/09/25 00:00 04/09/25 01:41 Temperature 98.0 F Pulse Rate 96 96 93 Respiratory Rate 17 18 Blood Pressure 146/96 H Pulse Oximetry 100 Oxygen Delivery Oxygen Flow Rate Fraction of Inspired Oxygen 04/09/25 01:52 04/09/25 02:00 04/09/25 04:00 Temperature Pulse Rate 93 104 H Respiratory Rate 18 Blood Pressure Pulse Oximetry 98 Oxygen Delivery Nasal Cannula Oxygen Flow Rate 2 Fraction of Inspired Oxygen 04/09/25 04:00 04/09/25 04:00 04/09/25 06:00 Temperature 97.6 F Pulse Rate 71 104 H 99 Respiratory Rate 18 Blood Pressure 149/87 H Pulse Oximetry 97 Oxygen Delivery Oxygen Flow Rate Fraction of Inspired Oxygen 04/09/25 07:56 04/09/25 08:06 04/09/25 08:06 Temperature 98.3 F Pulse Rate 95 97 Respiratory Rate 14 20 Blood Pressure 150/94 H Pulse Oximetry 98 96 Oxygen Delivery High Flow Nasal Cannula Oxygen Flow Rate 3 Fraction of Inspired Oxygen 32 Intake/Output Intake/Output: Intake & Output 04/06/25 04/07/25 04/08/25 04/09/25 23:59 23:59 23:59 23:59 Intake Total 1523.6 1930.0 1090 300 Output Total 3325 3100 1100 1350 Balance -1801.4 -1170.0 -10 -1050 Meds/Results Medications: Active Medications Generic Name Dose Route Start Last Admin Trade Name Freq PRN Reason Stop Dose Admin Acetaminophen 650 mg 04/09/25 00:13 04/09/25 00:42 Acetaminophen 325 Mg Tablet PO 650 mg Q6H PRN Administration Mild Pain (1-3) or Fever Albuterol/Ipratropium 3 ml 04/02/25 14:00 04/09/25 08:06 Ipratropium 0.5 Mg/Albuterol Sulfate 2.5 Mg Ampul.Neb 3 Ml INHALATION 3 ml Q6HRT CARROL Administration Alprazolam 0.5 mg 04/07/25 12:58 04/09/25 04:08 Alprazolam (*Crx) 0.5 Mg Tablet PO 0.5 mg TID PRN Administration Anxiety Artificial Tears 1 drop 04/09/25 01:24 04/09/25 01:34 Artificial Tears Ophth Soln 15 Ml Bottle EACH EYE 1 drop QID PRN Administration Dry Eye(s) Bupropion HCl 200 mg 04/08/25 11:00 04/08/25 11:52 Bupropion Hcl Sr (12hr) 100 Mg Tabcr PO 200 mg DAILY [facility] Administration Dextrose 12.5 gm 04/03/25 07:41 Dextrose 50% 25 Gm/50 Ml Syringe IV PUSH PRN PRN Hypoglycemia Protocol Enoxaparin Sodium 40 mg 04/02/25 13:40 04/08/25 08:28 Enoxaparin 40 Mg/0.4 Ml Syringe SUB-Q 40 mg DAILY [facility] Administration Glucagon 1 mg 04/03/25 07:41 Glucagon For Inj 1 Mg Vial IM PRN PRN Hypoglycemia Protocol Glucose 15 gm 04/03/25 07:41 Glucose Oral Gel 15 Gm Of Glucse In 37.5 Gm Tube PO PRN PRN Hypoglycemia Protocol Hydralazine HCl 20 mg 04/05/25 07:44 04/06/25 15:49 Hydralazine Hcl 20 Mg/Ml Vial IV PUSH 20 mg Q4H PRN Administration SBP more than 160 Dextrose 1,000 mls @ 100 mls/hr 04/03/25 07:41 Dextrose 5% 1,000 Ml IVPB PRN PRN Hypoglycemia Protocol Ondansetron HCl 4 mg 04/02/25 09:36 Ondansetron Inj 4 Mg/2 Ml Vial IV PUSH Q4H PRN Nausea Pantoprazole Sodium 40 mg 04/08/25 11:00 04/08/25 11:51 Pantoprazole 40 Mg Tablet PO 40 mg DAILY [facility] Administration Prednisone 40 mg 04/08/25 08:00 04/08/25 11:51 Prednisone 20 Mg Tablet PO 04/10/25 08:01 40 mg DAILY@0800 C[facility] Administration Prednisone 30 mg 04/11/25 08:00 Prednisone 10 Mg Tablet PO 04/13/25 08:01 DAILY@0800 [facility] Prednisone 20 mg 04/14/25 08:00 Prednisone 20 Mg Tablet PO 04/16/25 08:01 DAILY@0800 [facility] Prednisone 10 mg 04/17/25 08:00 Prednisone 10 Mg Tablet PO 04/19/25 08:01 DAILY@0800 [facility] Prochlorperazine Maleate 5 mg 04/08/25 09:22 Prochlorperazine Maleate 5 Mg Tablet PO Q6H PRN nausea and vomiting Quetiapine Fumarate 25 mg 04/07/25 21:00 04/08/25 21:43 Quetiapine Fumarate 25 Mg Tablet PO 25 mg HS C[facility]OL Administration Fluticasone/Salmeterol 2 puff 04/08/25 09:35 04/08/25 20:10 Fluticasone/Salmeterol 115-21 Mcg Inhaler 1 Puff INHALATION 2 puff Q12HRT CARROL Administration Sodium Chloride 10 ml 04/02/25 14:00 04/08/25 21:44 Central Line Flush IV PUSH 10 ml Q8HR CARROL Administration Sodium Chloride 20 ml 04/02/25 12:54 04/03/25 05:21 Central Line Flush IV PUSH 20 ml PRN PRN Administration after blood draws Radiology Results: ITS Impressions Neck CTA 04/02/25 09:06 IMPRESSION: 1. No evident atherosclerotic plaque with 0% stenosis of the right and left car otid bulbs relative to normal distal artery lumen diameter (NASCET criteria). 2. Multinodular goiter. Could consider thyroid ultrasound for risk stratification. Chest/Abdomen/Pelvis CTA 04/02/25 09:10 Impression: No significant abnormalities seen. Abdomen Ultrasound 04/02/25 15:47 IMPRESSION: 1: Unremarkable limited abdominal ultrasound. Thyroid Ultrasound 04/02/25 15:50 IMPRESSION: 1. Limited study. Multinodular goiter. Recommend repeat thyroid ultrasound when the patient's condition permits. Chest X-Ray 04/07/25 06:42 IMPRESSION: 1. No acute cardiopulmonary disease. Labs Labs: Laboratory Results - last 24 hr 04/08/25 04/09/25 04/09/25 16:25 06:22 06:23 WBC 17.5 H RBC 3.77 L Hgb 13.1 Hct 37.3 MCV 98.9 MCH 34.7 H MCHC 35.1 RDW 12.8 Plt Count 175 MPV 10.8 H Sodium 138 Potassium 4.5 3.3 L Chloride 101 Carbon Dioxide 30 Anion Gap 7 BUN 19 H D Creatinine 0.73 Estim Creat Clear Calc 82 Estimated GFR > 60 Glucose 119 H Calcium 9.3 Total Bilirubin 0.9 AST 35 ALT 45 H Alkaline Phosphatase 53 Total Protein 6.3 Albumin 3.8 Hospitalist [facility] Advance Care Plan I have confirmed that the patient's Advanced Care Plan is present, code status is documented, or surrogate decision maker is listed in patient medical record.: Yes Medication Reconciliation I have utilized all available resources to obtain, update and review the patients current medications (includes all prescriptions, OTC, herbals, cannabis, and nutritional supplements).: Yes
[2025-04-09] MEDS: FLUTICASONE/SALMETEROL 115-21 MCG INHALER 1 PUFF 2 PUFF INHALATION (08:13)
[2025-04-09] MEDS: ENOXAPARIN 40 MG/0.4 ML SYRINGE SUB-Q (09:32)
[2025-04-09] MEDS: CENTRAL LINE FLUSH 10 ML IV PUSH (09:32)
[2025-04-09] MEDS: PANTOPRAZOLE 40 MG TABLET PO (09:32)
[2025-04-09] MEDS: buPROPion HCL SR (12HR) 100 MG TABCR 200 MG PO (09:33)
--- NOTE | 2025-04-09 11:17 | PM.DS ---
DS: Admitting Diagnosis Discharge Date 04/09/2025 Admitting Diagnosis Shortness of breath DS: Discharge Diagnosis Discharge Diagnosis (1) Respiratory failure: Qualifiers: Chronicity: acute Respiratory failure complication: hypercapnia Qualified Code(s): J96.02 - Acute respiratory failure with hypercapnia Code(s): J96.90 - Respiratory failure, unspecified, unspecified whether with hypoxia or hypercapnia Status: Acute Assessment and Plan: Acute respiratory failure likely related to status asthmaticus which may be induced by smoking marijuana -04/04 performed a sedation holiday and evaluated patient for weaning trial but once patient was on low-dose of sedation she became tachypneic, asynchronous with the ventilator and on exam had diffuse wheezing. -04/05 sedation holiday was performed by holding propofol and fentanyl and patient was placed on PSV 03/08. After few minutes patient again became tachypneic desaturated and asynchronous with the ventilator. She had diffuse agree wheezing on exam and tachypnea. Weaning trial was aborted and patient was placed back on sedation and CMV. Lasix IV 40 mg given today -04/06 extubated after a successful weaning trial. -BiPAP p.r.n. -discontinued stated due to leukemoid reaction -continue bronchodilators -continue Pulmicort -Discontinue Precedex infusion (2) Asthma exacerbation: Code(s): J45.901 - Unspecified asthma with (acute) exacerbation Status: Acute Assessment and Plan: Patient has a history of asthma, came in with asthma exacerbation. Received Solu-Medrol, epinephrine, magnesium, continues nebs in the ED 04/02: Intubated, discussed with ER physician, patient was tripoding and was in severe respiratory distress so was intubated for airway protection Management as above 04/02:CT chest abdomen and pelvis: No evidence of mediastinal, hilar or axillary lymphadenopathy, no pulmonary embolism, no aortic aneurysm or dissection P no evidence of pleural or pericardial effusion. Lungs are clear, no pulmonary nodules or infiltrates are noted. No significant abdominal abnormalities were seen. (3) Leukocytosis: Code(s): D72.829 - Elevated white blood cell count, unspecified Status: Acute Assessment and Plan: Leukocytosis likely reactive, received 1 dose of cefepime and vancomycin -continue ceftriaxone for asthma exacerbation -continue to monitor -CRP is low (4) Multinodular goiter: Code(s): E04.2 - Nontoxic multinodular goiter Status: Acute Assessment and Plan: Patient has multinodular goiter, although not sure of the treatment details TSH levels are low but T3 and T4 adequate Records requested from [facility] Patient states that she is not on any thyroid hormone replacement therapy CTA neck: IMPRESSION: 1. No evident atherosclerotic plaque with 0% stenosis of the right and left carotid bulbs relative to normal distal artery lumen diameter (NASCET criteria). 2. Multinodular goiter. Could consider thyroid ultrasound for risk stratification. Thyroid ultrasound 1. Limited study. Multinodular goiter. Recommend repeat thyroid ultrasound when the patient's condition permits. (5) Transaminitis: Code(s): R74.01 - Elevation of levels of liver transaminase levels Status: Acute Assessment and Plan: Elevation LFTs likely related to hypovolemia, hypoxia due to asthma exacerbated Right upper quadrant ultrasound is unremarkable Levels improving DS: Summary Hospital Course Hospital Course: Maggie Correa is a 59 year old female with past medical history of asthma, hyperlipidemia, depression, non-Hodgkin's lymphoma presented the ED on 04/02/2024 with complains of shortness of breath, respiratory distress, has been using her inhalers through in a on the day without any relief on 04/01 and 04/02. 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 No previous history of BiPAP or intubation. Patient in the ER stated that she could not catch her breath and throw this closing. In the ED patient's blood pressures were in the 200, nitro paste was ordered. Initial VBG showed hypoxic and hypercapnic respiratory failure. WBC count 23.9, hemoglobin of 14.9, platelets 287. Post intubation ABG showed a pH of 7.22, pCO2 of 63, PO2 of 75 on peep of 5 and 50% FiO2. Electrolytes were within normal limits lactic acid was 1.6, mild elevation in her AST and ALT, total bilirubin was normal, troponin levels was <0.012, CRP was 1.1. ProBNP 567, TSH of 0.079. Creatinine was 0.68. UA was not reflective of UTI. Urine drug screen was positive for opiates, benzos and cannabinoids (patient did receive morphine and diazepam in the ER) 04/02:CT chest abdomen and pelvis: No evidence of mediastinal, hilar or axillary lymphadenopathy, no pulmonary embolism, no aortic aneurysm or dissection P no evidence of pleural or pericardial effusion. Lungs are clear, no pulmonary nodules or infiltrates are noted. No significant abdominal abnormalities were seen. Patient was intubated in the ER, started on Versed infusion, discussed with the ER physician and since her blood pressures were elevated I requested her to start propofol. Patient seen and examined upon arrival to the ICU, remains intubated, on CMV mode of ventilation, peep of 5, 40% FiO2. Versed and propofol infusions. Cruz catheter with clear urine. Hemodynamically stable, adequate O2 sats. Patient is afebrile. Patient does not open eyes or follow simple command Patient was transferred to floor on 0 6/0 8. Patient was admitted in the setting of asthma exacerbation due to marijuana use. Currently patient is saturating 99% on room air. Discussed with Case Management and Physical therapy who recommend home health. Patient wants to be discharged today. Advised patient to quit marijuana and follow-up with the pulmonology within a week upon discharge and continue the same medication. Patient's steroid has been discontinued due to look a med reaction. In regards to multinodular goiter advised to follow-up with endocrinology and [facility] and repeat TSH in 4-6 weeks. On the day of discharge, the patient was seen and examined. Vital signs were stable. Physical exam were stable and labs were reviewed at length. Discharge instructions, medications, and follow-up appointments were discussed with the patient at length and all day questions were answered. ER warnings were given. Status at Discharge Cognitive/behavioral status at discharge: Stable Time Spent with Patient Time attestation: Total time spent providing and/or coordinating discharge services: 45 minutes Exam Narrative: General: Pt is alert awake and in NAD Lungs/Chest: Trachea central Clear BS B/L, No crackles or wheezing. Cardiac: RRR. Normal S1 S2. No murmurs Circulation: Pedal pulses are intact and symmetrical. Abdomen: Normal bowel sounds.. Soft. NT. ND. Extremities: No clubbing, cyanosis or edema. Warm : Cruz in place Neurologic: Follows commands. Moves all 4 extremities PERRL AO x3 Skin: No Rash DS: Data Data Completed and Pending Labs on day of discharge: Labs from last 24 hours 04/09/25 04/09/25 04/08/25 06:23 06:22 16:25 WBC 17.5 H RBC 3.77 L Hgb 13.1 Hct 37.3 MCV 98.9 MCH 34.7 H MCHC 35.1 RDW 12.8 Plt Count 175 MPV 10.8 H Sodium 138 Potassium 3.3 L 4.5 Chloride 101 Carbon Dioxide 30 Anion Gap 7 BUN 19 H D Creatinine 0.73 Estim Creat Clear Calc 82 Estimated GFR > 60 Glucose 119 H Calcium 9.3 Total Bilirubin 0.9 AST 35 ALT 45 H Alkaline Phosphatase 53 Total Protein 6.3 Albumin 3.8 Discharge Plan Discharge Attending physician on discharge: Cristopher Bernard Consulting providers: Rivera Azar; Danny Kohler Discharging Clinician: Cristopher Bernard Anticipated Discharge Date/Time: 04/09/25 11:20 Patient Disposition: Home Activity: as tolerated Diet: regular Discharge Instructions: Please closely follow-up with the hospital educator and PCP in a week upon discharge Advised to quit smoking marijuana In case of shortness of breath please seek immediate medical care Advised to monitor O2 saturation regularly In regards to multinodular goiter advised to follow-up with endocrinology and [facility] and repeat TSH in 4-6 weeks. Patient Instructions: Antibiotic Form, Cruz Catheter Placement and Care (DC) Patient Language: Thai Stand Alone Forms: General Discharge Information Follow-up/Referrals: PHYSICIAN,MEDICAL FACILITIES SECTION DIRECTOR [Primary Care Provider] - Rivera Azar MD [Physician] - Discharge Medications: Continued dextroamphetamine-amphetamine 10 mg tablet 20 mg PO DAILY Rx Instructions: 2 tablets in morning and 1 tablet in afternoon albuterol sulfate 90 mcg/actuation HFA aerosol inhaler 2 puff INHALATION Q4H PRN (Reason: shortness of breath or wheezing) bupropion HCl 200 mg tablet sustained-release 12 hr 200 mg PO DAILY budesonide-formoterol 160-4.5 mcg/actuation HFA aerosol inhaler 2 puff INHALATION Q12H ipratropium-albuterol 0.5 mg-3 mg(2.5 mg base)/3 mL solution for nebulization 3 ml INHALATION Q6H PRN (Reason: shortness of breath or wheezing) acetaminophen 500 mg tablet 500 mg PO Q6H PRN (Reason: pain) Rx Instructions: Take 1-2 tablets as needed Q6H for pain. (Do not exceed 6 tablets per day). pantoprazole 40 mg tablet,delayed release (DR/EC) 40 mg PO DAILY famotidine 40 mg tablet 40 mg PO HS buspirone 5 mg tablet 5 mg PO TID prochlorperazine maleate [Compazine] 5 mg tablet 5 mg PO Q6H PRN (Reason: nausea and vomiting) fluticasone propionate 50 mcg/actuation spray,suspension 2 spray INTRANASAL DAILY Rx Instructions: Administer 2 Sprays into each nostril daily. aspirin [Enteric Coated Aspirin] 81 mg tablet,delayed release (DR/EC) 81 mg PO DAILY Discontinued prednisone 20 mg tablet 20 mg PO DAILY Rx Instructions: for 15 days; started 04/01/2025, Take 4 tablets (80 mg) by mouth daily 4 POxQDx3 days, then 3 PO Q3D, then 2 PO QD x 3D, then 1 PO QD x3D, then 1/2 PO QD x3D, then stop medication. Other Ambulatory Orders: Thyroid Stimulating Hormone Reflex (Routine) Timeframe: 1 Month Location: Determined by Patient Ordered By: Cristopher Bernard Date of admission: 04/02/25 09:16 Primary Care Provider: PHYSICIAN,MEDICAL FACILITIES SECTION DIRECTOR Admitting Provider: Aman Garcia Attending physician on admission: Aman Garcia Condition: Stable
--- NOTE | 2025-04-09 13:23 | PC.NURSE ---
IV removed, discharge instructions and education reviewed with the patient. Patient discharged with daughter to personal vehicle.
== END 2025-04-09 13:13 | disposition home health service (06) | DRG 207 ==
LOC: ANHED 09:12 → ANHICU 14:57 → ANHIMU 04-07 23:53 → ANHICU 04-10 09:54 → ANHIMU 04-10 09:54
PROVIDERS: Internal Medicine; Admitting Provider Internal Medicine; Emergency Provider Student in an Organized Health Care Education/Training Program; PCP Family Medicine; Visit Provider General Practice
DX: J45.901 Unspecified asthma with (acute) exacerbation (principal); J96.02 Acute respiratory failure with hypercapnia; J45.902 Unspecified asthma with status asthmaticus; E04.2 Nontoxic multinodular goiter; D72.828 Other elevated white blood cell count; E78.5 Hyperlipidemia, unspecified; F12.90 Cannabis use, unspecified, uncomplicated; Z90.710 Acquired absence of both cervix and uterus; Z85.72 Personal history of non-Hodgkin lymphomas
CPT/HCPCS: 31500; 36415; 36600; 70498; 71045; 71275; 74177; 76536; 76705; 80053; 80074; 80307; 81001; 82375; 82805; 82948; 83050; 83605; 83735; 83880; 84100; 84132; 84439; 84443; 84480; 84484; 85018; 85025; 85027; 85380; 85610; 85730; 86140; 87040; 87637; 87641; 93005; 94002; 94003; 94640; 96361; 96374; 96375; 97116; 97162; 97165; 97530; 99291; A9270; C1751; J0360; J0692; J0696; J1650; J1938; J2060; J2250; J2270; J2470; J2704; J2919; J3010; J3360; J3370; J3480; J7030; J7040; J7120; J7512; P9047; Q9967